=== PATIENT | male | born 1950 ===

== ENCOUNTER 2018-10-13 08:22 | Day surgery (SDC) | payer MEDICARE, MEDICAID ==
[2016-10-19 12:20] VITALS: BMI 24.2
[2018-10-13 09:11] VITALS: BP 120/56; PULSE 80; RESP 17; TEMP 97.1; O2SAT 100
--- NOTE | 2018-10-14 23:58 | CARD ---
APPROVED REPORT Date of service: 10/13/2018 EKG Measurement Heart [id number] <Conclusion> Normal sinus rhythm Normal ECG
== END 2018-10-13 12:45 | disposition home or self-care (01) ==
LOC: C.ENDO 08:22
PROVIDERS: ATTEND Internal Medicine Gastroenterology
DX: Z12.11 Encounter for screening for malignant neoplasm of colon (principal); Z53.8 Procedure and treatment not carried out for other reasons
CPT/HCPCS: 82948; G0121

== ENCOUNTER 2018-12-18 10:58 | Inpatient (IN) | payer MEDICARE, MEDICAID ==
[2018-12-18 10:58] VITALS: BMI 24.2
--- NOTE | 2018-12-18 11:34 | C.PDOC ---
History Of Present Illness 68 years old male with PMHx of CABG and CKD presents to ED for admission, referred by . Patient has right toe non-healing ulcer since 3 months ago, diagnosed as PVD. Patient is pending procedure and needs cardiac cath prior to vascular intervention. Denies chest pain, shortness of breath, nausea, vomiting, or dizziness. REFERRED BY DR FORRESTER FOR ADMISSION. R TOE NONHEALING ULCER X 3 MO, DX PVD PENDING PROCEDURE AND NEEDS CARDIAC CATH PRIOR TO VASC INTERVENTION. NO CP, SOB, NV, DIZZY. HO CABG, CKD. EXAM NEG Time Seen by Provider: 12/18/18 11:21 Chief Complaint (Nursing): Medical Clearance History Per: Patient History/Exam Limitations: no limitations Onset/Duration Of Symptoms: Hrs Current Symptoms Are (Timing): Still Present Recent travel outside of the [place]: No Past Medical History Reviewed: Historical Data, Nursing Documentation, Vital Signs Vital Signs: Last Vital Signs Temp 97.9 F 12/18/18 11:05 Pulse 82 12/18/18 11:05 Resp 18 12/18/18 11:05 BP 116/64 12/18/18 11:05 Pulse Ox 99 12/18/18 11:05 - Medical History PMH: Anemia, Diabetes, HTN, Hypercholesterolemia, Peripheral Edema Denies: Chronic Kidney Disease - [facility] Procedures ANGIOPLASTY OF OTHER NON-CORONARY VESSEL(S) (11/15/13) CONTRAST AORTOGRAM (11/15/13) CONTRAST ARTERIOGRAM-LEG (11/15/13) CONTRAST RENAL ARTERIOGR (11/15/13) INSEJ [id number] PERIPHERAL NON-CORONARY VES STENT(S) (05/30/13) INSERT INT PENILE PROSTH (09/12/13) INSERTION OF INFUSION DEV INTO SUP VENA CAVA, PERC APPROACH (09/12/16) INSERTION OF ONE VASCULAR STENT (05/30/13) PLAIN RADIOGRAPHY OF AORTA, BI LE ART USING OTH CONTRAST (09/04/16) PROCEDURE ON SINGLE VESSEL (11/15/13) Family History: States: Unknown Family Hx - Social History Hx Alcohol Use: No Hx Substance Use: No - Immunization History Hx Tetanus Toxoid Vaccination: Yes Hx Influenza Vaccination: Yes Hx Pneumococcal Vaccination: Yes Review Of Systems Except As Marked, All Systems Reviewed And Found Negative. Constitutional: Negative for: Fever, Chills Cardiovascular: Negative for: Chest Pain Respiratory: Negative for: Shortness of Breath Gastrointestinal: Negative for: Nausea, Vomiting Neurological: Negative for: Dizziness Physical Exam - Physical Exam Appears: Non-toxic, No Acute Distress Skin: Normal Color, Warm, Dry, No Rash Head: Atraumatic, Normacephalic Eye(s): bilateral: Normal Inspection, PERRL, EOMI Oral Mucosa: Moist Neck: Normal ROM, Supple Chest: Symmetrical, No Tenderness Cardiovascular: Rhythm Regular, No Murmur Respiratory: Normal Breath Sounds, No Rales, No Rhonchi, No Wheezing Gastrointestinal/Abdominal: Soft, No Tenderness Extremity: Normal ROM Extremity: Bilateral: Atraumatic, Normal Color And Temperature, Normal ROM Pulses: Left Radial: Normal, Right Radial: Normal Neurological/Psych: Oriented x3, Normal Speech Gait: Steady ED Course And Treatment - Laboratory Results Result Diagrams: 12/18/18 12:20 12/18/18 12:20 ECG: Interpreted By Me ECG Rhythm: Sinus Rhythm ECG Interpretation: Normal Rate From EC O2 Sat by Pulse Oximetry: 99 (RA) Pulse Ox Interpretation: Normal - Other Rad CXR X-Ray: Viewed By Me, Read By Radiologist Interpretation: Date of service: 12/18/2018. HISTORY: Pre Op. COMPARISON: Portable chest 09/04/2016. TECHNIQUE: Chest PA and lateral. FINDINGS: LUNGS: No active pulmonary disease. PLEURA: No significant pleural effusion identified. No pneumothorax apparent. CARDIOVASCULAR: No aortic atherosc lerotic calcification present. Stable mild cardiomegaly. Post CABG changes reiterated. No pulmonary vascular congestion. OSSEOUS STRUCTURES: No significant abnormalities. VISUALIZED UPPER ABDOMEN: Normal. OTHER FINDINGS: None. IMPRESSION: No interval acute cardiopulmonary disease appreciated. - Physician Consult Information Time Consulting Physician Contacted: :33 Physician Contacted: Yin Latif Medical Decision Making Medical Decision Making: Plan: * Blood bank * EKG * Blood work * CXR * Urinalysis Disposition Counseled Patient/Family Regarding: Studies Performed, Diagnosis - Disposition Disposition: HOSPITALIZED Disposition Time: :33 Condition: STABLE - POA Present On Arrival: Poor Glycemic Control, Pressure Ulcer - Clinical Impression Clinical Impression: Toe ulcer - Scribe Statement The provider has reviewed the documentation as recorded by the Galinaibe Юлия Cifuentes All medical record entries made by the Galinaibtasha were at my direction and personally dictated by me. I have reviewed the chart and agree that the record accurately reflects my personal performance of the history, physical exam, medical decision making, and the department course for this patient. I have also personally directed, reviewed, and agree with the discharge instructions and disposition.
[2018-12-18 12:26] LABS: BASO # 0.1 K/uL (0.0-0.2); BASO % 1.1 % (0.0-2.0); EOS # 0.4 K/uL (0.0-0.7); EOS % 7.4 % (0.0-4.0); HEMOGLOBIN 10.9 g/dL (12.0-18.0); LYMPH # 1.2 K/uL (1.0-4.3); LYMPH % 24.3 % (20.0-40.0); MEAN CELL VOLUME 81.1 fL (80.0-94.0); MEAN CORPUSCULAR HEMOGLOBIN 25.9 pg (27.0-31.0); MEAN PLATELET VOLUME 12.9 fL (7.2-11.7); MONO # 0.6 K/uL (0.0-0.8); MONO % 12.1 % (0.0-10.0); NEUT # 2.6 K/uL (1.8-7.0); NEUT % 55.1 % (50.0-75.0); RBC 4.18 Mil/uL (4.40-5.90); RED CELL DISTRIBUTION WIDTH 15.9 % (11.5-14.5); WHITE BLOOD COUNT 4.8 K/uL (4.8-10.8)
[2018-12-18 12:34] LABS: PROTHROMBIN TIME 10.9 SECONDS (9.7-12.2)
[2018-12-18 12:42] LABS: ALB/GLOB RATIO 1.2 (1.0-2.1); ALBUMIN 4.2 g/dL (3.5-5.0); AST/SGOT 17 U/L (17-59); BLOOD UREA NITROGEN 27 mg/dL (9-20); CALCIUM 8.6 mg/dl (8.6-10.4); GFR NON-AFRICAN AMERICAN 55
[2018-12-18 12:47] LABS: ALT/SGPT < 6 U/L (21-72)
--- NOTE | 2018-12-18 15:54 | CP.PCM.HP ---
History of Present Illness - History of Present Illness History of Present Illness: Chief complaint: Abnormal stress test, right leg ulcer History present illness: 65-year-old male with history of diabetes hypertension and hypercholesteremia peripheral vascular disease, right leg ischemia, status post intervention . Patient had a hospitalization in the past with the right leg ulcer. He came to see Dr. Perez office 3 days ago at that time patient had abnormal stress test, and I advised her to go to the emergency room for abnormal stress test and ongoing chest discomfort. He was also complaining of right leg ulcer which was which was having some minimal discharge. Patient denies any fever. He denies any nausea vomiting. Denies any shortness of breath. Making urine. But having increasing weakness and tiredness and fatigability noted Past medical history: Hypertension diabetes hypercholesteremia peripheral vascular disease right leg ischemia. Status post intervention. Allergy: No known drug allergy except to ciprofloxacin. 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 Currently nondrinker. Review of system noted from the chart. Complaining of no pain in the legs. Patient is able to walk On examination: Vital signs reviewed in Chest bilateral good air entry. Regular heart sound nontender abdomen and [employer] alert awake oriented 3 no functional neurological deficit. Patient has a palpable dopplerable pulses on the right lower extremity including dorsalis pedis and posterior tibial now. Patient is having significant changes in the great toe skin discoloration especially on the lateral aspect dark discoloration noted, no tenderness Abnormal stress test Labs otherwise nonspecific. Assessment/condition: 65-year-old male with history of peripheral vascular disease of hypertension diabetes hypercholesteremia CAD, status post a coronary it to bypass grafting. Recently patient underwent angiogram, vessels are patent. Patient had a peripheral vascular disease, status post intervention. Now having nonhealing ulcer involving the right great toe. Also peripheral vascular disease with underlying worsening arterial disease. Abnormal stress test. Patient will be monitored closely. Cardiology evaluation. Possible angiogram. IV fluid. Podiatry evaluation. May need vascular surgical evaluation and will follow the patient Present on Admission - Present on Admission Any Indicators Present on Admission: No History of DVT/PE: No History of Uncontrolled Diabetes: No Urinary Catheter: No Decubitus Ulcer Present: No Past Patient History - Past Medical History & Family History Past Medical History?: Yes - Past Social History Smoking Status: Former Smoker - CARDIAC Hx Hypercholesterolemia: Yes Hx Hypertension: Yes Hx Peripheral Edema: Yes - PULMONARY Hx Respiratory Disorders: No - NEUROLOGICAL Hx Neurological Disorder: Yes Hx Dizziness: Yes - HEENT Hx HEENT Problems: Yes Hx Cataracts: Yes (BILATERAL CATARACT EXTRACTION 2011) - RENAL Hx Chronic Kidney Disease: No - ENDOCRINE/METABOLIC Hx Endocrine Disorders: Yes Hx Diabetes Mellitus Type 2: Yes - HEMATOLOGICAL/ONCOLOGICAL Hx Anemia: Yes - INTEGUMENTARY Hx Dermatological Problems: Yes (ulcers right great toe) - MUSCULOSKELETAL/RHEUMATOLOGICAL Hx Musculoskeletal Disorders: Yes Hx Back Pain: Yes Hx Falls: No Hx Herniated Disk: Yes (lumbar cervical thoraic) - GASTROINTESTINAL Hx Gastrointestinal Disorders: No Other/Comment: abd hernias per pt - GENITOURINARY/GYNECOLOGICAL Hx Genitourinary Disorders: Yes Hx Prostate Problems: Yes - PSYCHIATRIC Hx Substance Use: No - SURGICAL HISTORY Hx Surgeries: Yes Hx Cataract Extraction: Yes (BILATERAL 2011) Hx Femoral-Popliteal Bypass Graft: Yes (LEFT LEG 2009) Hx Open Heart Surgery: Yes (6 years ago valve replacements) Other/Comment: Open heart surgery 6 yrs ago, OSTEOMYELITIS RIGHT TOE - ANESTHESIA Hx Anesthesia: Yes Hx Anesthesia Reactions: No Hx Malignant Hyperthermia: No Meds Allergies/Adverse Reactions: Allergies Allergy/AdvReac Type Severity Reaction Status Date / Time ciprofloxacin Allergy Severe Verified 09/12/16 07:26 Results - Vital Signs Recent Vital Signs: Last Vital Signs Temp 97.4 F L 12/18/18 13:45 Pulse 85 12/18/18 13:45 Resp 18 12/18/18 13:45 BP 126/64 12/18/18 13:45 Pulse Ox 96 12/18/18 13:45 - Labs Result Diagrams: 12/18/18 12:20 12/19/18 06:43 Labs: Laboratory Results - last 24 hr 12/18/18 12/18/18 12/18/18 12:20 12:20 12:20 WBC 4.8 RBC 4.18 L Hgb 10.9 L Hct 33.9 L MCV 81.1 MCH 25.9 L MCHC 32.0 L RDW 15.9 H Plt Count 135 MPV 12.9 H Neut % (Auto) 55.1 Lymph % (Auto) 24.3 [place] % (Auto) 12.1 H Eos % (Auto) 7.4 H Baso % (Auto) 1.1 Neut # (Auto) 2.6 Lymph # (Auto) 1.2 [place] # (Auto) 0.6 Eos # (Auto) 0.4 Baso # (Auto) 0.1 PT 10.9 INR 1.0 APTT 29 Sodium 137 Potassium 4.7 Chloride 104 Carbon Dioxide 24 Anion Gap 13 BUN 27 H Creatinine 1.3 Est GFR ( Amer) > 60 Est GFR (Non-Af Amer) 55 POC Glucose (mg/dL) Random Glucose 153 H D Calcium 8.6 Total Bilirubin 0.4 AST 17 ALT < 6 L D Alkaline Phosphatase 72 Total Protein 7.5 Albumin 4.2 Globulin 3.4 Albumin/Globulin Ratio 1.2 Blood Type Antibody Screen 12/18/18 12/18/18 12:20 14:39 WBC RBC Hgb Hct MCV MCH MCHC RDW Plt Count MPV Neut % (Auto) Lymph % (Auto) [place] % (Auto) Eos % (Auto) Baso % (Auto) Neut # (Auto) Lymph # (Auto) [place] # (Auto) Eos # (Auto) Baso # (Auto) PT INR APTT Sodium Potassium Chloride Carbon Dioxide Anion Gap BUN Creatinine Est GFR ( Amer) Est GFR (Non-Af Amer) POC Glucose (mg/dL) 128 H Random Glucose Calcium Total Bilirubin AST ALT Alkaline Phosphatase Total Protein Albumin Globulin Albumin/Globulin Ratio Blood Type O POSITIVE Antibody Screen Negative
--- NOTE | 2018-12-18 16:36 | RAD ---
Date of service: 12/18/2018 HISTORY: Pre Op COMPARISON: Portable chest 09/04/2016. TECHNIQUE: Chest PA and lateral FINDINGS: LUNGS: No active pulmonary disease. PLEURA: No significant pleural effusion identified. No pneumothorax apparent. CARDIOVASCULAR: No aortic atherosclerotic calcification present. Stable mild cardiomegaly. Post CABG changes reiterated. No pulmonary vascular congestion. OSSEOUS STRUCTURES: No significant abnormalities. VISUALIZED UPPER ABDOMEN: Normal. OTHER FINDINGS: None. IMPRESSION: No interval acute cardiopulmonary disease appreciated.
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
[2018-12-18] MEDS ORDERED: Cilostazol 50 mg Tab UD PO SCH (18:00)
[2018-12-18] MEDS: Sodium Chloride 0.9% 1,000 ML IV SCH (19:59)
[2018-12-18] MEDS: Cilostazol 100 mg Tab UD PO SCH (21:38)
[2018-12-18 23:41] LABS: URINE BILIRUBIN NEGATIVE (NEGATIVE); URINE BLOOD NEGATIVE (NEGATIVE); URINE CLARITY Clear (Clear); URINE COLOR Colorless (YELLOW); URINE GLUCOSE (UA) NORMAL (Normal); URINE LEUKOCYTE ESTERASE NEG Leu/uL (Negative); URINE PROTEIN NEGATIVE (NEGATIVE); URINE UROBILINOGEN NORMAL mg/dL (0.2-1.0)
[2018-12-19] MEDS: Sodium Chloride 0.9% 1,000 ML IV SCH (06:57)
[2018-12-19 07:09] LABS: BLOOD UREA NITROGEN 22 mg/dL (9-20); CALCIUM 8.6 mg/dl (8.6-10.4); GFR NON-AFRICAN AMERICAN > 60
[2018-12-19] MEDS ORDERED: Midazolam 2 MG/2 ML VIAL ONE (09:07)
[2018-12-19] MEDS ORDERED: Iodixanol 320 MG/ML 100 ML BOTTLE IV ONE (09:08)
--- NOTE | 2018-12-19 09:52 | CP.PCM.PN ---
Subjective - Date & Time of Evaluation Date of Evaluation: 12/19/18 Time of Evaluation: 09:45 - Subjective Subjective: Patient s/p Cardiac cath 1. L Main: Patemt 2. LAD: Ostial 90% 3. L Cx: Ostial 99%, Distal 100% 4. RCA: Dominant, Proximal 60% 5. DEE to LAD/Diag patent 6. EF: 50%, EDP 12, No A/P cardiac cath results as above No intervention needed Medical management OOB to Chair after 4pm today Resume diet Objective - Vital Signs/Intake and Output Vital Signs (last 24 hours): Temp Pulse Resp BP Pulse Ox 97.9 F 83 16 154/78 H 98 12/19/18 00:50 12/19/18 00:50 12/19/18 00:50 12/19/18 00:50 12/19/18 02:35 Intake and Output: 12/19/18 12/19/18 06:59 18:59 Intake Total 1440 Output Total 700 Balance 740 - Medications Medications: Current Medications Aspirin (Ecotrin) 81 mg PO DAILY [facility] Carvedilol (Coreg) 6.25 mg PO BID [facility] Last Admin: 12/18/18 17:52 Dose: 6.25 mg Cilostazol (Pletal) 100 mg PO BID [facility] Last Admin: 12/18/18 21:38 Dose: 100 mg Clopidogrel Bisulfate (Plavix) 75 mg PO DAILY [facility] Famotidine (Pepcid) 20 mg PO BID [facility] Last Admin: 12/18/18 17:50 Dose: 20 mg Finasteride (Proscar) 5 mg PO DAILY [facility] Heparin Sodium (Porcine) (Heparin) 5,000 units SC Q8 [facility] Last Admin: 12/19/18 06:00 Dose: Not Given Sodium Chloride (Sodium Chloride 0.9%) 1,000 mls @ 70 mls/hr IV .[id number] [facility] Last Admin: 12/19/18 06:57 Dose: 70 mls/hr Mupirocin (Bactroban Ointment) 1 gm TOP DAILY [facility] Rosuvastatin Calcium (Crestor) 10 mg PO HS [facility] Last Admin: 12/18/18 21:39 Dose: 10 mg Sitagliptin Phosphate (Januvia) 50 mg PO DAILY [facility] - Labs Labs: 12/18/18 12:20 02/11/19 06:43 PT 10.9 SECONDS (9.7-12.2) 12/18/18 12:20 INR 1.0 12/18/18 12:20 APTT 29 SECONDS (21-34) 12/18/18 12:20
[2018-12-19] MEDS ORDERED: Pantoprazole 20 mg EC Tab PO SCH (10:00)
[2018-12-19] MEDS: Cilostazol 100 mg Tab UD PO SCH ×2 (10:34→17:19)
--- NOTE | 2018-12-19 12:54 | RAD ---
Date of service: 12/18/2018 PROCEDURE: Right Foot Radiographs. HISTORY: R hallux ulcer with possible underlying OM COMPARISON: 11/25/2016 FINDINGS: BONES: Technically limited examination. Possible osseous erosion along the distal medial aspect of the 1st distal phalanx. No definite periosteal reaction identified. Previously identified transverse lytic band of the 1st distal phalanx in 2017 is no longer evident. Presumably secondary to interval healing. JOINTS: Normal. SOFT TISSUES: Vascular calcifications are noted. OTHER FINDINGS: None. IMPRESSION: Possible osseous erosion distal medial aspect 1st distal phalanx.
--- NOTE | 2018-12-19 14:20 | CARD ---
APPROVED REPORT Date of service: 12/18/2018 EKG Measurement Heart [id number] ID [id number] <Conclusion> Normal sinus rhythm Inferior infarct, age undetermined Abnormal ECG
[2018-12-19] MEDS ORDERED: Acetaminophen-Codeine 300/30 mg Tab PO PRN (16:52)
--- NOTE | 2018-12-19 19:50 | CP.PCM.PN ---
Subjective - Date & Time of Evaluation Date of Evaluation: 12/19/18 Time of Evaluation: 19:54 - Subjective Subjective: Patient today had coronary angiogram, patent stents noted. Patient is currently having no chest pain or shortness of breath Right great toe nonhealing ulcer noted. But there is no discharge or any small noted. Vital signs stable. Chest good air entry regular heart sounds nontender abdomen no pedal edema We will continue to monitor. 68-year-old male with a history of diabetes hypertension renal insufficiency history of peripheral vascular disease and status post intervention. Patient now admitted with abnormal stress test, but the stress test, angiogram of the coronaries were negative Arterial Doppler of the legs. Vascular surgical evaluation may be needed We will follow the patient Objective - Vital Signs/Intake and Output Vital Signs (last 24 hours): Temp Pulse Resp BP Pulse Ox 97.8 F 77 20 124/68 96 12/19/18 16:02 12/19/18 16:02 12/19/18 16:02 12/19/18 16:02 12/19/18 16:02 Intake and Output: 12/19/18 12/20/18 18:59 06:59 Intake Total 100 Balance 100 - Medications Medications: Current Medications Acetaminophen/Codeine Phosphate (Tylenol/Codeine 300 Mg/30 Mg) 1 ea PO Q6 PRN PRN Reason: Pain, moderate (4-7) Last Admin: 12/19/18 17:19 Dose: 1 ea Aspirin (Ecotrin) 81 mg PO DAILY [facility] Last Admin: 12/19/18 10:33 Dose: Not Given Carvedilol (Coreg) 6.25 mg PO BID [facility] Last Admin: 12/19/18 17:19 Dose: 6.25 mg Cilostazol (Pletal) 100 mg PO BID [facility] Last Admin: 12/19/18 17:19 Dose: 100 mg Clopidogrel Bisulfate (Plavix) 75 mg PO DAILY [facility] Last Admin: 12/19/18 10:34 Dose: Not Given Famotidine (Pepcid) 20 mg PO BID [facility] Last Admin: 12/19/18 17:25 Dose: 20 mg Finasteride (Proscar) 5 mg PO DAILY [facility] Last Admin: 12/19/18 10:34 Dose: Not Given Heparin Sodium (Porcine) (Heparin) 5,000 units SC Q8 [facility] Last Admin: 12/19/18 13:18 Dose: Not Given Sodium Chloride (Sodium Chloride 0.9%) 1,000 mls @ 70 mls/hr IV .[id number] [facility] Last Admin: 12/19/18 06:57 Dose: 70 mls/hr Mupirocin (Bactroban Ointment) 1 gm TOP DAILY [facility] Last Admin: 12/19/18 13:13 Dose: Not Given Rosuvastatin Calcium (Crestor) 10 mg PO HS [facility] Last Admin: 12/18/18 21:39 Dose: 10 mg Sitagliptin Phosphate (Januvia) 50 mg PO DAILY [facility] Last Admin: 12/19/18 10:34 Dose: Not Given - Labs Labs: 12/18/18 12:20 12/19/18 06:43 PT 10.9 SECONDS (9.7-12.2) 12/18/18 12:20 INR 1.0 12/18/18 12:20 APTT 29 SECONDS (21-34) 12/18/18 12:20
[2018-12-20] MEDS: Sodium Chloride 0.9% 1,000 ML IV SCH (06:31)
--- NOTE | 2018-12-20 07:44 | CP.PCM.CON ---
History of Present Illness - History of Present Illness History of Present Illness: Vascular Surgery: Dr. Sharma Pt is a 68M with PMHx of DM, HTN, PVD, & cataracts who presents to with complaints of non-healing R hallux ulcer. Of note pt has had a Left Fem-Pop bypass about 8 yrs ago and has had this current ulcer on the R for the last 2 months. 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 Pt also admits to being treated with a course of IV ABX for an extended period of time 8 months ago for this issue. Pt denies any pain secondary to the ulcer but admits to numbness and tingling. Denies fevers/chills, chest pain or SOB. Vascular surgery consult called to evaluate for PVD. PMHx: as listed above PSHx: left fem-pop bypass, CABG, cataract surgery SocialHx: 20+ yr smoking hx (quit 20yrs ago), denies EtOH/drugs All: Cipro Review of Systems - Review of Systems All systems: reviewed and no additional remarkable complaints except (as per HPI) Past Patient History - Past Medical History & Family History Past Medical History?: Yes - Past Social History Smoking Status: Former Smoker - CARDIAC Hx Hypercholesterolemia: Yes Hx Hypertension: Yes Hx Peripheral Edema: Yes - PULMONARY Hx Respiratory Disorders: No - NEUROLOGICAL Hx Neurological Disorder: Yes Hx Dizziness: Yes - HEENT Hx HEENT Problems: Yes Hx Cataracts: Yes (BILATERAL CATARACT EXTRACTION 2011) - RENAL Hx Chronic Kidney Disease: No - ENDOCRINE/METABOLIC Hx Endocrine Disorders: Yes Hx Diabetes Mellitus Type 2: Yes - HEMATOLOGICAL/ONCOLOGICAL Hx Anemia: Yes - INTEGUMENTARY Hx Dermatological Problems: Yes (ulcers right great toe) - MUSCULOSKELETAL/RHEUMATOLOGICAL Hx Musculoskeletal Disorders: Yes Hx Back Pain: Yes Hx Falls: No Hx Herniated Disk: Yes (lumbar cervical thoraic) - GASTROINTESTINAL Hx Gastrointestinal Disorders: No Other/Comment: abd hernias per pt - GENITOURINARY/GYNECOLOGICAL Hx Genitourinary Disorders: Yes Hx Prostate Problems: Yes - PSYCHIATRIC Hx Substance Use: No - SURGICAL HISTORY Hx Surgeries: Yes Hx Cataract Extraction: Yes (BILATERAL 2011) Hx Femoral-Popliteal Bypass Graft: Yes (LEFT LEG 2009) Hx Open Heart Surgery: Yes (6 years ago valve replacements) Other/Comment: Open heart surgery 6 yrs ago, OSTEOMYELITIS RIGHT TOE - ANESTHESIA Hx Anesthesia: Yes Hx Anesthesia Reactions: No Hx Malignant Hyperthermia: No Meds Allergies/Adverse Reactions: Allergies Allergy/AdvReac Type Severity Reaction Status Date / Time ciprofloxacin Allergy Severe Verified 09/12/16 07:26 - Medications Medications: Current Medications Acetaminophen/Codeine Phosphate (Tylenol/Codeine 300 Mg/30 Mg) 1 ea PO Q6 PRN PRN Reason: Pain, moderate (4-7) Last Admin: 12/19/18 17:19 Dose: 1 ea Aspirin (Ecotrin) 81 mg PO DAILY [facility] Last Admin: 12/19/18 10:33 Dose: Not Given Carvedilol (Coreg) 6.25 mg PO BID [facility] Last Admin: 12/19/18 17:19 Dose: 6.25 mg Cilostazol (Pletal) 100 mg PO BID [facility] Last Admin: 12/19/18 17:19 Dose: 100 mg Clopidogrel Bisulfate (Plavix) 75 mg PO DAILY [facility] Last Admin: 12/19/18 10:34 Dose: Not Given Famotidine (Pepcid) 20 mg PO BID [facility] Last Admin: 12/19/18 17:25 Dose: 20 mg Finasteride (Proscar) 5 mg PO DAILY [facility] Last Admin: 12/19/18 10:34 Dose: Not Given Heparin Sodium (Porcine) (Heparin) 5,000 units SC Q8 [facility] Last Admin: 12/20/18 06:31 Dose: 5,000 units Sodium Chloride (Sodium Chloride 0.9%) 1,000 mls @ 70 mls/hr IV .[id number] [facility] Last Admin: 12/20/18 06:31 Dose: 70 mls/hr Mupirocin (Bactroban Ointment) 1 gm TOP DAILY [facility] Last Admin: 12/19/18 13:13 Dose: Not Given Rosuvastatin Calcium (Crestor) 10 mg PO HS [facility] Last Admin: 12/19/18 21:49 Dose: 10 mg Sitagliptin Phosphate (Januvia) 50 mg PO DAILY [facility] Last Admin: 12/19/18 10:34 Dose: Not Given Physical Exam - Constitutional Appears: Well, No Acute Distress - Head Exam Head Exam: ATRAUMATIC, NORMOCEPHALIC - Eye Exam Eye Exam: Normal appearance - ENT Exam ENT Exam: Mucous Membranes Moist - Respiratory Exam Respiratory Exam: NORMAL BREATHING PATTERN - Cardiovascular Exam Cardiovascular Exam: RRR - GI/Abdominal Exam GI & Abdominal Exam: Soft. absent: Tenderness - Extremities Exam Additional comments: RLE: palpable DP/PT, warm with dressing over R hallux ulcer, no drainage noted LLE: dopplerable signals in DP/PT, warm - Neurological Exam Neurological exam: Alert, Oriented x3 - Skin Skin Exam: Dry, Warm Results - Vital Signs Recent Vital Signs: Last Vital Signs Temp 97.9 F 12/20/18 00:00 Pulse 83 12/20/18 00:00 Resp 20 12/20/18 00:00 BP 156/84 H 12/20/18 00:00 Pulse Ox 97 12/20/18 00:00 - Labs Result Diagrams: 12/18/18 12:20 12/19/18 06:43 Labs: Laboratory Results - last 24 hr 12/19/18 12/19/18 12/19/18 11:32 12:29 16:52 POC Glucose (mg/dL) 143 H 217 H 178 H 12/19/18 12/20/18 21:55 07:11 POC Glucose (mg/dL) 157 H 185 H Assessment & Plan - Assessment and Plan (Free Text) Assessment: 68M with PVD and non-healing R hallux ulcer Plan: - f/u ARIC/PVRs - f/u CTA of b/l LEs - wound management per podiatry - d/w Dr. Edith Hsu
[2018-12-20] MEDS ORDERED: Iodixanol 320 MG/ML 200 ML BOTTLE IV ONE (09:21)
[2018-12-20] MEDS: Cilostazol 100 mg Tab UD PO SCH ×2 (10:18→17:45)
--- NOTE | 2018-12-20 11:54 | CP.PCM.PN ---
Subjective - Date & Time of Evaluation Date of Evaluation: 12/20/18 Time of Evaluation: 11:47 - Subjective Subjective: Podiatry progress note for attending Dr. Cox: 68 y/o M patient seen and evaluated at the bedside for right toe non-healing ulcer. Patient was setting in his bed comfortably and NAD. Patient is AAOX3. Patient states that He did his cardiac Cath yesterday. Patient denies any pain i his feet. He denies any overnight chest pain, shortness of breath, nausea, vomiting, or dizziness. Denies any other pedal complaint at this time. Objective - Vital Signs/Intake and Output Vital Signs (last 24 hours): Temp Pulse Resp BP Pulse Ox 97.7 F 77 18 143/71 97 12/20/18 07:59 12/20/18 07:59 12/20/18 07:59 12/20/18 07:59 12/20/18 07:59 Intake and Output: 12/20/18 12/20/18 06:59 18:59 Intake Total 900 560 Output Total 800 Balance 100 560 - Medications Medications: Current Medications Acetaminophen/Codeine Phosphate (Tylenol/Codeine 300 Mg/30 Mg) 1 ea PO Q6 PRN PRN Reason: Pain, moderate (4-7) Last Admin: 12/19/18 17:19 Dose: 1 ea Aspirin (Ecotrin) 81 mg PO DAILY [facility] Last Admin: 12/20/18 10:18 Dose: 81 mg Carvedilol (Coreg) 6.25 mg PO BID [facility] Last Admin: 12/20/18 10:18 Dose: 6.25 mg Cilostazol (Pletal) 100 mg PO BID [facility] Last Admin: 12/20/18 10:18 Dose: 100 mg Clopidogrel Bisulfate (Plavix) 75 mg PO DAILY [facility] Last Admin: 12/20/18 10:18 Dose: 75 mg Famotidine (Pepcid) 20 mg PO BID [facility] Last Admin: 12/20/18 10:18 Dose: 20 mg Finasteride (Proscar) 5 mg PO DAILY [facility] Last Admin: 12/20/18 10:18 Dose: 5 mg Heparin Sodium (Porcine) (Heparin) 5,000 units SC Q8 [facility] Last Admin: 12/20/18 06:31 Dose: 5,000 units Sodium Chloride (Sodium Chloride 0.9%) 1,000 mls @ 70 mls/hr IV .[id number] [facility] Last Admin: 12/20/18 06:31 Dose: 70 mls/hr Mupirocin (Bactroban Ointment) 1 gm TOP DAILY [facility] Last Admin: 12/20/18 10:17 Dose: 1 applic Rosuvastatin Calcium (Crestor) 10 mg PO HS [facility] Last Admin: 12/19/18 21:49 Dose: 10 mg Sitagliptin Phosphate (Januvia) 50 mg PO DAILY [facility] Last Admin: 12/20/18 10:18 Dose: 50 mg - Labs Labs: 12/18/18 12:20 12/19/18 06:43 PT 10.9 SECONDS (9.7-12.2) 12/18/18 12:20 INR 1.0 12/18/18 12:20 APTT 29 SECONDS (21-34) 12/18/18 12:20 - Constitutional Appears: Well, Non-toxic, No Acute Distress - Head Exam Head Exam: ATRAUMATIC, NORMOCEPHALIC - Extremities Exam Additional comments: B/L LE focused exam: Vasc: DP/PT 2/4 on the right side, DP not palpable in the left side while PT is 1/4 on the left side, Cap refill < 3 sec to all digits, Temp gradient warm to cool b/l from proximal to distal. Moderate non pitting edema noted to the R hallux with mild erythema. Neuro: Gross sensation intact and protective sensations diminished. Derm: An open ulcer at the measures 0.3cm X 0.2cm X 0.1cm noted on the medial side of the R hallux. No malodor, no drainage, Hyperkeratotic borders, No probe to bone, No tracking or undermining. Lateral to the ulcer there is another ulcer measuring about 0.4X0.2X0.1 with No malodor, No drainage, No probe to bone, No tracking or undermining. Moderate non pitting edema noted to the R hallux with mild erythema. MSK: Muscle power intact 5/5 to all groups. No pain on palpating the periulcerative area. - Neurological Exam Neurological Exam: Alert, Awake, Oriented x3 - Psychiatric Exam Psychiatric exam: Normal Affect, Normal Mood Assessment and Plan - Assessment and Plan (Free Text) Assessment: 68 y/o MF patient seen and evaluated in the bedside for non healing ulcer of the right big toe. Plan: Patient seen and evaluated in the ED. plan discussed with Dr. Cox. Charts and vitals reviewed; Afebrile, no leukocytosis Wound culture: Gram negative rods, Gram positive cocci R foot x-ray: No signs of acute OM or any soft tissue emphysema noted rterial duplex LE; Pending report. ESR: 30, CRP: 8. Wound dressed using betadine, xeroform and DSD. Bactroban ointment to be added to the dressing starting tomorrow. R surgical shoe to be used by the patient when ambulating Might consider vascular intervention to the LE. Patient expressed verbal understanding. Podiatry will follow up the patient while in the hospital
--- NOTE | 2018-12-20 12:13 | CT ---
Date of service: 12/20/2018 PROCEDURE: CT Angiography Abdomen, Pelvis and Lower Extremity with Contrast HISTORY: PVD, R hallux ulcer COMPARISON: None available. TECHNIQUE: Technique: CT angiography of the abdomen, pelvis and bilateral lower extremities performed in the arterial phase of enhancement. Coronal and sagittal reformats, and well as rotating MIP images of the vessels generated at the workstation. Intravenous contrast dose: 150 milliliters Visipaque 320 Radiation dose: Total exam DLP = 1437.61 mGy-cm. This CT exam was performed using one or more of the following dose reduction techniques: Automated exposure control, adjustment of the mA and/or kV according to patient size, and/or use of iterative reconstruction technique. FINDINGS: CT ANGIOGRAPHY: ABDOMINAL AORTA:: Mild to severe calcific plaque in the abdominal aorta. There is diffuse narrowing of the infrarenal aorta. Proximal to the bifurcation the aortic lumen measures 9 millimeters. MAJOR AORTIC BRANCHES: Celiac [place]: Unremarkable. Superior mesenteric artery: Unremarkable. Inferior mesenteric artery: Unremarkable. Renal arteries: There are accessory right and left renal arteries. PELVIC ARTERIES: Right Common Iliac: Diffusely narrowed common iliac artery measuring 6 millimeter with extensive calcific plaque. Right External Iliac: Diffusely narrowed external iliac artery with a luminal diameter of 4.5 millimeters. Right Internal Iliac: Moderate calcific plaque mildly stenotic. Left Common Iliac: Diffusely narrowed common iliac artery measuring 6 millimeters with extensive calcific plaque. Left External Iliac: Loosely stenotic measuring 4.5 millimeter. Left Internal Iliac: Unremarkable. RIGHT LOWER EXTREMITY ARTERIES: Right Common Femoral: Mild calcific plaque with no significant stenosis. Right Superficial Femoral: Moderate calcific plaque throughout the SFA with multiple areas of moderate stenosis in the mid and distal segments. Right Profunda Femoris: Unremarkable. Right Popliteal:Unremarkable. Right Anterior Tibial: Calcific plaque which limits evaluation. Mild stenosis in the mid and distal segments. Right Tibioperoneal Trunk: Unremarkable. Right Posterior Tibial: Calcific plaque which limits evaluation. Possible hiiv-pi-plwafrnt stenosis of the mid and distal segments. Right Peroneal: Unremarkable. Right dorsalis pedis : Unremarkable. LEFT LOWER EXTREMITY ARTERIES: Left Common Femoral: Mild stenosis. Left Superficial Femoral: Occluded SFA. Common femoral to popliteal artery bypass graft is patent. Left Profunda Femoris: There is mild to severe calcific plaque in the muscular branches of the profunda femoral artery. Left Popliteal: Unremarkable. Left Anterior Tibial: Moderate calcific plaque limits evaluation. Possible moderate to severe stenosis of the mid and distal segments. Left Tibioperoneal Trunk: Unremarkable. Left Posterior Tibial: Moderate calcific plaque limits evaluation. Occluded in the mid and distal segments. Left Peroneal: Unremarkable. Left Dorsalis pedis: Unremarkable. NON-ANGIOGRAPHIC ASPECT OF THE EXAM: LOWER THORAX: Unremarkable. LIVER: Unremarkable. No gross lesion or ductal dilatation. GALLBLADDER AND BILE DUCTS: Unremarkable. PANCREAS: Unremarkable. No gross lesion or ductal dilatation. SPLEEN: Unremarkable. ADRENALS: Unremarkable. No mass. KIDNEYS AND URETERS: Unremarkable. No hydronephrosis. No solid mass. STOMACH AND BOWEL: Unremarkable. No obstruction. No gross mural thickening. APPENDIX: Normal appendix. PERITONEUM: Unremarkable. No free fluid. No free air. LYMPH NODES: Unremarkable. No enlarged lymph nodes. BLADDER: Unremarkable. REPRODUCTIVE: Unremarkable. BONES: No acute fracture. OTHER FINDINGS: None. IMPRESSION: CT ANGIOGRAM ABDOMEN/PELVIS: 1. There is moderate calcific plaque throughout the abdominal abdominal aorta and pelvic arteries. There is luminal narrowing of the infrarenal aorta measuring 9 millimeters proximal to the bifurcation. 2. There is diffuse stenosis of both common iliac arteries and external iliac arteries. The common iliac artery has maximum luminal diameter of 6 millimeters. There is circumferential calcific plaque throughout the common iliac arteries. RIGHT LOWER EXTREMITY CT ANGIOGRAM: 1. The common femoral artery and profunda femoral artery unremarkable. 2. There is diffuse calcific plaque throughout the SFA with multiple areas of moderate stenosis in the mid and distal segments. 3. Popliteal artery is unremarkable. 4. Runoff shows moderate calcific plaque in the anterior tibial artery and posterior tibial artery which limits evaluation. Mild stenosis in the distal anterior tibial artery and lnhy-mm-xrzjrqzj stenosis in the mid and distal posterior tibial artery. The peroneal artery is unremarkable. LEFT LOWER EXTREMITY CT ANGIOGRAM: 1. There is mild stenosis of the common femoral artery. The profunda femoral artery has calcification of the muscular branches. 2. The SFA is occluded. 3. Common femoral artery popliteal bypass graft is patent. 4. Popliteal artery is unremarkable. 5. Runoff shows a patent peroneal artery. The anterior tibial artery has moderate calcific plaque and is mildly stenotic in mid and distal segments. The posterior tibial artery has moderate calcific plaque and has multiple areas of mild to severe stenosis including a short segment where the arteries possibly occluded in the mid segment.
--- NOTE | 2018-12-20 12:13 | VASCLAB ---
Date of service: 12/20/2018 STUDY DESCRIPTION: Lower Extremity Arterial Exam (PVR). HISTORY: Non-healing ulcer PRIORS: None. TECHNIQUE: Pulse volume recording waveforms and segmental pressures of bilateral lower extremities at multiple levels were obtained. Ankle Brachial Indices (ABIs) were calculated. Report prepared by FAISAL Wheeler RIGHT LOWER EXTREMITY: * Brachial artery: Unable to obtain * High thigh: PVR waveform - Pulsatile * Low thigh: PVR waveform: Pulsatile * Calf: PVR waveform: Pulsatile * Posterior tibial Artery: Pressure - 151 mmHg: Ratio - 0.94 PVR waveform: Reduced * Dorsalis pedis Artery: Pressure - 163 mmHg: Ratio - 1.01 PVR waveform: Reduced Ankle brachial index (ARIC): 1.01 LEFT LOWER EXTREMITY: * Brachial artery: Pressure - 161 mmHg. * High thigh: PVR waveform - Pulsatile * Low thigh: PVR waveform: Pulsatile * Calf: PVR waveform: Reduced * Posterior tibial Artery: Pressure - 188 mmHg: Ratio - 1.17 PVR waveform: Reduced * Dorsalis pedis Artery: Pressure - 175 mmHg: Ratio - 1.09 PVR waveform: Reduced Ankle brachial index (ARIC): 1.17 OTHER FINDINGS: None. IMPRESSION: Right: Normal ankle brachial index of 1.01 however, arterial PVR waveforms suggest moderately decreased arterial perfusion involving the tibial and pedal arteries. Left: Normal ankle brachial index of 1.17 however, arterial PVR waveforms suggest moderately decreased arterial perfusion beginning at the superficial femoral artery level.
--- NOTE | 2018-12-20 13:26 | CARD ---
APPROVED REPORT Date of service: 12/19/2018 EXAM: Two-dimensional and M-mode echocardiogram with Doppler and color Doppler. Surgery/Intervention CABG: RISK FACTORS Hypertension Diabetes 2D DIMENSIONS IVSd1.1 (0.7-1.1cm)LVDd3.6 (3.9-5.9cm) PWd1.0 (0.7-1.1cm)LA Wenrzd50 (18-58mL) LVDs2.6 (2.5-4.0cm)FS (%) 28.4 % LVEF (%)55.7 (>50%)LVEF (Sung's)61.17 % M-Mode DIMENSIONS Left Atrium (MM)3.49 (2.5-4.0cm)IVSd0.84 (0.7-1.1cm) Aortic Root3.79 (2.2-3.7cm)LVDd4.82 (4.0-5.6cm) Aortic Cusp Exc.2.44 (1.5-2.0cm)PWd0.88 (0.7-1.1cm) FS (%) 29 %LVDs3.45 (2.0-3.8cm) LVEF (%)55 (>50%) Mitral Valve MV E Jicsvbom74.9cm/sMV A Jubwavnn04.3cm/sE/A ratio0.6 TDI Lateral E' Peak V8.16cm/sMedial E' Peak V4.80cm/sE/Lateral E'5.4 E/Medial E'9.1 LEFT VENTRICLE The left ventricle is normal size. There is normal left ventricular wall thickness. The Ejection Fraction is 55-60%. There is normal LV segmental wall motion. Transmitral Doppler flow pattern is Grade I-abnormal relaxation pattern. RIGHT VENTRICLE The right ventricle is normal size. RVSystolic function appears mildly reduced. ATRIA The left atrium size is normal. The right atrium size is normal. The interatrial septum is intact with no evidence for an atrial septal defect. AORTIC VALVE The aortic valve is normal in structure. No aortic regurgitation is present. MITRAL VALVE The mitral valve is normal in structure. There is no mitral valve regurgitation noted. TRICUSPID VALVE The tricuspid valve is normal in structure. There is no tricuspid valve regurgitation noted. PULMONIC VALVE The pulmonary valve is normal in structure. There is no pulmonic valvular regurgitation. GREAT VESSELS The aortic root is normal in size. The IVC is normal in size and collapses >50% with inspiration. PERICARDIAL EFFUSION There is no pericardial effusion. <Conclusion> The left ventricle is normal size. There is normal left ventricular wall thickness. The Ejection Fraction is 55-60%. Transmitral Doppler flow pattern is Grade I-abnormal relaxation pattern. RVSystolic function appears mildly reduced. The aortic root is normal in size. There is no pericardial effusion. normal valves & function.
[2018-12-20 15:20] LABS: BASO % 0.9 % (0.0-2.0); EOS # 0.3 K/uL (0.0-0.7); EOS % 6.4 % (0.0-4.0); HEMOGLOBIN 11.3 g/dL (12.0-18.0); LYMPH # 1.1 K/uL (1.0-4.3); LYMPH % 21.5 % (20.0-40.0); MEAN CELL VOLUME 80.6 fL (80.0-94.0); MEAN CORPUSCULAR HEMOGLOBIN 25.9 pg (27.0-31.0); MEAN CORPUSCULAR HGB CONC 32.1 g/dL (33.0-37.0); MEAN PLATELET VOLUME 12.2 fL (7.2-11.7); MONO # 0.5 K/uL (0.0-0.8); MONO % 10.2 % (0.0-10.0); NEUT # 3.2 K/uL (1.8-7.0); RBC 4.34 Mil/uL (4.40-5.90); WHITE BLOOD COUNT 5.2 K/uL (4.8-10.8)
[2018-12-20 15:49] LABS: ALB/GLOB RATIO 1.2 (1.0-2.1); CALCIUM 8.5 mg/dl (8.6-10.4)
[2018-12-20 16:46] VITALS: RESP 20
--- NOTE | 2018-12-20 18:41 | CP.PCM.PN ---
Subjective - Date & Time of Evaluation Date of Evaluation: 12/20/18 Time of Evaluation: 18:39 - Subjective Subjective: Patient is currently sleeping. He is comfortable otherwise. He has no chest pain. Denies any leg swelling. No leg pain. Right great toe ulcer noted On examination: Vital signs stable. Chest good air entry Regular heart sounds Nontender abdomen no pedal edema Patient has a dressing to right great toe ulcer noted. The ulcers showing positive for gram-negative bacteria. 68-year-old male with a history of CAD, Stent. Peripheral vascular disease. Left leg bypass. Peripheral vascular disease associated with the leg ulcers. Currently on multiple antiplatelets and statin. Patient received 2 times a contrast. We will monitor the renal function before discharge. Objective - Vital Signs/Intake and Output Vital Signs (last 24 hours): Temp Pulse Resp BP Pulse Ox 98.0 F 78 20 94/52 L 96 12/20/18 16:45 12/20/18 16:45 12/20/18 16:45 12/20/18 16:45 12/20/18 16:45 Intake and Output: 12/20/18 12/20/18 06:59 18:59 Intake Total 900 1320 Output Total 800 2 Balance 100 1318 - Medications Medications: Current Medications Acetaminophen/Codeine Phosphate (Tylenol/Codeine 300 Mg/30 Mg) 1 ea PO Q6 PRN PRN Reason: Pain, moderate (4-7) Last Admin: 12/19/18 17:19 Dose: 1 ea Aspirin (Ecotrin) 81 mg PO DAILY [facility] Last Admin: 12/20/18 10:18 Dose: 81 mg Carvedilol (Coreg) 6.25 mg PO BID [facility] Last Admin: 12/20/18 17:45 Dose: 6.25 mg Cilostazol (Pletal) 100 mg PO BID [facility] Last Admin: 12/20/18 17:45 Dose: 100 mg Clopidogrel Bisulfate (Plavix) 75 mg PO DAILY [facility] Last Admin: 12/20/18 10:18 Dose: 75 mg Famotidine (Pepcid) 20 mg PO BID [facility] Last Admin: 12/20/18 17:45 Dose: 20 mg Finasteride (Proscar) 5 mg PO DAILY [facility] Last Admin: 12/20/18 10:18 Dose: 5 mg Heparin Sodium (Porcine) (Heparin) 5,000 units SC Q8 [facility] Last Admin: 12/20/18 13:39 Dose: 5,000 units Sodium Chloride (Sodium Chloride 0.9%) 1,000 mls @ 70 mls/hr IV .[id number] [facility] Last Admin: 12/20/18 06:31 Dose: 70 mls/hr Mupirocin (Bactroban Ointment) 1 gm TOP DAILY [facility] Last Admin: 12/20/18 10:17 Dose: 1 applic Rosuvastatin Calcium (Crestor) 10 mg PO HS [facility] Last Admin: 12/19/18 21:49 Dose: 10 mg Sitagliptin Phosphate (Januvia) 50 mg PO DAILY [facility] Last Admin: 12/20/18 10:18 Dose: 50 mg - Labs Labs: 12/20/18 15:16 12/20/18 15:16 PT 10.9 SECONDS (9.7-12.2) 12/18/18 12:20 INR 1.0 12/18/18 12:20 APTT 29 SECONDS (21-34) 12/18/18 12:20
[2018-12-21] MEDS: Sodium Chloride 0.9% 1,000 ML IV SCH (05:01)
[2018-12-21 07:05] LABS: BASO % 0.3 % (0.0-2.0); EOS # 0.3 K/uL (0.0-0.7); EOS % 5.1 % (0.0-4.0); HEMOGLOBIN 10.7 g/dL (12.0-18.0); LYMPH # 1.3 K/uL (1.0-4.3); MEAN CELL VOLUME 80.4 fL (80.0-94.0); MEAN CORPUSCULAR HEMOGLOBIN 25.5 pg (27.0-31.0); MEAN CORPUSCULAR HGB CONC 31.7 g/dL (33.0-37.0); MEAN PLATELET VOLUME 13.1 fL (7.2-11.7); MONO # 0.7 K/uL (0.0-0.8); MONO % 12.1 % (0.0-10.0); NEUT # 3.7 K/uL (1.8-7.0); NEUT % 60.5 % (50.0-75.0); RBC 4.18 Mil/uL (4.40-5.90); RED CELL DISTRIBUTION WIDTH 16.5 % (11.5-14.5); WHITE BLOOD COUNT 6.1 K/uL (4.8-10.8)
[2018-12-21 07:32] LABS: ALB/GLOB RATIO 1.1 (1.0-2.1); ALBUMIN 3.7 g/dL (3.5-5.0); CALCIUM 8.3 mg/dl (8.6-10.4)
--- NOTE | 2018-12-21 10:17 | CP.PCM.PN ---
Subjective - Date & Time of Evaluation Date of Evaluation: 12/21/18 Time of Evaluation: 10:14 - Subjective Subjective: Podiatry progress note for attending Dr. Cox: 68 y/o M patient seen and evaluated at the bedside for right toe non-healing ulcer. Patient is AAOX3 and appears in NAD. Reports that he maybe going home today. Patient denies any pain in his feet. He denies any overnight chest pain, shortness of breath, nausea, vomiting, or dizziness. Denies any other pedal complaint at this time. Objective - Vital Signs/Intake and Output Vital Signs (last 24 hours): Temp Pulse Resp BP Pulse Ox 98.2 F 77 20 155/76 H 96 12/21/18 07:35 12/21/18 07:35 12/21/18 07:35 12/21/18 07:35 12/21/18 07:35 Intake and Output: 12/21/18 12/21/18 06:59 18:59 Intake Total 830 760 Balance 830 760 - Medications Medications: Current Medications Acetaminophen/Codeine Phosphate (Tylenol/Codeine 300 Mg/30 Mg) 1 ea PO Q6 PRN PRN Reason: Pain, moderate (4-7) Last Admin: 12/19/18 17:19 Dose: 1 ea Aspirin (Ecotrin) 81 mg PO DAILY [facility] Last Admin: 12/20/18 10:18 Dose: 81 mg Carvedilol (Coreg) 6.25 mg PO BID [facility] Last Admin: 12/20/18 17:45 Dose: 6.25 mg Cilostazol (Pletal) 100 mg PO BID [facility] Last Admin: 12/20/18 17:45 Dose: 100 mg Clopidogrel Bisulfate (Plavix) 75 mg PO DAILY [facility] Last Admin: 12/20/18 10:18 Dose: 75 mg Famotidine (Pepcid) 20 mg PO BID [facility] Last Admin: 12/20/18 17:45 Dose: 20 mg Finasteride (Proscar) 5 mg PO DAILY [facility] Last Admin: 12/20/18 10:18 Dose: 5 mg Heparin Sodium (Porcine) (Heparin) 5,000 units SC Q8 [facility] Last Admin: 12/21/18 05:57 Dose: 5,000 units Sodium Chloride (Sodium Chloride 0.9%) 1,000 mls @ 70 mls/hr IV .[id number] [facility] Last Admin: 12/21/18 05:01 Dose: Not Given Mupirocin (Bactroban Ointment) 1 gm TOP DAILY [facility] Last Admin: 12/20/18 10:17 Dose: 1 applic Rosuvastatin Calcium (Crestor) 10 mg PO HS [facility] Last Admin: 12/20/18 21:39 Dose: 10 mg Sitagliptin Phosphate (Januvia) 50 mg PO DAILY [facility] Last Admin: 12/20/18 10:18 Dose: 50 mg - Labs Labs: 12/21/18 06:38 12/21/18 06:38 PT 10.9 SECONDS (9.7-12.2) 12/18/18 12:20 INR 1.0 12/18/18 12:20 APTT 29 SECONDS (21-34) 12/18/18 12:20 - Constitutional Appears: Well, Non-toxic, No Acute Distress - Head Exam Head Exam: ATRAUMATIC - Extremities Exam Additional comments: B/L LE focused exam: Vasc: DP/PT 2/4 on the right side, DP not palpable in the left side while PT is 1/4 on the left side, Cap refill < 3 sec to all digits, Temp gradient warm to cool b/l from proximal to distal. Moderate non pitting edema noted to the R hallux Neuro: Gross sensation intact and protective sensations diminished. Derm: An open ulcer at the measures 0.3cm X 0.2cm X 0.1cm noted on the medial side of the R hallux. No malodor, no drainage, Hyperkeratotic borders, No probe to bone, No tracking or undermining. Lateral to the ulcer there is another ulcer measuring about 0.4X0.2X0.1 with No malodor, No drainage, No probe to bon e, No tracking or undermining. Moderate non pitting edema noted to the R hallux MSK: Muscle power intact 5/5 to all groups. No pain on palpating the periulcerative area. - Neurological Exam Neurological Exam: Alert, Awake, Oriented x3 - Psychiatric Exam Psychiatric exam: Normal Affect, Normal Mood Assessment and Plan - Assessment and Plan (Free Text) Assessment: 68 y/o male patient evaluated for non healing ulcer of the right big toe. Plan: Patient seen and evaluated in the ED. Plan discussed with Dr. Cox. Charts and vitals reviewed; Afebrile, no leukocytosis ESR: 30, CRP: 8 R foot x-ray: No signs of acute OM or any soft tissue emphysema noted Arterial duplex LE; Pending report. Wound culture: Staph. aureus; Enterobacter cloacae Wound dressed using bactroban, DSD. R surgical shoe to be used by the patient when ambulating Recommend Augmentin or Ciprofloxacin PO due to positive cultures Stable from podiatry standpoint Upon discharge, please follow up with Dr. Cox for further care Podiatry will follow up the patient while in the hospital
[2018-12-21] MEDS: Cilostazol 100 mg Tab UD PO SCH ×2 (10:49→17:19)
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
--- NOTE | 2018-12-21 11:26 | VASCLAB ---
Date of service: 12/20/2018 PROCEDURE: Lower Extremity Arterial Exam. HISTORY: R hallux non healing ulcer. Hx of PVD COMPARISON: None available. TECHNIQUE: Grayscale and duplex Doppler evaluation of the bilateral common femoral, femoral, profunda femoral, popliteal, posterior tibial, anterior tibial and dorsalis pedis arteries was performed. Report prepared by BARB Lisa, RVT FINDINGS: RIGHT LOWER EXTREMITY: * Common Femoral Artery: Peak Systolic Velocity - 131: Doppler Waveform: Biphasic: Plaque description - Calcific * Profunda Femoral Artery: Peak Systolic Velocity - 125: Doppler Waveform: Biphasic.: Plaque description - Calcific * Femoral Artery o Proximal Segment: Peak Systolic Velocity - 115: Doppler Waveform: Biphasic: Plaque description - Calcific o Middle Segment: Peak Systolic Velocity - 111: Doppler Waveform: Biphasic: Plaque description - Calcific o Distal Segment: Peak Systolic Velocity - 103: Doppler Waveform: Biphasic: Plaque description - Calcific * Popliteal Artery o Proximal Segment: Peak Systolic Velocity - 93: Doppler Waveform: Biphasic: Plaque description - Calcific o Middle Segment: Peak Systolic Velocity - 69: Doppler Waveform: Biphasic: Plaque description - Calcific o Distal Segment: Peak Systolic Velocity - 56: Doppler Waveform: Biphasic: Plaque description - Calcific * Posterior Tibial Artery: Peak Systolic Velocity - 0: Doppler Waveform: Absent: Plaque description - Calcific * Anterior Tibial Artery: Peak Systolic Velocity - 77: Doppler Waveform: Biphasic: Plaque description - Calcific * Dorsalis Pedis Artery: Peak Systolic Velocity - 28: Doppler Waveform: Biphasic: Plaque description - Calcific LEFT LOWER EXTREMITY: * Common Femoral Artery: Peak Systolic Velocity - 108: Doppler Waveform: Biphasic: Plaque description - Calcific * Profunda Femoral Artery: Peak Systolic Velocity - : Doppler Waveform: : Plaque description - * Femoral Artery o Proximal Segment: Peak Systolic Velocity - : Doppler Waveform: : Plaque description - o Middle Segment: Peak Systolic Velocity - : Doppler Waveform: : Plaque description - o Distal Segment: Peak Systolic Velocity - : Doppler Waveform: : Plaque description - * Popliteal Artery o Proximal Segment: Peak Systolic Velocity - : Doppler Waveform: : Plaque description - o Middle Segment: Peak Systolic Velocity - : Doppler Waveform: : Plaque description - o Distal Segment: Peak Systolic Velocity - : Doppler Waveform: : Plaque description - * Posterior Tibial Artery: Peak Systolic Velocity - 0: Doppler Waveform: Absent: Plaque description - Calcific * Anterior Tibial Artery: Peak Systolic Velocity - 90: Doppler Waveform: Biphasic: Plaque description - Calcific * Dorsalis Pedis Artery: Peak Systolic Velocity - 17: Doppler Waveform: Monophasic: Plaque description - Calcific OTHER FINDINGS: None. IMPRESSION: RIGHT: Possible occlusion of the right posterior tibial artery. RIGHT: Possible occlusion of the left posterior tibial artery. Patent left femoral to tibial peroneal trunk bypass.
[2018-12-21 17:11] VITALS: BP 154/70; PULSE 81; TEMP 97.9; O2SAT 98
--- NOTE | 2018-12-21 18:38 | CP.PCM.PN ---
Subjective - Date & Time of Evaluation Date of Evaluation: 12/21/18 Time of Evaluation: 07:00 - Subjective Subjective: SURGERY PROGRESS NOTE FOR DR. AHNNA . Objective - Vital Signs/Intake and Output Vital Signs (last 24 hours): Temp Pulse Resp BP Pulse Ox 97.9 F 81 20 154/70 H 98 12/21/18 17:10 12/21/18 17:10 12/21/18 17:10 12/21/18 17:10 12/21/18 17:10 Intake and Output: 12/21/18 12/21/18 06:59 18:59 Intake Total 830 1800 Balance 830 1800 - Medications Medications: Current Medications Acetaminophen/Codeine Phosphate (Tylenol/Codeine 300 Mg/30 Mg) 1 ea PO Q6 PRN PRN Reason: Pain, moderate (4-7) Last Admin: 12/19/18 17:19 Dose: 1 ea Aspirin (Ecotrin) 81 mg PO DAILY [facility] Last Admin: 12/21/18 10:49 Dose: 81 mg Carvedilol (Coreg) 6.25 mg PO BID [facility] Last Admin: 12/21/18 17:19 Dose: 6.25 mg Cilostazol (Pletal) 100 mg PO BID [facility] Last Admin: 12/21/18 17:19 Dose: 100 mg Clopidogrel Bisulfate (Plavix) 75 mg PO DAILY [facility] Last Admin: 12/21/18 10:49 Dose: 75 mg Famotidine (Pepcid) 20 mg PO BID [facility] Last Admin: 12/21/18 17:19 Dose: 20 mg Finasteride (Proscar) 5 mg PO DAILY [facility] Last Admin: 12/21/18 10:49 Dose: 5 mg Heparin Sodium (Porcine) (Heparin) 5,000 units SC Q8 [facility] Last Admin: 12/21/18 14:21 Dose: 5,000 units Sodium Chloride (Sodium Chloride 0.9%) 1,000 mls @ 70 mls/hr IV .[id number] [facility] Last Admin: 12/21/18 05:01 Dose: Not Given Mupirocin (Bactroban Ointment) 1 gm TOP DAILY [facility] Last Admin: 12/21/18 10:50 Dose: 1 applic Rosuvastatin Calcium (Crestor) 10 mg PO HS [facility] Last Admin: 12/20/18 21:39 Dose: 10 mg Sitagliptin Phosphate (Januvia) 50 mg PO DAILY [facility] Last Admin: 12/21/18 10:49 Dose: 50 mg - Labs Labs: 12/21/18 06:38 12/21/18 06:38 PT 10.9 SECONDS (9.7-12.2) 12/18/18 12:20 INR 1.0 12/18/18 12:20 APTT 29 SECONDS (21-34) 12/18/18 12:20 - Constitutional Appears: Non-toxic, No Acute Distress - Head Exam Head Exam: ATRAUMATIC, NORMAL INSPECTION - Respiratory Exam Respiratory Exam: NORMAL BREATHING PATTERN. absent: Respiratory Distress - Cardiovascular Exam Cardiovascular Exam: +S1, +S2 - Neurological Exam Neurological Exam: Alert, Awake Assessment and Plan - Assessment and Plan (Free Text) Assessment: 68 yo M with PMHx of DM, HTN, PVD, GERD with PVD - 12/20 CTA: Mild stenosis of [employer]. SFA is occluded. [employer] popliteal bypass graft is patent. patent peroneal artery. [place] moderate calcific plaque & mildly stenotic in mid and distal segments. [employer]ITER moderate calcific plaque & multiple areas of mild to severe stenosis, short segment where arteries possibly occluded in mid segment. - Plan for Angio on Wednesday - Discussed plan with Dr. Edith Ragland PGY-4
--- NOTE | 2018-12-21 19:47 | CP.PCM.DIS ---
Provider - Provider Date of Admission: 12/20/18 15:00 Attending physician: Yin Latif MD Consults: 12/18/18 14:05 Nursing Referral for Wound Care Routine Comment: Physician Instructions: Reason For Exam: right great toe 12/18/18 15:56 Cardiology Consult Routine Comment: Consulting Provider: Isaac Perez Consulting Physician: Isaac Perez Reason for Consult: chest pain 12/18/18 15:58 Podiatry Consult Routine Comment: Consulting Provider: Killian Cox Consulting Physician: Killian Cox Reason for Consult: leg ulcer 12/19/18 19:56 Vascular Surgery Routine Comment: Consulting Provider: Bradley Sharma Jr. Physician Instructions: Reason For Exam: PVD Time Spent in preparation of Discharge (in minutes): 45 Hospital Course - Lab Results Lab Results: Micro Results 12/18/18 23:35 Toe Gram Stain - Final 12/18/18 23:35 Toe Wound Culture - Final Enterobacter Cloacae Ssp Cloac Staphylococcus Aureus Most Recent Lab Values WBC 6.1 K/uL (4.8-10.8) 12/21/18 06:38 RBC 4.18 Mil/uL (4.40-5.90) L 12/21/18 06:38 Hgb 10.7 g/dL (12.0-18.0) L 12/21/18 06:38 Hct 33.6 % (35.0-51.0) L 12/21/18 06:38 MCV 80.4 fL (80.0-94.0) 12/21/18 06:38 MCH 25.5 pg (27.0-31.0) L 12/21/18 06:38 MCHC 31.7 g/dL (33.0-37.0) L 12/21/18 06:38 RDW 16.5 % (11.5-14.5) H 12/21/18 06:38 Plt Count 136 K/uL (130-400) 12/21/18 06:38 MPV 13.1 fL (7.2-11.7) H 12/21/18 06:38 Neut % (Auto) 60.5 % (50.0-75.0) 12/21/18 06:38 Lymph % (Auto) 22.0 % (20.0-40.0) 12/21/18 06:38 [place] % (Auto) 12.1 % (0.0-10.0) H 12/21/18 06:38 Eos % (Auto) 5.1 % (0.0-4.0) H 12/21/18 06:38 Baso % (Auto) 0.3 % (0.0-2.0) 12/21/18 06:38 Neut # (Auto) 3.7 K/uL (1.8-7.0) 12/21/18 06:38 Lymph # (Auto) 1.3 K/uL (1.0-4.3) 12/21/18 06:38 [place] # (Auto) 0.7 K/uL (0.0-0.8) 12/21/18 06:38 Eos # (Auto) 0.3 K/uL (0.0-0.7) 12/21/18 06:38 Baso # (Auto) 0.0 K/uL (0.0-0.2) 12/21/18 06:38 ESR 30 mm/hr (0-15) H 12/18/18 12:20 PT 10.9 SECONDS (9.7-12.2) 12/18/18 12:20 INR 1.0 12/18/18 12:20 APTT 29 SECONDS (21-34) 12/18/18 12:20 Sodium 138 mmol/L (132-148) 12/21/18 06:38 Potassium 4.2 mmol/L (3.6-5.2) 12/21/18 06:38 Chloride 105 mmol/L (98-107) 12/21/18 06:38 Carbon Dioxide 26 mmol/L (22-30) 12/21/18 06:38 Anion Gap 11 (10-20) 12/21/18 06:38 BUN 26 mg/dL (9-20) H 12/21/18 06:38 Creatinine 1.5 mg/dL (0.8-1.5) 12/21/18 06:38 Est GFR ( Amer) 56 12/21/18 06:38 Est GFR (Non-Af Amer) 46 12/21/18 06:38 POC Glucose (mg/dL) 213 mg/dL (65-110) H 12/21/18 16:12 Random Glucose 142 mg/dL (75-110) H D 12/21/18 06:38 Calcium 8.3 mg/dl (8.6-10.4) L 12/21/18 06:38 Phosphorus 3.5 mg/dL (2.5-4.5) 12/21/18 06:38 Magnesium 2.1 mg/dL (1.6-2.3) 12/21/18 06:38 Total Bilirubin 0.3 mg/dL (0.2-1.3) 12/21/18 06:38 AST 16 U/L (17-59) L 12/21/18 06:38 ALT 12 U/L (21-72) L D 12/21/18 06:38 Alkaline Phosphatase 76 U/L (38-126) 12/21/18 06:38 C-Reactive Protein 8.00 mg/L (0.0-9.9) 12/18/18 12:20 Total Protein 7.1 g/dL (6.3-8.3) 12/21/18 06:38 Albumin 3.7 g/dL (3.5-5.0) 12/21/18 06:38 Globulin 3.3 gm/dL (2.2-3.9) 12/21/18 06:38 Albumin/Globulin Ratio 1.1 (1.0-2.1) 12/21/18 06:38 Urine Color Colorless (YELLOW) 12/18/18 23:35 Urine Clarity Clear (Clear) 12/18/18 23:35 Urine pH 7.0 (5.0-8.0) 12/18/18 23:35 Ur Specific [place] 1.006 (1.003-1.030) 12/18/18 23:35 Urine Protein Negative mg/dL (NEGATIVE) 12/18/18 23:35 Urine Glucose (UA) Normal mg/dL (Normal) 12/18/18 23:35 Urine Ketones Negative mg/dL (NEGATIVE) 12/18/18 23:35 Urine Blood Negative (NEGATIVE) 12/18/18 23:35 Urine Nitrate Negative (NEGATIVE) 12/18/18 23:35 Urine Bilirubin Negative (NEGATIVE) 12/18/18 23:35 Urine Urobilinogen Normal mg/dL (0.2-1.0) 12/18/18 23:35 Ur Leukocyte Esterase Neg Shar/uL (Negative) 12/18/18 23:35 Urine WBC (Auto) < 1 /hpf (0-5) 12/18/18 23:35 Urine RBC (Auto) < 1 /hpf (0-3) 12/18/18 23:35 Blood Type O POSITIVE 12/18/18 12:20 Antibody Screen Negative 12/18/18 12:20 - Hospital Course Hospital Course: Chief complaint: Abnormal stress test, right leg ulcer History present illness: 65-year-old male with history of diabetes hypertension and hypercholesteremia peripheral vascular disease, right leg ischemia, status post intervention . Patient had a hospitalization in the past with the right leg ulcer. He came to see Dr. Perez office 3 days ago at that time patient had abnormal stress test, and I advised her to go to the emergency room for abnormal stress test and ongoing chest discomfort. He was also complaining of right leg ulcer which was which was having some minimal discharge. Patient denies any fever. He denies any nausea vomiting. Denies any shortness of breath. Making urine. But having increasing weakness and tiredness and fatigability noted Past medical history: Hypertension diabetes hypercholesteremia peripheral vascular disease right leg ischemia. Status post intervention. Allergy: No known drug allergy except to ciprofloxacin. 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 Currently nondrinker. Review of system noted from the chart. Complaining of no pain in the legs. Patient is able to walk On examination: Vital signs reviewed in Chest bilateral good air entry. Regular heart sound nontender abdomen and [employer] alert awake oriented 3 no functional neurological deficit. Patient has a palpable dopplerable pulses on the right lower extremity including dorsalis pedis and posterior tibial now. Patient is having significant changes in the great toe skin discoloration e specially on the lateral aspect dark discoloration noted, no tenderness Abnormal stress test Labs otherwise nonspecific. Assessment/condition: 65-year-old male with history of peripheral vascular disease of hypertension diabetes hypercholesteremia CAD, status post a coronary it to bypass grafting. Recently patient underwent angiogram, vessels are patent. Patient had a peripheral vascular disease, status post intervention. Now having nonhealing ulcer involving the right great toe. Also peripheral vascular disease with underlying worsening arterial disease. Abnormal stress test. Patient will be monitored closely. Cardiology evaluation. Possible angiogram. IV fluid. Podiatry evaluation. May need vascular surgical evaluation and will follow the patient Course in the hospital: Patient underwent coronary angiogram. Coronary angiogram showing evidence of no obstructive disease. No pathology identified. Chronic heart disease medical management advised for that. Patient also recommended to have vascular surgery. The following day patient underwent CT angiogram of the abdomen and pelvis. Moderate peripheral vascular disease noted bilaterally more on the right leg involving the small vessels. Because of the intravenous contrast back to back I advised the patient to stay in the hospital to monitor the renal function. The creatinine level is 1.5 now. Patient receiving intravenous IV fluid. The Metformin is off. Patient is clinically stable. he will be discharged home today. His renal function has to be monitored. I advised him to increase oral liquid intake. We will hold metformin until 4 days. Recheck the creatinine level in the office. Patient was also seen by vascular surgery, but the patient is refusing to have further vascular intervention at this time. Will plan as an outpatient. He is also having multiple bacterial colonization of the right great toe ulcer. Recommended Augmentin 875 mg twice daily for 10 days and will follow the patient Discharge Exam - Head Exam Head Exam: ATRAUMATIC, NORMAL INSPECTION Discharge Plan - Follow Up Plan Condition: STABLE Disposition: HOME/ ROUTINE Additional Instructions: Hold metformin until Wednesday continue insulin
== END 2018-12-21 21:13 | disposition home or self-care (01) | DRG 300 ==
LOC: C.ER 10:58 → C.3T 11:34 → OBSVTOIN 12-20 15:00
PROVIDERS: ADMIT Internal Medicine; ATTEND Internal Medicine
DX: E11.51 Type 2 diabetes mellitus with diabetic peripheral angiopathy without gangrene (principal); I70.235 Atherosclerosis of native arteries of right leg with ulceration of other part of foot; L97.519 Non-pressure chronic ulcer of other part of right foot with unspecified severity; M86.8X7 Other osteomyelitis, ankle and foot; E11.621 Type 2 diabetes mellitus with foot ulcer; E11.69 Type 2 diabetes mellitus with other specified complication; I25.10 Atherosclerotic heart disease of native coronary artery without angina pectoris; K21.9 Gastro-esophageal reflux disease without esophagitis; I12.9 Hypertensive chronic kidney disease with stage 1 through stage 4 chronic kidney disease, or unspecified chronic kidney disease; N18.9 Chronic kidney disease, unspecified; E11.22 Type 2 diabetes mellitus with diabetic chronic kidney disease; E78.00 Pure hypercholesterolemia, unspecified; Z95.820 Peripheral vascular angioplasty status with implants and grafts; Z95.1 Presence of aortocoronary bypass graft; Z95.2 Presence of prosthetic heart valve; Z98.41 Cataract extraction status, right eye; Z98.42 Cataract extraction status, left eye; Z87.891 Personal history of nicotine dependence

== ENCOUNTER 2019-01-11 12:59 | Inpatient (IN) | payer MEDICARE, MEDICAID ==
[2019-01-11 12:59] VITALS: BMI 24.2
--- NOTE | 2019-01-11 14:02 | C.PDOC ---
History Of Present Illness 68 year old male presents to the ED with complaint of purulent discharge coming from a wound on his right great toe for the past 2 days. Patient was advised by his PCP, Dr. Latif, to go to the Emergency Department for evaluation. Patient was admitted last month on 12/20/18 for abnormal stress test and for wound to the great right toe. Patient has a PMHx of Peripheral vascular disease, hypertension, and CAD. Patient denies fever, chills, nausea, and vomiting. Time Seen by Provider: 01/11/19 13:24 Chief Complaint (Nursing): Abnormal Skin Integrity History Per: Patient History/Exam Limitations: no limitations Onset/Duration Of Symptoms: Days (2) Current Symptoms Are (Timing): Still Present Location Of Injury: Right: Foot (great toe) Quality Of Symptoms: Draining Past Medical History Reviewed: Historical Data, Nursing Documentation, Vital Signs Vital Signs: Last Vital Signs Temp 98.9 F 01/11/19 13:03 Pulse 86 01/11/19 13:03 Resp 20 01/11/19 13:03 BP 94/58 L 01/11/19 13:03 Pulse Ox 99 01/11/19 13:03 - Medical History PMH: Anemia, Diabetes, HTN, Hypercholesterolemia, Peripheral Edema Denies: Chronic Kidney Disease Surgical History: No Surg Hx - [facility] Procedures ANGIOPLASTY OF OTHER NON-CORONARY VESSEL(S) (11/15/13) CONTRAST AORTOGRAM (11/15/13) CONTRAST ARTERIOGRAM-LEG (11/15/13) CONTRAST RENAL ARTERIOGR (11/15/13) FLUOROSCOPY OF L INT MAMM GRAFT USING L OSM CONTRAST (12/20/18) FLUOROSCOPY OF LEFT HEART USING LOW OSMOLAR CONTRAST (12/20/18) FLUOROSCOPY OF MULT COR ART USING L OSM CONTRAST (12/20/18) INSEJ [id number] PERIPHERAL NON-CORONARY VES STENT(S) (05/30/13) INSERT INT PENILE PROSTH (09/12/13) INSERTION OF INFUSION DEV INTO SUP VENA CAVA, PERC APPROACH (09/12/16) INSERTION OF ONE VASCULAR STENT (05/30/13) MEASURE OF CARDIAC SAMPL & PRESSURE, L HEART, PERC APPROACH (12/20/18) PLAIN RADIOGRAPHY OF AORTA, BI LE ART USING OTH CONTRAST (09/04/16) PROCEDURE ON SINGLE VESSEL (11/15/13) Family History: States: Unknown Family Hx - Social History Hx Alcohol Use: No Hx Substance Use: No - Immunization History Hx Tetanus Toxoid Vaccination: Yes Hx Influenza Vaccination: Yes Hx Pneumococcal Vaccination: Yes Review Of Systems Constitutional: Negative for: Fever, Chills, Weakness Gastrointestinal: Negative for: Nausea, Vomiting Musculoskeletal: Positive for: Other (purulent discharge coming from wound on the right great toe) Skin: Negative for: Rash Neurological: Negative for: Weakness, Numbness, Dizziness Physical Exam - Physical Exam Appears: Non-toxic Skin: Normal Color, Warm, Dry Head: Atraumatic, Normacephalic Neck: Normal ROM, Supple Extremity: Normal ROM (moves toes freely), Other (erythema to the right great toe, no drainage, puncture wound to the plantar aspect of the toe, contused area to the lateral aspect of the toe) Pulses: Left Radial: Normal, Right Radial: Normal, Left Dorsalis Pedis: Normal, Right Dorsalis Pedis: Normal Neurological/Psych: Oriented x3, Normal Speech, Normal Cognition ED Course And Treatment - Laboratory Results Result Diagrams: 01/18/19 07:23 01/18/19 07:23 O2 Sat by Pulse Oximetry: 99 (in RA) - Other Rad Right foot X-ray X-Ray: Interpreted by Me, Viewed By Me Interpretation: IMPRESSION: No acute fracture or bone destruction. No radiographic evidence for osteomyelitis. Mild dorsal soft tissue swelling and moderate soft tissue swelling in the great toe could represent cellulitis. Medical Decision Making Medical Decision Making: Impression: 68 year old male with purulent drainage coming from a wound to the right great toe Plan: Labs ordered with CBC and blood culture Patient given IV fluids Right foot X-ray ordered for patient Disposition Counseled Patient/Family Regarding: Studies Performed, Diagnosis - Disposition Disposition: HOSPITALIZED Disposition Time: 15:02 Condition: STABLE - Clinical Impression Clinical Impression: Diabetic ulcer of right great toe, Anemia, Thrombocytopenia, Hyperglycemia - Scribe Statement The provider has reviewed the documentation as recorded by the Scribe (Marietta Duarte) All medical record entries made by the Scribe were at my direction and personally dictated by me. I have reviewed the chart and agree that the record accurately reflects my personal performance of the history, physical exam, medical decision making, and the department course for this patient. I have also personally directed, reviewed, and agree with the discharge instructions and disposition.
[2019-01-11 14:12] LABS: BASO # 0.1 K/uL (0.0-0.2); BASO % 0.5 % (0.0-2.0); EOS % 0.3 % (0.0-4.0); HEMOGLOBIN 9.8 g/dL (12.0-18.0); LYMPH # 0.4 K/uL (1.0-4.3); MEAN CELL VOLUME 81.5 fL (80.0-94.0); MEAN CORPUSCULAR HEMOGLOBIN 25.4 pg (27.0-31.0); MEAN CORPUSCULAR HGB CONC 31.1 g/dL (33.0-37.0); MEAN PLATELET VOLUME 13.7 fL (7.2-11.7); MONO # 0.9 K/uL (0.0-0.8); MONO % 8.2 % (0.0-10.0); NEUT # 9.8 K/uL (1.8-7.0); RBC 3.85 Mil/uL (4.40-5.90); RED CELL DISTRIBUTION WIDTH 16.3 % (11.5-14.5)
[2019-01-11 14:13] LABS: PLATELET COUNT 99 K/uL (130-400); WHITE BLOOD COUNT 11.3 K/uL (4.8-10.8)
[2019-01-11] MEDS: Sodium Chloride 0.9% 1,000 ML IV SCH (14:30)
[2019-01-11 14:35] LABS: ALB/GLOB RATIO 1.2 (1.0-2.1); CALCIUM 8.3 mg/dl (8.6-10.4)
--- NOTE | 2019-01-11 14:49 | RAD ---
Date of service: 01/11/2019 PROCEDURE: Right Foot Radiographs. HISTORY: wound r/o osteo COMPARISON: None. FINDINGS: BONES: There is no acute displaced fracture or bone destruction. There is mild periarticular bone demineralization. Bone alignment is normal. JOINTS: Normal. SOFT TISSUES: There is mild dorsal soft tissue swelling. There is moderate soft tissue swelling in the great toe. OTHER FINDINGS: There are atherosclerotic vascular calcifications. IMPRESSION: No acute fracture or bone destruction. No radiographic evidence for osteomyelitis. Mild dorsal soft tissue swelling and moderate soft tissue swelling in the great toe could represent cellulitis.
[2019-01-11] MEDS ORDERED: Vancomycin 1 gm/NS 200 ml 1 GM/200 ML BAG IVPB ONE (14:53)
[2019-01-11 15:00] LABS: LYMPHOCYTE 3 % (20-40); MONOCYTE 7 % (0-10); NEUTROPHIL 90 % (50-75); TOTAL CELLS COUNTED 100
[2019-01-11 15:05] LABS: ANISOCYTOSIS SLIGHT; PLATELET ESTIMATE DECREASED (NORMAL)
[2019-01-11 15:06] LABS: OVALOCYTES SLIGHT
--- NOTE | 2019-01-11 17:24 | CP.PCM.CON ---
History of Present Illness - History of Present Illness History of Present Illness: Podiatry Consult note for Dr. Cox 68M seen in ED with Dr. Cox for infected right hallux with ulceration. Patient is well known to Dr. Cox and has had a chronic ulceration on the toe for many months. He denies any symptoms of infection previously but states that over the last few days his toe has become swollen, hot and red. He is AAO x 3 and NAD. Denies any further pedal complaints. Denies any recent N/V/F/C/CP/SOB/D. States that he was instructed to come to ED by his PCP Review of Systems - Review of Systems All systems: reviewed and no additional remarkable complaints except Review of Systems: as per HPI Past Patient History - Past Medical History & Family History Past Medical History?: Yes - Past Social History Smoking Status: Never Smoked - CARDIAC Hx Hypercholesterolemia: Yes Hx Hypertension: Yes Hx Peripheral Edema: Yes - PULMONARY Hx Respiratory Disorders: No - NEUROLOGICAL Hx Neurological Disorder: Yes Hx Dizziness: Yes - HEENT Hx HEENT Problems: Yes Hx Cataracts: Yes (BILATERAL CATARACT EXTRACTION 2011) - RENAL Hx Chronic Kidney Disease: No - ENDOCRINE/METABOLIC Hx Endocrine Disorders: Yes Hx Diabetes Mellitus Type 2: Yes - HEMATOLOGICAL/ONCOLOGICAL Hx Anemia: Yes - INTEGUMENTARY Hx Dermatological Problems: Yes (ulcers right great toe) - MUSCULOSKELETAL/RHEUMATOLOGICAL Hx Musculoskeletal Disorders: Yes Hx Back Pain: Yes Hx Falls: No Hx Herniated Disk: Yes (lumbar cervical thoraic) - GASTROINTESTINAL Hx Gastrointestinal Disorders: No Other/Comment: abd hernias per pt - GENITOURINARY/GYNECOLOGICAL Hx Genitourinary Disorders: Yes Hx Prostate Problems: Yes - PSYCHIATRIC Hx Substance Use: No - SURGICAL HISTORY Hx Surgeries: Yes Hx Cataract Extraction: Yes (BILATERAL 2011) Hx Femoral-Popliteal Bypass Graft: Yes (LEFT LEG 2009) Hx Open Heart Surgery: Yes (6 years ago valve replacements) Other/Comment: Open heart surgery 6 yrs ago, OSTEOMYELITIS RIGHT TOE - ANESTHESIA Hx Anesthesia: Yes Hx Anesthesia Reactions: No Hx Malignant Hyperthermia: No Meds Allergies/Adverse Reactions: Allergies Allergy/AdvReac Type Severity Reaction Status Date / Time ciprofloxacin Allergy Severe Verified 01/11/19 13:06 - Medications Medications: Current Medications Sodium Chloride (Sodium Chloride 0.9%) 1,000 mls @ 100 mls/hr IV .Q10H [facility] Last Admin: 01/11/19 14:30 Dose: 100 mls/hr Physical Exam - Constitutional Appears: Well, Non-toxic, No Acute Distress - Extremities Exam Additional comments: RLE focused exam: Vasc: DP/PT pulses faintly palpable 1/4 b/l. Skin temperature warm to warm from proximal to distal. CFT < 3 seconds to all digits. Moderate edema noted to hallux Neuro: Epicritic and protective sensation grossly diminished Derm: Callosity with underlying ulceration noted to medial right hallux. After debridement of callus ulceration is noted to be approximately 1 cm x 2.5 cm x 0.3 cm and probes to capsule. There is also a hemmorhagic bullae noted just proximal to the ulceration. No purulent drainage or malodor appreciated. The entirety of the hallux is erythematous without streaking. No other clinical signs of infection appreciated MSK: POP to ulceration site. No gross deformities noted - Neurological Exam Neurological exam: Alert, Oriented x3 - Psychiatric Exam Psychiatric exam: Normal Affect, Normal Mood Results - Vital Signs Recent Vital Signs: Last Vital Signs Temp 98.9 F 01/11/19 13:03 Pulse 86 01/11/19 13:03 Resp 20 01/11/19 13:03 BP 94/58 L 01/11/19 13:03 Pulse Ox 99 01/11/19 15:37 - Labs Result Diagrams: 01/11/19 14:03 01/11/19 14:03 Labs: Laboratory Results - last 24 hr 01/11/19 01/11/19 14:03 14:03 WBC 11.3 H D RBC 3.85 L Hgb 9.8 L Hct 31.4 L MCV 81.5 MCH 25.4 L MCHC 31.1 L RDW 16.3 H Plt Count 99 L D MPV 13.7 H Neut % (Auto) 87.0 H Lymph % (Auto) 4.0 L [place] % (Auto) 8.2 Eos % (Auto) 0.3 Baso % (Auto) 0.5 Neut # (Auto) 9.8 H Lymph # (Auto) 0.4 L [place] # (Auto) 0.9 H Eos # (Auto) 0.0 Baso # (Auto) 0.1 Neutrophils % (Manual) 90 H Lymphocytes % (Manual) 3 L Monocytes % (Manual) 7 Platelet Estimate Decreased L Anisocytosis (manual) Slight Ovalocytes Slight Sodium 127 L Potassium 4.4 Chloride 93 L Carbon Dioxide 22 Anion Gap 17 BUN 29 H Creatinine 1.5 Est GFR ( Amer) 56 Est GFR (Non-Af Amer) 46 Random Glucose 246 H D Calcium 8.3 L Total Bilirubin 0.5 AST 26 ALT 10 L Alkaline Phosphatase 68 Total Protein 7.4 Albumin 4.0 Globulin 3.4 Albumin/Globulin Ratio 1.2 Assessment & Plan - Assessment and Plan (Free Text) Assessment: 68M seen in ED with Dr. Cox for infected right hallux with ulceration Plan: Patient seen and evaluated with Dr. Cox Callosity sharply debrided without incident revealing underlying ulceration Foot xray reviewed F/u ESR, CRP Would cx taken WBC 11.3 Wound dressed with DSD Nursing please moisten dressing with quarter strength Dakins solution qshift Possible surgical intervention pending lab results and clinical course of wound over next 48 hours Podiatry will continue to follow while patient in house - Date & Time Date: 01/11/19 Time: 17:34
[2019-01-11] MEDS: Piperacillin/Tazobact 3.375 GM in Sodium Chloride 100 ML IVPB SCH (21:34)
[2019-01-11] MEDS: (Novolin R) Insulin Human Regular 100 units/ml vial SC SCH (22:31)
--- NOTE | 2019-01-11 23:30 | CP.PCM.CON ---
History of Present Illness - History of Present Illness History of Present Illness: infected right hallux in a diabetic patient IV rx in progress Past Patient History - Past Medical History & Family History Past Medical History?: Yes - Past Social History Smoking Status: Never Smoked - CARDIAC Hx Cardiac Disorders: Yes Hx Hypercholesterolemia: Yes Hx Hypertension: Yes Hx Peripheral Edema: Yes - PULMONARY Hx Respiratory Disorders: No - NEUROLOGICAL Hx Neurological Disorder: Yes Hx Dizziness: Yes - HEENT Hx HEENT Problems: Yes Hx Cataracts: Yes (BILATERAL CATARACT EXTRACTION 2011) - RENAL Hx Chronic Kidney Disease: No - ENDOCRINE/METABOLIC Hx Endocrine Disorders: Yes Hx Diabetes Mellitus Type 2: Yes - HEMATOLOGICAL/ONCOLOGICAL Hx Blood Disorders: Yes Hx Anemia: Yes - INTEGUMENTARY Hx Dermatological Problems: Yes (ulcers right great toe) - MUSCULOSKELETAL/RHEUMATOLOGICAL Hx Falls: No - GASTROINTESTINAL Hx Gastrointestinal Disorders: Yes Other/Comment: abd hernias per pt - GENITOURINARY/GYNECOLOGICAL Hx Genitourinary Disorders: Yes Hx Prostate Problems: Yes - PSYCHIATRIC Hx Psychophysiologic Disorder: No Hx Substance Use: No - SURGICAL HISTORY Hx Surgeries: Yes Hx Cataract Extraction: Yes (BILATERAL 2011) Hx Femoral-Popliteal Bypass Graft: Yes (LEFT LEG 2009) Hx Open Heart Surgery: Yes (6 years ago valve replacements) Other/Comment: Open heart surgery 6 yrs ago, OSTEOMYELITIS RIGHT TOE - ANESTHESIA Hx Anesthesia: Yes Hx Anesthesia Reactions: No Hx Malignant Hyperthermia: No Has any member of the family had a problem w/ anesthesia?: No Meds Allergies/Adverse Reactions: Allergies Allergy/AdvReac Type Severity Reaction Status Date / Time ciprofloxacin Allergy Severe Verified 01/11/19 13:06 - Medications Medications: Current Medications Aspirin (Ecotrin) 81 mg PO DAILY [facility] Carvedilol (Coreg) 6.25 mg PO BID [facility] Cilostazol (Pletal) 100 mg PO BID [facility] Clopidogrel Bisulfate (Plavix) 75 mg PO DAILY [facility] Famotidine (Pepcid) 20 mg PO DAILY [facility] Finasteride (Proscar) 5 mg PO DAILY [facility] Heparin Sodium (Porcine) (Heparin) 5,000 units SC Q8 [facility] Last Admin: 01/11/19 21:34 Dose: 5,000 units Sodium Chloride (Sodium Chloride 0.9%) 1,000 mls @ 100 mls/hr IV .Q10H [facility] Last Admin: 01/11/19 14:30 Dose: 100 mls/hr Vancomycin/Sodium Chloride (Vancomycin 1 Gm/Ns 200 Ml) 1 gm in 200 mls @ 133 mls/hr IVPB Q24H [facility]; Protocol Stop: 01/17/19 11:01 Piperacillin Sod/Tazobactam (Sod 3.375 gm/ Sodium Chloride) 100 mls @ 200 mls/hr IVPB Q8H [facility]; Protocol Last Admin: 01/11/19 21:34 Dose: 200 mls/hr Insulin Human Regular (Novolin R) 0 unit SC ACHS [facility]; Protocol Last Admin: 01/11/19 22:31 Dose: Not Given Rosuvastatin Calcium (Crestor) 10 mg PO HS [facility] Last Admin: 01/11/19 21:34 Dose: 10 mg Sitagliptin Phosphate (Januvia) 50 mg PO DAILY [facility] Sodium Hypochlorite (Dakins Solution 0.125%) 0 appl TOP QSHIFT [facility] Last Admin: 01/11/19 21:52 Dose: 1 appl Results - Vital Signs Recent Vital Signs: Last Vital Signs Temp 98.5 F 01/11/19 18:37 Pulse 95 H 01/11/19 18:37 Resp 20 01/11/19 18:37 BP 158/70 H 01/11/19 18:37 Pulse Ox 97 01/11/19 18:37 - Labs Result Diagrams: 01/11/19 14:03 01/11/19 14:03 Labs: Laboratory Results - last 24 hr 01/11/19 01/11/19 01/11/19 14:03 14:03 17:36 WBC 11.3 H D RBC 3.85 L Hgb 9.8 L Hct 31.4 L MCV 81.5 MCH 25.4 L MCHC 31.1 L RDW 16.3 H Plt Count 99 L D MPV 13.7 H Neut % (Auto) 87.0 H Lymph % (Auto) 4.0 L [place] % (Auto) 8.2 Eos % (Auto) 0.3 Baso % (Auto) 0.5 Neut # (Auto) 9.8 H Lymph # (Auto) 0.4 L [place] # (Auto) 0.9 H Eos # (Auto) 0.0 Baso # (Auto) 0.1 Neutrophils % (Manual) 90 H Lymphocytes % (Manual) 3 L Monocytes % (Manual) 7 Platelet Estimate Decreased L Anisocytosis (manual) Slight Ovalocytes Slight ESR Sodium 127 L Potassium 4.4 Chloride 93 L Carbon Dioxide 22 Anion Gap 17 BUN 29 H Creatinine 1.5 Est GFR ( Amer) 56 Est GFR (Non-Af Amer) 46 POC Glucose (mg/dL) Random Glucose 246 H D Calcium 8.3 L Total Bilirubin 0.5 AST 26 ALT 10 L Alkaline Phosphatase 68 C-Reactive Protein 213.10 H Total Protein 7.4 Albumin 4.0 Globulin 3.4 Albumin/Globulin Ratio 1.2 01/11/19 01/11/19 17:43 21:33 WBC RBC Hgb Hct MCV MCH MCHC RDW Plt Count MPV Neut % (Auto) Lymph % (Auto) [place] % (Auto) Eos % (Auto) Baso % (Auto) Neut # (Auto) Lymph # (Auto) [place] # (Auto) Eos # (Auto) Baso # (Auto) Neutrophils % (Manual) Lymphocytes % (Manual) Monocytes % (Manual) Platelet Estimate Anisocytosis (manual) Ovalocytes ESR 58 H Sodium Potassium Chloride Carbon Dioxide Anion Gap BUN Creatinine Est GFR ( Amer) Est GFR (Non-Af Amer) POC Glucose (mg/dL) 177 H Random Glucose Calcium Total Bilirubin AST ALT Alkaline Phosphatase C-Reactive Protein Total Protein Albumin Globulin Albumin/Globulin Ratio
[2019-01-12] MEDS: Sodium Chloride 0.9% 1,000 ML IV SCH ×2 (01:24→12:32)
[2019-01-12] MEDS: Piperacillin/Tazobact 3.375 GM in Sodium Chloride 100 ML IVPB SCH ×3 (02:56→19:24)
[2019-01-12 06:20] LABS: BASO % 0.5 % (0.0-2.0); EOS # 0.1 K/uL (0.0-0.7); HEMOGLOBIN 9.4 g/dL (12.0-18.0); LYMPH % 12.1 % (20.0-40.0); MEAN CORPUSCULAR HEMOGLOBIN 25.8 pg (27.0-31.0); MEAN CORPUSCULAR HGB CONC 31.9 g/dL (33.0-37.0); MEAN PLATELET VOLUME 13.1 fL (7.2-11.7); MONO # 0.8 K/uL (0.0-0.8); MONO % 9.8 % (0.0-10.0); NEUT # 6.2 K/uL (1.8-7.0); NEUT % 76.6 % (50.0-75.0); RBC 3.64 Mil/uL (4.40-5.90); RED CELL DISTRIBUTION WIDTH 16.3 % (11.5-14.5)
[2019-01-12 06:40] LABS: BLOOD UREA NITROGEN 20 mg/dL (9-20); GFR NON-AFRICAN AMERICAN > 60
[2019-01-12 06:41] LABS: ALBUMIN 3.3 g/dL (3.5-5.0); ALT/SGPT 16 U/L (21-72); AST/SGOT 17 U/L (17-59); CALCIUM 8.2 mg/dl (8.6-10.4)
[2019-01-12] MEDS: (Novolin R) Insulin Human Regular 100 units/ml vial SC SCH ×4 (07:30→21:34)
[2019-01-12 07:55] LABS: SQUAMOUS EPITHIAL < 1 /hpf (0-5); URINE BACTERIA RARE (<OCC); URINE BILIRUBIN NEGATIVE (NEGATIVE); URINE BLOOD NEGATIVE (NEGATIVE); URINE CLARITY Clear (Clear); URINE COLOR Straw (YELLOW); URINE GLUCOSE (UA) NORMAL (Normal); URINE LEUKOCYTE ESTERASE NEG Leu/uL (Negative); URINE PROTEIN NEGATIVE (NEGATIVE); URINE UROBILINOGEN NORMAL mg/dL (0.2-1.0)
[2019-01-12] MEDS: Cilostazol 100 mg Tab UD PO SCH ×2 (10:13→17:23)
--- NOTE | 2019-01-12 16:04 | CP.PCM.PN ---
Subjective - Date & Time of Evaluation Date of Evaluation: 01/12/19 Time of Evaluation: 16:01 - Subjective Subjective: Podiatry Progress Note for Dr. Cox 68M see for right hallux ulceration. Patient is AAO x 3 and NAD, resting comfortably in bed. States that pain is well controlled. Denies any acute overnight events or new pedal complaints. Denies any recent N/V/F/C/CP/SOB Objective - Vital Signs/Intake and Output Vital Signs (last 24 hours): Temp Pulse Resp BP Pulse Ox 98.1 F 73 20 154/72 H 95 01/12/19 08:16 01/12/19 08:16 01/12/19 08:16 01/12/19 08:16 01/12/19 08:16 Intake and Output: 01/12/19 01/12/19 06:59 18:59 Intake Total 2250 1230 Output Total 1200 Balance 1050 1230 - Medications Medications: Current Medications Aspirin (Ecotrin) 81 mg PO DAILY [facility] Last Admin: 01/12/19 10:14 Dose: 81 mg Carvedilol (Coreg) 6.25 mg PO BID [facility] Last Admin: 01/12/19 10:14 Dose: 6.25 mg Cilostazol (Pletal) 100 mg PO BID [facility] Last Admin: 01/12/19 10:13 Dose: 100 mg Clopidogrel Bisulfate (Plavix) 75 mg PO DAILY [facility] Last Admin: 01/12/19 10:13 Dose: 75 mg Famotidine (Pepcid) 20 mg PO DAILY [facility] Last Admin: 01/12/19 10:14 Dose: 20 mg Finasteride (Proscar) 5 mg PO DAILY [facility] Last Admin: 01/12/19 10:13 Dose: 5 mg Heparin Sodium (Porcine) (Heparin) 5,000 units SC Q8 [facility] Last Admin: 01/12/19 13:11 Dose: 5,000 units Sodium Chloride (Sodium Chloride 0.9%) 1,000 mls @ 100 mls/hr IV .Q10H [facility] Last Admin: 01/12/19 12:32 Dose: Not Given Vancomycin/Sodium Chloride (Vancomycin 1 Gm/Ns 200 Ml) 1 gm in 200 mls @ 133 mls/hr IVPB Q24H [facility]; Protocol Stop: 01/17/19 15:31 Piperacillin Sod/Tazobactam (Sod 3.375 gm/ Sodium Chloride) 100 mls @ 200 mls/hr IVPB Q8H [facility]; Protocol Last Admin: 01/12/19 10:51 Dose: 200 mls/hr Insulin Human Regular (Novolin R) 0 unit SC ACHS [facility]; Protocol Last Admin: 01/12/19 13:12 Dose: 3 units Rosuvastatin Calcium (Crestor) 10 mg PO HS [facility] Last Admin: 01/11/19 21:34 Dose: 10 mg Sitagliptin Phosphate (Januvia) 50 mg PO DAILY [facility] Last Admin: 01/12/19 10:14 Dose: 50 mg Sodium Hypochlorite (Dakins Solution 0.125%) 0 appl TOP QSHIFT [facility] Last Admin: 01/12/19 05:21 Dose: 1 appl - Labs Labs: 01/12/19 06:15 01/12/19 06:15 APTT 31 SECONDS (21-34) 01/12/19 06:15 - Constitutional Appears: Well, Non-toxic, No Acute Distress - Extremities Exam Additional comments: RLE focused exam: Vasc: DP/PT pulses faintly palpable 1/4 b/l. Skin temperature warm to warm from proximal to distal. CFT < 3 seconds to all digits. Mild edema noted to hallux Neuro: Epicritic and protective sensation grossly diminished Derm: Right hallux ulceration is noted to be approximately 1 cm x 2.5 cm x 0.3 cm and probes to capsule. Previously noted hemmorhagic bullae is drained at this time. No purulent drainage or malodor appreciated. The entirety of the hallux is erythematous without streaking, improved since yesterday. No other clinical s igns of infection appreciated MSK: POP to ulceration site. No gross deformities noted - Neurological Exam Neurological Exam: Alert, Awake, Oriented x3 - Psychiatric Exam Psychiatric exam: Normal Affect, Normal Mood Assessment and Plan - Assessment and Plan (Free Text) Assessment: 68M see for right hallux ulceration Plan: Patient seen and evaluated Plan discussed with Dr. Cox Continue abx per ID Wound cx: staph aureus ESR 58, f/u trend Foot xray: No evidence of OM Wound dressed with Dakins wet to dry No plan for surgical intervention at this time Podiatry will continue to follow while patient in house
[2019-01-12] MEDS: Vancomycin 1 gm/NS 200 ml 1 GM/200 ML BAG IVPB SCH (16:21)
--- NOTE | 2019-01-12 19:12 | CP.PCM.HP ---
History of Present Illness - History of Present Illness History of Present Illness: Chief complaint: Foul-smelling discharge and pain in the right great toe History present illness: 65-year-old male with history of diabetes hypertension and hypercholesteremia peripheral vascular disease, right leg ischemia, status post intervention .\ Patient was recently hospitalized with abnormal stress test, following that he underwent angiogram, and he was closely monitored for renal function. He was sent home, but he started noticing 2 days of discharge from the right great toe, and he started also noticing increasing redness some swelling in the right great toe for almost a week. He was changing the dressing at home by himself. When he came into my office yesterday the swelling was increasingly noted, associate with redness and so foul-smelling. He was also having increasing body pain, not feeling well, tiredness and fatigability and poor appetite noted. Patient in the past had a similar incident, and multiple times he had an osteomyelitis also Past medical history: Hypertension diabetes hypercholesteremia peripheral vascular disease right leg ischemia. Status post intervention. Peripheral vascular disease, CAD, stent Allergy: No known drug allergy except to ciprofloxacin. 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 Currently nondrinker. Review of system noted from the chart. Complaining of no pain in the legs. Patient is able to walk On examination: Vital signs reviewed in Chest bilateral good air entry. 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 Patient has a palpable dopplerable pulses on the right lower extremity including dorsalis pedis and posterior tibial now. Patient is having significant changes in the great toe skin discoloration especially on the lateral aspect dark discoloration noted, no tenderness But the patient has a significant redness, swelling involving the right great toe, also there is a foul-smelling discharge noted in the sole of the right great toe and associated with pus. There is no proximal lunate is noted Patient in the emergency room seen by real estate agent/broker, the wound dressing was done, cultures were taken. Labs reviewed Elevated WBC, ESR elevated, as well as CRP. X-ray of the right foot showing evidence of osteolytic changes and also soft tissue swelling Assessment/condition: 65-year-old male with history of peripheral vascular disease of hypertension diabetes hypercholesteremia CAD, status post a coronary it to bypass grafting. Recently patient underwent angiogram, vessels are patent. Patient had a peripheral vascular disease, status post intervention. Now having nonhealing ulcer involving the right great toe. Possibly patient has a localized skin infection, as well as abscess in the right great toe with a possible deep tissue involvement. Underlying osteomyelitis cannot be ruled out. Wound culture is currently pending. We will start the patient on vancomycin and Zosyn. Infectious disease evaluation, real estate agent/broker evaluation. Patient has a life-threatening wound infection as well as limb threatening localized this wound infection noted. We will continue to monitor closely. We will follow the patient Present on Admission - Present on Admission Any Indicators Present on Admission: No History of DVT/PE: No History of Uncontrolled Diabetes: No Urinary Catheter: No Decubitus Ulcer Present: No Past Patient History - Past Medical History & Family History Past Medical History?: Yes - Past Social History Smoking Status: Never Smoked - CARDIAC Hx Cardiac Disorders: Yes Hx Hypercholesterolemia: Yes Hx Hypertension: Yes - PULMONARY Hx Respiratory Disorders: No - NEUROLOGICAL Hx Neurological Disorder: Yes Hx Dizziness: Yes - HEENT Hx HEENT Problems: Yes Hx Cataracts: Yes (BILATERAL CATARACT EXTRACTION 2011) - RENAL Hx Chronic Kidney Disease: No - ENDOCRINE/METABOLIC Hx Diabetes Mellitus Type 2: Yes - HEMATOLOGICAL/ONCOLOGICAL Hx Blood Disorders: Yes Hx Anemia: Yes - INTEGUMENTARY Hx Dermatological Problems: Yes (ulcers right great toe) - MUSCULOSKELETAL/RHEUMATOLOGICAL Hx Falls: No - GASTROINTESTINAL Hx Gastrointestinal Disorders: Yes Other/Comment: abd hernias per pt - GENITOURINARY/GYNECOLOGICAL Hx Genitourinary Disorders: Yes Hx Prostate Problems: Yes - PSYCHIATRIC Hx Psychophysiologic Disorder: No Hx Substance Use: No - SURGICAL HISTORY Hx Surgeries: Yes Hx Cataract Extraction: Yes (BILATERAL 2011) Hx Femoral-Popliteal Bypass Graft: Yes (LEFT LEG 2009) Hx Open Heart Surgery: Yes (6 years ago valve replacements) Other/Comment: Open heart surgery 6 yrs ago, OSTEOMYELITIS RIGHT TOE - ANESTHESIA Hx Anesthesia: Yes Hx Anesthesia Reactions: No Hx Malignant Hyperthermia: No Has any member of the family had a problem w/ anesthesia?: No Meds Allergies/Adverse Reactions: Allergies Allergy/AdvReac Type Severity Reaction Status Date / Time ciprofloxacin Allergy Severe Verified 01/11/19 13:06 Results - Vital Signs Recent Vital Signs: Last Vital Signs Temp 97.9 F 01/12/19 16:00 Pulse 84 03/07/19 16:00 Resp 18 01/12/19 16:00 BP 137/60 01/12/19 16:00 Pulse Ox 95 01/12/19 16:00 - Labs Result Diagrams: 01/12/19 06:15 01/12/19 06:15 Labs: Laboratory Results - last 24 hr 01/11/19 01/11/19 01/12/19 17:43 21:33 06:15 WBC RBC Hgb Hct MCV MCH MCHC RDW Plt Count MPV Neut % (Auto) Lymph % (Auto) [place] % (Auto) Eos % (Auto) Baso % (Auto) Neut # (Auto) Lymph # (Auto) [place] # (Auto) Eos # (Auto) Baso # (Auto) ESR 58 H APTT 31 Sodium Potassium Chloride Carbon Dioxide Anion Gap BUN Creatinine Est GFR ( Amer) Est GFR (Non-Af Amer) POC Glucose (mg/dL) 177 H Random Glucose Calcium Phosphorus Magnesium Total Bilirubin AST ALT Alkaline Phosphatase Total Protein Albumin Globulin Albumin/Globulin Ratio Urine Color Urine Clarity Urine pH Ur Specific [place] Urine Protein Urine Glucose (UA) Urine Ketones Urine Blood Urine Nitrate Urine Bilirubin Urine Urobilinogen Ur Leukocyte Esterase Urine RBC (Auto) Ur Squamous Epith Cells Urine Bacteria 01/12/19 01/12/19 01/12/19 06:15 06:15 06:35 WBC 8.0 RBC 3.64 L Hgb 9.4 L Hct 29.5 L MCV 81.0 MCH 25.8 L MCHC 31.9 L RDW 16.3 H Plt Count 99 L MPV 13.1 H Neut % (Auto) 76.6 H Lymph % (Auto) 12.1 L [place] % (Auto) 9.8 Eos % (Auto) 1.0 Baso % (Auto) 0.5 Neut # (Auto) 6.2 Lymph # (Auto) 1.0 [place] # (Auto) 0.8 Eos # (Auto) 0.1 Baso # (Auto) 0.0 ESR APTT Sodium 131 L Potassium 4.0 Chloride 100 Carbon Dioxide 25 Anion Gap 10 BUN 20 Creatinine 1.2 Est GFR ( Amer) > 60 Est GFR (Non-Af Amer) > 60 POC Glucose (mg/dL) 139 H Random Glucose 139 H D Calcium 8.2 L Phosphorus 3.1 Magnesium 2.0 Total Bilirubin 0.4 AST 17 D ALT 16 L D Alkaline Phosphatase 62 Total Protein 6.5 Albumin 3.3 L Globulin 3.2 Albumin/Globulin Ratio 1.0 Urine Color Urine Clarity Urine pH Ur Specific [place] Urine Protein Urine Glucose (UA) Urine Ketones Urine Blood Urine Nitrate Urine Bilirubin Urine Urobilinogen Ur Leukocyte Esterase Urine RBC (Auto) Ur Squamous Epith Cells Urine Bacteria 01/12/19 01/12/19 01/12/19 07:45 16:15 16:54 WBC RBC Hgb Hct MCV MCH MCHC RDW Plt Count MPV Neut % (Auto) Lymph % (Auto) [place] % (Auto) Eos % (Auto) Baso % (Auto) Neut # (Auto) Lymph # (Auto) [place] # (Auto) Eos # (Auto) Baso # (Auto) ESR 62 H APTT Sodium Potassium Chloride Carbon Dioxide Anion Gap BUN Creatinine Est GFR ( Amer) Est GFR (Non-Af Amer) POC Glucose (mg/dL) 114 H Random Glucose Calcium Phosphorus Magnesium Total Bilirubin AST ALT Alkaline Phosphatase Total Protein Albumin Globulin Albumin/Globulin Ratio Urine Color Straw Urine Clarity Clear Urine pH 5.0 Ur Specific [place] 1.006 Urine Protein Negative Urine Glucose (UA) Normal Urine Ketones Negative Urine Blood Negative Urine Nitrate Negative Urine Bilirubin Negative Urine Urobilinogen Normal Ur Leukocyte Esterase Neg Urine RBC (Auto) < 1 Ur Squamous Epith Cells < 1 Urine Bacteria Rare
--- NOTE | 2019-01-12 19:29 | CP.PCM.CON ---
History of Present Illness - History of Present Illness History of Present Illness: 68 yo male is admitted for right great toe infection and referred for ID evaluation for antibiotic management According to podiatry he has had chronic ulceration for several months- however patient states only recently developed redness swelling and pus PMH DM HTN HLD CAD CABG PVD Ischemia right leg SH non smoker no IVDU allergy Cipro started on empiric IV antibiotics Review of Systems - Review of Systems All systems: reviewed and no additional remarkable complaints except - Constitutional Constitutional: As Per HPI. absent: Chills, Fever - EENT Eyes: absent: As Per HPI, Blind Spots, Blurred Vision, Change in Vision, Decreased Night Vision, Diplopia, Discharge, Dry Eye, Exophthalmos, Floaters, Irritation, Itchy Eyes, Loss of Peripheral Vision, Pain, Photophobia, Requires Corrective Lenses, Sees Flashes, Spots in Vision, Tunnel Vision, Other Visual Disturbances, Loss of Vision, Other Ears: absent: As Per HPI, Decreased Hearing, Ear Discharge, Ear Pain, Tinnitus, Abnormal Hearing, Disequilibrium, Dizziness, Other Nose/Mouth/Throat: absent: As Per HPI, Epistaxis, Nasal Congestion, Nasal Discharge, Nasal Obstruction, Nasal Trauma, Nose Pain, Post Nasal Drip, Sinus Pain, Sinus Pressure, Bleeding Gums, Change in Voice, Dental Pain, Dry Mouth, Dysphagia, Halitosis, Hoarsness, Lip Swelling, Mouth Lesions, Mouth Pain, Odynophagia, Sore Throat, Throat Swelling, Tongue Swelling, Facial Pain, Neck Pain, Neck Mass, Other - Cardiovascular Cardiovascular: absent: As Per HPI, Acrocyanosis, Chest Pain, Chest Pain at Rest, Chest Pain with Activity, Claudication, Diaphoresis, Dyspnea, Dyspnea on Exertion, Edema, Irregular Heart Rhythm, Pain Radiating to Arm/Neck/Jaw, Leg Edema, Leg Ulcers, Lightheadedness, Orthopnea, Palpitations, Paroxysmal Nocturnal Dyspnea, Pedal Edema, Radiating Pain, Rapid Heart Rate, Slow Heart Rate, Syncope, Other - Respiratory Respiratory: absent: As Per HPI, Cough, Dyspnea, Hemoptysis, Dyspnea on Exertion, Wheezing, Snoring, Stridor, Pain on Inspiration, Chest Congestion, Excessive Mucous Production, Change in Mucous Color, Pain with Coughing, Other - Gastrointestinal Gastrointestinal: absent: As Per HPI, Abdominal Pain, Belching, Bloating, Change in Bowel Habits, Change in Stool Character, Coffee Ground Emesis, Constipation, Cramping, Diarrhea, Dyspepsia, Dysphagia, Early Satiety, Excessive Flatus, Fecal Incontinence, Heartburn, Hematemesis, Hematochezia, Loose Stools, Melena, Nausea, Odynophagia, Temesmus, Vomiting, Other - Genitourinary Genitourinary: absent: As Per HPI, Change in Urinary Stream, Difficulty Urinati ng, Dysuria, Flank Pain, Hematuria, Pyuria, Nocturia, Urinary Incontinence, Urinary Frequency, Urinary Hesitance, Urinary Urgency, Voiding Freq/Small Amts, Freq UTI, Hx Renal/Bladder Calculi, Hx /Renal Surgery, Bladder Distension, Other - Musculoskeletal Musculoskeletal: As Per HPI - Integumentary Integumentary: As Per HPI, Skin Pain, Wounds - Neurological Neurological: As Per HPI, Sensory Deficit - Psychiatric Psychiatric: absent: As Per HPI, Abnormal Sleep Pattern, Anhedonia, Anxiety, Auditory Hallucinations, Behavioral Changes, Change in Appetite, Change in Libido, Confusion, Depression, Difficulty Concentrating, Hallucinations, Ho micidal Ideation, Hopelessness, Irritability, Memory Loss, Mood Swings, Panic Attacks, Paranoia, Suicidal Ideation, Visual Hallucinations, Tactile Hallucinations, Other - Endocrine Endocrine: absent: As Per HPI, Change in Body Appearance, Change in Libido, Cold Intolorance, Deepening of Voice, Excessive Sweating, Fatigue, Flushing, Heat Intolorance, Increase in Ring/Shoe/Hat Size, Palpitations, Polydipsia, Polyphagia, Polyuria, Other - Hematologic/Lymphatic Hematologic: absent: As Per HPI, Easy Bleeding, Easy Bruising, Lymphadenopathy, Other Past Patient History - Past Medical History & Family History Past Medical History?: Yes - Past Social History Smoking Status: Never Smoked - CARDIAC Hx Cardiac Disorders: Yes Hx Hypercholesterolemia: Yes Hx Hypertension: Yes Hx Peripheral Edema: Yes - PULMONARY Hx Respiratory Disorders: No - NEUROLOGICAL Hx Neurological Disorder: Yes Hx Dizziness: Yes - HEENT Hx HEENT Problems: Yes Hx Cataracts: Yes (BILATERAL CATARACT EXTRACTION 2011) - RENAL Hx Chronic Kidney Disease: No - ENDOCRINE/METABOLIC Hx Endocrine Disorders: Yes Hx Diabetes Mellitus Type 2: Yes - HEMATOLOGICAL/ONCOLOGICAL Hx Blood Disorders: Yes Hx Anemia: Yes - INTEGUMENTARY Hx Dermatological Problems: Yes (ulcers right great toe) - MUSCULOSKELETAL/RHEUMATOLOGICAL Hx Falls: No - GASTROINTESTINAL Hx Gastrointestinal Disorders: Yes Other/Comment: abd hernias per pt - GENITOURINARY/GYNECOLOGICAL Hx Genitourinary Disorders: Yes Hx Prostate Problems: Yes - PSYCHIATRIC Hx Psychophysiologic Disorder: No Hx Substance Use: No - SURGICAL HISTORY Hx Surgeries: Yes Hx Cataract Extraction: Yes (BILATERAL 2011) Hx Femoral-Popliteal Bypass Graft: Yes (LEFT LEG 2009) Hx Open Heart Surgery: Yes (6 years ago valve replacements) Other/Comment: Open heart surgery 6 yrs ago, OSTEOMYELITIS RIGHT TOE - ANESTHESIA Hx Anesthesia: Yes Hx Anesthesia Reactions: No Hx Malignant Hyperthermia: No Has any member of the family had a problem w/ anesthesia?: No Meds Allergies/Adverse Reactions: Allergies Allergy/AdvReac Type Severity Reaction Status Date / Time ciprofloxacin Allergy Severe Verified 01/11/19 13:06 - Medications Medications: Current Medications Aspirin (Ecotrin) 81 mg PO DAILY [facility] Last Admin: 01/12/19 10:14 Dose: 81 mg Carvedilol (Coreg) 6.25 mg PO BID [facility] Last Admin: 01/12/19 17:23 Dose: 6.25 mg Cilostazol (Pletal) 100 mg PO BID [facility] Last Admin: 01/12/19 17:23 Dose: 100 mg Clopidogrel Bisulfate (Plavix) 75 mg PO DAILY [facility] Last Admin: 01/12/19 10:13 Dose: 75 mg Famotidine (Pepcid) 20 mg PO DAILY [facility] Last Admin: 01/12/19 10:14 Dose: 20 mg Finasteride (Proscar) 5 mg PO DAILY [facility] Last Admin: 01/12/19 10:13 Dose: 5 mg Heparin Sodium (Porcine) (Heparin) 5,000 units SC Q8 [facility] Last Admin: 01/12/19 13:11 Dose: 5,000 units Vancomycin/Sodium Chloride (Vancomycin 1 Gm/Ns 200 Ml) 1 gm in 200 mls @ 133 mls/hr IVPB Q24H [facility]; Protocol Stop: 01/17/19 15:31 Last Admin: 01/12/19 16:21 Dose: 133 mls/hr Piperacillin Sod/Tazobactam (Sod 3.375 gm/ Sodium Chloride) 100 mls @ 200 mls/hr IVPB Q8H [facility]; Protocol Last Admin: 01/12/19 19:24 Dose: 200 mls/hr Insulin Human Regular (Novolin R) 0 unit SC ACHS [facility]; Protocol Last Admin: 01/12/19 16:22 Dose: Not Given Rosuvastatin Calcium (Crestor) 10 mg PO HS [facility] Last Admin: 01/11/19 21:34 Dose: 10 mg Sitagliptin Phosphate (Januvia) 50 mg PO DAILY [facility] Last Admin: 01/12/19 10:14 Dose: 50 mg Sodium Hypochlorite (Dakins Solution 0.125%) 0 appl TOP QSHIFT [facility] Last Admin: 01/12/19 05:21 Dose: 1 appl Physical Exam - Constitutional Appears: Non-toxic, Chronically Ill - Head Exam Head Exam: NORMOCEPHALIC - Eye Exam Eye Exam: absent: Scleral icterus - ENT Exam ENT Exam: Mucous Membranes Dry, Normal External Ear Exam - Neck Exam Neck exam: Negative for: Lymphadenopathy - Respiratory Exam Respiratory Exam: Decreased Breath Sounds, Clear to Auscultation Bilateral - Cardiovascular Exam Cardiovascular Exam: REGULAR RHYTHM, +S1, +S2 - GI/Abdominal Exam GI & Abdominal Exam: Diminished Bowel Sounds, Soft. absent: Tenderness - Rectal Exam Rectal Exam: Deferred - Exam Exam: NORMAL INSPECTION - Extremities Exam Extremities exam: Positive for: pedal edema, tenderness. Negative for: calf tenderness, normal capillary refill, normal inspection, pedal pulses present Additional comments: purulent ulcer with surrounding cellulitis on plantar aspect right foot - Back Exam Back exam: absent: CVA tenderness (L), CVA tenderness (R) - Neurological Exam Neurological exam: Alert, CN II-XII Intact, Oriented x3, Reflexes Normal - Psychiatric Exam Psychiatric exam: Normal Mood - Skin Skin Exam: Dry, Intact Results - Vital Signs Recent Vital Signs: Last Vital Signs Temp 97.9 F 01/12/19 16:00 Pulse 84 01/12/19 16:00 Resp 18 01/12/19 16:00 BP 137/60 01/12/19 16:00 Pulse Ox 95 01/12/19 16:00 - Labs Result Diagrams: 01/12/19 06:15 01/12/19 06:15 Labs: Laboratory Results - last 24 hr 01/11/19 01/12/19 01/12/19 21:33 06:15 06:15 WBC 8.0 RBC 3.64 L Hgb 9.4 L Hct 29.5 L MCV 81.0 MCH 25.8 L MCHC 31.9 L RDW 16.3 H Plt Count 99 L MPV 13.1 H Neut % (Auto) 76.6 H Lymph % (Auto) 12.1 L [place] % (Auto) 9.8 Eos % (Auto) 1.0 Baso % (Auto) 0.5 Neut # (Auto) 6.2 Lymph # (Auto) 1.0 [place] # (Auto) 0.8 Eos # (Auto) 0.1 Baso # (Auto) 0.0 ESR APTT 31 Sodium Potassium Chloride Carbon Dioxide Anion Gap BUN Creatinine Est GFR ( Amer) Est GFR (Non-Af Amer) POC Glucose (mg/dL) 177 H Random Glucose Calcium Phosphorus Magnesium Total Bilirubin AST ALT Alkaline Phosphatase Total Protein Albumin Globulin Albumin/Globulin Ratio Urine Color Urine Clarity Urine pH Ur Specific [place] Urine Protein Urine Glucose (UA) Urine Ketones Urine Blood Urine Nitrate Urine Bilirubin Urine Urobilinogen Ur Leukocyte Esterase Urine RBC (Auto) Ur Squamous Epith Cells Urine Bacteria 01/12/19 01/12/19 01/12/19 06:15 06:35 07:45 WBC RBC Hgb Hct MCV MCH MCHC RDW Plt Count MPV Neut % (Auto) Lymph % (Auto) [place] % (Auto) Eos % (Auto) Baso % (Auto) Neut # (Auto) Lymph # (Auto) [place] # (Auto) Eos # (Auto) Baso # (Auto) ESR APTT Sodium 131 L Potassium 4.0 Chloride 100 Carbon Dioxide 25 Anion Gap 10 BUN 20 Creatinine 1.2 Est GFR ( Amer) > 60 Est GFR (Non-Af Amer) > 60 POC Glucose (mg/dL) 139 H Random Glucose 139 H D Calcium 8.2 L Phosphorus 3.1 Magnesium 2.0 Total Bilirubin 0.4 AST 17 D ALT 16 L D Alkaline Phosphatase 62 Total Protein 6.5 Albumin 3.3 L Globulin 3.2 Albumin/Globulin Ratio 1.0 Urine Color Straw Urine Clarity Clear Urine pH 5.0 Ur Specific [place] 1.006 Urine Protein Negative Urine Glucose (UA) Normal Urine Ketones Negative Urine Blood Negative Urine Nitrate Negative Urine Bilirubin Negative Urine Urobilinogen Normal Ur Leukocyte Esterase Neg Urine RBC (Auto) < 1 Ur Squamous Epith Cells < 1 Urine Bacteria Rare 01/12/19 01/12/19 16:15 16:54 WBC RBC Hgb Hct MCV MCH MCHC RDW Plt Count MPV Neut % (Auto) Lymph % (Auto) [place] % (Auto) Eos % (Auto) Baso % (Auto) Neut # (Auto) Lymph # (Auto) [place] # (Auto) Eos # (Auto) Baso # (Auto) ESR 62 H APTT Sodium Potassium Chloride Carbon Dioxide Anion Gap BUN Creatinine Est GFR ( Amer) Est GFR (Non-Af Amer) POC Glucose (mg/dL) 114 H Random Glucose Calcium Phosphorus Magnesium Total Bilirubin AST ALT Alkaline Phosphatase Total Protein Albumin Globulin Albumin/Globulin Ratio Urine Color Urine Clarity Urine pH Ur Specific [place] Urine Protein Urine Glucose (UA) Urine Ketones Urine Blood Urine Nitrate Urine Bilirubin Urine Urobilinogen Ur Leukocyte Esterase Urine RBC (Auto) Ur Squamous Epith Cells Urine Bacteria Assessment & Plan - Assessment and Plan (Free Text) Assessment: 68 yo male is admitted for right great toe infection and referred for ID evaluation for antibiotic management According to podiatry he has had chronic ulceration for several months- however patient states only recently developed redness swelling and pus PMH DM HTN HLD CAD CABG PVD Ischemia right leg SH non smoker no IVDU allergy Cipro started on empiric IV antibiotics recc: vascular studies, IV antibiotics, MRI foot , possible I and D
[2019-01-13] MEDS: Piperacillin/Tazobact 3.375 GM in Sodium Chloride 100 ML IVPB SCH ×3 (02:58→20:19)
--- NOTE | 2019-01-13 08:25 | CP.PCM.PN ---
Subjective - Date & Time of Evaluation Date of Evaluation: 01/13/19 Time of Evaluation: 08:22 - Subjective Subjective: Patient comfortable right now. Patient was seen by infectious disease specialist yesterday. On antibiotic now. The discharge is improved markedly. No nausea no vomiting tolerating the antibiotic Vital signs are stable. Chest good air entry Regular heart sounds noted Nontender abdomen. No pedal edema Patient earlier last admission had vascular studies done, there was small vessel disease noted, and the patient was refusing to do further intra-vascular intervention. Currently being treated medically Assessment and recommendation: Patient is a 68-year-old male with history of diabetes hypertension CAD peripheral vascular disease admitted now with right great toe abscess, complicated with the possible sepsis. Now responding with antibiotic, will identify the organism, sensitivity, ID follow-up. And will follow the patient Objective - Vital Signs/Intake and Output Vital Signs (last 24 hours): Temp Pulse Resp BP Pulse Ox 98.9 F 79 20 158/73 H 98 01/13/19 07:50 01/13/19 07:50 01/13/19 07:50 01/13/19 07:50 01/13/19 07:50 Intake and Output: 01/13/19 01/13/19 06:59 18:59 Intake Total 900 Output Total 450 Balance 450 - Medications Medications: Current Medications Aspirin (Ecotrin) 81 mg PO DAILY [facility] Last Admin: 01/12/19 10:14 Dose: 81 mg Carvedilol (Coreg) 6.25 mg PO BID [facility] Last Admin: 01/12/19 17:23 Dose: 6.25 mg Cilostazol (Pletal) 100 mg PO BID [facility] Last Admin: 01/12/19 17:23 Dose: 100 mg Clopidogrel Bisulfate (Plavix) 75 mg PO DAILY [facility] Last Admin: 01/12/19 10:13 Dose: 75 mg Famotidine (Pepcid) 20 mg PO DAILY [facility] Last Admin: 01/12/19 10:14 Dose: 20 mg Finasteride (Proscar) 5 mg PO DAILY [facility] Last Admin: 01/12/19 10:13 Dose: 5 mg Heparin Sodium (Porcine) (Heparin) 5,000 units SC Q8 [facility] Last Admin: 01/13/19 05:39 Dose: 5,000 units Vancomycin/Sodium Chloride (Vancomycin 1 Gm/Ns 200 Ml) 1 gm in 200 mls @ 133 mls/hr IVPB Q24H [facility]; Protocol Stop: 01/17/19 15:31 Last Admin: 01/12/19 16:21 Dose: 133 mls/hr Piperacillin Sod/Tazobactam (Sod 3.375 gm/ Sodium Chloride) 100 mls @ 200 mls/hr IVPB Q8H [facility]; Protocol Last Admin: 01/13/19 02:58 Dose: 200 mls/hr Insulin Human Regular (Novolin R) 0 unit SC ACHS [facility]; Protocol Last Admin: 01/12/19 21:34 Dose: Not Given Rosuvastatin Calcium (Crestor) 10 mg PO HS [facility] Last Admin: 01/12/19 21:32 Dose: 10 mg Sitagliptin Phosphate (Januvia) 50 mg PO DAILY [facility] Last Admin: 01/12/19 10:14 Dose: 50 mg Sodium Hypochlorite (Dakins Solution 0.125%) 0 appl TOP QSHIFT [facility] Last Admin: 01/13/19 05:39 Dose: 1 appl - Labs Labs: 01/12/19 06:15 01/12/19 06:15 APTT 31 SECONDS (21-34) 01/12/19 06:15
[2019-01-13] MEDS: (Novolin R) Insulin Human Regular 100 units/ml vial SC SCH ×4 (08:33→21:31)
[2019-01-13] MEDS: Cilostazol 100 mg Tab UD PO SCH ×2 (10:00→18:12)
--- NOTE | 2019-01-13 12:50 | CP.PCM.PN ---
Subjective - Date & Time of Evaluation Date of Evaluation: 01/13/19 Time of Evaluation: 12:47 - Subjective Subjective: Pt seen at bedside for f/u right hallux abscess. Right hallux shows purulent drainage with erythema and edema still noted. There is slight malodor. Pulses are diminished. Flushed and redressed wound with 1/4 strenth dakins solution. Cont with iv abx for now. Discussed case with Dr. Latif that wound is not improving and that he needs vasc work up - Dr. Sharma consulted. Objective - Vital Signs/Intake and Output Vital Signs (last 24 hours): Temp Pulse Resp BP Pulse Ox 98.9 F 79 20 158/73 H 98 01/13/19 07:50 01/13/19 07:50 01/13/19 07:50 01/13/19 07:50 01/13/19 07:50 Intake and Output: 01/13/19 01/13/19 06:59 18:59 Intake Total 900 Output Total 450 Balance 450 - Medications Medications: Current Medications Aspirin (Ecotrin) 81 mg PO DAILY [facility] Last Admin: 01/13/19 10:02 Dose: 81 mg Carvedilol (Coreg) 6.25 mg PO BID [facility] Last Admin: 01/13/19 10:00 Dose: 6.25 mg Cilostazol (Pletal) 100 mg PO BID [facility] Last Admin: 01/13/19 10:00 Dose: 100 mg Clopidogrel Bisulfate (Plavix) 75 mg PO DAILY [facility] Last Admin: 01/13/19 10:00 Dose: 75 mg Famotidine (Pepcid) 20 mg PO DAILY [facility] Last Admin: 01/13/19 10:02 Dose: 20 mg Finasteride (Proscar) 5 mg PO DAILY [facility] Last Admin: 01/13/19 10:00 Dose: 5 mg Heparin Sodium (Porcine) (Heparin) 5,000 units SC Q8 [facility] Last Admin: 01/13/19 05:39 Dose: 5,000 units Vancomycin/Sodium Chloride (Vancomycin 1 Gm/Ns 200 Ml) 1 gm in 200 mls @ 133 mls/hr IVPB Q24H [facility]; Protocol Stop: 01/17/19 15:31 Last Admin: 01/12/19 16:21 Dose: 133 mls/hr Piperacillin Sod/Tazobactam (Sod 3.375 gm/ Sodium Chloride) 100 mls @ 200 mls/hr IVPB Q8H [facility]; Protocol Last Admin: 01/13/19 11:11 Dose: 200 mls/hr Insulin Human Regular (Novolin R) 0 unit SC ACHS [facility]; Protocol Last Admin: 01/13/19 11:17 Dose: Not Given Rosuvastatin Calcium (Crestor) 10 mg PO HS [facility] Last Admin: 01/12/19 21:32 Dose: 10 mg Sitagliptin Phosphate (Januvia) 50 mg PO DAILY [facility] Last Admin: 01/13/19 10:02 Dose: 50 mg Sodium Hypochlorite (Dakins Solution 0.125%) 0 appl TOP QSHIFT [facility] Last Admin: 01/13/19 05:39 Dose: 1 appl - Labs Labs: 01/12/19 06:15 01/12/19 06:15 APTT 31 SECONDS (21-34) 01/12/19 06:15
--- NOTE | 2019-01-13 15:02 | CP.PCM.CON ---
History of Present Illness - History of Present Illness History of Present Illness: Vascular Surgery: Dr. Sharma 68M w/ hx of DM, HTN, PVD, Left fem-pop bypass who was admitted 3 with non- healing R hallux ulcer. Pt was seen last month with similar complaints and underwent CTA at that time. He was planned for angio with Dr. Sharma but was discharged before the procedure. This admission pt complains only of mild pain at the toe when palpated, otherwise denies any complaints. He denies any fever/chills/sob/chest pain/nausea/vomiting. Podiatry is seeing patient for the foot. PMH: DM, HTN, PVD PSH: left fem-pop bypass, CABG, cataract surgery SocialHx: 20+ yr smoking hx (quit 20yrs ago), denies EtOH/drugs All: Cipro Review of Systems - Review of Systems All systems: reviewed and no additional remarkable complaints except (as per hPI) Past Patient History - Past Medical History & Family History Past Medical History?: Yes - Past Social History Smoking Status: Never Smoked - CARDIAC Hx Cardiac Disorders: Yes Hx Hypercholesterolemia: Yes Hx Hypertension: Yes Hx Peripheral Edema: Yes - PULMONARY Hx Respiratory Disorders: No - NEUROLOGICAL Hx Neurological Disorder: Yes Hx Dizziness: Yes - HEENT Hx HEENT Problems: Yes Hx Cataracts: Yes (BILATERAL CATARACT EXTRACTION 2011) - RENAL Hx Chronic Kidney Disease: No - ENDOCRINE/METABOLIC Hx Endocrine Disorders: Yes Hx Diabetes Mellitus Type 2: Yes - HEMATOLOGICAL/ONCOLOGICAL Hx Blood Disorders: Yes Hx Anemia: Yes - INTEGUMENTARY Hx Dermatological Problems: Yes (ulcers right great toe) - MUSCULOSKELETAL/RHEUMATOLOGICAL Hx Falls: No - GASTROINTESTINAL Hx Gastrointestinal Disorders: Yes Other/Comment: abd hernias per pt - GENITOURINARY/GYNECOLOGICAL Hx Genitourinary Disorders: Yes Hx Prostate Problems: Yes - PSYCHIATRIC Hx Psychophysiologic Disorder: No Hx Substance Use: No - SURGICAL HISTORY Hx Surgeries: Yes Hx Cataract Extraction: Yes (BILATERAL 2011) Hx Femoral-Popliteal Bypass Graft: Yes (LEFT LEG 2009) Hx Open Heart Surgery: Yes (6 years ago valve replacements) Other/Comment: Open heart surgery 6 yrs ago, OSTEOMYELITIS RIGHT TOE - ANESTHESIA Hx Anesthesia: Yes Hx Anesthesia Reactions: No Hx Malignant Hyperthermia: No Has any member of the family had a problem w/ anesthesia?: No Meds Allergies/Adverse Reactions: Allergies Allergy/AdvReac Type Severity Reaction Status Date / Time ciprofloxacin Allergy Severe Verified 01/11/19 13:06 - Medications Medications: Current Medications Aspirin (Ecotrin) 81 mg PO DAILY [facility] Last Admin: 01/13/19 10:02 Dose: 81 mg Carvedilol (Coreg) 6.25 mg PO BID [facility] Last Admin: 01/13/19 10:00 Dose: 6.25 mg Cilostazol (Pletal) 100 mg PO BID [facility] Last Admin: 01/13/19 10:00 Dose: 100 mg Clopidogrel Bisulfate (Plavix) 75 mg PO DAILY [facility] Last Admin: 01/13/19 10:00 Dose: 75 mg Famotidine (Pepcid) 20 mg PO DAILY [facility] Last Admin: 01/13/19 10:02 Dose: 20 mg Finasteride (Proscar) 5 mg PO DAILY [facility] Last Admin: 01/13/19 10:00 Dose: 5 mg Heparin Sodium (Porcine) (Heparin) 5,000 units SC Q8 [facility] Last Admin: 01/13/19 12:59 Dose: 5,000 units Vancomycin/Sodium Chloride (Vancomycin 1 Gm/Ns 200 Ml) 1 gm in 200 mls @ 133 mls/hr IVPB Q24H [facility]; Protocol Stop: 01/17/19 15:31 Last Admin: 01/12/19 16:21 Dose: 133 mls/hr Piperacillin Sod/Tazobactam (Sod 3.375 gm/ Sodium Chloride) 100 mls @ 200 mls/hr IVPB Q8H [facility]; Protocol Last Admin: 01/13/19 11:11 Dose: 200 mls/hr Insulin Human Regular (Novolin R) 0 unit SC ACHS [facility]; Protocol Last Admin: 01/13/19 11:17 Dose: Not Given Rosuvastatin Calcium (Crestor) 10 mg PO HS [facility] Last Admin: 01/12/19 21:32 Dose: 10 mg Sitagliptin Phosphate (Januvia) 50 mg PO DAILY [facility] Last Admin: 01/13/19 10:02 Dose: 50 mg Sodium Hypochlorite (Dakins Solution 0.125%) 0 appl TOP QSHIFT [facility] Last Admin: 01/13/19 05:39 Dose: 1 appl Physical Exam - Constitutional Appears: Well, No Acute Distress - Head Exam Head Exam: ATRAUMATIC, NORMAL INSPECTION, NORMOCEPHALIC - Eye Exam Eye Exam: Normal appearance - Respiratory Exam Respiratory Exam: NORMAL BREATHING PATTERN. absent: Respiratory Distress - Cardiovascular Exam Cardiovascular Exam: REGULAR RHYTHM - Extremities Exam Additional comments: ulcer of R hallux with purulent drainage, mild erythema; mild ttp; Paplapble pulses DP/PT on the Right Dopplerable pulses DP/PT on the left - Neurological Exam Neurological exam: Alert, Oriented x3 - Psychiatric Exam Psychiatric exam: Normal Affect, Normal Mood - Skin Skin Exam: Dry, Intact Results - Vital Signs Recent Vital Signs: Last Vital Signs Temp 98.9 F 01/13/19 07:50 Pulse 79 01/13/19 07:50 Resp 20 01/13/19 07:50 BP 158/73 H 01/13/19 07:50 Pulse Ox 98 01/13/19 07:50 - Labs Result Diagrams: 01/12/19 06:15 01/12/19 06:15 Labs: Laboratory Results - last 24 hr 01/12/19 01/12/19 01/12/19 16:15 16:54 21:14 ESR 62 H POC Glucose (mg/dL) 114 H 220 H Vancomycin Trough 01/13/19 01/13/19 01/13/19 06:39 07:11 11:08 ESR POC Glucose (mg/dL) 153 H 137 H Vancomycin Trough 10.4 H Assessment & Plan - Assessment and Plan (Free Text) Assessment: 68M w/ non-healing R foot ulcer and PVD -Cont ABx -Cont care as per podiatry team -Will review prior CTA w/ Dr. Sharma -Likely plan for Angio this admission Further reccs to follow Ruddy Callahan PGY4
[2019-01-13] MEDS: Vancomycin 1 gm/NS 200 ml 1 GM/200 ML BAG IVPB SCH (16:01)
--- NOTE | 2019-01-13 18:17 | CP.PCM.PN ---
Subjective - Date & Time of Evaluation Date of Evaluation: 01/13/19 Time of Evaluation: 18:14 - Subjective Subjective: Podiatry Progress Note for Dr. Cox 68M seen at bedside by Dr. Cox for right hallux ulceration and infection. Per Dr. Cox, patient is AAO x 3 and NAD, resting comfortably in bed. States that pain is well controlled. Denies any acute overnight events or new pedal complaints. Denies any recent N/V/F/C/CP/SOB Objective - Vital Signs/Intake and Output Vital Signs (last 24 hours): Temp Pulse Resp BP Pulse Ox 99.4 F 82 20 119/65 96 01/13/19 15:00 01/13/19 15:00 01/13/19 15:00 01/13/19 15:00 01/13/19 15:00 Intake and Output: 01/13/19 01/13/19 06:59 18:59 Intake Total 900 400 Output Total 450 Balance 450 400 - Medications Medications: Current Medications Aspirin (Ecotrin) 81 mg PO DAILY [facility] Last Admin: 01/13/19 10:02 Dose: 81 mg Carvedilol (Coreg) 6.25 mg PO BID [facility] Last Admin: 01/13/19 17:19 Dose: 6.25 mg Cilostazol (Pletal) 100 mg PO BID [facility] Last Admin: 01/13/19 18:12 Dose: 100 mg Clopidogrel Bisulfate (Plavix) 75 mg PO DAILY [facility] Last Admin: 01/13/19 10:00 Dose: 75 mg Famotidine (Pepcid) 20 mg PO DAILY [facility] Last Admin: 01/13/19 10:02 Dose: 20 mg Finasteride (Proscar) 5 mg PO DAILY [facility] Last Admin: 01/13/19 10:00 Dose: 5 mg Heparin Sodium (Porcine) (Heparin) 5,000 units SC Q8 [facility] Last Admin: 01/13/19 12:59 Dose: 5,000 units Vancomycin/Sodium Chloride (Vancomycin 1 Gm/Ns 200 Ml) 1 gm in 200 mls @ 133 mls/hr IVPB Q24H [facility]; Protocol Stop: 01/17/19 15:31 Last Admin: 01/13/19 16:01 Dose: 133 mls/hr Piperacillin Sod/Tazobactam (Sod 3.375 gm/ Sodium Chloride) 100 mls @ 200 mls/hr IVPB Q8H [facility]; Protocol Last Admin: 01/13/19 11:11 Dose: 200 mls/hr Insulin Human Regular (Novolin R) 0 unit SC ACHS [facility]; Protocol Last Admin: 01/13/19 17:19 Dose: 3 units Rosuvastatin Calcium (Crestor) 10 mg PO HS [facility] Last Admin: 01/12/19 21:32 Dose: 10 mg Sitagliptin Phosphate (Januvia) 50 mg PO DAILY [facility] Last Admin: 01/13/19 10:02 Dose: 50 mg Sodium Hypochlorite (Dakins Solution 0.125%) 0 appl TOP QSHIFT [facility] Last Admin: 01/13/19 05:39 Dose: 1 appl - Labs Labs: 01/12/19 06:15 01/12/19 06:15 APTT 31 SECONDS (21-34) 01/12/19 06:15 - Constitutional Appears: Well, Non-toxic, No Acute Distress - Extremities Exam Additional comments: RLE focused exam: Vasc: DP/PT pulses faintly palpable 1/4 b/l. Skin temperature warm to warm from proximal to distal. CFT < 3 seconds to all digits. Mild edema noted to hallux Neuro: Epicritic and protective sensation grossly diminished Derm: Right hallux ulceration is noted to be approximately 1 cm x 2.5 cm x 0.3 cm. Wound now probes directly to bone. No purulent drainage or malodor appreciated. The entirety of the hallux is erythematous without streaking. No other clinical signs of infection appreciated MSK: POP to ulceration site. No gross deformities noted - Neurological Exam Neurological Exam: Alert, Awake, Oriented x3 - Psychiatric Exam Psychiatric exam: Normal Affect, Normal Mood Assessment and Plan - Assessment and Plan (Free Text) Assessment: 68M seen at bedside by Dr. Cox for right hallux ulceration and infection. Plan: Patient seen and evaluated by Dr. Cox ESR 62 F/u vascular recs Wound flushed with Dakins solution and dressed with DSD Clinical osteomyelitis is present as wound probes to bone Will hold off on MRI at this time Possible amputation of digit pending vascular studies and recs Podiatry will continue to follow while patient in house
--- NOTE | 2019-01-13 18:53 | CP.PCM.PN ---
Subjective - Date & Time of Evaluation Date of Evaluation: 01/13/19 Time of Evaluation: 09:00 - Subjective Subjective: wound probes to bone growing MSSA vascular eval in progress awake alert In NAD Objective - Vital Signs/Intake and Output Vital Signs (last 24 hours): Temp Pulse Resp BP Pulse Ox 99.4 F 82 20 119/65 96 01/13/19 15:00 01/13/19 15:00 01/13/19 15:00 01/13/19 15:00 01/13/19 15:00 Intake and Output: 01/13/19 01/13/19 06:59 18:59 Intake Total 900 400 Output Total 450 Balance 450 400 - Medications Medications: Current Medications Aspirin (Ecotrin) 81 mg PO DAILY [facility] Last Admin: 01/13/19 10:02 Dose: 81 mg Carvedilol (Coreg) 6.25 mg PO BID [facility] Last Admin: 01/13/19 17:19 Dose: 6.25 mg Cilostazol (Pletal) 100 mg PO BID [facility] Last Admin: 01/13/19 18:12 Dose: 100 mg Clopidogrel Bisulfate (Plavix) 75 mg PO DAILY [facility] Last Admin: 01/13/19 10:00 Dose: 75 mg Famotidine (Pepcid) 20 mg PO DAILY [facility] Last Admin: 01/13/19 10:02 Dose: 20 mg Finasteride (Proscar) 5 mg PO DAILY [facility] Last Admin: 01/13/19 10:00 Dose: 5 mg Heparin Sodium (Porcine) (Heparin) 5,000 units SC Q8 [facility] Last Admin: 01/13/19 12:59 Dose: 5,000 units Vancomycin/Sodium Chloride (Vancomycin 1 Gm/Ns 200 Ml) 1 gm in 200 mls @ 133 mls/hr IVPB Q24H [facility]; Protocol Stop: 01/17/19 15:31 Last Admin: 01/13/19 16:01 Dose: 133 mls/hr Piperacillin Sod/Tazobactam (Sod 3.375 gm/ Sodium Chloride) 100 mls @ 200 mls/hr IVPB Q8H [facility]; Protocol Last Admin: 01/13/19 11:11 Dose: 200 mls/hr Insulin Human Regular (Novolin R) 0 unit SC ACHS [facility]; Protocol Last Admin: 01/13/19 17:19 Dose: 3 units Rosuvastatin Calcium (Crestor) 10 mg PO HS [facility] Last Admin: 01/12/19 21:32 Dose: 10 mg Sitagliptin Phosphate (Januvia) 50 mg PO DAILY [facility] Last Admin: 01/13/19 10:02 Dose: 50 mg Sodium Hypochlorite (Dakins Solution 0.125%) 0 appl TOP QSHIFT [facility] Last Admin: 01/13/19 05:39 Dose: 1 appl - Labs Labs: 01/12/19 06:15 01/12/19 06:15 APTT 31 SECONDS (21-34) 01/12/19 06:15 - Constitutional Appears: Well - Head Exam Head Exam: ATRAUMATIC, NORMAL INSPECTION, NORMOCEPHALIC - Eye Exam Eye Exam: EOMI, Normal appearance, PERRL Pupil Exam: NORMAL ACCOMODATION, PERRL - ENT Exam ENT Exam: Mucous Membranes Moist, Normal Exam - Neck Exam Neck Exam: Full ROM, Normal Inspection. absent: Lymphadenopathy - Respiratory Exam Respiratory Exam: Clear to Ausculation Bilateral, NORMAL BREATHING PATTERN - Cardiovascular Exam Cardiovascular Exam: REGULAR RHYTHM, +S1, +S2. absent: Murmur - GI/Abdominal Exam GI & Abdominal Exam: Soft, Normal Bowel Sounds. absent: Tenderness - Rectal Exam Rectal Exam: Deferred - Exam Exam: NORMAL INSPECTION - Extremities Exam Extremities Exam: Full ROM, Normal Capillary Refill, Normal Inspection. absent: Joint Swelling, Pedal Edema - Back Exam Back Exam: NORMAL INSPECTION - Neurological Exam Neurological Exam: Alert, Awake, CN II-XII Intact, Normal Gait, Oriented x3 - Psychiatric Exam Psychiatric exam: Normal Affect, Normal Mood - Skin Skin Exam: Dry, Intact, Normal Color, Warm Assessment and Plan - Assessment and Plan (Free Text) Assessment: rx as OM vascular eval in progress may need amputation of digit
[2019-01-14] MEDS: Piperacillin/Tazobact 3.375 GM in Sodium Chloride 100 ML IVPB SCH ×3 (03:10→18:55)
[2019-01-14] MEDS: (Novolin R) Insulin Human Regular 100 units/ml vial SC SCH ×4 (08:33→21:25)
[2019-01-14] MEDS: Cilostazol 100 mg Tab UD PO SCH ×2 (09:18→17:31)
--- NOTE | 2019-01-14 09:50 | CP.PCM.PN ---
Subjective - Date & Time of Evaluation Date of Evaluation: 01/14/19 Time of Evaluation: 09:45 - Subjective Subjective: Vascular Surgery Progress Note for Dr. Sharma This 68M was seen and examined this Am at bedside no acute events overnight. He reports his dressing was changed prior to my exam however he denies any pain. I explained he will likely get an angiogram on wednesday. Denies fevers, chills, chest pain nausea vomiting or diarrhea. Objective - Vital Signs/Intake and Output Vital Signs (last 24 hours): Temp Pulse Resp BP Pulse Ox 98.5 F 75 20 150/72 96 01/14/19 08:15 01/14/19 08:15 01/14/19 08:15 01/14/19 08:15 01/14/19 08:15 Intake and Output: 01/14/19 01/14/19 06:59 18:59 Output Total 600 Balance -600 - Medications Medications: Current Medications Aspirin (Ecotrin) 81 mg PO DAILY [facility] Last Admin: 01/14/19 09:19 Dose: 81 mg Carvedilol (Coreg) 6.25 mg PO BID [facility] Last Admin: 01/14/19 09:19 Dose: 6.25 mg Cilostazol (Pletal) 100 mg PO BID [facility] Last Admin: 01/14/19 09:18 Dose: 100 mg Clopidogrel Bisulfate (Plavix) 75 mg PO DAILY [facility] Last Admin: 01/14/19 09:18 Dose: 75 mg Famotidine (Pepcid) 20 mg PO DAILY [facility] Last Admin: 01/14/19 09:19 Dose: 20 mg Finasteride (Proscar) 5 mg PO DAILY [facility] Last Admin: 01/14/19 09:18 Dose: 5 mg Heparin Sodium (Porcine) (Heparin) 5,000 units SC Q8 [facility] Last Admin: 01/14/19 05:12 Dose: 5,000 units Vancomycin/Sodium Chloride (Vancomycin 1 Gm/Ns 200 Ml) 1 gm in 200 mls @ 133 mls/hr IVPB Q24H [facility]; Protocol Stop: 01/17/19 15:31 Last Admin: 01/13/19 16:01 Dose: 133 mls/hr Piperacillin Sod/Tazobactam (Sod 3.375 gm/ Sodium Chloride) 100 mls @ 200 mls/hr IVPB Q8H [facility]; Protocol Last Admin: 01/14/19 03:10 Dose: 200 mls/hr Insulin Human Regular (Novolin R) 0 unit SC ACHS [facility]; Protocol Last Admin: 01/14/19 08:33 Dose: 2 units Rosuvastatin Calcium (Crestor) 10 mg PO HS [facility] Last Admin: 01/13/19 21:22 Dose: 10 mg Sitagliptin Phosphate (Januvia) 50 mg PO DAILY [facility] Last Admin: 01/14/19 09:18 Dose: 50 mg Sodium Hypochlorite (Dakins Solution 0.125%) 0 appl TOP QSHIFT [facility] Last Admin: 01/14/19 05:23 Dose: 1 appl - Labs Labs: 01/12/19 06:15 01/12/19 06:15 APTT 31 SECONDS (21-34) 01/12/19 06:15 - Constitutional Appears: Well, No Acute Distress - Head Exam Head Exam: ATRAUMATIC, NORMAL INSPECTION, NORMOCEPHALIC - Eye Exam Eye Exam: Normal appearance - Respiratory Exam Respiratory Exam: NORMAL BREATHING PATTERN. absent: Respiratory Distress - Cardiovascular Exam Cardiovascular Exam: REGULAR RHYTHM - Extremities Exam Additional comments: ulcer of R hallux with purulent drainage, mild erythema; mild ttp; Paplapble pulses DP/PT on the Right Dopplerable pulses DP/PT on the left - Neurological Exam Neurological exam: Alert, Oriented x3 - Psychiatric Exam Psychiatric exam: Normal Affect, Normal Mood - Skin Skin Exam: Dry, Intact Assessment and Plan - Assessment and Plan (Free Text) Assessment: 68M w/ non-healing R foot ulcer and PVD -Cont ABx -Cont care as per podiatry team -Plan for angiogram on wednesday Ruddy Crabtree PGY3
--- NOTE | 2019-01-14 12:26 | CP.PCM.PN ---
Subjective - Date & Time of Evaluation Date of Evaluation: 01/14/19 Time of Evaluation: 12:24 - Subjective Subjective: Podiatry Progress Note for Dr. Cox 68M seen at bedside with Dr. Cox for right hallux ulceration and infection. Patient is AAO x 3 and NAD, resting comfortably in bed. States that pain is well controlled. Denies any acute overnight events or new pedal complaints. Denies any recent N/V/F/C/CP/SOB Objective - Vital Signs/Intake and Output Vital Signs (last 24 hours): Temp Pulse Resp BP Pulse Ox 98.5 F 75 20 150/72 96 01/14/19 08:15 01/14/19 08:15 01/14/19 08:15 01/14/19 08:15 01/14/19 08:15 Intake and Output: 01/14/19 01/14/19 06:59 18:59 Output Total 600 Balance -600 - Medications Medications: Current Medications Aspirin (Ecotrin) 81 mg PO DAILY [facility] Last Admin: 01/14/19 09:19 Dose: 81 mg Carvedilol (Coreg) 6.25 mg PO BID [facility] Last Admin: 01/14/19 09:19 Dose: 6.25 mg Cilostazol (Pletal) 100 mg PO BID [facility] Last Admin: 01/14/19 09:18 Dose: 100 mg Clopidogrel Bisulfate (Plavix) 75 mg PO DAILY [facility] Last Admin: 01/14/19 09:18 Dose: 75 mg Famotidine (Pepcid) 20 mg PO DAILY [facility] Last Admin: 01/14/19 09:19 Dose: 20 mg Finasteride (Proscar) 5 mg PO DAILY [facility] Last Admin: 01/14/19 09:18 Dose: 5 mg Heparin Sodium (Porcine) (Heparin) 5,000 units SC Q8 [facility] Last Admin: 01/14/19 05:12 Dose: 5,000 units Vancomycin/Sodium Chloride (Vancomycin 1 Gm/Ns 200 Ml) 1 gm in 200 mls @ 133 mls/hr IVPB Q24H [facility]; Protocol Stop: 01/17/19 15:31 Last Admin: 01/13/19 16:01 Dose: 133 mls/hr Piperacillin Sod/Tazobactam (Sod 3.375 gm/ Sodium Chloride) 100 mls @ 200 mls/hr IVPB Q8H [facility]; Protocol Last Admin: 01/14/19 03:10 Dose: 200 mls/hr Insulin Human Regular (Novolin R) 0 unit SC ACHS [facility]; Protocol Last Admin: 01/14/19 08:33 Dose: 2 units Rosuvastatin Calcium (Crestor) 10 mg PO HS [facility] Last Admin: 01/13/19 21:22 Dose: 10 mg Sitagliptin Phosphate (Januvia) 50 mg PO DAILY [facility] Last Admin: 01/14/19 09:18 Dose: 50 mg Sodium Hypochlorite (Dakins Solution 0.125%) 0 appl TOP QSHIFT [facility] Last Admin: 01/14/19 05:23 Dose: 1 appl - Labs Labs: 01/12/19 06:15 01/12/19 06:15 APTT 31 SECONDS (21-34) 01/12/19 06:15 - Constitutional Appears: Well, Non-toxic - Head Exam Head Exam: ATRAUMATIC - Extremities Exam Additional comments: RLE focused exam: Vasc: DP/PT pulses faintly palpable 1/4 b/l. Skin temperature warm to warm from proximal to distal. CFT < 3 seconds to all digits. Mild edema noted to hallux Neuro: Epicritic and protective sensation grossly diminished Derm: Right hallux ulceration is noted to be approximately 1 cm x 2.5 cm x 0.3 cm. Wound now probes directly to bone. No purulent drainage or malodor appreciated. The entirety of the hallux is erythematous without streaking. No ot her clinical signs of infection appreciated MSK: POP to ulceration site. No gross deformities noted - Neurological Exam Neurological Exam: Alert, Awake, Oriented x3 - Psychiatric Exam Psychiatric exam: Normal Affect, Normal Mood Assessment and Plan - Assessment and Plan (Free Text) Assessment: 68M with right hallux ulceration and infection. Plan: Patient seen and evaluated with Dr. Cox ESR 61 Per vascular - angiogram on Wednesday, recs appreciated Wound flushed with Dakins solution and dressed with DSD Clinical osteomyelitis is present as wound probes to bone Will hold off on MRI at this time Possible amputation of digit pending vascular studies and recs Podiatry will continue to follow while patient in house
[2019-01-14] MEDS: Vancomycin 1 gm/NS 200 ml 1 GM/200 ML BAG IVPB SCH (15:45)
[2019-01-15] MEDS: Piperacillin/Tazobact 3.375 GM in Sodium Chloride 100 ML IVPB SCH ×3 (03:38→19:26)
[2019-01-15] MEDS: (Novolin R) Insulin Human Regular 100 units/ml vial SC SCH ×4 (08:30→21:49)
[2019-01-15] MEDS: Cilostazol 100 mg Tab UD PO SCH ×2 (09:06→17:09)
--- NOTE | 2019-01-15 13:53 | CP.PCM.PN ---
Subjective - Date & Time of Evaluation Date of Evaluation: 01/15/19 Time of Evaluation: 13:51 - Subjective Subjective: Podiatry Progress Note - Dr. Cox 68M seen at bedside for right hallux ulceration and infection. Patient is AAO x 3 and NAD, resting comfortably in bed. States that pain is well controlled. Denies any acute overnight events or new pedal complaints. Denies any recent N/V/F/C/CP/SOB Objective - Vital Signs/Intake and Output Vital Signs (last 24 hours): Temp Pulse Resp BP Pulse Ox 98.0 F 84 20 98/56 L 100 01/15/19 08:25 01/15/19 09:04 01/15/19 08:25 01/15/19 09:04 01/15/19 08:25 Intake and Output: 01/15/19 01/15/19 06:59 18:59 Intake Total Balance - Medications Medications: Current Medications Aspirin (Ecotrin) 81 mg PO DAILY [facility] Last Admin: 01/15/19 09:05 Dose: 81 mg Carvedilol (Coreg) 6.25 mg PO BID [facility] Last Admin: 01/15/19 09:07 Dose: Not Given Cilostazol (Pletal) 100 mg PO BID [facility] Last Admin: 01/15/19 09:06 Dose: 100 mg Clopidogrel Bisulfate (Plavix) 75 mg PO DAILY [facility] Last Admin: 01/15/19 09:06 Dose: 75 mg Famotidine (Pepcid) 20 mg PO DAILY [facility] Last Admin: 01/15/19 09:06 Dose: 20 mg Finasteride (Proscar) 5 mg PO DAILY [facility] Last Admin: 01/15/19 09:05 Dose: 5 mg Heparin Sodium (Porcine) (Heparin) 5,000 units SC Q8 [facility] Last Admin: 01/15/19 13:00 Dose: 5,000 units Vancomycin/Sodium Chloride (Vancomycin 1 Gm/Ns 200 Ml) 1 gm in 200 mls @ 133 mls/hr IVPB Q24H [facility]; Protocol Stop: 01/17/19 15:31 Last Admin: 01/14/19 15:45 Dose: 133 mls/hr Piperacillin Sod/Tazobactam (Sod 3.375 gm/ Sodium Chloride) 100 mls @ 200 mls /hr IVPB Q8H [facility]; Protocol Last Admin: 03/10/19 10:45 Dose: 200 mls/hr Insulin Human Regular (Novolin R) 0 unit SC ACHS [facility]; Protocol Last Admin: 01/15/19 12:30 Dose: 4 units Rosuvastatin Calcium (Crestor) 10 mg PO HS [facility] Last Admin: 01/14/19 22:11 Dose: 10 mg Sitagliptin Phosphate (Januvia) 50 mg PO DAILY [facility] Last Admin: 01/15/19 09:05 Dose: 50 mg Sodium Hypochlorite (Dakins Solution 0.125%) 0 appl TOP QSHIFT [facility] Last Admin: 01/15/19 13:01 Dose: 1 appl - Labs Labs: 01/12/19 06:15 01/12/19 06:15 APTT 31 SECONDS (21-34) 01/12/19 06:15 - Constitutional Appears: Non-toxic - Head Exam Head Exam: ATRAUMATIC - Extremities Exam Additional comments: RLE focused exam: Vasc: DP/PT pulses faintly palpable 1/4 b/l. Skin temperature warm to warm from proximal to distal. CFT < 3 seconds to all digits. Mild edema noted to hallux Neuro: Epicritic and protective sensation grossly diminished Derm: Right hallux ulceration is noted to be approximately 1 cm x 2.5 cm x 0.3 cm. Wound now probes directly to bone. No purulent drainage or malodor apprec iated. The entirety of the hallux is erythematous without streaking. No other clinical signs of infection appreciated MSK: POP to ulceration site. No gross deformities noted - Neurological Exam Neurological Exam: Alert, Awake, Oriented x3 - Psychiatric Exam Psychiatric exam: Normal Affect, Normal Mood Assessment and Plan - Assessment and Plan (Free Text) Assessment: 68M with right hallux ulceration and infection. Plan: Patient seen and evaluated Discussed in detail with Dr. Cox ESR 61 Per vascular - angiogram on Wednesday, recs appreciated Wound flushed with Dakins solution and dressed with DSD with nurse Clinical osteomyelitis is present as wound probes to bone Will hold off on MRI at this time Possible amputation of digit pending vascular studies and recs Podiatry will continue to follow while patient in house
[2019-01-15] MEDS: Vancomycin 1 gm/NS 200 ml 1 GM/200 ML BAG IVPB SCH (14:41)
--- NOTE | 2019-01-15 15:33 | CP.PCM.PN ---
Subjective - Date & Time of Evaluation Date of Evaluation: 01/15/19 Time of Evaluation: 08:00 - Subjective Subjective: seen on rounds examined labs and cultures reviewed IV antibiotics ordered Objective - Vital Signs/Intake and Output Vital Signs (last 24 hours): Temp Pulse Resp BP Pulse Ox 98.0 F 84 20 98/56 L 100 01/15/19 08:25 01/15/19 09:04 01/15/19 08:25 01/15/19 09:04 01/15/19 08:25 Intake and Output: 01/15/19 01/15/19 06:59 18:59 Intake Total Balance - Medications Medications: Current Medications Aspirin (Ecotrin) 81 mg PO DAILY [facility] Last Admin: 01/15/19 09:05 Dose: 81 mg Carvedilol (Coreg) 6.25 mg PO BID [facility] Last Admin: 01/15/19 09:07 Dose: Not Given Cilostazol (Pletal) 100 mg PO BID [facility] Last Admin: 01/15/19 09:06 Dose: 100 mg Clopidogrel Bisulfate (Plavix) 75 mg PO DAILY [facility] Last Admin: 01/15/19 09:06 Dose: 75 mg Famotidine (Pepcid) 20 mg PO DAILY [facility] Last Admin: 01/15/19 09:06 Dose: 20 mg Finasteride (Proscar) 5 mg PO DAILY [facility] Last Admin: 01/15/19 09:05 Dose: 5 mg Heparin Sodium (Porcine) (Heparin) 5,000 units SC Q8 [facility] Last Admin: 01/15/19 13:00 Dose: 5,000 units Vancomycin/Sodium Chloride (Vancomycin 1 Gm/Ns 200 Ml) 1 gm in 200 mls @ 133 mls/hr IVPB Q24H [facility]; Protocol Stop: 01/17/19 15:31 Last Admin: 01/15/19 14:41 Dose: 133 mls/hr Piperacillin Sod/Tazobactam (Sod 3.375 gm/ Sodium Chloride) 100 mls @ 200 mls/hr IVPB Q8H [facility]; Protocol Last Admin: 01/15/19 10:45 Dose: 200 mls/hr Insulin Human Regular (Novolin R) 0 unit SC ACHS [facility]; Protocol Last Admin: 01/15/19 12:30 Dose: 4 units Rosuvastatin Calcium (Crestor) 10 mg PO HS [facility] Last Admin: 01/14/19 22:11 Dose: 10 mg Sitagliptin Phosphate (Januvia) 50 mg PO DAILY [facility] Last Admin: 01/15/19 09:05 Dose: 50 mg Sodium Hypochlorite (Dakins Solution 0.125%) 0 appl TOP QSHIFT [facility] Last Admin: 01/15/19 13:01 Dose: 1 appl - Labs Labs: 01/12/19 06:15 01/12/19 06:15 APTT 31 SECONDS (21-34) 01/12/19 06:15 - Constitutional Appears: Non-toxic, Chronically Ill - Head Exam Head Exam: ATRAUMATIC, NORMAL INSPECTION, NORMOCEPHALIC - Eye Exam Eye Exam: EOMI, Normal appearance, PERRL Pupil Exam: NORMAL ACCOMODATION, PERRL - ENT Exam ENT Exam: Mucous Membranes Moist, Normal Exam - Neck Exam Neck Exam: Full ROM, Normal Inspection. absent: Lymphadenopathy - Respiratory Exam Respiratory Exam: Clear to Ausculation Bilateral, NORMAL BREATHING PATTERN - Cardiovascular Exam Cardiovascular Exam: REGULAR RHYTHM, +S1, +S2. absent: Murmur - GI/Abdominal Exam GI & Abdominal Exam: Soft, Normal Bowel Sounds. absent: Tenderness - Rectal Exam Rectal Exam: Deferred - Exam Exam: NORMAL INSPECTION - Extremities Exam Extremities Exam: Full ROM, Normal Capillary Refill, Normal Inspection. absent: Joint Swelling, Pedal Edema - Back Exam Back Exam: NORMAL INSPECTION - Neurological Exam Neurological Exam: Alert, Awake, CN II-XII Intact, Normal Gait, Oriented x3 - Psychiatric Exam Psychiatric exam: Normal Affect, Normal Mood - Skin Skin Exam: Dry, Intact, Normal Color, Warm Assessment and Plan - Assessment and Plan (Free Text) Assessment: cont rx for OM +MSSA on cultures Vanco d/c'd
[2019-01-16] MEDS: Piperacillin/Tazobact 3.375 GM in Sodium Chloride 100 ML IVPB SCH ×3 (03:38→19:15)
--- NOTE | 2019-01-16 07:56 | CP.PCM.PN ---
Subjective - Date & Time of Evaluation Date of Evaluation: 01/16/19 Time of Evaluation: 08:27 - Subjective Subjective: Vascular Surgery Progress Note for Dr. Sharma Patient was seen and examined at bedside. No acute events overnight. Patient states pain is control. Plan for angiogram Wednesday 01/17. Denies fevers/chills, chest pain, SOB, nausea/vomiting or diarrhea. No complaints at this time. Objective - Vital Signs/Intake and Output Vital Signs (last 24 hours): Temp Pulse Resp BP Pulse Ox 98.1 F 83 20 119/66 97 01/15/19 23:00 01/15/19 23:00 01/15/19 23:00 01/15/19 23:00 01/15/19 23:00 Intake and Output: 01/16/19 01/16/19 06:59 18:59 Intake Total 620 Output Total 800 Balance -180 - Medications Medications: Current Medications Aspirin (Ecotrin) 81 mg PO DAILY [facility] Last Admin: 01/15/19 09:05 Dose: 81 mg Carvedilol (Coreg) 6.25 mg PO BID [facility] Last Admin: 01/15/19 17:09 Dose: 6.25 mg Cilostazol (Pletal) 100 mg PO BID [facility] Last Admin: 01/15/19 17:09 Dose: 100 mg Clopidogrel Bisulfate (Plavix) 75 mg PO DAILY [facility] Last Admin: 01/15/19 09:06 Dose: 75 mg Famotidine (Pepcid) 20 mg PO DAILY [facility] Last Admin: 01/15/19 09:06 Dose: 20 mg Finasteride (Proscar) 5 mg PO DAILY [facility] Last Admin: 01/15/19 09:05 Dose: 5 mg Heparin Sodium (Porcine) (Heparin) 5,000 units SC Q8 [facility] Last Admin: 01/16/19 05:30 Dose: 5,000 units Piperacillin Sod/Tazobactam (Sod 3.375 gm/ Sodium Chloride) 100 mls @ 200 mls/hr IVPB Q8H [facility]; Protocol Last Admin: 01/16/19 03:38 Dose: 200 mls/hr Insulin Human Regular (Novolin R) 0 unit SC ACHS [facility]; Protocol Last Admin: 01/15/19 21:49 Dose: Not Given Rosuvastatin Calcium (Crestor) 10 mg PO HS [facility] Last Admin: 01/15/19 21:26 Dose: 10 mg Sitagliptin Phosphate (Januvia) 50 mg PO DAILY [facility] Last Admin: 01/15/19 09:05 Dose: 50 mg Sodium Hypochlorite (Dakins Solution 0.125%) 0 appl TOP QSHIFT [facility] Last Admin: 01/16/19 05:30 Dose: 1 appl - Labs Labs: 01/12/19 06:15 01/12/19 06:15 APTT 31 SECONDS (21-34) 01/12/19 06:15 - Additional Findings Additional findings: - Constitutional Appears: Well, No Acute Distress - Head Exam Head Exam: ATRAUMATIC, NORMAL INSPECTION, NORMOCEPHALIC - Eye Exam Eye Exam: Normal appearance - Respiratory Exam Respiratory Exam: NORMAL BREATHING PATTERN. absent: Respiratory Distress - Cardiovascular Exam Cardiovascular Exam: REGULAR RHYTHM - Extremities Exam Additional comments: ulcer of R hallux mild erythema, ttp [place] pulses DP/PT on the Right and left - Neurological Exam Neurological exam: Alert, Awake, Oriented x3 - Psychiatric Exam Psychiatric exam: Normal Affect, Normal Mood - Skin Skin Exam: Dry,Warm Assessment and Plan - Assessment and Plan (Free Text) Assessment: 68M who presents with non-healing R foot ulcer and PVD Plan: - NPO past MN - IV ABx - Pre - op Labs in AM - Will obtain consent and discuss risks/benefits with patients - Plan for angiogram on 01/17 - Discussed with Dr Edith Hernandez PGY2
[2019-01-16] MEDS: (Novolin R) Insulin Human Regular 100 units/ml vial SC SCH ×4 (08:16→21:41)
[2019-01-16 08:31] LABS: BASO # 0.1 K/uL (0.0-0.2); BASO % 0.8 % (0.0-2.0); EOS # 0.5 K/uL (0.0-0.7); EOS % 7.3 % (0.0-4.0); HEMOGLOBIN 10.5 g/dL (12.0-18.0); LYMPH # 1.2 K/uL (1.0-4.3); MEAN CELL VOLUME 81.6 fL (80.0-94.0); MEAN CORPUSCULAR HEMOGLOBIN 25.8 pg (27.0-31.0); MEAN CORPUSCULAR HGB CONC 31.6 g/dL (33.0-37.0); MEAN PLATELET VOLUME 12.1 fL (7.2-11.7); MONO # 0.6 K/uL (0.0-0.8); MONO % 10.4 % (0.0-10.0); NEUT # 3.8 K/uL (1.8-7.0); NEUT % 61.5 % (50.0-75.0); NRBC % 0.1 % (0.0-2.0); RBC 4.07 Mil/uL (4.40-5.90); RED CELL DISTRIBUTION WIDTH 16.7 % (11.5-14.5); WHITE BLOOD COUNT 6.2 K/uL (4.8-10.8)
[2019-01-16 08:40] LABS: ALBUMIN 3.7 g/dL (3.5-5.0); CALCIUM 8.8 mg/dl (8.6-10.4)
[2019-01-16] MEDS: Cilostazol 100 mg Tab UD PO SCH ×2 (10:46→17:08)
[2019-01-16] MEDS: Dextrose 5%/0.45% NS 1,000 ML IV SCH ×2 (16:20→19:00)
--- NOTE | 2019-01-16 21:20 | CP.PCM.PN ---
Subjective - Date & Time of Evaluation Date of Evaluation: 01/16/19 Time of Evaluation: 09:30 - Subjective Subjective: Podiatry Progress Note - Dr. Cox 68 y/o male seen this morning at bedside for right hallux ulceration and infection. Patient is AAO x 3 and NAD, resting comfortably in bed at time of visit. States that pain is well controlled at this time with medications. Denies any acute overnight events or new pedal complaints. Denies any recent N /V/F/C/CP/SOB Objective - Vital Signs/Intake and Output Vital Signs (last 24 hours): Temp Pulse Resp BP Pulse Ox 98.1 F 80 20 146/69 96 01/16/19 15:00 01/16/19 15:00 01/16/19 15:00 01/16/19 15:00 01/16/19 15:00 - Medications Medications: Current Medications Aspirin (Ecotrin) 81 mg PO DAILY [facility] Last Admin: 01/16/19 10:46 Dose: 81 mg Carvedilol (Coreg) 6.25 mg PO BID [facility] Last Admin: 01/16/19 17:08 Dose: 6.25 mg Cilostazol (Pletal) 100 mg PO BID [facility] Last Admin: 01/16/19 17:08 Dose: 100 mg Clopidogrel Bisulfate (Plavix) 75 mg PO DAILY [facility] Last Admin: 01/16/19 10:45 Dose: 75 mg Famotidine (Pepcid) 20 mg PO DAILY [facility] Last Admin: 01/16/19 10:45 Dose: 20 mg Finasteride (Proscar) 5 mg PO DAILY [facility] Last Admin: 01/16/19 10:46 Dose: 5 mg Heparin Sodium (Porcine) (Heparin) 5,000 units SC Q8 [facility] Last Admin: 01/16/19 13:30 Dose: 5,000 units Piperacillin Sod/Tazobactam (Sod 3.375 gm/ Sodium Chloride) 100 mls @ 200 mls/hr IVPB Q8H [facility]; Protocol Last Admin: 01/16/19 19:15 Dose: 200 mls/hr Dextrose/Sodium Chloride (Dextrose 5%/0.45% Ns 1000 Ml) 1,000 mls @ 100 mls/hr IV .Q10H [facility] Last Admin: 01/16/19 19:00 Dose: Not Given Insulin Human Regular (Novolin R) 0 unit SC ACHS [facility]; Protocol Last Admin: 01/16/19 17:09 Dose: 3 units Rosuvastatin Calcium (Crestor) 10 mg PO HS [facility] Last Admin: 01/15/19 21:26 Dose: 10 mg Sitagliptin Phosphate (Januvia) 50 mg PO DAILY [facility] Last Admin: 01/16/19 10:46 Dose: 50 mg Sodium Hypochlorite (Dakins Solution 0.125%) 0 appl TOP QSHIFT [facility] Last Admin: 01/16/19 13:38 Dose: 20 appl - Labs Labs: 01/16/19 08:17 01/16/19 08:17 APTT 31 SECONDS (21-34) 01/12/19 06:15 - Constitutional Appears: Well, Non-toxic, No Acute Distress - Extremities Exam Additional comments: RLE focused exam: Vasc: DP/PT pulses faintly palpable 1/4 b/l. Skin temperature warm to warm from proximal to distal. CFT < 3 seconds to all digits. Mild edema noted to hallux Neuro: Epicritic and protective sensation grossly diminished Derm: Open hallux ulceration approximately 1 cm x 2.5 cm x 0.3 cm. Wound probes down to bone. No purulent drainage or malodor is noted. Entirety of the hallux is erythematous without streaking. No other clinical signs of infection appreciated Ortho: mild-moderate pain on palpation of ulceration site. No gross deformities noted - Neurological Exam Neurological Exam: Alert, Awake, Oriented x3 - Psychiatric Exam Psychiatric exam: Normal Affect, Normal Mood Assessment and Plan - Assessment and Plan (Free Text) Assessment: 68 y/o diabetic male with right hallux ulceration with clinical osteomyelitis Plan: Patient seen and evaluated Discussed in detail with Dr. Cox ESR 61 Per vascular - angiogram on Wednesday, recs appreciated Wound flushed with Dakins solution and dressed with DSD with nurse Clinical osteomyelitis is present as wound probes to bone Will hold off on MRI at this time Possible amputation of digit pending vascular studies and recs Pt to go to angio tomorrow - f/u results Podiatry will continue to follow while patient in house
--- NOTE | 2019-01-16 22:55 | CP.PCM.PN ---
Subjective - Date & Time of Evaluation Date of Evaluation: 01/16/19 Time of Evaluation: 22:54 - Subjective Subjective: Patient is comfortable. Not in any distress. Denies any chest pain. No nausea, no vomiting noted On examination: Vital signs are stable. Chest good air entry, regular heart sounds noted, nontender abdomen, dorsalis pedis is not palpable, but posterior tibial artery is palpable on the right leg. Patient will be needing vascular intervention, I spoke to the vascular surgeon, patient is agreeing this time. We will continue the current antibiotic and antiplatelets. We will follow the patient Objective - Vital Signs/Intake and Output Vital Signs (last 24 hours): Temp Pulse Resp BP Pulse Ox 98.1 F 80 20 146/69 96 01/16/19 15:00 01/16/19 15:00 01/16/19 15:00 01/16/19 15:00 01/16/19 15:00 Intake and Output: 01/16/19 01/17/19 18:59 06:59 Intake Total 1100 Balance 1100 - Medications Medications: Current Medications Aspirin (Ecotrin) 81 mg PO DAILY [facility] Last Admin: 01/16/19 10:46 Dose: 81 mg Carvedilol (Coreg) 6.25 mg PO BID [facility] Last Admin: 01/16/19 17:08 Dose: 6.25 mg Cilostazol (Pletal) 100 mg PO BID [facility] Last Admin: 01/16/19 17:08 Dose: 100 mg Clopidogrel Bisulfate (Plavix) 75 mg PO DAILY [facility] Last Admin: 01/16/19 10:45 Dose: 75 mg Famotidine (Pepcid) 20 mg PO DAILY [facility] Last Admin: 01/16/19 10:45 Dose: 20 mg Finasteride (Proscar) 5 mg PO DAILY [facility] Last Admin: 01/16/19 10:46 Dose: 5 mg Heparin Sodium (Porcine) (Heparin) 5,000 units SC Q8 [facility] Last Admin: 01/16/19 21:30 Dose: 5,000 units Piperacillin Sod/Tazobactam (Sod 3.375 gm/ Sodium Chloride) 100 mls @ 200 mls/hr IVPB Q8H [facility]; Protocol Last Admin: 01/16/19 19:15 Dose: 200 mls/hr Dextrose/Sodium Chloride (Dextrose 5%/0.45% Ns 1000 Ml) 1,000 mls @ 100 mls/hr IV .Q10H [facility] Last Admin: 01/16/19 19:00 Dose: Not Given Insulin Human Regular (Novolin R) 0 unit SC ACHS [facility]; Protocol Last Admin: 01/16/19 21:41 Dose: 3 units Rosuvastatin Calcium (Crestor) 10 mg PO HS [facility] Last Admin: 01/16/19 21:30 Dose: 10 mg Sitagliptin Phosphate (Januvia) 50 mg PO DAILY [facility] Last Admin: 01/16/19 10:46 Dose: 50 mg Sodium Hypochlorite (Dakins Solution 0.125%) 0 appl TOP QSHIFT [facility] Last Admin: 01/16/19 21:30 Dose: 20 appl - Labs Labs: 01/16/19 08:17 01/16/19 08:17 APTT 31 SECONDS (21-34) 01/12/19 06:15
--- NOTE | 2019-01-17 00:02 | CP.PCM.PN ---
Subjective - Date & Time of Evaluation Date of Evaluation: 01/16/19 Time of Evaluation: 19:40 - Subjective Subjective: Patient seen and evaluated Denies chest pain 68 years old male with PMHx of CABG and CKD presents to ED for leg pain. Patient has right toe non-healing ulcer since 3 months ago, diagnosed as PVD. Denies chest pain, shortness of breath, nausea, vomiting, or dizziness. History Per: Patient History/Exam Limitations: no limitations Onset/Duration Of Symptoms: Hrs Current Symptoms Are (Timing): Still Present Recent travel outside of the [place]: No - Medical History PMH: Anemia, Diabetes, HTN, Hypercholesterolemia, Peripheral Edema Denies: Chronic Kidney Disease - [facility] Procedures ANGIOPLASTY OF OTHER NON-CORONARY VESSEL(S) (11/15/13) CONTRAST AORTOGRAM (11/15/13) CONTRAST ARTERIOGRAM-LEG (11/15/13) CONTRAST RENAL ARTERIOGR (11/15/13) INSEJ [id number] PERIPHERAL NON-CORONARY VES STENT(S) (05/30/13) INSERT INT PENILE PROSTH (09/12/13) INSERTION OF INFUSION DEV INTO SUP VENA CAVA, PERC APPROACH (09/12/16) INSERTION OF ONE VASCULAR STENT (05/30/13) PLAIN RADIOGRAPHY OF AORTA, BI LE ART USING OTH CONTRAST (09/04/16) PROCEDURE ON SINGLE VESSEL (11/15/13) Family History: States: Unknown Family Hx - Social History Hx Alcohol Use: No Hx Substance Use: No - Immunization History Hx Tetanus Toxoid Vaccination: Yes Hx Influenza Vaccination: Yes Hx Pneumococcal Vaccination: Yes Review Of Systems Except As Marked, All Systems Reviewed And Found Negative. Constitutional: Negative for: Fever, Chills Cardiovascular: Negative for: Chest Pain Respiratory: Negative for: Shortness of Breath Gastrointestinal: Negative for: Nausea, Vomiting Neurological: Negative for: Dizziness Physical Exam - Physical Exam Appears: Non-toxic, No Acute Distress Skin: Normal Color, Warm, Dry, No Rash Head: Atraumatic, Normacephalic Eye(s): bilateral: Normal Inspection, PERRL, EOMI Oral Mucosa: Moist Neck: Normal ROM, Supple Chest: Symmetrical, No Tenderness Cardiovascular: Rhythm Regular, No Murmur Respiratory: Normal Breath Sounds, No Rales, No Rhonchi, No Wheezing Gastrointestinal/Abdominal: Soft, No Tenderness Extremity: Normal ROM Extremity: Bilateral: Atraumatic, Normal Color And Temperature, Normal ROM Pulses: Left Radial: Normal, Right Radial: Normal Neurological/Psych: Oriented x3, Normal Speech Gait: Steady Objective - Vital Signs/Intake and Output Vital Signs (last 24 hours): Temp Pulse Resp BP Pulse Ox 98.1 F 80 20 146/69 96 01/16/19 15:00 01/16/19 15:00 01/16/19 15:00 01/16/19 15:00 01/16/19 15:00 Intake and Output: 01/16/19 01/17/19 18:59 06:59 Intake Total 1100 Balance 1100 - Medications Medications: Current Medications Aspirin (Ecotrin) 81 mg PO DAILY [facility] Last Admin: 01/16/19 10:46 Dose: 81 mg Carvedilol (Coreg) 6.25 mg PO BID [facility] Last Admin: 01/16/19 17:08 Dose: 6.25 mg Cilostazol (Pletal) 100 mg PO BID [facility] Last Admin: 01/16/19 17:08 Dose: 100 mg Clopidogrel Bisulfate (Plavix) 75 mg PO DAILY [facility] Last Admin: 01/16/19 10:45 Dose: 75 mg Famotidine (Pepcid) 20 mg PO DAILY [facility] Last Admin: 01/16/19 10:45 Dose: 20 mg Finasteride (Proscar) 5 mg PO DAILY [facility] Last Admin: 01/16/19 10:46 Dose: 5 mg Heparin Sodium (Porcine) (Heparin) 5,000 units SC Q8 [facility] Last Admin: 01/16/19 21:30 Dose: 5,000 units Piperacillin Sod/Tazobactam (Sod 3.375 gm/ Sodium Chloride) 100 mls @ 200 mls/hr IVPB Q8H [facility]; Protocol Last Admin: 01/16/19 19:15 Dose: 200 mls/hr Dextrose/Sodium Chloride (Dextrose 5%/0.45% Ns 1000 Ml) 1,000 mls @ 100 mls/hr IV .Q10H [facility] Last Admin: 01/16/19 19:00 Dose: Not Given Insulin Human Regular (Novolin R) 0 unit SC ACHS [facility]; Protocol Last Admin: 01/16/19 21:41 Dose: 3 units Rosuvastatin Calcium (Crestor) 10 mg PO HS [facility] Last Admin: 01/16/19 21:30 Dose: 10 mg Sitagliptin Phosphate (Januvia) 50 mg PO DAILY [facility] Last Admin: 01/16/19 10:46 Dose: 50 mg Sodium Hypochlorite (Dakins Solution 0.125%) 0 appl TOP QSHIFT [facility] Last Admin: 01/16/19 21:30 Dose: 20 appl - Labs Labs: 01/16/19 08:17 01/16/19 08:17 APTT 31 SECONDS (21-34) 01/12/19 06:15 Assessment and Plan - Assessment and Plan (Free Text) Assessment: Vital signs are stable. Chest good air entry, regular heart sounds noted, nontender abdomen, dorsalis pedis is not palpable, but posterior tibial artery is palpable on the right leg. Patient will be needing vascular intervention, I spoke to the vascular surgeon, patient is agreeing this time. We will continue the current antibiotic and antiplatelets. We will follow the patient
[2019-01-17] MEDS: Piperacillin/Tazobact 3.375 GM in Sodium Chloride 100 ML IVPB SCH ×3 (03:47→19:00)
[2019-01-17] MEDS: (Novolin R) Insulin Human Regular 100 units/ml vial SC SCH ×4 (08:05→21:28)
--- NOTE | 2019-01-17 08:44 | CP.PCM.PN ---
Subjective - Date & Time of Evaluation Date of Evaluation: 01/15/19 Time of Evaluation: 08:44 - Subjective Subjective: , No chest pain no shortness of breath noted, he is eating well, denies any diarrhea Patient is not in any distress He denies any pain in the legs On examination: Vital signs are stable. Chest good air entry, regular heart sounds nontender abdomen assessment and recommendation: 68-year-old male with a history of diabetes CAD hypertension CRi Admitted with Soft tissue infection involving the right great toe with pus with Staphylococcus infection Patient will need vascular intervention. According to the paratransit operator the patient might need amputation. Objective - Vital Signs/Intake and Output Vital Signs (last 24 hours): Temp Pulse Resp BP Pulse Ox 97.6 F 81 20 96/59 L 99 01/17/19 07:27 01/17/19 07:27 01/17/19 07:27 01/17/19 07:27 01/17/19 07:27 Intake and Output: 01/17/19 01/17/19 06:59 18:59 Intake Total 1920 Output Total 700 Balance 1220 - Medications Medications: Current Medications Aspirin (Ecotrin) 81 mg PO DAILY [facility] Last Admin: 01/16/19 10:46 Dose: 81 mg Carvedilol (Coreg) 6.25 mg PO BID [facility] Last Admin: 01/16/19 17:08 Dose: 6.25 mg Cilostazol (Pletal) 100 mg PO BID [facility] Last Admin: 01/16/19 17:08 Dose: 100 mg Clopidogrel Bisulfate (Plavix) 75 mg PO DAILY [facility] Last Admin: 01/16/19 10:45 Dose: 75 mg Famotidine (Pepcid) 20 mg PO DAILY [facility] Last Admin: 01/16/19 10:45 Dose: 20 mg Finasteride (Proscar) 5 mg PO DAILY [facility] Last Admin: 01/16/19 10:46 Dose: 5 mg Heparin Sodium (Porcine) (Heparin) 5,000 units SC Q8 [facility] Last Admin: 01/17/19 05:53 Dose: 5,000 units Piperacillin Sod/Tazobactam (Sod 3.375 gm/ Sodium Chloride) 100 mls @ 200 mls/hr IVPB Q8H [facility]; Protocol Last Admin: 01/17/19 03:47 Dose: 200 mls/hr Dextrose/Sodium Chloride (Dextrose 5%/0.45% Ns 1000 Ml) 1,000 mls @ 100 mls/hr IV .Q10H [facility] Last Admin: 01/16/19 19:00 Dose: Not Given Insulin Human Regular (Novolin R) 0 unit SC ACHS [facility]; Protocol Last Admin: 01/17/19 08:05 Dose: 4 units Rosuvastatin Calcium (Crestor) 10 mg PO HS [facility] Last Admin: 01/16/19 21:30 Dose: 10 mg Sitagliptin Phosphate (Januvia) 50 mg PO DAILY [facility] Last Admin: 01/16/19 10:46 Dose: 50 mg Sodium Hypochlorite (Dakins Solution 0.125%) 0 appl TOP QSHIFT [facility] Last Admin: 01/17/19 05:53 Dose: 20 appl - Labs Labs: 01/16/19 08:17 01/16/19 08:17 APTT 31 SECONDS (21-34) 01/12/19 06:15
--- NOTE | 2019-01-17 08:44 | CP.PCM.PN ---
Subjective - Date & Time of Evaluation Date of Evaluation: 01/14/19 Time of Evaluation: 08:44 - Subjective Subjective: Patient has no pain in the legs. But the right great toe still having pus discharge. I spoke to the credit compliance officer. Recommended is vascular surgical evaluation. I spoke to the patient. Seen by Dr. Sharma. We will continue the current treatment with antibiotic Objective - Vital Signs/Intake and Output Vital Signs (last 24 hours): Temp Pulse Resp BP Pulse Ox 97.6 F 81 20 96/59 L 99 01/17/19 07:27 01/17/19 07:27 01/17/19 07:27 01/17/19 07:27 01/17/19 07:27 Intake and Output: 01/17/19 01/17/19 06:59 18:59 Intake Total 1920 Output Total 700 Balance 1220 - Medications Medications: Current Medications Aspirin (Ecotrin) 81 mg PO DAILY [facility] Last Admin: 01/16/19 10:46 Dose: 81 mg Carvedilol (Coreg) 6.25 mg PO BID [facility] Last Admin: 01/16/19 17:08 Dose: 6.25 mg Cilostazol (Pletal) 100 mg PO BID [facility] Last Admin: 01/16/19 17:08 Dose: 100 mg Clopidogrel Bisulfate (Plavix) 75 mg PO DAILY [facility] Last Admin: 01/16/19 10:45 Dose: 75 mg Famotidine (Pepcid) 20 mg PO DAILY [facility] Last Admin: 01/16/19 10:45 Dose: 20 mg Finasteride (Proscar) 5 mg PO DAILY [facility] Last Admin: 01/16/19 10:46 Dose: 5 mg Heparin Sodium (Porcine) (Heparin) 5,000 units SC Q8 [facility] Last Admin: 01/17/19 05:53 Dose: 5,000 units Piperacillin Sod/Tazobactam (Sod 3.375 gm/ Sodium Chloride) 100 mls @ 200 mls/hr IVPB Q8H [facility]; Protocol Last Admin: 01/17/19 03:47 Dose: 200 mls/hr Dextrose/Sodium Chloride (Dextrose 5%/0.45% Ns 1000 Ml) 1,000 mls @ 100 mls/hr IV .Q10H [facility] Last Admin: 01/16/19 19:00 Dose: Not Given Insulin Human Regular (Novolin R) 0 unit SC ACHS [facility]; Protocol Last Admin: 01/17/19 08:05 Dose: 4 units Rosuvastatin Calcium (Crestor) 10 mg PO HS [facility] Last Admin: 01/16/19 21:30 Dose: 10 mg Sitagliptin Phosphate (Januvia) 50 mg PO DAILY [facility] Last Admin: 01/16/19 10:46 Dose: 50 mg Sodium Hypochlorite (Dakins Solution 0.125%) 0 appl TOP QSHIFT [facility] Last Admin: 01/17/19 05:53 Dose: 20 appl - Labs Labs: 01/16/19 08:17 01/16/19 08:17 APTT 31 SECONDS (21-34) 01/12/19 06:15
[2019-01-17] MEDS: Cilostazol 100 mg Tab UD PO SCH ×2 (10:08→19:00)
[2019-01-17] MEDS ORDERED: Iodixanol 320 MG/ML 200 ML BOTTLE IV ONE ×2 (11:52)
[2019-01-17] MEDS ORDERED: Lidocaine 2% MPF (5 ml) Inj ONE (12:00)
[2019-01-17] MEDS ORDERED: Midazolam 2 MG/2 ML VIAL ONE (12:05)
--- NOTE | 2019-01-17 12:33 | CP.PCM.PN ---
Subjective - Date & Time of Evaluation Date of Evaluation: 01/17/19 Time of Evaluation: 12:33 - Subjective Subjective: Podiatry Progress Note - Dr. 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 Cox for right hallux ulceration and infection. Patient is AAO x 3 and NAD, resting comfortably at time of visit. States that pain is well controlled at this time with medications. Denies any acute overnight events or new pedal complaints. Just completed angio and awaits the results. Denies any recent N/V/F/C/CP/SOB Objective - Vital Signs/Intake and Output Vital Signs (last 24 hours): Temp Pulse Resp BP Pulse Ox 97.6 F 81 20 96/59 L 99 01/17/19 07:27 01/17/19 07:27 01/17/19 07:27 01/17/19 07:27 01/17/19 07:27 Intake and Output: 01/17/19 01/17/19 06:59 18:59 Intake Total 1920 Output Total 700 Balance 1220 - Medications Medications: Current Medications Aspirin (Ecotrin) 81 mg PO DAILY [facility] Last Admin: 01/17/19 10:07 Dose: 81 mg Carvedilol (Coreg) 6.25 mg PO BID [facility] Last Admin: 01/17/19 10:07 Dose: 6.25 mg Cilostazol (Pletal) 100 mg PO BID [facility] Last Admin: 01/17/19 10:08 Dose: 100 mg Clopidogrel Bisulfate (Plavix) 75 mg PO DAILY [facility] Last Admin: 01/17/19 10:08 Dose: 75 mg Famotidine (Pepcid) 20 mg PO DAILY [facility] Last Admin: 01/17/19 10:07 Dose: 20 mg Finasteride (Proscar) 5 mg PO DAILY [facility] Last Admin: 01/17/19 10:07 Dose: 5 mg Heparin Sodium (Porcine) (Heparin) 5,000 units SC Q8 [facility] Last Admin: 01/17/19 05:53 Dose: 5,000 units Piperacillin Sod/Tazobactam (Sod 3.375 gm/ Sodium Chloride) 100 mls @ 200 mls/hr IVPB Q8H [facility]; Protocol Last Admin: 01/17/19 03:47 Dose: 200 mls/hr Dextrose/Sodium Chloride (Dextrose 5%/0.45% Ns 1000 Ml) 1,000 mls @ 100 mls/hr IV .Q10H [facility] Last Admin: 01/16/19 19:00 Dose: Not Given Insulin Human Regular (Novolin R) 0 unit SC ACHS [facility]; Protocol Last Admin: 01/17/19 08:05 Dose: 4 units Rosuvastatin Calcium (Crestor) 10 mg PO HS [facility] Last Admin: 01/16/19 21:30 Dose: 10 mg Sitagliptin Phosphate (Januvia) 50 mg PO DAILY [facility] Last Admin: 01/17/19 10:07 Dose: 50 mg Sodium Hypochlorite (Dakins Solution 0.125%) 0 appl TOP QSHIFT [facility] Last Admin: 01/17/19 05:53 Dose: 20 appl - Labs Labs: 01/16/19 08:17 01/16/19 08:17 APTT 31 SECONDS (21-34) 01/12/19 06:15 - Constitutional Appears: Well, Non-toxic, No Acute Distress - Extremities Exam Additional comments: RLE focused exam: Vasc: DP/PT pulses faintly palpable 1/4. Skin temperature warm to warm from proximal to distal. CFT < 3 seconds to all digits. Mild edema noted to entirety of hallux Neuro: Epicritic and protective sensation grossly diminished Derm: Open plantar medial hallux ulceration approximately 1 cm x 2.5 cm x 0.3 cm. Wound probes down to bone. Evidence of new tissue formation is noted to wound bed. No purulent drainage or malodor is noted. Entirety of the hallux is erythematous without streaking. No other clinical signs of infection appreciated Ortho: mild-moderate pain on palpation of ulceration site. No gross deformities noted - Neurological Exam Neurological Exam: Alert, Awake, Oriented x3 - Psychiatric Exam Psychiatric exam: Normal Affect, Normal Mood Assessment and Plan - Assessment and Plan (Free Text) Assessment: 68 y/o diabetic male with right hallux ulceration with clinical osteomyelitis Plan: Patient seen and evaluated with Dr. Cox Wound flushed with Dakins solution and dressed with DSD Clinical osteomyelitis is present as wound probes to bone Will hold off on MRI at this time Possible amputation of digit pending vascular studies and recs Await results of angiogram performed today Podiatry will continue to follow while patient in house
[2019-01-17] MEDS ORDERED: Iodixanol 320 MG/ML 100 ML BOTTLE IV ONE (13:07)
--- NOTE | 2019-01-17 13:55 | PCM.SURG1 ---
Surgeon's Initial Post Op Note - Surgeon's Notes Surgeon: aiden Cleater: 0 Type of Anesthesia: IV Sedation Anesthesia Administered By: pepper Pre-Operative Diagnosis: ischemic ulceration of foot right Operative Findings: severe tibial disease. on right. peroneal open to foot. PT reconstitutes at ankle. anterior tibial severly diseased throughout its course. manual compression left groin Post-Operative Diagnosis: same Operation Performed: aortofemoral angiogram. selective catherization of right femoral arery. pathway atherectomy of anterior tibial artery. balloon angioplasty with 2 and 2.5 mm balloons. manual compression left groin Specimen/Specimens Removed: 0 Estimated Blood Loss: EBL {In ML}: 50 Blood Products Given: N/A Drains Used: No Drains Post-Op Condition: Good Date of Surgery/Procedure: 01/17/19 Time of Surgery/Procedure: 13:57
[2019-01-17] MEDS: Dextrose 5%/0.45% NS 1,000 ML IV SCH (16:00)
--- NOTE | 2019-01-17 21:23 | CP.PCM.PN ---
Subjective - Date & Time of Evaluation Date of Evaluation: 01/17/19 Time of Evaluation: 21:22 - Subjective Subjective: Patient today underwent a right tibial artery revascularization. Patient underwent a successful surgical intervention today. Patient has of both posterior tibial, and dorsalis pedis artery. Pulses are feeling well. Patient also has mild pain. He is feeling well. No chest pain or shortness of breath noted at this time. On examination: Temperature 97.6 pulse 81 blood pressure is 96/59, improved to 144/76. Chest good air entry Heart sounds are regular Nontender abdomen. No pedal edema Objective - Vital Signs/Intake and Output Vital Signs (last 24 hours): Temp Pulse Resp BP Pulse Ox 97.5 F L 73 20 144/76 99 01/17/19 16:38 01/17/19 16:38 01/17/19 16:38 01/17/19 16:38 01/17/19 16:38 Intake and Output: 01/17/19 01/18/19 18:59 06:59 Intake Total 0 Balance 0 - Medications Medications: Current Medications Aspirin (Ecotrin) 81 mg PO DAILY [facility] Last Admin: 01/17/19 10:07 Dose: 81 mg Carvedilol (Coreg) 6.25 mg PO BID [facility] Last Admin: 01/17/19 19:00 Dose: 6.25 mg Cilostazol (Pletal) 100 mg PO BID [facility] Last Admin: 01/17/19 19:00 Dose: 100 mg Clopidogrel Bisulfate (Plavix) 75 mg PO DAILY [facility] Last Admin: 01/17/19 10:08 Dose: 75 mg Famotidine (Pepcid) 20 mg PO DAILY [facility] Last Admin: 01/17/19 10:07 Dose: 20 mg Finasteride (Proscar) 5 mg PO DAILY [facility] Last Admin: 01/17/19 10:07 Dose: 5 mg Heparin Sodium (Porcine) (Heparin) 5,000 units SC Q8 [facility] Last Admin: 01/17/19 21:21 Dose: 5,000 units Piperacillin Sod/Tazobactam (Sod 3.375 gm/ Sodium Chloride) 100 mls @ 200 mls/hr IVPB Q8H [facility]; Protocol Last Admin: 01/17/19 19:00 Dose: 200 mls/hr Dextrose/Sodium Chloride (Dextrose 5%/0.45% Ns 1000 Ml) 1,000 mls @ 100 mls/hr IV .Q10H [facility] Last Admin: 01/17/19 16:00 Dose: Not Given Insulin Human Regular (Novolin R) 0 unit SC ACHS [facility]; Protocol Last Admin: 01/17/19 17:28 Dose: 1 units Rosuvastatin Calcium (Crestor) 10 mg PO HS [facility] Last Admin: 01/17/19 21:21 Dose: 10 mg Sitagliptin Phosphate (Januvia) 50 mg PO DAILY [facility] Last Admin: 01/17/19 10:07 Dose: 50 mg Sodium Hypochlorite (Dakins Solution 0.125%) 0 appl TOP QSHIFT [facility] Last Admin: 01/17/19 05:53 Dose: 20 appl - Labs Labs: 01/16/19 08:17 01/16/19 08:17 APTT 31 SECONDS (21-34) 01/12/19 06:15
[2019-01-17] MEDS: Sodium Chloride 0.45% 1,000 ML IV SCH (21:32)
--- NOTE | 2019-01-18 00:07 | CP.PCM.PN ---
Subjective - Date & Time of Evaluation Date of Evaluation: 01/17/19 Time of Evaluation: 15:45 - Subjective Subjective: Patient seen and evaluated s/p Leg vascularaization Denies chest pain and dyspnea Review Of Systems Except As Marked, All Systems Reviewed And Found Negative. Constitutional: Negative for: Fever, Chills Cardiovascular: Negative for: Chest Pain Respiratory: Negative for: Shortness of Breath Gastrointestinal: Negative for: Nausea, Vomiting Neurological: Negative for: Dizziness Physical Exam - Physical Exam Appears: Non-toxic, No Acute Distress Skin: Normal Color, Warm, Dry, No Rash Head: Atraumatic, Normacephalic Eye(s): bilateral: Normal Inspection, PERRL, EOMI Oral Mucosa: Moist Neck: Normal ROM, Supple Chest: Symmetrical, No Tenderness Cardiovascular: Rhythm Regular, No Murmur Respiratory: Normal Breath Sounds, No Rales, No Rhonchi, No Wheezing Gastrointestinal/Abdominal: Soft, No Tenderness Extremity: Normal ROM Extremity: Bilateral: Atraumatic, Normal Color And Temperature, Normal ROM Pulses: Left Radial: Normal, Right Radial: Normal Neurological/Psych: Oriented x3, Normal Speech Gait: Steady Objective - Vital Signs/Intake and Output Vital Signs (last 24 hours): Temp Pulse Resp BP Pulse Ox 97.5 F L 73 20 144/76 99 01/17/19 16:38 01/17/19 16:38 01/17/19 16:38 01/17/19 16:38 01/17/19 16:38 Intake and Output: 01/17/19 01/18/19 18:59 06:59 Intake Total 0 900 Balance 0 900 - Medications Medications: Current Medications Aspirin (Ecotrin) 81 mg PO DAILY [facility] Last Admin: 01/17/19 10:07 Dose: 81 mg Carvedilol (Coreg) 6.25 mg PO BID [facility] Last Admin: 01/17/19 19:00 Dose: 6.25 mg Cilostazol (Pletal) 100 mg PO BID [facility] Last Admin: 01/17/19 19:00 Dose: 100 mg Clopidogrel Bisulfate (Plavix) 75 mg PO DAILY [facility] Last Admin: 01/17/19 10:08 Dose: 75 mg Famotidine (Pepcid) 20 mg PO DAILY [facility] Last Admin: 01/17/19 10:07 Dose: 20 mg Finasteride (Proscar) 5 mg PO DAILY [facility] Last Admin: 01/17/19 10:07 Dose: 5 mg Heparin Sodium (Porcine) (Heparin) 5,000 units SC Q8 [facility] Last Admin: 01/17/19 21:21 Dose: 5,000 units Piperacillin Sod/Tazobactam (Sod 3.375 gm/ Sodium Chloride) 100 mls @ 200 mls/hr IVPB Q8H [facility]; Protocol Last Admin: 01/17/19 19:00 Dose: 200 mls/hr Sodium Chloride (Sodium Chloride 0.45%) 1,000 mls @ 75 mls/hr IV .[id number] [facility] Last Admin: 01/17/19 21:32 Dose: 75 mls/hr Insulin Human Regular (Novolin R) 0 unit SC ACHS [facility]; Protocol Last Admin: 01/17/19 21:28 Dose: Not Given Rosuvastatin Calcium (Crestor) 10 mg PO HS [facility] Last Admin: 01/17/19 21:21 Dose: 10 mg Sitagliptin Phosphate (Januvia) 50 mg PO DAILY [facility] Last Admin: 01/17/19 10:07 Dose: 50 mg Sodium Hypochlorite (Dakins Solution 0.125%) 0 appl TOP QSHIFT [facility] Last Admin: 01/17/19 21:32 Dose: 20 appl - Labs Labs: 01/16/19 08:17 01/16/19 08:17 APTT 31 SECONDS (21-34) 01/12/19 06:15 Assessment and Plan - Assessment and Plan (Free Text) Assessment: Patient today underwent a right tibial artery revascularization. Patient underwent a successful surgical intervention today. Patient has of both posterior tibial, and dorsalis pedis artery. Pulses are feeling well. Patient also has mild pain. He is feeling well. No chest pain or shortness of breath noted at this time.
[2019-01-18] MEDS: Piperacillin/Tazobact 3.375 GM in Sodium Chloride 100 ML IVPB SCH ×3 (04:09→18:46)
--- NOTE | 2019-01-18 06:36 | VAS ---
DATE: 01/17/2019 PREOPERATIVE DIAGNOSES: Ischemic ulceration, right foot. PROCEDURE CARRIED OUT: Aortofemoral angiogram via left groin with selective catheterization of the right femoral artery, pathway atherectomy, and balloon angioplasty of the anterior tibial artery. SURGEON: Bradley Sharma Jr., MD TIE KNITTER HELPER: None. ANESTHESIOLOGIST: Cong Patel CRNA INDICATIONS: The patient is a 68-year-old male, diabetic, who presents with ischemic ulceration on the foot. He had a previous bypass on the left leg, which is patent. OPERATIVE FINDINGS: Access was difficult via the left groin because of the previous graft. Nonetheless, we were able to obtain adequate access here. The primary disease problem was in the tibial vessels below the knee with the peroneal artery being more or less intact down to the level of the ankle and reconstituting the branches of the posterior tibial artery. The anterior tibial artery was severely diseased throughout its course. The posterior tibial artery was severely diseased and reconstituted at the level of the ankle. On the left side, the bypass that was previously placed was patent and went into a similar situation on the left side. Subsequent to the performance of the diagnostic arteriogram which was done using ultrasound guidance for puncture, a stiff-angled guidewire was advanced to the aortic bifurcation with some difficulty. A 7-Zimbabwean sheath was positioned in the distal portion of the popliteal artery. Using road mapping techniques, we were able to cannulate the anterior tibial artery and advance the wire distally. We subsequently gave heparin. We then used the pathway atherectomy device but could only bring this approximately fci down. At that point, we were able to advance it further to avoid any damage to the vessel and we abandoned that part of the procedure. We then took two 2.5-mm balloons and dilated from the level of the ankle back to the trifurcation. The final cosmetic result was good. We then applied manual pressure to the groin and terminated the procedure. The blood loss was 50 to 100 mL. OPERATION CARRIED OUT: Aortofemoral angiogram via left groin with selective catheterization of the right femoral artery, pathway atherectomy of the right anterior tibial artery. At the end of the procedure, the patient had palpable dorsalis pedis pulses. Bradley Sharma Jr., MD
[2019-01-18 07:34] LABS: BASO # 0.1 K/uL (0.0-0.2); BASO % 0.9 % (0.0-2.0); EOS # 0.4 K/uL (0.0-0.7); EOS % 5.2 % (0.0-4.0); HEMOGLOBIN 10.3 g/dL (12.0-18.0); LYMPH # 1.5 K/uL (1.0-4.3); LYMPH % 21.1 % (20.0-40.0); MEAN CORPUSCULAR HEMOGLOBIN 25.9 pg (27.0-31.0); MEAN CORPUSCULAR HGB CONC 31.6 g/dL (33.0-37.0); MEAN PLATELET VOLUME 11.5 fL (7.2-11.7); MONO # 0.7 K/uL (0.0-0.8); MONO % 9.7 % (0.0-10.0); NEUT # 4.4 K/uL (1.8-7.0); NEUT % 63.1 % (50.0-75.0); RBC 3.98 Mil/uL (4.40-5.90); RED CELL DISTRIBUTION WIDTH 16.9 % (11.5-14.5); WHITE BLOOD COUNT 6.9 K/uL (4.8-10.8)
[2019-01-18 07:54] LABS: ALBUMIN 3.7 g/dL (3.5-5.0); ALT/SGPT 50 U/L (21-72); AST/SGOT 32 U/L (17-59); BLOOD UREA NITROGEN 26 mg/dL (9-20); CALCIUM 8.9 mg/dl (8.6-10.4); GFR NON-AFRICAN AMERICAN 55
[2019-01-18] MEDS: (Novolin R) Insulin Human Regular 100 units/ml vial SC SCH ×4 (08:22→21:31)
[2019-01-18] MEDS: Cilostazol 100 mg Tab UD PO SCH ×2 (10:34→17:09)
[2019-01-18] MEDS: Sodium Chloride 0.45% 1,000 ML IV SCH ×2 (10:50→12:11)
--- NOTE | 2019-01-18 11:48 | CP.PCM.PN ---
<NealDeanne - Last Filed: 01/18/19 11:50> Subjective - Date & Time of Evaluation Date of Evaluation: 01/18/19 Time of Evaluation: 11:45 - Subjective Subjective: Vascular Surgery Dr Sharma Pt seen and examined @bedside. Pt went for angio yesterday. Pt tolerated procedure well w/ no complications. No acute events overnight. Pt has no complaints this AM. denies F/C, CP, SOB, abd pain, LE pain. tolerating diet. Objective - Vital Signs/Intake and Output Vital Signs (last 24 hours): Temp Pulse Resp BP Pulse Ox 98.1 F 75 20 131/65 99 01/18/19 07:15 01/18/19 07:15 01/18/19 07:15 01/18/19 07:15 01/18/19 07:15 Intake and Output: 01/18/19 01/18/19 06:59 18:59 Intake Total 1600 Output Total 500 Balance 1100 - Medications Medications: Current Medications Aspirin (Ecotrin) 81 mg PO DAILY [facility] Last Admin: 01/18/19 10:35 Dose: 81 mg Carvedilol (Coreg) 6.25 mg PO BID [facility] Last Admin: 01/18/19 10:35 Dose: 6.25 mg Cilostazol (Pletal) 100 mg PO BID [facility] Last Admin: 01/18/19 10:34 Dose: 100 mg Clopidogrel Bisulfate (Plavix) 75 mg PO DAILY [facility] Last Admin: 01/18/19 10:34 Dose: 75 mg Famotidine (Pepcid) 20 mg PO DAILY [facility] Last Admin: 01/18/19 10:34 Dose: 20 mg Finasteride (Proscar) 5 mg PO DAILY [facility] Last Admin: 01/18/19 10:34 Dose: 5 mg Heparin Sodium (Porcine) (Heparin) 5,000 units SC Q8 [facility] Last Admin: 01/18/19 05:53 Dose: 5,000 units Piperacillin Sod/Tazobactam (Sod 3.375 gm/ Sodium Chloride) 100 mls @ 200 mls/hr IVPB Q8H [facility]; Protocol Last Admin: 01/18/19 04:09 Dose: 200 mls/hr Sodium Chloride (Sodium Chloride 0.45%) 1,000 mls @ 75 mls/hr IV .[id number] [facility] Last Admin: 01/17/19 21:32 Dose: 75 mls/hr Insulin Human Regular (Novolin R) 0 unit SC ACHS [facility]; Protocol Last Admin: 01/18/19 08:22 Dose: 2 units Rosuvastatin Calcium (Crestor) 10 mg PO HS [facility] Last Admin: 01/17/19 21:21 Dose: 10 mg Sitagliptin Phosphate (Januvia) 50 mg PO DAILY [facility] Last Admin: 01/18/19 10:34 Dose: 50 mg Sodium Hypochlorite (Dakins Solution 0.125%) 0 appl TOP QSHIFT [facility] Last Admin: 01/18/19 05:57 Dose: 20 appl - Labs Labs: 01/18/19 07:23 01/18/19 07:23 APTT 31 SECONDS (21-34) 01/12/19 06:15 - Constitutional Appears: Non-toxic, No Acute Distress - Head Exam Head Exam: NORMAL INSPECTION - Eye Exam Eye Exam: Normal appearance - ENT Exam ENT Exam: Mucous Membranes Moist - Respiratory Exam Respiratory Exam: NORMAL BREATHING PATTERN. absent: Accessory Muscle Use, Respiratory Distress - Cardiovascular Exam Cardiovascular Exam: REGULAR RHYTHM. absent: Bradycardia, Tachycardia - GI/Abdominal Exam GI & Abdominal Exam: Soft. absent: Distended - Extremities Exam Additional comments: RLE dressing c/d/i B/L LE warm palpable femoral pulses B/L puncture site c/d/i, small hematoma - Neurological Exam Neurological Exam: Alert, Awake, Oriented x3 - Psychiatric Exam Psychiatric exam: Normal Affect, Normal Mood - Skin Skin Exam: Dry, Intact, Normal Color, Warm Assessment and Plan - Assessment and Plan (Free Text) Assessment: 68 y/o M who presents with non-healing R foot ulcer and PVD POD#1 s/p angio of right femoral artery, atherectomy of anterior tibial artery, and balloon angioplasty Plan: - ADAT - cont IV ABx per ID - cont wound car per Podiatry - monitor pulses QShift - cont medical management - no further surgical intervention at this time - please re-consult if needed Further recs per Dr. Edith De Jesus DO PGY3 <Bradley Sharma Jr. - Last Filed: 01/18/19 13:51> Subjective - Subjective Subjective: patient has easily palpable DP pulse on right foot. Objective - Vital Signs/Intake and Output Vital Signs (last 24 hours): Temp Pulse Resp BP Pulse Ox 98.1 F 75 20 131/65 99 01/18/19 07:15 01/18/19 07:15 01/18/19 07:15 01/18/19 07:15 01/18/19 07:15 Intake and Output: 01/18/19 01/18/19 06:59 18:59 Intake Total 1600 Output Total 500 Balance 1100 - Medications Medications: Current Medications Aspirin (Ecotrin) 81 mg PO DAILY [facility] Last Admin: 01/18/19 10:35 Dose: 81 mg Carvedilol (Coreg) 6.25 mg PO BID [facility] Last Admin: 01/18/19 10:35 Dose: 6.25 mg Cilostazol (Pletal) 100 mg PO BID [facility] Last Admin: 01/18/19 10:34 Dose: 100 mg Clopidogrel Bisulfate (Plavix) 75 mg PO DAILY [facility] Last Admin: 01/18/19 10:34 Dose: 75 mg Famotidine (Pepcid) 20 mg PO DAILY [facility] Last Admin: 01/18/19 10:34 Dose: 20 mg Finasteride (Proscar) 5 mg PO DAILY [facility] Last Admin: 01/18/19 10:34 Dose: 5 mg Heparin Sodium (Porcine) (Heparin) 5,000 units SC Q8 [facility] Last Admin: 01/18/19 05:53 Dose: 5,000 units Piperacillin Sod/Tazobactam (Sod 3.375 gm/ Sodium Chloride) 100 mls @ 200 mls/hr IVPB Q8H [facility]; Protocol Last Admin: 01/18/19 12:13 Dose: 200 mls/hr Sodium Chloride (Sodium Chloride 0.45%) 1,000 mls @ 75 mls/hr IV .[id number] [facility] Last Admin: 01/18/19 12:11 Dose: 75 mls/hr Insulin Human Regular (Novolin R) 0 unit SC ACHS [facility]; Protocol Last Admin: 01/18/19 12:31 Dose: 6 units Rosuvastatin Calcium (Crestor) 10 mg PO HS [facility] Last Admin: 01/17/19 21:21 Dose: 10 mg Sitagliptin Phosphate (Januvia) 50 mg PO DAILY [facility] Last Admin: 01/18/19 10:34 Dose: 50 mg Sodium Hypochlorite (Dakins Solution 0.125%) 0 appl TOP QSHIFT [facility] Last Admin: 01/18/19 05:57 Dose: 20 appl - Labs Labs: 01/18/19 07:23 01/18/19 07:23 APTT 31 SECONDS (21-34) 01/12/19 06:15
--- NOTE | 2019-01-18 12:14 | CP.PCM.PN ---
Subjective - Date & Time of Evaluation Date of Evaluation: 01/18/19 Time of Evaluation: 12:14 Objective - Vital Signs/Intake and Output Vital Signs (last 24 hours): Temp Pulse Resp BP Pulse Ox 98.1 F 75 20 131/65 99 01/18/19 07:15 01/18/19 07:15 01/18/19 07:15 01/18/19 07:15 01/18/19 07:15 Intake and Output: 01/18/19 01/18/19 06:59 18:59 Intake Total 1600 Output Total 500 Balance 1100 - Medications Medications: Current Medications Aspirin (Ecotrin) 81 mg PO DAILY [facility] Last Admin: 01/18/19 10:35 Dose: 81 mg Carvedilol (Coreg) 6.25 mg PO BID [facility] Last Admin: 01/18/19 10:35 Dose: 6.25 mg Cilostazol (Pletal) 100 mg PO BID [facility] Last Admin: 01/18/19 10:34 Dose: 100 mg Clopidogrel Bisulfate (Plavix) 75 mg PO DAILY [facility] Last Admin: 01/18/19 10:34 Dose: 75 mg Famotidine (Pepcid) 20 mg PO DAILY [facility] Last Admin: 01/18/19 10:34 Dose: 20 mg Finasteride (Proscar) 5 mg PO DAILY [facility] Last Admin: 01/18/19 10:34 Dose: 5 mg Heparin Sodium (Porcine) (Heparin) 5,000 units SC Q8 [facility] Last Admin: 01/18/19 05:53 Dose: 5,000 units Piperacillin Sod/Tazobactam (Sod 3.375 gm/ Sodium Chloride) 100 mls @ 200 mls/ hr IVPB Q8H [facility]; Protocol Last Admin: 01/18/19 12:13 Dose: 200 mls/hr Sodium Chloride (Sodium Chloride 0.45%) 1,000 mls @ 75 mls/hr IV .[id number] [facility] Last Admin: 01/18/19 12:11 Dose: 75 mls/hr Insulin Human Regular (Novolin R) 0 unit SC ACHS [facility]; Protocol Last Admin: 01/18/19 08:22 Dose: 2 units Rosuvastatin Calcium (Crestor) 10 mg PO HS [facility] Last Admin: 01/17/19 21:21 Dose: 10 mg Sitagliptin Phosphate (Januvia) 50 mg PO DAILY [facility] Last Admin: 01/18/19 10:34 Dose: 50 mg Sodium Hypochlorite (Dakins Solution 0.125%) 0 appl TOP QSHIFT [facility] Last Admin: 01/18/19 05:57 Dose: 20 appl - Labs Labs: 01/18/19 07:23 01/18/19 07:23 APTT 31 SECONDS (21-34) 01/12/19 06:15
--- NOTE | 2019-01-18 16:40 | CP.PCM.PN ---
Subjective - Date & Time of Evaluation Date of Evaluation: 01/18/19 Time of Evaluation: 16:38 - Subjective Subjective: Pt seen at bedside for f/u right hallux ulcer/osteo. Pt is S/P angio. Pt does not want any amputation of right big toe. Wound shows improvement with no purulence noted today. Decreased edema and erythema noted. Foot warm to touch and palpable dp pulse noted right foot. Cont with local wound care for now. Most likely pt will need assisted iv abx. Objective - Vital Signs/Intake and Output Vital Signs (last 24 hours): Temp Pulse Resp BP Pulse Ox 98.0 F 81 20 136/60 98 01/18/19 15:00 01/18/19 15:00 01/18/19 15:00 01/18/19 15:00 01/18/19 15:00 Intake and Output: 01/18/19 01/18/19 06:59 18:59 Intake Total 1600 1130 Output Total 500 Balance 1100 1130 - Medications Medications: Current Medications Aspirin (Ecotrin) 81 mg PO DAILY [facility] Last Admin: 01/18/19 10:35 Dose: 81 mg Carvedilol (Coreg) 6.25 mg PO BID [facility] Last Admin: 01/18/19 10:35 Dose: 6.25 mg Cilostazol (Pletal) 100 mg PO BID [facility] Last Admin: 01/18/19 10:34 Dose: 100 mg Clopidogrel Bisulfate (Plavix) 75 mg PO DAILY [facility] Last Admin: 01/18/19 10:34 Dose: 75 mg Famotidine (Pepcid) 20 mg PO DAILY [facility] Last Admin: 01/18/19 10:34 Dose: 20 mg Finasteride (Proscar) 5 mg PO DAILY [facility] Last Admin: 01/18/19 10:34 Dose: 5 mg Heparin Sodium (Porcine) (Heparin) 5,000 units SC Q8 [facility] Last Admin: 01/18/19 14:25 Dose: 5,000 units Piperacillin Sod/Tazobactam (Sod 3.375 gm/ Sodium Chloride) 100 mls @ 200 mls/hr IVPB Q8H [facility]; Protocol Last Admin: 01/18/19 12:13 Dose: 200 mls/hr Sodium Chloride (Sodium Chloride 0.45%) 1,000 mls @ 75 mls/hr IV .[id number] [facility] Last Admin: 01/18/19 12:11 Dose: 75 mls/hr Insulin Human Regular (Novolin R) 0 unit SC ACHS [facility]; Protocol Last Admin: 01/18/19 12:31 Dose: 6 units Rosuvastatin Calcium (Crestor) 10 mg PO HS [facility] Last Admin: 01/17/19 21:21 Dose: 10 mg Sitagliptin Phosphate (Januvia) 50 mg PO DAILY [facility] Last Admin: 01/18/19 10:34 Dose: 50 mg Sodium Hypochlorite (Dakins Solution 0.125%) 0 appl TOP QSHIFT [facility] Last Admin: 01/18/19 05:57 Dose: 20 appl - Labs Labs: 01/18/19 07:23 01/18/19 07:23 APTT 31 SECONDS (21-34) 01/12/19 06:15
--- NOTE | 2019-01-18 18:11 | CP.PCM.PN ---
Subjective - Date & Time of Evaluation Date of Evaluation: 01/18/19 Time of Evaluation: 08:00 - Subjective Subjective: seen on rounds no new complaints labs / x rays reviewed orders signed Objective - Vital Signs/Intake and Output Vital Signs (last 24 hours): Temp Pulse Resp BP Pulse Ox 98.0 F 81 20 136/60 98 01/18/19 15:00 01/18/19 15:00 01/18/19 15:00 01/18/19 15:00 01/18/19 15:00 Intake and Output: 01/18/19 01/18/19 06:59 18:59 Intake Total 1600 1130 Output Total 500 Balance 1100 1130 - Medications Medications: Current Medications Aspirin (Ecotrin) 81 mg PO DAILY [facility] Last Admin: 01/18/19 10:35 Dose: 81 mg Carvedilol (Coreg) 6.25 mg PO BID [facility] Last Admin: 01/18/19 17:09 Dose: 6.25 mg Cilostazol (Pletal) 100 mg PO BID [facility] Last Admin: 01/18/19 17:09 Dose: 100 mg Clopidogrel Bisulfate (Plavix) 75 mg PO DAILY [facility] Last Admin: 01/18/19 10:34 Dose: 75 mg Famotidine (Pepcid) 20 mg PO DAILY [facility] Last Admin: 01/18/19 10:34 Dose: 20 mg Finasteride (Proscar) 5 mg PO DAILY [facility] Last Admin: 01/18/19 10:34 Dose: 5 mg Heparin Sodium (Porcine) (Heparin) 5,000 units SC Q8 [facility] Last Admin: 01/18/19 14:25 Dose: 5,000 units Piperacillin Sod/Tazobactam (Sod 3.375 gm/ Sodium Chloride) 100 mls @ 200 mls/hr IVPB Q8H [facility]; Protocol Last Admin: 01/18/19 12:13 Dose: 200 mls/hr Sodium Chloride (Sodium Chloride 0.45%) 1,000 mls @ 75 mls/hr IV .[id number] [facility] Last Admin: 01/18/19 12:11 Dose: 75 mls/hr Insulin Human Regular (Novolin R) 0 unit SC ACHS [facility]; Protocol Last Admin: 01/18/19 17:08 Dose: 1 units Rosuvastatin Calcium (Crestor) 10 mg PO HS [facility] Last Admin: 03/12/19 21:21 Dose: 10 mg Sitagliptin Phosphate (Januvia) 50 mg PO DAILY [facility] Last Admin: 01/18/19 10:34 Dose: 50 mg Sodium Hypochlorite (Dakins Solution 0.125%) 0 appl TOP QSHIFT [facility] Last Admin: 01/18/19 05:57 Dose: 20 appl - Labs Labs: 01/18/19 07:23 01/18/19 07:23 APTT 31 SECONDS (21-34) 01/12/19 06:15 - Constitutional Appears: Non-toxic, No Acute Distress, Chronically Ill - Head Exam Head Exam: ATRAUMATIC, NORMAL INSPECTION, NORMOCEPHALIC - Eye Exam Eye Exam: EOMI, Normal appearance, PERRL Pupil Exam: NORMAL ACCOMODATION, PERRL - ENT Exam ENT Exam: Mucous Membranes Moist, Normal Exam - Neck Exam Neck Exam: Full ROM, Normal Inspection. absent: Lymphadenopathy - Respiratory Exam Respiratory Exam: Clear to Ausculation Bilateral, NORMAL BREATHING PATTERN - Cardiovascular Exam Cardiovascular Exam: REGULAR RHYTHM, +S1, +S2. absent: Murmur - GI/Abdominal Exam GI & Abdominal Exam: Soft, Normal Bowel Sounds. absent: Tenderness - Rectal Exam Rectal Exam: Deferred - Extremities Exam Extremities Exam: Full ROM, Normal Capillary Refill, Normal Inspection. absent: Joint Swelling, Pedal Edema - Back Exam Back Exam: NORMAL INSPECTION - Neurological Exam Neurological Exam: Alert, Awake, CN II-XII Intact, Motor Sensory Deficit, Oriented x3 - Psychiatric Exam Psychiatric exam: Normal Affect, Normal Mood - Skin Skin Exam: Dry, Intact, Normal Color Assessment and Plan (1) Diabetic ulcer of right great toe Status: Acute (2) Hyperglycemia Status: Acute (3) Diabetes mellitus Status: Acute (4) Hypertension Status: Acute (5) Open wound of left great toe Status: Acute (6) Osteomyelitis Status: Acute (7) Peripheral vascular disease due to secondary diabetes Status: Acute - Assessment and Plan (Free Text) Assessment: cont wound care and IV antibiotics
--- NOTE | 2019-01-18 18:23 | CP.PCM.PN ---
Subjective - Date & Time of Evaluation Date of Evaluation: 01/18/19 Time of Evaluation: 18:22 - Subjective Subjective: Patient is alert comfortable not in any distress. Patient seen by parole or probation officer earlier, the wound is healing well. Less discharge noted. The wound culture is positive for MSSA. As per recommendation by the infectious disease patient will need long-term IV antibiotic for at least 4 weeks to 6 weeks for presumptive osteomyelitis. Will discuss with ID regarding the antibiotic of choice. We will plan for midline tomorrow. Patient wants to get the antibiotic as an outpatient or in-house. He is otherwise clinically stable will discuss tomorrow Objective - Vital Signs/Intake and Output Vital Signs (last 24 hours): Temp Pulse Resp BP Pulse Ox 98.0 F 81 20 136/60 98 01/18/19 15:00 01/18/19 15:00 01/18/19 15:00 01/18/19 15:00 01/18/19 15:00 Intake and Output: 01/18/19 01/18/19 06:59 18:59 Intake Total 1600 1130 Output Total 500 Balance 1100 1130 - Medications Medications: Current Medications Aspirin (Ecotrin) 81 mg PO DAILY [facility] Last Admin: 01/18/19 10:35 Dose: 81 mg Carvedilol (Coreg) 6.25 mg PO BID [facility] Last Admin: 01/18/19 17:09 Dose: 6.25 mg Cilostazol (Pletal) 100 mg PO BID [facility] Last Admin: 01/18/19 17:09 Dose: 100 mg Clopidogrel Bisulfate (Plavix) 75 mg PO DAILY [facility] Last Admin: 01/18/19 10:34 Dose: 75 mg Famotidine (Pepcid) 20 mg PO DAILY [facility] Last Admin: 01/18/19 10:34 Dose: 20 mg Finasteride (Proscar) 5 mg PO DAILY [facility] Last Admin: 01/18/19 10:34 Dose: 5 mg Heparin Sodium (Porcine) (Heparin) 5,000 units SC Q8 [facility] Last Admin: 01/18/19 14:25 Dose: 5,000 units Piperacillin Sod/Tazobactam (Sod 3.375 gm/ Sodium Chloride) 100 mls @ 200 mls/hr IVPB Q8H [facility]; Protocol Last Admin: 01/18/19 12:13 Dose: 200 mls/hr Sodium Chloride (Sodium Chloride 0.45%) 1,000 mls @ 75 mls/hr IV .[id number] [facility] Last Admin: 01/18/19 12:11 Dose: 75 mls/hr Insulin Human Regular (Novolin R) 0 unit SC ACHS [facility]; Protocol Last Admin: 01/18/19 17:08 Dose: 1 units Rosuvastatin Calcium (Crestor) 10 mg PO HS [facility] Last Admin: 01/17/19 21:21 Dose: 10 mg Sitagliptin Phosphate (Januvia) 50 mg PO DAILY [facility] Last Admin: 01/18/19 10:34 Dose: 50 mg Sodium Hypochlorite (Dakins Solution 0.125%) 0 appl TOP QSHIFT [facility] Last Admin: 01/18/19 05:57 Dose: 20 appl - Labs Labs: 01/18/19 07:23 01/18/19 07:23 APTT 31 SECONDS (21-34) 01/12/19 06:15
--- NOTE | 2019-01-18 22:53 | CP.PCM.PN ---
Subjective - Date & Time of Evaluation Date of Evaluation: 01/18/19 Time of Evaluation: 16:10 - Subjective Subjective: Patient seen and evaluated Denies chest pain and dyspnea CAD/PAD/DM 2 Medical management Review Of Systems Except As Marked, All Systems Reviewed And Found Negative. Constitutional: Negative for: Fever, Chills Cardiovascular: Negative for: Chest Pain Respiratory: Negative for: Shortness of Breath Gastrointestinal: Negative for: Nausea, Vomiting Neurological: Negative for: Dizziness Physical Exam - Physical Exam Appears: Non-toxic, No Acute Distress Skin: Normal Color, Warm, Dry, No Rash Head: Atraumatic, Normacephalic Eye(s): bilateral: Normal Inspection, PERRL, EOMI Oral Mucosa: Moist Neck: Normal ROM, Supple Chest: Symmetrical, No Tenderness Cardiovascular: Rhythm Regular, No Murmur Respiratory: Normal Breath Sounds, No Rales, No Rhonchi, No Wheezing Gastrointestinal/Abdominal: Soft, No Tenderness Extremity: Normal ROM Extremity: Bilateral: Atraumatic, Normal Color And Temperature, Normal ROM Pulses: Left Radial: Normal, Right Radial: Normal Neurological/Psych: Oriented x3, Normal Speech Gait: Steady Objective - Vital Signs/Intake and Output Vital Signs (last 24 hours): Temp Pulse Resp BP Pulse Ox 98.0 F 81 20 136/60 98 01/18/19 15:00 01/18/19 15:00 01/18/19 15:00 01/18/19 15:00 01/18/19 15:00 Intake and Output: 01/18/19 01/19/19 18:59 06:59 Intake Total 1130 1025 Balance 1130 1025 - Medications Medications: Current Medications Aspirin (Ecotrin) 81 mg PO DAILY [facility] Last Admin: 01/18/19 10:35 Dose: 81 mg Carvedilol (Coreg) 6.25 mg PO BID [facility] Last Admin: 01/18/19 17:09 Dose: 6.25 mg Cilostazol (Pletal) 100 mg PO BID [facility] Last Admin: 01/18/19 17:09 Dose: 100 mg Clopidogrel Bisulfate (Plavix) 75 mg PO DAILY [facility] Last Admin: 01/18/19 10:34 Dose: 75 mg Famotidine (Pepcid) 20 mg PO DAILY [facility] Last Admin: 01/18/19 10:34 Dose: 20 mg Finasteride (Proscar) 5 mg PO DAILY [facility] Last Admin: 01/18/19 10:34 Dose: 5 mg Heparin Sodium (Porcine) (Heparin) 5,000 units SC Q8 [facility] Last Admin: 01/18/19 21:16 Dose: 5,000 units Piperacillin Sod/Tazobactam (Sod 3.375 gm/ Sodium Chloride) 100 mls @ 200 mls/hr IVPB Q8H [facility]; Protocol Last Admin: 01/18/19 18:46 Dose: 200 mls/hr Insulin Human Regular (Novolin R) 0 unit SC ACHS [facility]; Protocol Last Admin: 01/18/19 21:31 Dose: Not Given Rosuvastatin Calcium (Crestor) 10 mg PO HS [facility] Last Admin: 01/18/19 21:16 Dose: 10 mg Sitagliptin Phosphate (Januvia) 50 mg PO DAILY [facility] Last Admin: 01/18/19 10:34 Dose: 50 mg Sodium Hypochlorite (Dakins Solution 0.125%) 0 appl TOP QSHIFT [facility] Last Admin: 01/18/19 21:17 Dose: 20 appl - Labs Labs: 01/18/19 07:23 01/18/19 07:23 APTT 31 SECONDS (21-34) 01/12/19 06:15 Assessment and Plan - Assessment and Plan (Free Text) Assessment: Patient is alert comfortable not in any distress. Patient seen by pot pusher earlier, the wound is healing well. Less discharge noted. The wound culture is positive for MSSA. As per recommendation by the infectious disease patient will need long-term IV antibiotic for at least 4 weeks to 6 weeks for presumptive osteomyelitis. Will discuss with ID regarding the antibiotic of choice. We will plan for midline tomorrow. Patient wants to get the antibiotic as an outpatient or in-house.
[2019-01-19] MEDS: Piperacillin/Tazobact 3.375 GM in Sodium Chloride 100 ML IVPB SCH ×3 (02:47→21:18)
[2019-01-19] MEDS: (Novolin R) Insulin Human Regular 100 units/ml vial SC SCH ×4 (08:56→21:19)
[2019-01-19] MEDS: Cilostazol 100 mg Tab UD PO SCH ×2 (08:59→17:37)
[2019-01-19] MEDS ORDERED: Collagenase 250 Units/gm Ointment(30 gm) TOP SCH (10:00)
--- NOTE | 2019-01-19 10:59 | CP.PCM.PN ---
Subjective - Date & Time of Evaluation Date of Evaluation: 01/19/19 Time of Evaluation: 10:59 - Subjective Subjective: Podiatry Progress Note - Dr. Cox 68 y/o male seen this morning for right hallux ulceration, s/p revascularization to right lower extremity. Denies any pain in the right foot or the entirety of the right lower extremity. No acute overnight events. Has no new pedal complaints. Denies F/C/N/V/CP/SOB Objective - Vital Signs/Intake and Output Vital Signs (last 24 hours): Temp Pulse Resp BP Pulse Ox 97.8 F 75 18 180/88 H 99 01/19/19 07:25 01/19/19 07:25 01/19/19 07:25 01/19/19 07:25 01/19/19 07:25 Intake and Output: 01/19/19 01/19/19 06:59 18:59 Intake Total 1025 Balance 1025 - Medications Medications: Current Medications Aspirin (Ecotrin) 81 mg PO DAILY [facility] Last Admin: 01/19/19 09:00 Dose: 81 mg Carvedilol (Coreg) 6.25 mg PO BID [facility] Last Admin: 01/19/19 09:00 Dose: 6.25 mg Cilostazol (Pletal) 100 mg PO BID [facility] Last Admin: 01/19/19 08:59 Dose: 100 mg Clopidogrel Bisulfate (Plavix) 75 mg PO DAILY [facility] Last Admin: 01/19/19 08:59 Dose: 75 mg Collagenase (Santyl) 0 gm TOP DAILY [facility] Famotidine (Pepcid) 20 mg PO DAILY [facility] Last Admin: 01/19/19 08:59 Dose: 20 mg Finasteride (Proscar) 5 mg PO DAILY [facility] Last Admin: 01/19/19 08:59 Dose: 5 mg Heparin Sodium (Porcine) (Heparin) 5,000 units SC Q8 [facility] Last Admin: 01/19/19 05:12 Dose: 5,000 units Piperacillin Sod/Tazobactam (Sod 3.375 gm/ Sodium Chloride) 100 mls @ 200 mls/hr IVPB Q8H [facility]; Protocol Last Admin: 01/19/19 10:58 Dose: 200 mls/hr Insulin Human Regular (Novolin R) 0 unit SC ACHS [facility]; Protocol Last Admin: 01/19/19 08:56 Dose: 3 units Rosuvastatin Calcium (Crestor) 10 mg PO HS [facility] Last Admin: 01/18/19 21:16 Dose: 10 mg Sitagliptin Phosphate (Januvia) 50 mg PO DAILY [facility] Last Admin: 01/19/19 09:00 Dose: 50 mg Sodium Hypochlorite (Dakins Solution 0.125%) 0 appl TOP QSHIFT [facility] Last Admin: 01/19/19 05:13 Dose: 20 appl - Labs Labs: 01/18/19 07:23 01/18/19 07:23 APTT 31 SECONDS (21-34) 01/12/19 06:15 - Constitutional Appears: Well, Non-toxic, No Acute Distress - Extremities Exam Additional comments: RLE focused exam: Vasc: DP/PT pulses faintly palpable 1/4. Skin temperature warm to warm from proximal to distal. CFT < 3 seconds to all digits. Mild edema noted to entirety of hallux Neuro: Epicritic and protective sensation grossly diminished Derm: Open plantar medial hallux ulceration approximately 1 cm x 2.5 cm x 0.3 cm. Wound base is a mixture of fibrogranular tissue and continues to exhibit healthy new tissue formation. Minimal fibrous slough noted to wound bed. No signs of tissue necrosis present. No purulent drainage or malodor is noted. Enti rety of the hallux is erythematous without streaking. No other clinical signs of infection appreciated Ortho: mild-moderate pain on palpation of ulceration site. No gross deformities noted - Neurological Exam Neurological Exam: Alert, Awake, Oriented x3 - Psychiatric Exam Psychiatric exam: Normal Affect, Normal Mood Assessment and Plan - Assessment and Plan (Free Text) Assessment: 68 y/o diabetic male with right hallux ulceration Plan: Patient seen and evaluated Discussed plan with Dr. 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
[2019-01-19] MEDS: SILVASORB ANTIMICROBIAL WOUND GEL TOP SCH (13:18)
[2019-01-19 16:24] VITALS: RESP 20
--- NOTE | 2019-01-19 19:18 | CP.PCM.PN ---
Subjective - Date & Time of Evaluation Date of Evaluation: 01/19/19 Time of Evaluation: 09:00 - Subjective Subjective: wants to go home on IV rx to come in for infusion will inquire about cubicin as single daily dose - will need first dose here Objective - Vital Signs/Intake and Output Vital Signs (last 24 hours): Temp Pulse Resp BP Pulse Ox 98.0 F 79 20 139/80 98 01/19/19 15:00 01/19/19 15:00 01/19/19 15:00 01/19/19 15:00 01/19/19 15:00 Intake and Output: 01/19/19 01/20/19 18:59 06:59 Intake Total 700 Balance 700 - Medications Medications: Current Medications Aspirin (Ecotrin) 81 mg PO DAILY [facility] Last Admin: 01/19/19 09:00 Dose: 81 mg Carvedilol (Coreg) 6.25 mg PO BID [facility] Last Admin: 01/19/19 17:37 Dose: 6.25 mg Cilostazol (Pletal) 100 mg PO BID [facility] Last Admin: 01/19/19 17:37 Dose: 100 mg Clopidogrel Bisulfate (Plavix) 75 mg PO DAILY [facility] Last Admin: 01/19/19 08:59 Dose: 75 mg Famotidine (Pepcid) 20 mg PO DAILY [facility] Last Admin: 01/19/19 08:59 Dose: 20 mg Finasteride (Proscar) 5 mg PO DAILY [facility] Last Admin: 01/19/19 08:59 Dose: 5 mg Heparin Sodium (Porcine) (Heparin) 5,000 units SC Q8 [facility] Last Admin: 01/19/19 13:17 Dose: 5,000 units Piperacillin Sod/Tazobactam (Sod 3.375 gm/ Sodium Chloride) 100 mls @ 200 mls/hr IVPB Q8H [facility]; Protocol Last Admin: 01/19/19 10:58 Dose: 200 mls/hr Insulin Human Regular (Novolin R) 0 unit SC ACHS [facility]; Protocol Last Admin: 01/19/19 17:38 Dose: 3 units Rosuvastatin Calcium (Crestor) 10 mg PO HS [facility] Last Admin: 01/18/19 21:16 Dose: 10 mg Sitagliptin Phosphate (Januvia) 50 mg PO DAILY [facility] Last Admin: 01/19/19 09:00 Dose: 50 mg Sodium Hypochlorite (Dakins Solution 0.125%) 0 appl TOP QSHIFT [facility] Last Admin: 01/19/19 13:17 Dose: 1 appl - Labs Labs: 01/18/19 07:23 01/18/19 07:23 APTT 31 SECONDS (21-34) 01/12/19 06:15 - Constitutional Appears: Non-toxic, No Acute Distress, Chronically Ill - Head Exam Head Exam: ATRAUMATIC, NORMAL INSPECTION, NORMOCEPHALIC - Eye Exam Eye Exam: EOMI, Normal appearance, PERRL Pupil Exam: NORMAL ACCOMODATION, PERRL - ENT Exam ENT Exam: Mucous Membranes Moist, Normal Exam - Neck Exam Neck Exam: Full ROM, Normal Inspection. absent: Lymphadenopathy - Respiratory Exam Respiratory Exam: Clear to Ausculation Bilateral, NORMAL BREATHING PATTERN - Cardiovascular Exam Cardiovascular Exam: REGULAR RHYTHM, +S1, +S2. absent: Murmur - GI/Abdominal Exam GI & Abdominal Exam: Soft, Normal Bowel Sounds. absent: Tenderness - Rectal Exam Rectal Exam: Deferred - Exam Exam: NORMAL INSPECTION - Extremities Exam Extremities Exam: Full ROM, Normal Capillary Refill, Normal Inspection. absent: Joint Swelling, Pedal Edema - Back Exam Back Exam: NORMAL INSPECTION - Neurological Exam Neurological Exam: Alert, Awake, CN II-XII Intact, Normal Gait, Oriented x3 - Psychiatric Exam Psychiatric exam: Normal Affect, Normal Mood - Skin Skin Exam: Dry, Erythema, Normal Color Additional comments: wound right great toe same Assessment and Plan (1) Diabetic ulcer of right great toe Status: Acute (2) Hyperglycemia Status: Acute (3) Diabetes mellitus Status: Acute (4) Hypertension Status: Acute (5) Open wound of left great toe Status: Acute (6) Osteomyelitis Status: Acute (7) Peripheral vascular disease due to secondary diabetes Status: Acute
--- NOTE | 2019-01-19 22:11 | CP.PCM.PN ---
Subjective - Date & Time of Evaluation Date of Evaluation: 01/19/19 Time of Evaluation: 22:11 - Subjective Subjective: Patient today received midline. Seen by infectious disease. Patient started on Cubicin. If patient is stable, no reaction patient can be discharged home, and IV infusion will be given in the house. Wound management will be done in the house. Several discharge the patient tomorrow Objective - Vital Signs/Intake and Output Vital Signs (last 24 hours): Temp Pulse Resp BP Pulse Ox 98.0 F 79 20 139/80 98 01/19/19 15:00 01/19/19 15:00 01/19/19 15:00 01/19/19 15:00 01/19/19 15:00 Intake and Output: 01/19/19 01/20/19 18:59 06:59 Intake Total 700 Balance 700 - Medications Medications: Current Medications Aspirin (Ecotrin) 81 mg PO DAILY [facility] Last Admin: 01/19/19 09:00 Dose: 81 mg Carvedilol (Coreg) 6.25 mg PO BID [facility] Last Admin: 01/19/19 17:37 Dose: 6.25 mg Cilostazol (Pletal) 100 mg PO BID [facility] Last Admin: 01/19/19 17:37 Dose: 100 mg Clopidogrel Bisulfate (Plavix) 75 mg PO DAILY [facility] Last Admin: 01/19/19 08:59 Dose: 75 mg Famotidine (Pepcid) 20 mg PO DAILY [facility] Last Admin: 01/19/19 08:59 Dose: 20 mg Finasteride (Proscar) 5 mg PO DAILY [facility] Last Admin: 01/19/19 08:59 Dose: 5 mg Heparin Sodium (Porcine) (Heparin) 5,000 units SC Q8 [facility] Last Admin: 01/19/19 21:18 Dose: 5,000 units Piperacillin Sod/Tazobactam (Sod 3.375 gm/ Sodium Chloride) 100 mls @ 200 mls/hr IVPB Q8H [facility]; Protocol Last Admin: 01/19/19 21:18 Dose: 200 mls/hr Insulin Human Regular (Novolin R) 0 unit SC ACHS [facility]; Protocol Last Admin: 01/19/19 21:19 Dose: Not Given Rosuvastatin Calcium (Crestor) 10 mg PO HS [facility] Last Admin: 01/19/19 21:19 Dose: 10 mg Sitagliptin Phosphate (Januvia) 50 mg PO DAILY [facility] Last Admin: 01/19/19 09:00 Dose: 50 mg Sodium Hypochlorite (Dakins Solution 0.125%) 0 appl TOP QSHIFT [facility] Last Admin: 01/19/19 21:04 Dose: Not Given - Labs Labs: 01/18/19 07:23 01/18/19 07:23 APTT 31 SECONDS (21-34) 01/12/19 06:15
[2019-01-20] MEDS: Piperacillin/Tazobact 3.375 GM in Sodium Chloride 100 ML IVPB SCH ×2 (03:39→12:08)
[2019-01-20 08:03] VITALS: BP 107/62; PULSE 85; TEMP 97.6
[2019-01-20] MEDS: (Novolin R) Insulin Human Regular 100 units/ml vial SC SCH ×2 (08:24→12:07)
[2019-01-20] MEDS ORDERED: Collagenase 250 Units/gm Ointment(30 gm) TOP SCH (10:00)
[2019-01-20] MEDS: Cilostazol 100 mg Tab UD PO SCH (10:07)
[2019-01-20] MEDS: SILVASORB ANTIMICROBIAL WOUND GEL TOP SCH (10:07)
--- NOTE | 2019-01-20 15:54 | CP.PCM.PN ---
Subjective - Date & Time of Evaluation Date of Evaluation: 01/20/19 Time of Evaluation: 15:54 - Subjective Subjective: Podiatry Progress Note - Dr. Cox 68 y/o male seen this morning for right hallux ulceration this morning with Dr. Cox. He is now 3 days s/p revascularization of right lower extremity. Still denies any pain in the right foot or the entirety of the right lower extremity. No acute overnight events. Is pending possible discharge today. Has no new pedal complaints. Denies F/C/N/V/CP/SOB Objective - Vital Signs/Intake and Output Vital Signs (last 24 hours): Temp Pulse Resp BP Pulse Ox 97.6 F 85 20 107/62 100 01/20/19 07:00 01/20/19 07:00 01/20/19 07:00 01/20/19 07:00 01/20/19 07:00 Intake and Output: 01/20/19 01/20/19 06:59 18:59 Intake Total 340 600 Output Total 400 Balance -60 600 - Medications Medications: Current Medications Aspirin (Ecotrin) 81 mg PO DAILY [facility] Last Admin: 01/20/19 10:08 Dose: 81 mg Carvedilol (Coreg) 6.25 mg PO BID [facility] Last Admin: 01/20/19 10:08 Dose: 6.25 mg Cilostazol (Pletal) 100 mg PO BID [facility] Last Admin: 01/20/19 10:07 Dose: 100 mg Clopidogrel Bisulfate (Plavix) 75 mg PO DAILY [facility] Last Admin: 01/20/19 10:06 Dose: 75 mg Famotidine (Pepcid) 20 mg PO DAILY [facility] Last Admin: 01/20/19 10:08 Dose: 20 mg Finasteride (Proscar) 5 mg PO DAILY [facility] Last Admin: 01/20/19 10:06 Dose: 5 mg Heparin Sodium (Porcine) (Heparin) 5,000 units SC Q8 [facility] Last Admin: 01/20/19 05:07 Dose: 5,000 units Piperacillin Sod/Tazobactam (Sod 3.375 gm/ Sodium Chloride) 100 mls @ 200 mls/hr IVPB Q8H [facility]; Protocol Last Admin: 01/20/19 12:08 Dose: 200 mls/hr Daptomycin 360 mg/ Sodium (Chloride) 100 mls @ 100 mls/hr IV Q24H [facility]; Protocol Stop: 01/25/19 13:31 Last Admin: 01/20/19 14:05 Dose: 100 mls/hr Insulin Human Regular (Novolin R) 0 unit SC ACHS [facility]; Protocol Last Admin: 01/20/19 12:07 Dose: 2 units Rosuvastatin Calcium (Crestor) 10 mg PO HS [facility] Last Admin: 01/19/19 21:19 Dose: 10 mg Sitagliptin Phosphate (Januvia) 50 mg PO DAILY [facility] Last Admin: 01/20/19 10:08 Dose: 50 mg - Labs Labs: 01/18/19 07:23 01/18/19 07:23 APTT 31 SECONDS (21-34) 01/12/19 06:15 - Constitutional Appears: Well, Non-toxic, No Acute Distress - Extremities Exam Additional comments: RLE focused exam: Vasc: DP/PT pulses faintly palpable 1/4. Skin temperature warm to warm from proximal to distal. CFT < 3 seconds to all digits. Mild edema noted to entirety of hallux Neuro: Epicritic and protective sensation grossly diminished Derm: Open plantar medial hallux ulceration approximately 1 cm x 2.5 cm x 0.3 cm. Wound base is a mixture of fibrogranular tissue and shows healthy new tissue formation. No signs of tissue necrosis present. No purulent drainage or malodor is noted. Entirety of the hallux is erythematous without streaking. No other clinical signs of infection appreciated Ortho: mild-moderate pain on palpation of ulceration site. No gross deformities noted - Neurological Exam Neurological Exam: Alert, Awake, Oriented x3 - Psychiatric Exam Psychiatric exam: Normal Affect, Normal Mood Assessment and Plan - Assessment and Plan (Free Text) Assessment: 68 y/o diabetic male with right hallux ulceration Plan: Patient seen and evaluated with Dr. Cox at bedside Wound flushed with Dakins solution and dressed with Silvadene, DSD Surgical shoe to be worn at all times on R foot Plan for continued retirement IV abx Stable for discharge from podiatry standpoint Upon discharge, recommend Santyl and DSD for wound care dressings to provide enzymatic debridement to wound Will continue to follow while patient in house
[2019-01-22 11:21] VITALS: O2SAT 99
--- NOTE | 2019-01-25 15:39 | CP.PCM.DIS ---
Provider - Provider Date of Admission: 01/11/19 15:07 Attending physician: Yin Latif MD Consults: 01/11/19 19:36 Infectious Disease Consult Routine Comment: Consulting Provider: Jeff Shaffer Consulting Physician: Jeff Shaffer Reason for Consult: abcess Podiatry Consult Routine Comment: Consulting Provider: Killian Cox Consulting Physician: Killian Cox Reason for Consult: foot abcess 01/13/19 12:45 Physician Consult Routine Comment: Consulting Provider: Bradley Sharma Jr. Consulting Physician: Bradley Sharma Jr. Reason for Consult: pvd 01/16/19 15:03 Cardiology Consult Routine Comment: Consulting Provider: Isaac Perez Consulting Physician: Isaac Perez Reason for Consult: risk stratification Time Spent in preparation of Discharge (in minutes): 45 Hospital Course - Lab Results Lab Results: Micro Results 01/11/19 14:42 Blood Blood Culture - Final NO GROWTH AFTER 5 DAYS 01/11/19 14:42 Blood Blood Culture - Final NO GROWTH AFTER 5 DAYS 01/11/19 14:42 Blood Gram Stain - Final TEST NOT PERFORMED 01/12/19 07:45 Urine,Clean Catch Urine Culture - Final No Growth (<1,000 CFU/ML) 01/11/19 16:46 Foot - Right Gram Stain - Final 01/11/19 16:46 Foot - Right Wound Culture - Final Staphylococcus Aureus Most Recent Lab Values WBC 6.9 K/uL (4.8-10.8) 01/18/19 07:23 RBC 3.98 Mil/uL (4.40-5.90) L 01/18/19 07:23 Hgb 10.3 g/dL (12.0-18.0) L 01/18/19 07:23 Hct 32.7 % (35.0-51.0) L 01/18/19 07:23 MCV 82.0 fL (80.0-94.0) 01/18/19 07:23 MCH 25.9 pg (27.0-31.0) L 01/18/19 07:23 MCHC 31.6 g/dL (33.0-37.0) L 01/18/19 07:23 RDW 16.9 % (11.5-14.5) H 01/18/19 07:23 Plt Count 207 K/uL (130-400) 01/18/19 07:23 MPV 11.5 fL (7.2-11.7) 01/18/19 07:23 Neut % (Auto) 63.1 % (50.0-75.0) 01/18/19 07:23 Lymph % (Auto) 21.1 % (20.0-40.0) 01/18/19 07:23 [place] % (Auto) 9.7 % (0.0-10.0) 01/18/19 07:23 Eos % (Auto) 5.2 % (0.0-4.0) H 01/18/19 07:23 Baso % (Auto) 0.9 % (0.0-2.0) 01/18/19 07:23 Neut # (Auto) 4.4 K/uL (1.8-7.0) 01/18/19 07:23 Lymph # (Auto) 1.5 K/uL (1.0-4.3) 01/18/19 07:23 [place] # (Auto) 0.7 K/uL (0.0-0.8) 01/18/19 07:23 Eos # (Auto) 0.4 K/uL (0.0-0.7) 01/18/19 07:23 Baso # (Auto) 0.1 K/uL (0.0-0.2) 01/18/19 07:23 Neutrophils % (Manual) 90 % (50-75) H 01/11/19 14:03 Lymphocytes % (Manual) 3 % (20-40) L 01/11/19 14:03 Monocytes % (Manual) 7 % (0-10) 01/11/19 14:03 Platelet Estimate Decreased (NORMAL) L 01/11/19 14:03 Anisocytosis (manual) Slight 01/11/19 14:03 Ovalocytes Slight 01/11/19 14:03 ESR 62 mm/hr (0-15) H 01/12/19 16:54 APTT 31 SECONDS (21-34) 01/12/19 06:15 Sodium 134 mmol/L (132-148) 01/18/19 07:23 Potassium 4.5 mmol/L (3.6-5.2) 01/18/19 07:23 Chloride 102 mmol/L (98-107) 01/18/19 07:23 Carbon Dioxide 27 mmol/L (22-30) 01/18/19 07:23 Anion Gap 10 (10-20) 01/18/19 07:23 BUN 26 mg/dL (9-20) H 01/18/19 07:23 Creatinine 1.3 mg/dL (0.8-1.5) 01/18/19 07:23 Est GFR ( Amer) > 60 01/18/19 07:23 Est GFR (Non-Af Amer) 55 01/18/19 07:23 POC Glucose (mg/dL) 230 mg/dL (65-110) H 01/20/19 11:44 Random Glucose 213 mg/dL (75-110) H 01/18/19 07:23 Calcium 8.9 mg/dl (8.6-10.4) 01/18/19 07:23 Phosphorus 3.4 mg/dL (2.5-4.5) 01/18/19 07:23 Magnesium 2.1 mg/dL (1.6-2.3) 01/18/19 07:23 Total Bilirubin 0.3 mg/dL (0.2-1.3) 01/18/19 07:23 AST 32 U/L (17-59) 01/18/19 07:23 ALT 50 U/L (21-72) 01/18/19 07:23 Alkaline Phosphatase 83 U/L (38-126) 01/18/19 07:23 C-Reactive Protein 213.10 mg/L (0.0-9.9) H 01/11/19 17:36 Total Protein 7.4 g/dL (6.3-8.3) 01/18/19 07:23 Albumin 3.7 g/dL (3.5-5.0) 01/18/19 07:23 Globulin 3.7 gm/dL (2.2-3.9) 01/18/19 07:23 Albumin/Globulin Ratio 1.0 (1.0-2.1) 01/18/19 07:23 Urine Color Straw (YELLOW) 01/12/19 07:45 Urine Clarity Clear (Clear) 01/12/19 07:45 Urine pH 5.0 (5.0-8.0) 01/12/19 07:45 Ur Specific Kramer 1.006 (1.003-1.030) 01/12/19 07:45 Urine Protein Negative mg/dL (NEGATIVE) 01/12/19 07:45 Urine Glucose (UA) Normal mg/dL (Normal) 01/12/19 07:45 Urine Ketones Negative mg/dL (NEGATIVE) 01/12/19 07:45 Urine Blood Negative (NEGATIVE) 01/12/19 07:45 Urine Nitrate Negative (NEGATIVE) 01/12/19 07:45 Urine Bilirubin Negative (NEGATIVE) 01/12/19 07:45 Urine Urobilinogen Normal mg/dL (0.2-1.0) 01/12/19 07:45 Ur Leukocyte Esterase Neg Shar/uL (Negative) 01/12/19 07:45 Urine RBC (Auto) < 1 /hpf (0-3) 01/12/19 07:45 Ur Squamous Epith Cells < 1 /hpf (0-5) 01/12/19 07:45 Urine Bacteria Rare (<OCC) 01/12/19 07:45 Vancomycin Trough 10.4 ug/mL (5.0-10.0) H 01/13/19 07:11 - Hospital Course Hospital Course: Chief complaint: Foul-smelling discharge and pain in the right great toe History present illness: 65-year-old male with history of diabetes hypertension and hypercholesteremia peripheral vascular disease, right leg ischemia, status post intervention .\ Patient was recently hospitalized with abnormal stress test, following that he underwent angiogram, and he was closely monitored for renal function. He was sent home, but he started noticing 2 days of discharge from the right great toe, and he started also noticing increasing redness some swelling in the right great toe for almost a week. He was changing the dressing at home by himself. When he came into my office yesterday the swelling was increasingly noted, associate with redness and so foul-smelling. He was also having increasing body pain, not feeling well, tiredness and fatigability and poor appetite noted. Patient in the past had a similar incident, and multiple times he had an osteomyelitis also Past medical history: Hypertension diabetes hypercholesteremia peripheral vascular disease right leg ischemia. Status post intervention. Peripheral vascular disease, CAD, stent Allergy: No known drug allergy except to ciprofloxacin. 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 Currently nondrinker. Review of system noted from the chart. Complaining of no pain in the legs. Patient is able to walk On examination: Vital signs reviewed in Chest bilateral good air entry. Regular heart sound nontender abdomen and [employer] alert awake oriented 3 no functional neurological deficit. Patient has a palpable dopplerable pulses on the right lower extremity including dorsalis pedis and posterior tibial now. Patient is having significant changes in the great toe skin discoloration especially on the lateral aspect dark discoloration noted, no tenderness But the patient has a significant redness, swelling involving the right great toe, also there is a foul-smelling discharge noted in the sole of the right great toe and associated with pus. There is no proximal lunate is noted Patient in the emergency room seen by emr trainer, the wound dressing was done, cultures were taken. Labs reviewed Elevated WBC, ESR elevated, as well as CRP. X-ray of the right foot showing evidence of osteolytic changes and also soft tissue swelling Assessment/condition: 65-year-old male with history of peripheral vascular disease of hypertension diabetes hypercholesteremia CAD, status post a coronary it to bypass grafting. Recently patient underwent angiogram, vessels are patent. Patient had a peripheral vascular disease, status post intervention. Now having nonhealing ulcer involving the right great toe. Possibly patient has a localized skin infection, as well as abscess in the right great toe with a possible deep tissue involvement. Underlying osteomyelitis cannot be ruled out. Wound culture is currently pending. We will start the patient on vancomycin and Zosyn. Infectious disease evaluation, emr trainer evaluation. Patient has a life-threatening wound infection as well as limb threatening localized this wound infection noted. We will continue to monitor closely. We will follow the patient course in the hospital: Course in the hospital: Patient admitted to the hospital with a diagnosis of right great toe abscess with the ulcer and a possible deep infection. Patient was seen by emr trainer. Also seen by infectious disease. Staphylococcus aureus bacteria identified. Patient was placed on Vanco and Zosyn. Because of the earlier vascular surgical problems, vascular surgery evaluation was called in. Patient and this time agreed to have intervention. Patient underwent a successful right side angioplasty and restenting placement. Improved markedly in the circulation. Dorsalis pedis artery is palpable now. Patient also feeling improvement in the infection. No pain noted. Final diagnosis acute deep tissue infection right great toe with abscess. Staphylococcus aureus infection. PVD. Status post stent placement. Patient will continue with the dual antiplatelets, statin. Also he will continue antibiotic as per infectious disease. Outpatient. Continue the physical therapy wound dressing and and visiting nurse physical therapy and will follow the patient Discharge Exam - Head Exam Head Exam: ATRAUMATIC, NORMAL INSPECTION, NORMOCEPHALIC Discharge Plan - Follow Up Plan Condition: STABLE Disposition: HOME/ ROUTINE Instructions: Diabetes Diet , Diabetes Type 2 (DC), Diabetes and Infections, Daptomycin, Foot Care for Diabetics Additional Instructions: Discharge home today Antibiotic as per Infectious disease Home infusion has been arranged for antibiotic and bloodwork Follow up with Dr. Latif in 1 week Follow up with emr trainer Killian Cox in one week [place] [place] Antibitico segn enfermedad infecciosa La infusin a domicilio se bach arreglado antibiticos y khari Seguimiento con el Dr. Latif en 1 semana. Cl un seguimiento con el podlogo Killian Cox en noe semana Referrals: Isaac Perez MD [Staff Provider] - Jeff Shaffer MD [Staff Provider] - Bradley Sharma Jr., MD [Staff Provider] - Yin Latif MD [Staff Provider] - Killian Cox DPM [Staff Provider] -
== END 2019-01-20 16:39 | disposition home or self-care (01) | DRG 271 ==
LOC: C.ER 12:59 → C.9E 15:07 → C.5S 17:45
PROVIDERS: ADMIT Internal Medicine; ATTEND Internal Medicine
PROC: 047P3ZZ Dilation of Right Anterior Tibial Artery, Percutaneous Approach (ICD-10-PCS; principal; 2019-01-17)
PROC: 04CP3ZZ Extirpation of Matter from Right Anterior Tibial Artery, Percutaneous Approach (ICD-10-PCS; 2019-01-17)
DX: E11.51 Type 2 diabetes mellitus with diabetic peripheral angiopathy without gangrene (principal); L02.611 Cutaneous abscess of right foot; M86.9 Osteomyelitis, unspecified; E11.69 Type 2 diabetes mellitus with other specified complication; E11.621 Type 2 diabetes mellitus with foot ulcer; L97.519 Non-pressure chronic ulcer of other part of right foot with unspecified severity; E11.65 Type 2 diabetes mellitus with hyperglycemia; I25.10 Atherosclerotic heart disease of native coronary artery without angina pectoris; Z87.891 Personal history of nicotine dependence; Z95.1 Presence of aortocoronary bypass graft; Z79.4 Long term (current) use of insulin

== ENCOUNTER 2019-01-30 13:28 | Emergency (ER) | payer MEDICARE, MEDICAID ==
[2019-01-30 13:29] VITALS: BMI 24.2
--- NOTE | 2019-01-30 14:45 | C.PDOC ---
History Of Present Illness 68 y/o male,w/PMhx of CABG, CKD, anemia, DM2, HTN, HLD osteomyelitis of right foot (currently on outpatient IV abx), presents to the ER complaining of midline insertion access issue. Patient states that he was supposed to have infusion today but his midline fell out from his right arm. Patient reports that he is currently in week 2 of 4 week treatment period for right foot osteomyelitis. Denies having swelling and erythema in midline area, fever,chills, nausea, vomiting, and worsening infection to right foot. He notes that overall his symptoms in his right foot has greatly improved. He denies any pain to midline site. No fall or trauma. No CP, sob, neck pain, abdominal pain, back pain, headache or GI or complaints. Time Seen by Provider: 01/30/19 14:44 Chief Complaint (Nursing): Vascular Access Device Problem History Per: Patient History/Exam Limitations: no limitations Onset/Duration Of Symptoms: Days Current Symptoms Are (Timing): Still Present Severity: Moderate Past Medical History Reviewed: Historical Data, Nursing Documentation, Vital Signs Vital Signs: Last Vital Signs Temp 98 F 01/30/19 13:49 Pulse 82 01/30/19 13:49 Resp 18 01/30/19 13:49 BP 124/70 01/30/19 13:49 Pulse Ox 99 01/30/19 13:49 - Medical History PMH: Anemia, Diabetes, HTN, Hypercholesterolemia, Peripheral Edema Denies: Chronic Kidney Disease Other Surgeries: Hx of surgeries - [facility] Procedures ANGIOPLASTY OF OTHER NON-CORONARY VESSEL(S) (11/15/13) CONTRAST AORTOGRAM (11/15/13) CONTRAST ARTERIOGRAM-LEG (11/15/13) CONTRAST RENAL ARTERIOGR (11/15/13) DILATION OF RIGHT ANTERIOR TIBIAL ARTERY, PERC APPROACH (01/11/19) EXTIRPATION OF MATTER FROM R ANT TIB ART, PERC APPROACH (01/11/19) FLUOROSCOPY OF L INT MAMM GRAFT USING L OSM CONTRAST (12/20/18) FLUOROSCOPY OF LEFT HEART USING LOW OSMOLAR CONTRAST (12/20/18) FLUOROSCOPY OF MULT COR ART USING L OSM CONTRAST (12/20/18) INSEJ [id number] PERIPHERAL NON-CORONARY VES STENT(S) (05/30/13) INSERT INT PENILE PROSTH (09/12/13) INSERTION OF INFUSION DEV INTO SUP VENA CAVA, PERC APPROACH (09/12/16) INSERTION OF ONE VASCULAR STENT (05/30/13) MEASURE OF CARDIAC SAMPL & PRESSURE, L HEART, PERC APPROACH (12/20/18) PLAIN RADIOGRAPHY OF AORTA, BI LE ART USING OTH CONTRAST (09/04/16) PROCEDURE ON SINGLE VESSEL (11/15/13) Family History: States: No Known Family Hx - Social History Hx Alcohol Use: No Hx Substance Use: No - Immunization History Hx Tetanus Toxoid Vaccination: Yes Hx Influenza Vaccination: Yes Hx Pneumococcal Vaccination: Yes Review Of Systems Constitutional: Negative for: Fever, Chills, Weakness, Malaise, Weight loss Eyes: Negative for: Pain, Vision Change, Conjunctivae Inflammation, Eyelid Inflammation ENT: Negative for: Ear Pain, Ear Discharge, Nose Pain, Nose Congestion Cardiovascular: Negative for: Chest Pain, Palpitations, Paroxysmal Noc. Dyspnea Respiratory: Negative for: Cough, Shortness of Breath, SOB with Excertion, Pleuritic Pain Gastrointestinal: Negative for: Nausea, Vomiting, Constipation, Melena, Hematochezia Genitourinary: Negative for: Dysuria, Frequency, Hematuria Musculoskeletal: Negative for: Neck Pain, Shoulder Pain, Back Pain Skin: Negative for: Rash, Lesions Neurological: Negative for: Weakness, Numbness, Confusion, Seizures, Headache Psych: Negative for: Anxiety, Depression, Psychosis, Suicidal ideation Physical Exam - Physical Exam Appears: Well, Non-toxic, No Acute Distress Skin: Normal Color, Warm, Dry Head: Atraumatic, Normacephalic Eye(s): bilateral: Normal Inspection, PERRL, EOMI Nose: Normal Oral Mucosa: Moist Tongue: Normal Appearing Lips: Normal Appearing Teeth: Normal Dentition Gingiva: Normal Appearing Throat: Normal, No Erythema, No Exudate Neck: Supple Lymphatic: Normal Exam, No Adenopathy Chest: Symmetrical Cardiovascular: Rhythm Regular Respiratory: Normal Breath Sounds, No Rales, No Rhonchi, No Wheezing Gastrointestinal/Abdominal: Normal Exam, Soft, No Tenderness, No Guarding, No Rebound Back: Normal Inspection, No CVA Tenderness, No Vertebral Tenderness Extremity: Normal ROM, No Tenderness, No Swelling, Other (no erythema and no fluctuance or crepitus in previous midline insertion area in right arm. N/V intact distllay. ) Extremity: Bilateral: Atraumatic Pulses: Left Radial: Normal, Right Radial: Normal Neurological/Psych: Oriented x3, Normal Speech, Normal Cognition, Normal Cranial Nerves, No Cerebellar Signs, Normal Motor, Normal Sensation Gait: Steady ED Course And Treatment - Laboratory Results Result Diagrams: 01/30/19 15:29 01/30/19 15:29 O2 Sat by Pulse Oximetry: 99 (RA) Pulse Ox Interpretation: Normal Medical Decision Making Medical Decision Makin68 y/o male,w/PMhx of CABG, CKD, osteomyelitis of right foot ( currently on outpatient IV abx), presents to the ER complaining of midline insertion access issue. Per Pharmacy has been taking 360mg Cubicin Daily. Pt notes taking it everyday but did not get to take it today due to midline issue. No signs of infection to midline site. Good N/V status distally. Pt does not have any physical complaints. He notes that his R foot is greatly improved. On exam. No appreciable erythema or crepitus noted to R foot, Good N/v status. Plan: --Labs Updates: Case discussed with patient's PMD, . states that he placed patient on Cubicin. He is requesting for patient to have midline insertion instead of PICC line insertion. Appreciate consult w/ PICC Line nurse at [phone] Stephanie. Cannot do Midline today, will need to have outpatient appointment with PMD / IR. Appreciate consult w/ Dr. Telles: he will arrange IR / office visit tomorrow for midline insertion after x1 cubicin today. ER physician cannot order cubicin. Appreciate consult w/ Dr. Figueredo (ID)- he will order Cubicin. Cubicin orderd. Pt in NAd given strict return indications, followup and instructions to call Dr. Bhayva ZUNIGAP regarding appointment. Disposition - Disposition Referrals: Yin Jarvis MD [Staff Provider] - [facility] [Outside] [employer] [facility] [Outside] [facility] [Outside] Aguila Simeon MD [Staff Provider] - Disposition Time: 16:43 Condition: STABLE Additional Instructions: CALL Dr. JARVIS SOON POSSIBLE TO SET UP AN APPOINTMENT FOR MIDLINE INSERTION. IF YOU CANNOT GET A MIDLINE TOMORROW COME BACK TO EMERGENCY DEPARTMENT AND WE WILL TRY TO GET YOU A MIDLINE. RETURN FOR ANY OTHER ISSUES SOONER OR LATER. ELIZABETH VARMA, thank you for letting us take care of you today. Your provider was Johnathon Coy and you were treated for MEDICAL CLEARANCE. The emergency medical care you received today was directed at your acute symptoms. If you were prescribed any medication, please fill it and take as directed. It may take several days for your symptoms to resolve. Return to the Emergency Department if your symptoms worsen, do not improve, or if you have any other problems. Please contact your doctor or call one of the physicians/clinics you have been referred to that are listed on the Patient Visit Information form that is included in your discharge packet. Bring any paperwork you were given at discharge with you along with any medications you are taking to your follow up visit. Our treatment cannot replace ongoing medical care by a primary care provider outside of the emergency department. Thank you for allowing the [facility] team to be part of your care today. If you had an X-Ray or CT scan: A Radiologist will review the ED reading if any change in treatment is needed we will contact you. If you had a blood, urine, or wound culture: It will take several days for the results, if any change in treatment is needed we will contact you. If you had an STI test: It will take 48 hours for the results. Please call after 1 week if you have not heard back. Instructions: Osteomyelitis (DC) Forms: [facility] (Albanian) - Clinical Impression Clinical Impression: Need for intravenous access, Osteomyelitis - Scribe Statement The provider has reviewed the documentation as recorded by the Pieter Hoyt Provider Attestation: All medical record entries made by the Galinaibe were at my direction and personally dictated by me. I have reviewed the chart and agree that the record accurately reflects my personal performance of the history, physical exam, medical decision making, and the department course for this patient. I have also personally directed, reviewed, and agree with the discharge instructions and disposition.
[2019-01-30 15:37] LABS: BASO % 0.4 % (0.0-2.0); EOS # 0.2 K/uL (0.0-0.7); EOS % 3.8 % (0.0-4.0); HEMOGLOBIN 10.8 g/dL (12.0-18.0); LYMPH # 1.1 K/uL (1.0-4.3); LYMPH % 19.3 % (20.0-40.0); MEAN CELL VOLUME 81.6 fL (80.0-94.0); MEAN CORPUSCULAR HEMOGLOBIN 26.5 pg (27.0-31.0); MEAN CORPUSCULAR HGB CONC 32.4 g/dL (33.0-37.0); MEAN PLATELET VOLUME 11.8 fL (7.2-11.7); MONO # 0.5 K/uL (0.0-0.8); NEUT # 3.8 K/uL (1.8-7.0); NEUT % 67.5 % (50.0-75.0); NRBC % 0.1 % (0.0-2.0); RBC 4.07 Mil/uL (4.40-5.90); WHITE BLOOD COUNT 5.6 K/uL (4.8-10.8)
[2019-01-30 15:45] LABS: PROTHROMBIN TIME 11.2 SECONDS (9.7-12.2)
[2019-01-30 15:59] LABS: ALB/GLOB RATIO 1.1 (1.0-2.1); ALT/SGPT 8 U/L (21-72); AST/SGOT 20 U/L (17-59); BLOOD UREA NITROGEN 23 mg/dL (9-20); CALCIUM 9.4 mg/dl (8.6-10.4); GFR NON-AFRICAN AMERICAN 55
[2019-01-30 18:20] VITALS: BP 185/80; PULSE 80; RESP 17; TEMP 97.8; O2SAT 98
== END 2019-01-30 18:24 | disposition home or self-care (01) ==
LOC: C.ER 13:28
DX: Z45.89 Encounter for adjustment and management of other implanted devices (principal); M86.8X7 Other osteomyelitis, ankle and foot
CPT/HCPCS: 80053; 85025; 85610; 85730; 87040; 96365; 99284; J0878

== ENCOUNTER 2019-01-31 09:38 | Emergency (ER) | payer MEDICARE, MEDICAID ==
[2019-01-31 09:38] VITALS: BMI 24.2
[2019-01-31 09:55] VITALS: TEMP 97.5
--- NOTE | 2019-01-31 10:39 | C.PDOC ---
History Of Present Illness FOR PICC LINE PLACE. SEEN 01/30 FOR SAME, UNABLE TO PLACE PER PRIOR ER RECORD. SP CUBICIN DOSE 01/[address] SANTANA. PMD RX REFERRAL FOR PICC LINE PLACE. PT NO NEW SX SINCE PRIOR ER VISIT PMhx of CABG, CKD, anemia, DM2, HTN, HLD osteomyelitis of right foot (currently on outpatient IV abx), Patient reports that he is currently in week 2 of 4 week treatment period for right foot osteomyelitis. Denies having swelling and erythema in midline area, fever,chills, nausea, vomiting, and worsening infection to right foot. EXAM NEG <Dora Mota - Last Filed: 01/31/19 12:48> History Per: Patient History/Exam Limitations: no limitations <Dora Mota - Last Filed: 01/31/19 12:48> <Oralia Krishnan - Last Filed: 01/31/19 13:45> Time Seen by Provider: 01/31/19 10:34 Chief Complaint (Nursing): Medical Clearance Past Medical History Reviewed: Historical Data, Nursing Documentation, Vital Signs Vital Signs: Last Vital Signs Temp 97.5 F L 01/31/19 09:51 Pulse 66 01/31/19 09:51 Resp 18 01/31/19 09:51 BP 126/70 01/31/19 09:51 Pulse Ox 100 01/31/19 09:51 - Medical History PMH: Anemia, Diabetes, HTN, Hypercholesterolemia, Peripheral Edema Denies: Chronic Kidney Disease Other Surgeries: Hx of surgeries - [facility] Procedures ANGIOPLASTY OF OTHER NON-CORONARY VESSEL(S) (11/15/13) CONTRAST AORTOGRAM (11/15/13) CONTRAST ARTERIOGRAM-LEG (11/15/13) CONTRAST RENAL ARTERIOGR (11/15/13) DILATION OF RIGHT ANTERIOR TIBIAL ARTERY, PERC APPROACH (01/11/19) EXTIRPATION OF MATTER FROM R ANT TIB ART, PERC APPROACH (01/11/19) FLUOROSCOPY OF L INT MAMM GRAFT USING L OSM CONTRAST (12/20/18) FLUOROSCOPY OF LEFT HEART USING LOW OSMOLAR CONTRAST (12/20/18) FLUOROSCOPY OF MULT COR ART USING L OSM CONTRAST (12/20/18) INSEJ [id number] PERIPHERAL NON-CORONARY VES STENT(S) (05/30/13) INSERT INT PENILE PROSTH (09/12/13) INSERTION OF INFUSION DEV INTO SUP VENA CAVA, PERC APPROACH (09/12/16) INSERTION OF ONE VASCULAR STENT (05/30/13) MEASURE OF CARDIAC SAMPL & PRESSURE, L HEART, PERC APPROACH (12/20/18) PLAIN RADIOGRAPHY OF AORTA, BI LE ART USING OTH CONTRAST (09/04/16) PROCEDURE ON SINGLE VESSEL (11/15/13) Family History: States: No Known Family Hx - Social History Hx Alcohol Use: No Hx Substance Use: No - Immunization History Hx Tetanus Toxoid Vaccination: Yes Hx Influenza Vaccination: Yes Hx Pneumococcal Vaccination: Yes <Dora Mota - Last Filed: 01/31/19 12:48> Vital Signs: Last Vital Signs Temp 97.5 F L 01/31/19 09:51 Pulse 66 01/31/19 09:51 Resp 18 01/31/19 09:51 BP 126/70 01/31/19 09:51 Pulse Ox 100 01/31/19 12:49 - [facility] Procedures ANGIOPLASTY OF OTHER NON-CORONARY VESSEL(S) (11/15/13) CONTRAST AORTOGRAM (11/15/13) CONTRAST ARTERIOGRAM-LEG (11/15/13) CONTRAST RENAL ARTERIOGR (11/15/13) DILATION OF RIGHT ANTERIOR TIBIAL ARTERY, PERC APPROACH (01/11/19) EXTIRPATION OF MATTER FROM R ANT TIB ART, PERC APPROACH (01/11/19) FLUOROSCOPY OF L INT MAMM GRAFT USING L OSM CONTRAST (12/20/18) FLUOROSCOPY OF LEFT HEART USING LOW OSMOLAR CONTRAST (12/20/18) FLUOROSCOPY OF MULT COR ART USING L OSM CONTRAST (12/20/18) INSEJ [id number] PERIPHERAL NON-CORONARY VES STENT(S) (05/30/13) INSERT INT PENILE PROSTH (09/12/13) INSERTION OF INFUSION DEV INTO SUP VENA CAVA, PERC APPROACH (09/12/16) INSERTION OF ONE VASCULAR STENT (05/30/13) MEASURE OF CARDIAC SAMPL & PRESSURE, L HEART, PERC APPROACH (12/20/18) PLAIN RADIOGRAPHY OF AORTA, BI LE ART USING OTH CONTRAST (09/04/16) PROCEDURE ON SINGLE VESSEL (11/15/13) <Oralia Krishnan - Last Filed: 01/31/19 13:45> Review Of Systems Except As Marked, All Systems Reviewed And Found Negative. Constitutional: Negative for: Fever, Chills Gastrointestinal: Negative for: Nausea, Vomiting <Dora Mota - Last Filed: 01/31/19 12:48> Physical Exam - Physical Exam Appears: Non-toxic, No Acute Distress Skin: Normal Color, Warm, Dry Head: Atraumatic, Normacephalic Eye(s): bilateral: Normal Inspection Cardiovascular: Rhythm Regular Respiratory: Normal Breath Sounds, No Rales, No Rhonchi, No Wheezing Extremity: Normal ROM Neurological/Psych: Oriented x3, Normal Speech <Dora Mota - Last Filed: 01/31/19 12:48> ED Course And Treatment O2 Sat by Pulse Oximetry: 100 (RA) Pulse Ox Interpretation: Normal <Dora Mota Last Filed: 01/31/19 12:48> Progress - Re-Evaluation Re-evaluation Note: 01/31/19 10:42 PICC RN NOTIFIED 01/31/19 12:48 SP PICC. PENDING CXR. PER PICC RN, ADVISE ER OBS FOR BLEEDING UNTIL 1430 - Data Reviewed Data Reviewed: Old records <Dora Mota - Last Filed: 01/31/19 12:48> Disposition - Disposition Disposition Time: 13:00 <Dora Mota - Last Filed: 01/31/19 12:48> Counseled Patient/Family Regarding: Diagnosis, Need For Followup - Disposition Disposition Time: 14:45 <Oralia Krishnan - Last Filed: 01/31/19 13:45> - Disposition Referrals: Yin Latif MD [Staff Provider] - Disposition: HOME/ ROUTINE Condition: STABLE Forms: [facility] (Honduran) - Clinical Impression Clinical Impression: S/P PICC central line placement - Scribe Statement The provider has reviewed the documentation as recorded by the Scribe Orin Hoyt Provider Attestation: All medical record entries made by the Scribe were at my direction and personally dictated by me. I have reviewed the chart and agree that the record accurately reflects my personal performance of the history, physical exam, medical decision making, and the department course for this patient. I have also personally directed, reviewed, and agree with the discharge instructions and disposition. <Dora Mota - Last Filed: 01/31/19 12:48> Physician Patient Turnover Patient Signed Over To: Oralia Krishnan Handoff Comments: FU CXR, DISPO <Dora Mota - Last Filed: 01/31/19 12:48> Addendum Addendum: 01/31/19 13:38 Patient resting comfortably, in no pain/distress. No current bleeding from PICC site. CXR done - PICC line in place, no PTX, no abnormal findings. Patient can be discharged home as per PICC nurse. <Oralia Krishnan - Last Filed: 01/31/19 13:45>
[2019-01-31 14:28] VITALS: BP 168/76; PULSE 77; RESP 19; O2SAT 98
--- NOTE | 2019-01-31 14:28 | RAD ---
Date of service: 01/31/2019 HISTORY: PICC Insertion COMPARISON: 12/18/2018 TECHNIQUE: 1 view obtained. FINDINGS: LUNGS: No active pulmonary disease. Clips in right paratracheal region unchanged. PLEURA: No significant pleural effusion identified, no pneumothorax apparent. CARDIOVASCULAR: There is presence of aortic atherosclerotic calcification on x-ray. Probable top-normal heart size. No significant appearing pulmonary venous congestion. Interval insertion right sided PICC line tip in superior vena cava Midline sternotomy and coronary artery bypass changes OSSEOUS STRUCTURES: Thoracic spondylosis. Midline sternotomy Bilateral shoulder arthrosis VISUALIZED UPPER ABDOMEN: Normal. OTHER FINDINGS: None. IMPRESSION: Right-sided PICC line insertion tip superior vena cava. No pneumothorax seen. No acute consolidative infiltrate. Postop changes as above.
== END 2019-01-31 14:38 | disposition home or self-care (01) ==
LOC: C.ER 09:38
DX: Z45.89 Encounter for adjustment and management of other implanted devices (principal); I12.9 Hypertensive chronic kidney disease with stage 1 through stage 4 chronic kidney disease, or unspecified chronic kidney disease; E11.22 Type 2 diabetes mellitus with diabetic chronic kidney disease; N18.9 Chronic kidney disease, unspecified

== ENCOUNTER 2019-02-03 14:28 | Inpatient (IN) | payer MEDICARE, MEDICAID ==
[2019-02-03 14:33] VITALS: BMI 22.3
--- NOTE | 2019-02-03 15:02 | C.PDOC ---
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 Patient reports left leg pain for 10 days, which progressively worsened and has been severe for 5 days. Also reports the left foot is cold to touch. 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 Patient states he went to see Dr. Perez today and was sent to the ED for admission. Additionally patient mentions history of recently diagnosed osteomyelitis in the right foot, for which he had surgery 5 weeks ago. Patient is currently receiving antibiotics via PICC line. Otherwise he denies any chest pain, SOB, fevers, chills, headache, dizziness, or focal weakness. Reports he is not taking anything for pain. Time Seen by Provider: 02/03/19 14:47 Chief Complaint (Nursing): Lower Extremity Problem/Injury History Per: Patient History/Exam Limitations: no limitations Onset/Duration Of Symptoms: Worse Since (5 days ago) Current Symptoms Are (Timing): Still Present Severity: Severe Past Medical History Reviewed: Historical Data, Nursing Documentation, Vital Signs Vital Signs: Last Vital Signs Temp 98.6 F 02/03/19 14:33 Pulse 94 H 02/03/19 14:33 Resp 18 02/03/19 14:33 BP 112/68 02/03/19 14:33 Pulse Ox 100 02/03/19 14:33 - Medical History PMH: Anemia, Diabetes, HTN, Hypercholesterolemia, Peripheral Edema Denies: Chronic Kidney Disease Other PMH: Peripheral Artery Disease Other Surgeries: 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 - [facility] Procedures ANGIOPLASTY OF OTHER NON-CORONARY VESSEL(S) (11/15/13) CONTRAST AORTOGRAM (11/15/13) CONTRAST ARTERIOGRAM-LEG (11/15/13) CONTRAST RENAL ARTERIOGR (11/15/13) DILATION OF RIGHT ANTERIOR TIBIAL ARTERY, PERC APPROACH (01/11/19) EXTIRPATION OF MATTER FROM R ANT TIB ART, PERC APPROACH (01/11/19) FLUOROSCOPY OF L INT MAMM GRAFT USING L OSM CONTRAST (12/20/18) FLUOROSCOPY OF LEFT HEART USING LOW OSMOLAR CONTRAST (12/20/18) FLUOROSCOPY OF MULT COR ART USING L OSM CONTRAST (12/20/18) INSEJ [id number] PERIPHERAL NON-CORONARY VES STENT(S) (05/30/13) INSERT INT PENILE PROSTH (09/12/13) INSERTION OF INFUSION DEV INTO SUP VENA CAVA, PERC APPROACH (09/12/16) INSERTION OF ONE VASCULAR STENT (05/30/13) MEASURE OF CARDIAC SAMPL & PRESSURE, L HEART, PERC APPROACH (12/20/18) PLAIN RADIOGRAPHY OF AORTA, BI LE ART USING OTH CONTRAST (09/04/16) PROCEDURE ON SINGLE VESSEL (11/15/13) Family History: States: Unknown Family Hx - Social History Hx Alcohol Use: No Hx Substance Use: No - Immunization History Hx Tetanus Toxoid Vaccination: Yes Hx Influenza Vaccination: Yes Hx Pneumococcal Vaccination: Yes Review Of Systems Except As Marked, All Systems Reviewed And Found Negative. Constitutional: Negative for: Fever, Chills Cardiovascular: Negative for: Chest Pain, Palpitations Respiratory: Negative for: Shortness of Breath Gastrointestinal: Negative for: Nausea, Vomiting Musculoskeletal: Positive for: Leg Pain (severe, left leg), Foot Pain, Other (Left foot cold) Skin: Negative for: Rash Neurological: Negative for: Weakness, Headache, Dizziness Physical Exam - Physical Exam Appears: Non-toxic, No Acute Distress Skin: Pale, Other (Right foot with wound to right great toe; bandages are clean, dry, intact) Head: Atraumatic, Normacephalic Eye(s): bilateral: Normal Inspection, PERRL, EOMI Neck: Normal ROM Chest: Symmetrical Cardiovascular: Rhythm Regular, No Murmur Respiratory: Normal Breath Sounds, No Rales, No Rhonchi, No Wheezing Gastrointestinal/Abdominal: Soft, No Tenderness, No Distention Extremity: Normal ROM (x 4), No Swelling, Other (Left leg is warm and nontender; Left foot is pale, cool to touch, with no palpable or doppler pulses) Extremity: Right: Other (PICC line to the right upper extremity) Neurological/Psych: Oriented x3, Normal Speech, Normal Cranial Nerves, Other (No focal deficits) ED Course And Treatment - Laboratory Results Result Diagrams: 02/03/19 15:13 02/03/19 15:13 O2 Sat by Pulse Oximetry: 100 (RA) Pulse Ox Interpretation: Normal Medical Decision Making Medical Decision Making: Impression: Ischemic left foot Plan: - CMP - CBC - PTT - PT - Arterial dopple of the LLE - Surgery consult 15:[address] Sharma, who will come to see patient in the ED. 15:21 Dr. Sharma at bedside, evaluating patient. Spoke with Dr. Sharma, who plans to start heparin drip and do surgery shwetha rrow. Requesting medical admission under PMD. 15:[address] Latif, will admit patient. Disposition Counseled Patient/Family Regarding: Studies Performed, Diagnosis - Disposition Disposition: HOSPITALIZED Disposition Time: 15:39 Condition: STABLE Forms: [employer] (Ukrainian) - Clinical Impression Clinical Impression: Ischemia of foot - Scribe Statement The provider has reviewed the documentation as recorded by the Pieter Arriola Provider Attestation: All medical record entries made by the Pieter were at my direction and personally dictated by me. I have reviewed the chart and agree that the record accurately reflects my personal performance of the history, physical exam, medical decision making, and the department course for this patient. I have also personally directed, reviewed, and agree with the discharge instructions and disposition.
[2019-02-03 15:20] LABS: HEMOGLOBIN 9.8 g/dL (12.0-18.0); LYMPH # 1.2 K/uL (1.0-4.3); MONO # 0.5 K/uL (0.0-0.8); RED CELL DISTRIBUTION WIDTH 16.3 % (11.5-14.5)
[2019-02-03 15:26] LABS: BASO % 0.7 % (0.0-2.0); EOS # 0.3 K/uL (0.0-0.7); MEAN CELL VOLUME 81.2 fL (80.0-94.0); MEAN CORPUSCULAR HEMOGLOBIN 26.1 pg (27.0-31.0); MEAN CORPUSCULAR HGB CONC 32.1 g/dL (33.0-37.0); MEAN PLATELET VOLUME 12.3 fL (7.2-11.7); MONO % 10.2 % (0.0-10.0); NEUT # 3.2 K/uL (1.8-7.0); NEUT % 61.1 % (50.0-75.0); RBC 3.75 Mil/uL (4.40-5.90); WHITE BLOOD COUNT 5.2 K/uL (4.8-10.8)
[2019-02-03 15:28] LABS: PROTHROMBIN TIME 11.1 SECONDS (9.7-12.2)
[2019-02-03 15:39] LABS: ALBUMIN 3.7 g/dL (3.5-5.0); CALCIUM 8.9 mg/dl (8.6-10.4)
--- NOTE | 2019-02-03 16:14 | CP.PCM.CON ---
<Deanne De Jesus - Last Filed: 02/03/19 16:17> History of Present Illness - History of Present Illness History of Present Illness: Vascular Surgery Dr. Sharma 68M w/ hx of DM, HTN, PVD, Left fem-pop bypass who was admitted 01/11 with non- healing R hallux ulcer. Pt returns to the ED today c/o LLE pain and foot coldness. Pt is s/p L aortofemoral angio w/ R AT balloon angioplasty. Pt reports pain started shortly after discharge on 01/20 and has been worsening. Coldness was also noticed ~1wk ago has been worsening. He denies any F/C, CP, SOB, N/V, abd pain, weakness. PMH: DM, HTN, PVD Meds: reviewed in chart ALL: cipro PSH: balloon angioplasty R AT, left fem-pop bypass, CABG, cataract surgery SHx: 20+ yr smoking hx (quit 20yrs ago), denies EtOH/drugs FHx: noncontributory Review of Systems - Review of Systems All systems: reviewed and no additional remarkable complaints except (see HPI) Past Patient History - Infectious Disease Hx of Infectious Diseases: None - Past Medical History & Family History Past Medical History?: Yes - Past Social History Smoking Status: Never Smoked - CARDIAC Hx Hypercholesterolemia: Yes Hx Hypertension: Yes Hx Peripheral Edema: Yes - PULMONARY Hx Respiratory Disorders: No - NEUROLOGICAL Hx Neurological Disorder: Yes Hx Dizziness: Yes - HEENT Hx HEENT Problems: Yes Hx Cataracts: Yes (BILATERAL CATARACT EXTRACTION 2011) - RENAL Hx Chronic Kidney Disease: No - ENDOCRINE/METABOLIC Hx Endocrine Disorders: Yes Hx Diabetes Mellitus Type 2: Yes - HEMATOLOGICAL/ONCOLOGICAL Hx Anemia: Yes - INTEGUMENTARY Hx Dermatological Problems: Yes (ulcers right great toe) - MUSCULOSKELETAL/RHEUMATOLOGICAL Hx Falls: No - GASTROINTESTINAL Hx Gastrointestinal Disorders: Yes Other/Comment: abd hernias per pt - GENITOURINARY/GYNECOLOGICAL Hx Genitourinary Disorders: Yes Hx Prostate Problems: Yes - PSYCHIATRIC Hx Substance Use: No - SURGICAL HISTORY Hx Surgeries: Yes Hx Cataract Extraction: Yes (BILATERAL 2011) Hx Femoral-Popliteal Bypass Graft: Yes (LEFT LEG 2009) Hx Open Heart Surgery: Yes (6 years ago valve replacements) Other/Comment: Open heart surgery 6 yrs ago, OSTEOMYELITIS RIGHT TOE - ANESTHESIA Hx Anesthesia: Yes Hx Anesthesia Reactions: No Hx Malignant Hyperthermia: No Meds Allergies/Adverse Reactions: Allergies Allergy/AdvReac Type Severity Reaction Status Date / Time ciprofloxacin Allergy Severe Verified 02/03/19 14:32 Physical Exam - Constitutional Appears: Non-toxic, No Acute Distress - Head Exam Head Exam: NORMAL INSPECTION - Eye Exam Eye Exam: Normal appearance - ENT Exam ENT Exam: Mucous Membranes Moist - Respiratory Exam Respiratory Exam: NORMAL BREATHING PATTERN. absent: Accessory Muscle Use, Respiratory Distress - GI/Abdominal Exam GI & Abdominal Exam: Soft. absent: Distended, Tenderness - Extremities Exam Additional comments: mild poikilothermia of L foot no edema, swelling B/L palpable femoral pulses - Neurological Exam Neurological exam: Alert, Oriented x3 - Psychiatric Exam Psychiatric exam: Normal Affect, Normal Mood - Skin Skin Exam: Dry, Intact, Normal Color, Warm Results - Vital Signs Recent Vital Signs: Last Vital Signs Temp 98.6 F 02/03/19 14:33 Pulse 94 H 02/03/19 14:33 Resp 18 02/03/19 14:33 BP 112/68 02/03/19 14:33 Pulse Ox 100 02/03/19 15:51 - Labs Result Diagrams: 02/03/19 15:13 02/03/19 15:13 Labs: Laboratory Results - last 24 hr 02/03/19 02/03/19 02/03/19 15:13 15:13 15:13 WBC 5.2 RBC 3.75 L Hgb 9.8 L Hct 30.5 L MCV 81.2 MCH 26.1 L MCHC 32.1 L RDW 16.3 H Plt Count 118 L D MPV 12.3 H Neut % (Auto) 61.1 Lymph % (Auto) 23.0 [place] % (Auto) 10.2 H Eos % (Auto) 5.0 H Baso % (Auto) 0.7 Neut # (Auto) 3.2 Lymph # (Auto) 1.2 [place] # (Auto) 0.5 Eos # (Auto) 0.3 Baso # (Auto) 0.0 PT 11.1 INR 1.0 APTT 29 Sodium 135 Potassium 4.4 Chloride 103 Carbon Dioxide 23 Anion Gap 14 BUN 32 H Creatinine 1.8 H Est GFR ( Amer) 45 Est GFR (Non-Af Amer) 38 Random Glucose 190 H Calcium 8.9 Total Bilirubin 0.4 AST 21 ALT 6 L D Alkaline Phosphatase 82 Total Protein 7.3 Albumin 3.7 Globulin 3.6 Albumin/Globulin Ratio 1.0 - Imaging and Cardiology CTA scan - abdomen Status: Pending Assessment & Plan - Assessment and Plan (Free Text) Assessment: 68 y/o M w/ PAD s/p R AT balloon angioplasty and L fem-bypass, now w/ pain and poikilothermia in L foot Plan: - hep gtt - hold on CTA 2/2 elevated Cr - IVF - HHD w/ NPO@[place] - plan for Angio tomorrow morning in lab tech Pt seen and discussed w/ Dr. Edith De Jesus DO PGY3 <Bradley Sharma Jr. - Last Filed: 02/03/19 16:23> History of Present Illness - History of Present Illness History of Present Illness: see above leg viable but ischemic reviewed with administration discussed with anesthesia cr 1.8 noted hydration, etc Results - Vital Signs Recent Vital Signs: Last Vital Signs Temp 98.6 F 02/03/19 14:33 Pulse 94 H 02/03/19 14:33 Resp 18 02/03/19 14:33 BP 112/68 02/03/19 14:33 Pulse Ox 100 02/03/19 15:51 - Labs Result Diagrams: 02/03/19 15:13 02/03/19 15:13 Labs: Laboratory Results - last 24 hr 02/03/19 02/03/19 02/03/19 15:13 15:13 15:13 WBC 5.2 RBC 3.75 L Hgb 9.8 L Hct 30.5 L MCV 81.2 MCH 26.1 L MCHC 32.1 L RDW 16.3 H Plt Count 118 L D MPV 12.3 H Neut % (Auto) 61.1 Lymph % (Auto) 23.0 [place] % (Auto) 10.2 H Eos % (Auto) 5.0 H Baso % (Auto) 0.7 Neut # (Auto) 3.2 Lymph # (Auto) 1.2 [place] # (Auto) 0.5 Eos # (Auto) 0.3 Baso # (Auto) 0.0 PT 11.1 INR 1.0 APTT 29 Sodium 135 Potassium 4.4 Chloride 103 Carbon Dioxide 23 Anion Gap 14 BUN 32 H Creatinine 1.8 H Est GFR ( Amer) 45 Est GFR (Non-Af Amer) 38 Random Glucose 190 H Calcium 8.9 Total Bilirubin 0.4 AST 21 ALT 6 L D Alkaline Phosphatase 82 Total Protein 7.3 Albumin 3.7 Globulin 3.6 Albumin/Globulin Ratio 1.0
[2019-02-03] MEDS ORDERED: Heparin25000 units/250ml 1/2NS 25,000 UNITS/250 ML BAG IV ONE (16:15)
[2019-02-03] MEDS ORDERED: Heparin25000 units/250ml 1/2NS 25,000 UNITS/250 ML BAG IV PRN ×2 (16:26→16:52)
[2019-02-03] MEDS ORDERED: Sodium Chloride 0.9% 1,000 ML ONE (16:31)
[2019-02-03] MEDS: Sodium Chloride 0.9% 1,000 ML IV SCH (16:39)
[2019-02-03] MEDS ORDERED: ceFAZolin IV 1 gm in Dextrose 1 GM/50 ML BAG IVPB SCH (22:15)
[2019-02-03] MEDS: ceFAZolin 1 GM in Sodium Chloride 0.9% 100 ML IVPB SCH (22:43)
[2019-02-04] MEDS: Sodium Chloride 0.9% 1,000 ML IV SCH ×4 (03:46→22:30)
[2019-02-04] MEDS: ceFAZolin 1 GM in Sodium Chloride 0.9% 100 ML IVPB SCH ×3 (05:16→22:07)
--- NOTE | 2019-02-04 07:13 | CP.PCM.HP ---
History of Present Illness - History of Present Illness History of Present Illness: Chief complaint: Left leg pain, feeling extremely cold in the left leg History present illness: 65-year-old male with history of diabetes hypertension and hypercholesteremia peripheral vascular disease, right leg ischemia, status post intervention .\ Patient was recently hospitalized with the right great toe chronic infection with deep tissue infection likely involving the bone. At that time patient underwent angiogram, and also angioplasty and intervention to the right leg tibial artery disease. Patient was getting outpatient antibiotic with the Hernán. But the patient came to the office this morning, and he was complaining of increasing pain over the left leg which used to be a normal leg for him, he did not have any pain in the past, but the following the intervention on the right side he started having more pain on the left side. He is claims that the pain started a week ago, gradually got worse. And it is getting even more pain when he is walking and standing, and he is also feeling increasingly cold sensation. Patient was very concerned and he came to the office, and a also seen by piling setter and he was sent to the emergency room. In the emergency room patient was seen by vascular surgeon, recommended possibly intervention with angiogram to the left leg and suspected acute to subacute occlusion. Patient is now still having more pain, currently on heparin drip Past medical history: Hypertension diabetes hypercholesteremia peripheral vascular disease right leg ischemia. Status post intervention. Patient also recently had right leg angioplasty and stent placement Peripheral vascular disease, CAD, stent Allergy: No known drug allergy except to ciprofloxacin. 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 Currently nondrinker. Review of system noted from the chart. Complaining of no pain in the legs. Patient is able to walk On examination: Vital signs reviewed in Chest bilateral good air entry. 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 Patient is currently having left lower extremity cold sensation, painful on touch. Peripheral pulses is not palpable on the left side. Right foot the patient has wound dressing is done. Right-sided pulses palpable Labs reviewed Nonspecific. Assessment/condition: 65-year-old male with history of peripheral vascular disease of hypertension diabetes hypercholesteremia CAD, status post a coronary it to bypass grafting. Patient had a peripheral vascular disease, status post intervention. Now having nonhealing ulcer involving the right great toe. Currently on antibiotic, doing well at this time, for the right side. But the patient now admitted with the severe left leg resting pain, and also cold sensation. Patient has a possibly subacute ischemic changes of the left lower extremity, occlusion cannot be ruled out. Patient has a vascular bypass on the left lower extremity. We will get vascular surgical evaluation Patient is scheduled to have a intervention tomorrow Currently on IV heparin. On also antiplatelets and anticholesterol medication. We will continue the antibiotic for the right great toe deep tissue infection. We will follow the patient Present on Admission - Present on Admission Any Indicators Present on Admission: No History of DVT/PE: No History of Uncontrolled Diabetes: No Urinary Catheter: No Decubitus Ulcer Present: No Past Patient History - Infectious Disease Hx of Infectious Diseases: None - Past Medical History & Family History Past Medical History?: Yes - Past Social History Smoking Status: Never Smoked - CARDIAC Hx Hypercholesterolemia: Yes Hx Hypertension: Yes Hx Peripheral Edema: Yes - PULMONARY Hx Respiratory Disorders: No - NEUROLOGICAL Hx Neurological Disorder: Yes Hx Dizziness: Yes - HEENT Hx HEENT Problems: Yes Hx Cataracts: Yes (BILATERAL CATARACT EXTRACTION 2011) - RENAL Hx Chronic Kidney Disease: No - ENDOCRINE/METABOLIC Hx Endocrine Disorders: Yes Hx Diabetes Mellitus Type 2: Yes - HEMATOLOGICAL/ONCOLOGICAL Hx Anemia: Yes - INTEGUMENTARY Hx Dermatological Problems: Yes (ulcers right great toe) - MUSCULOSKELETAL/RHEUMATOLOGICAL Hx Falls: No - GASTROINTESTINAL Hx Gastrointestinal Disorders: Yes Other/Comment: abd hernias per pt - GENITOURINARY/GYNECOLOGICAL Hx Genitourinary Disorders: Yes Hx Prostate Problems: Yes - PSYCHIATRIC Hx Substance Use: No - SURGICAL HISTORY Hx Surgeries: Yes Hx Cataract Extraction: Yes (BILATERAL 2011) Hx Femoral-Popliteal Bypass Graft: Yes (LEFT LEG 2009) Hx Open Heart Surgery: Yes (6 years ago valve replacements) Other/Comment: Open heart surgery 6 yrs ago, OSTEOMYELITIS RIGHT TOE - ANESTHESIA Hx Anesthesia: Yes Hx Anesthesia Reactions: No Hx Malignant Hyperthermia: No Meds Allergies/Adverse Reactions: Allergies Allergy/AdvReac Type Severity Reaction Status Date / Time ciprofloxacin Allergy Severe Verified 02/03/19 14:32 Results - Vital Signs Recent Vital Signs: Last Vital Signs Temp 98.0 F 02/04/19 04:26 Pulse 82 02/04/19 04:26 Resp 20 02/04/19 04:26 BP 156/76 H 02/04/19 04:26 Pulse Ox 98 03/30/19 04:26 - Labs Result Diagrams: 02/03/19 15:13 02/03/19 15:13 Labs: Laboratory Results - last 24 hr 02/03/19 02/03/19 02/03/19 15:13 15:13 15:13 WBC 5.2 RBC 3.75 L Hgb 9.8 L Hct 30.5 L MCV 81.2 MCH 26.1 L MCHC 32.1 L RDW 16.3 H Plt Count 118 L D MPV 12.3 H Neut % (Auto) 61.1 Lymph % (Auto) 23.0 [place] % (Auto) 10.2 H Eos % (Auto) 5.0 H Baso % (Auto) 0.7 Neut # (Auto) 3.2 Lymph # (Auto) 1.2 [place] # (Auto) 0.5 Eos # (Auto) 0.3 Baso # (Auto) 0.0 Differential Comment PT 11.1 INR 1.0 APTT 29 Sodium 135 Potassium 4.4 Chloride 103 Carbon Dioxide 23 Anion Gap 14 BUN 32 H Creatinine 1.8 H Est GFR ( Amer) 45 Est GFR (Non-Af Amer) 38 POC Glucose (mg/dL) Random Glucose 190 H Calcium 8.9 Total Bilirubin 0.4 AST 21 ALT 6 L D Alkaline Phosphatase 82 Total Protein 7.3 Albumin 3.7 Globulin 3.6 Albumin/Globulin Ratio 1.0 02/03/19 02/04/19 21:06 00:11 WBC RBC Hgb Hct MCV MCH MCHC RDW Plt Count MPV Neut % (Auto) Lymph % (Auto) [place] % (Auto) Eos % (Auto) Baso % (Auto) Neut # (Auto) Lymph # (Auto) [place] # (Auto) Eos # (Auto) Baso # (Auto) Differential Comment PT INR APTT 64 H D Sodium Potassium Chloride Carbon Dioxide Anion Gap BUN Creatinine Est GFR ( Amer) Est GFR (Non-Af Amer) POC Glucose (mg/dL) 178 H Random Glucose Calcium Total Bilirubin AST ALT Alkaline Phosphatase Total Protein Albumin Globulin Albumin/Globulin Ratio
[2019-02-04] MEDS ORDERED: Lidocaine 2% MPF (5 ml) Inj ONE (09:27)
[2019-02-04] MEDS ORDERED: Iodixanol 320 MG/ML 200 ML BOTTLE IV ONE ×2 (09:28→13:42)
[2019-02-04] MEDS ORDERED: Cilostazol 50 mg Tab UD PO SCH (10:00)
[2019-02-04] MEDS ORDERED: Midazolam 2 MG/2 ML VIAL ONE (10:14)
[2019-02-04] MEDS ORDERED: Iodixanol 320 MG/ML 100 ML BOTTLE IV ONE ×3 (11:11→13:40)
--- NOTE | 2019-02-04 14:09 | PCM.SURG1 ---
Surgeon's Initial Post Op Note - Surgeon's Notes Surgeon: aiden Consolidation Accountant: 0 Type of Anesthesia: IV Sedation Anesthesia Administered By: lawrence madden Pre-Operative Diagnosis: ischemic left leg. thrombosed graft Operative Findings: occluded graft+ diseased tibial vessels Post-Operative Diagnosis: same Operation Performed: aortofemoral angiogram via right groin. selective catherization of left femoral artery. angiojet mechanical thrombolysis of graft. 7mm proximal stent adjaceent to origein of bypass. 5 mm stent distal graft to popliteal. balloon angioplasty of anterior tibial and peroneal. mynx closure right groin Specimen/Specimens Removed: 0 Estimated Blood Loss: EBL {In ML}: 50 Blood Products Given: N/A Drains Used: No Drains Post-Op Condition: Good Date of Surgery/Procedure: 02/04/19 Time of Surgery/Procedure: 14:12
[2019-02-04] MEDS: Sodium Chloride 0.9% 500 ML IV ONE ×3 (14:30→17:41)
[2019-02-04] MEDS: Heparin25000 units/250ml 1/2NS 25,000 UNITS/250 ML BAG IV PRN (15:30)
[2019-02-04] MEDS ORDERED: Sodium Chloride 0.9% 500 ML IV ONE (17:23)
[2019-02-04] MEDS: Cilostazol 100 mg Tab UD PO SCH (17:29)
[2019-02-04] MEDS: Acetaminophen-Codeine 300/30 mg Tab PO PRN ×2 (17:29→23:18)
[2019-02-04 20:43] LABS: HEMOGLOBIN 7.4 g/dL (12.0-18.0); MEAN CELL VOLUME 81.1 fL (80.0-94.0); MEAN CORPUSCULAR HEMOGLOBIN 25.9 pg (27.0-31.0); MEAN CORPUSCULAR HGB CONC 31.9 g/dL (33.0-37.0); PLATELET COUNT 96 K/uL (130-400); RBC 2.88 Mil/uL (4.40-5.90); RED CELL DISTRIBUTION WIDTH 16.1 % (11.5-14.5); WHITE BLOOD COUNT 5.6 K/uL (4.8-10.8)
[2019-02-04 21:10] LABS: ALB/GLOB RATIO 0.9 (1.0-2.1); ALBUMIN 2.6 g/dL (3.5-5.0); ALT/SGPT 12 U/L (21-72); AST/SGOT 31 U/L (17-59); BLOOD UREA NITROGEN 22 mg/dL (9-20); CALCIUM 7.4 mg/dl (8.6-10.4); GFR NON-AFRICAN AMERICAN 55
[2019-02-04] MEDS ORDERED: (Novolog) Insulin Aspart, Recombinant 100 u/ml 10 ml vial SC SCH (21:30)
[2019-02-04 21:37] LABS: HEMOGLOBIN 7.8 g/dL (12.0-18.0); MEAN CELL VOLUME 81.4 fL (80.0-94.0); MEAN CORPUSCULAR HEMOGLOBIN 26.1 pg (27.0-31.0); MEAN PLATELET VOLUME 12.1 fL (7.2-11.7); RBC 2.99 Mil/uL (4.40-5.90); RED CELL DISTRIBUTION WIDTH 16.2 % (11.5-14.5); WHITE BLOOD COUNT 6.2 K/uL (4.8-10.8)
--- NOTE | 2019-02-04 21:51 | CP.PCM.CON ---
History of Present Illness - History of Present Illness History of Present Illness: CC: S/P Acute Limb Icshemia, Cardiac evluation 68M w/ hx of DM, HTN, PVD, Left fem-pop bypass who was admitted 01/11 with non- healing R hallux ulcer. Pt returns to the ED yesteday c/o LLE pain and foot coldness. Pt is s/p L aortofemoral angio w/ R AT balloon angioplasty. Pt reports pain started shortly after discharge on 01/20 and has been worsening. Coldness was also noticed ~1wk ago has been worsening. He denies any F/C, CP, SOB, N/V, abd pain, weakness. Patient s/p Left leg Thrombolysis and [employer]ING PMH: DM, HTN, PVD Meds: reviewed in chart ALL: cipro PSH: balloon angioplasty R AT, left fem-pop bypass, CABG, cataract surgery SHx: 20+ yr smoking hx (quit 20yrs ago), denies EtOH/drugs FHx: noncontributory Review of Systems - Review of Systems All systems: reviewed and no additional remarkable complaints except (see HPI) Meds Allergies/Adverse Reactions: Allergies Allergy/AdvReac Type Severity Reaction Status Date / Time ciprofloxacin Allergy Severe Verified 02/03/19 14:32 Physical Exam - Constitutional Appears: Non-toxic, No Acute Distress - Head Exam Head Exam: NORMAL INSPECTION - Eye Exam Eye Exam: Normal appearance - ENT Exam ENT Exam: Mucous Membranes Moist - Respiratory Exam Respiratory Exam: NORMAL BREATHING PATTERN. absent: Accessory Muscle Use, Respiratory Distress - GI/Abdominal Exam GI & Abdominal Exam: Soft. absent: Distended, Tenderness - Extremities Exam Additional comments: mild poikilothermia of L foot no edema, swelling B/L palpable femoral pulses - Neurological Exam Neurological exam: Alert, Oriented x3 - Psychiatric Exam Psychiatric exam: Normal Affect, Normal Mood - Skin Skin Exam: Dry, Intact, Normal Color, Warm - Imaging and Cardiology CTA scan - abdomen Status: Pending Assessment & Plan - Assessment and Plan (Free Text) Assessment: 1. Acute Limb Ischemia 68 y/o M w/ PAD s/p R AT balloon angioplasty and L fem-bypass, now w/ pain and poikilothermia in L foot S/P Thrombolysis and [employer] aortofemoral angiogram via right groin. selective catherization of left femoral artery. angiojet mechanical thrombolysis of graft. 7mm proximal stent adjaceent to origein of bypass. 5 mm stent distal graft to popliteal. balloon angioplasty of anterior tibial and peroneal. mynx closure right groin 2. CAD, HTN, Hyperlipidemia, DM2 and PAD Past Patient History - Infectious Disease Hx of Infectious Diseases: None - Past Medical History & Family History Past Medical History?: Yes - Past Social History Smoking Status: Never Smoked - CARDIAC Hx Hypercholesterolemia: Yes Hx Hypertension: Yes Hx Peripheral Edema: Yes - PULMONARY Hx Respiratory Disorders: No - NEUROLOGICAL Hx Neurological Disorder: Yes Hx Dizziness: Yes - HEENT Hx HEENT Problems: Yes Hx Cataracts: Yes (BILATERAL CATARACT EXTRACTION 2011) - RENAL Hx Chronic Kidney Disease: No - ENDOCRINE/METABOLIC Hx Endocrine Disorders: Yes Hx Diabetes Mellitus Type 2: Yes - HEMATOLOGICAL/ONCOLOGICAL Hx Anemia: Yes - INTEGUMENTARY Hx Dermatological Problems: Yes (ulcers right great toe) - MUSCULOSKELETAL/RHEUMATOLOGICAL Hx Falls: No - GASTROINTESTINAL Hx Gastrointestinal Disorders: Yes Other/Comment: abd hernias per pt - GENITOURINARY/GYNECOLOGICAL Hx Genitourinary Disorders: Yes Hx Prostate Problems: Yes - PSYCHIATRIC Hx Substance Use: No Other/Comment: stopped smoking 20 years ago - SURGICAL HISTORY Hx Surgeries: No Hx Cataract Extraction: Yes (BILATERAL 2011) Hx Femoral-Popliteal Bypass Graft: Yes (LEFT LEG 2009) Hx Open Heart Surgery: Yes (6 years ago valve replacements) Other/Comment: Open heart surgery 6 yrs ago, OSTEOMYELITIS RIGHT TOE - ANESTHESIA Hx Anesthesia: Yes Hx Anesthesia Reactions: No Hx Malignant Hyperthermia: No Has any member of the family had a problem w/ anesthesia?: No Meds Allergies/Adverse Reactions: Allergies Allergy/AdvReac Type Severity Reaction Status Date / Time ciprofloxacin Allergy Severe Verified 02/03/19 14:32 - Medications Medications: Current Medications Acetaminophen/Codeine Phosphate (Tylenol/Codeine 300 Mg/30 Mg) 1 ea PO Q6 PRN PRN Reason: Pain, moderate (4-7) Last Admin: 02/04/19 17:29 Dose: 1 ea Acetylcysteine (Acetylcysteine 20%) 4 ml PO Q12 [facility] Stop: 02/06/19 10:01 Aspirin (Ecotrin) 81 mg PO DAILY [facility] Last Admin: 02/04/19 10:52 Dose: Not Given Carvedilol (Coreg) 6.25 mg PO BID [facility] Last Admin: 02/04/19 17:13 Dose: Not Given Cilostazol (Pletal) 100 mg PO BID [facility] Last Admin: 02/04/19 17:29 Dose: 100 mg Clopidogrel Bisulfate (Plavix) 75 mg PO DAILY [facility] Last Admin: 02/04/19 10:52 Dose: Not Given Famotidine (Pepcid) 20 mg IVP DAILY [facility] Last Admin: 02/04/19 10:52 Dose: Not Given Finasteride (Proscar) 5 mg PO DAILY [facility] Last Admin: 02/04/19 10:52 Dose: Not Given Sodium Chloride (Sodium Chloride 0.9%) 1,000 mls @ 100 mls/hr IV .Q10H [facility] Last Admin: 02/04/19 17:31 Dose: 100 mls/hr Cefazolin Sodium 1 gm/ Sodium (Chloride) 100 mls @ 100 mls/hr IVPB Q8H [facility]; Protocol Last Admin: 02/04/19 14:55 Dose: 100 mls/hr Heparin Sodium/Sodium Chloride (Heparin 15458 Units/250ml 1/2 Normal Saline) 25,000 units in 250 mls @ 10.614 mls/hr IV .[id number] PRN; Protocol PRN Reason: ADJUST RATE PER PROTOCOL Last Admin: 02/04/19 15:30 Dose: 18 units/kg/hr, 10.614 mls/hr Insulin Aspart (Novolog) 0 unit SC Q6H [facility]; Protocol Mupirocin (Bactroban Ointment) 0 gm TOP DAILY [facility] Last Admin: 02/04/19 10:51 Dose: Not Given Rosuvastatin Calcium (Crestor) 10 mg PO HS [facility] Last Admin: 02/03/19 21:43 Dose: 10 mg Sitagliptin Phosphate (Januvia) 50 mg PO DAILY [facility] Last Admin: 02/04/19 10:52 Dose: Not Given Results - Vital Signs Recent Vital Signs: Last Vital Signs Temp 97 F L 02/04/19 16:00 Pulse 78 02/04/19 19:00 Resp 20 02/04/19 19:00 BP 100/60 02/04/19 19:00 Pulse Ox 100 02/04/19 16:30 - Labs Result Diagrams: 02/04/19 21:20 02/04/19 20:37 Labs: Laboratory Results - last 24 hr 03/02/04/19 02/04/19 00:11 07:04 09:49 WBC RBC Hgb Hct MCV MCH MCHC RDW Plt Count MPV Differential Comment APTT 64 H D Sodium Potassium Chloride Carbon Dioxide Anion Gap BUN Creatinine Est GFR ( Amer) Est GFR (Non-Af Amer) POC Glucose (mg/dL) 176 H Random Glucose Calcium Total Bilirubin AST ALT Alkaline Phosphatase Total Protein Albumin Globulin Albumin/Globulin Ratio Blood Type O POSITIVE Antibody Screen Negative 02/04/19 02/04/19 02/04/19 16:05 20:37 20:37 WBC 5.6 RBC 2.88 L Hgb 7.4 L D Hct 23.3 L MCV 81.1 MCH 25.9 L MCHC 31.9 L RDW 16.1 H Plt Count 96 L D MPV 12.0 H Differential Comment Y APTT Sodium 133 Potassium 4.8 Chloride 104 Carbon Dioxide 23 Anion Gap 10 BUN 22 H Creatinine 1.3 Est GFR ( Amer) > 60 Est GFR (Non-Af Amer) 55 POC Glucose (mg/dL) 253 H Random Glucose 214 H Calcium 7.4 L Total Bilirubin 0.7 AST 31 ALT 12 L D Alkaline Phosphatase 58 Total Protein 5.6 L Albumin 2.6 L D Globulin 3.0 Albumin/Globulin Ratio 0.9 L Blood Type Antibody Screen 02/04/19 02/04/19 02/04/19 20:37 21:04 21:20 WBC 6.2 RBC 2.99 L Hgb 7.8 L Hct 24.4 L MCV 81.4 MCH 26.1 L MCHC 32.0 L RDW 16.2 H Plt Count 93 L MPV 12.1 H Differential Comment APTT 56 H D Sodium Potassium Chloride Carbon Dioxide Anion Gap BUN Creatinine Est GFR ( Amer) Est GFR (Non-Af Amer) POC Glucose (mg/dL) 253 H Random Glucose Calcium Total Bilirubin AST ALT Alkaline Phosphatase Total Protein Albumin Globulin Albumin/Globulin Ratio Blood Type Antibody Screen
[2019-02-05] MEDS: Acetylcysteine 20% Inhal Soln (4ml) PO SCH ×3 (02:24→23:00)
[2019-02-05] MEDS: ceFAZolin 1 GM in Sodium Chloride 0.9% 100 ML IVPB SCH ×3 (05:56→21:16)
[2019-02-05] MEDS: Sodium Chloride 0.9% 1,000 ML IV SCH ×2 (05:57→08:30)
[2019-02-05 06:19] LABS: BASO % 0.5 % (0.0-2.0); EOS # 0.1 K/uL (0.0-0.7); EOS % 1.3 % (0.0-4.0); HEMOGLOBIN 7.7 g/dL (12.0-18.0); LYMPH # 1.1 K/uL (1.0-4.3); LYMPH % 17.9 % (20.0-40.0); MEAN CELL VOLUME 82.3 fL (80.0-94.0); MEAN CORPUSCULAR HEMOGLOBIN 27.1 pg (27.0-31.0); MEAN PLATELET VOLUME 13.2 fL (7.2-11.7); MONO # 0.6 K/uL (0.0-0.8); MONO % 10.3 % (0.0-10.0); NEUT # 4.2 K/uL (1.8-7.0); RBC 2.83 Mil/uL (4.40-5.90); RED CELL DISTRIBUTION WIDTH 15.7 % (11.5-14.5); WHITE BLOOD COUNT 6.1 K/uL (4.8-10.8)
[2019-02-05 06:39] LABS: ALB/GLOB RATIO 0.9 (1.0-2.1); ALBUMIN 2.5 g/dL (3.5-5.0); ALT/SGPT 14 U/L (21-72); AST/SGOT 24 U/L (17-59); BLOOD UREA NITROGEN 26 mg/dL (9-20); CALCIUM 7.3 mg/dl (8.6-10.4); GFR NON-AFRICAN AMERICAN 50
[2019-02-05] MEDS: (Novolog) Insulin Aspart, Recombinant 100 u/ml 10 ml vial SC SCH ×4 (08:08→21:17)
--- NOTE | 2019-02-05 09:03 | CP.PCM.PN ---
Subjective - Date & Time of Evaluation Date of Evaluation: 02/05/19 Time of Evaluation: 09:00 - Subjective Subjective: Vascular Surgery Dr. Sharma Pt seen and examined @bedside. Pt underwent angio yesteday. Pt tolerated procedure well w/ no complications. Pt mildly hypotensive post-op. CTAP performed 2/2 concern for retroperitoneal hematoma. No acute events overnight. Pt has no complaints. reports improved LLE pain and coldness. tolerating diet. Objective - Vital Signs/Intake and Output Vital Signs (last 24 hours): Temp Pulse Resp BP Pulse Ox 98.2 F 97 H 12 126/51 L 97 02/05/19 04:00 02/05/19 07:06 02/05/19 07:06 02/05/19 07:06 02/05/19 07:06 Intake and Output: 02/05/19 02/05/19 06:59 18:59 Intake Total 2406.6 110.6 Output Total 500 0 Balance 1906.6 110.6 - Medications Medications: Current Medications Acetaminophen/Codeine Phosphate (Tylenol/Codeine 300 Mg/30 Mg) 1 ea PO Q6 PRN PRN Reason: Pain, moderate (4-7) Last Admin: 02/04/19 23:18 Dose: 1 ea Acetylcysteine (Acetylcysteine 20%) 4 ml PO Q12 [facility] Stop: 02/06/19 10:01 Last Admin: 02/05/19 02:24 Dose: 4 ml Aspirin (Ecotrin) 81 mg PO DAILY [facility] Last Admin: 02/04/19 10:52 Dose: Not Given Carvedilol (Coreg) 6.25 mg PO BID [facility] Last Admin: 02/04/19 17:13 Dose: Not Given Cilostazol (Pletal) 100 mg PO BID [facility] Last Admin: 02/04/19 17:29 Dose: 100 mg Clopidogrel Bisulfate (Plavix) 75 mg PO DAILY [facility] Last Admin: 02/04/19 10:52 Dose: Not Given Famotidine (Pepcid) 20 mg IVP DAILY [facility] Last Admin: 02/04/19 10:52 Dose: Not Given Finasteride (Proscar) 5 mg PO DAILY [facility] Last Admin: 02/04/19 10:52 Dose: Not Given Sodium Chloride (Sodium Chloride 0.9%) 1,000 mls @ 100 mls/hr IV .Q10H [facility] Last Admin: 02/05/19 05:57 Dose: 100 mls/hr Cefazolin Sodium 1 gm/ Sodium (Chloride) 100 mls @ 100 mls/hr IVPB Q8H [facility]; Protocol Last Admin: 02/05/19 05:56 Dose: 100 mls/hr Heparin Sodium/Sodium Chloride (Heparin 11539 Units/250ml 1/2 Normal Saline) 25,000 units in 250 mls @ 10.614 mls/hr IV .[id number] PRN; Protocol PRN Reason: ADJUST RATE PER PROTOCOL Last Admin: 02/04/19 15:30 Dose: 18 units/kg/hr, 10.614 mls/hr Insulin Aspart (Novolog) 0 unit SC ACHS [facility]; Protocol Last Admin: 02/05/19 08:08 Dose: 3 units Mupirocin (Bactroban Ointment) 0 gm TOP DAILY [facility] Last Admin: 02/04/19 10:51 Dose: Not Given Rosuvastatin Calcium (Crestor) 10 mg PO HS [facility] Last Admin: 02/04/19 22:08 Dose: 10 mg Sitagliptin Phosphate (Januvia) 50 mg PO DAILY [facility] Last Admin: 02/04/19 10:52 Dose: Not Given Sucralfate (Carafate Oral Susp) 1 gm PO TID [facility] - Labs Labs: 02/05/19 06:09 02/05/19 06:09 PT 11.1 SECONDS (9.7-12.2) 02/03/19 15:13 INR 1.0 02/03/19 15:13 APTT 79 SECONDS (21-34) H D 02/05/19 06:09 - Constitutional Appears: Non-toxic, No Acute Distress - Head Exam Head Exam: NORMAL INSPECTION - Eye Exam Eye Exam: Normal appearance - ENT Exam ENT Exam: Mucous Membranes Moist - Respiratory Exam Respiratory Exam: NORMAL BREATHING PATTERN. absent: Accessory Muscle Use, Respiratory Distress - Cardiovascular Exam Cardiovascular Exam: REGULAR RHYTHM. absent: Bradycardia, Tachycardia - GI/Abdominal Exam GI & Abdominal Exam: Distended, Soft. absent: Tenderness - Extremities Exam Additional comments: dopplerable B/L DP/PT B/L LE warm equally groin site c/d/i, soft, no hematoma - Neurological Exam Neurological Exam: Alert, Awake, Oriented x3 - Psychiatric Exam Psychiatric exam: Normal Affect, Normal Mood - Skin Skin Exam: Dry, Intact, Normal Color, Warm Assessment and Plan - Assessment and Plan (Free Text) Assessment: 68 y/o M POD#1 s/p aortofemoral angiogram via R groin w/ selective catherization of L femoral artery, angiojet mechanical thrombolysis of graft and balloon angioplasty of anterior tibial and peroneal Plan: - CT negative for hematoma - pulse checks - pain management - PT/OT - no further surgical intervention at this time - Pt cleared for discharge from surgical standpoint Pt discussed w/ Dr. Edith De Jesus PGY3
--- NOTE | 2019-02-05 10:19 | CT ---
Date of service: 02/04/2019 PROCEDURE: CT Abdomen and Pelvis without intravenous contrast HISTORY: r/o retroperitoneal bleeding COMPARISON: Comparison is made to the previous study dated 12/20/[address] abdomen and pelvis without contrast dated 06/07/2015 TECHNIQUE: Axial and reformatted coronal and sagittal CT images of the abdomen and pelvis were obtained without IV or oral contrast administration.. Contrast dose: 0 Radiation dose: Total exam DLP = 296.46 mGy-cm. This CT exam was performed using one or more of the following dose reduction techniques: Automated exposure control, adjustment of the mA and/or kV according to patient size, and/or use of iterative reconstruction technique. FINDINGS: LOWER THORAX: Small pleural thickening noted at chest bases. LIVER: Unremarkable. No gross lesion or ductal dilatation. GALLBLADDER AND BILE DUCTS: Retained contrast noted in the gallbladder likely from the recent conventional angiogram with IV contrast administration. No evidence of acute cholecystitis PANCREAS: Unremarkable. No gross lesion or ductal dilatation. SPLEEN: Unremarkable. ADRENALS: Unremarkable. No mass. KIDNEYS AND URETERS: Retained IV contrast in the renal cortex is also noted likely from recent procedure and IV contrast administration. Correlate clinically for ATN. No evidence of hydronephrosis or hydroureter. VASCULATURE: Unremarkable. No aortic aneurysm. Diffuse atherosclerotic calcification noted in the abdominal aorta and iliac arteries. BOWEL: Mildly distended stomach and duodenum noted associated with diffuse wall thickening suspicious for gastroenteritis. No obstruction. No gross mural thickening. Mild constipation is noted. APPENDIX: No evidence of appendicitis. PERITONEUM: No evidence of fluid collection or retroperitoneal hematoma. No evidence of free air or free fluid. LYMPH NODES: Unremarkable. No enlarged lymph nodes. BLADDER: There is a Owens catheter in the bladder. Contrast is also noted in the bladder. REPRODUCTIVE: Unremarkable. BONES: No acute fracture. OTHER FINDINGS: There is stent seen in the proximal left superficial femoral artery. There is soft tissue swelling and increased enhancement with possible contrast extravasation noted at the left pelvis and proximal left thigh. IMPRESSION: No CT evidence of retroperitoneal hematoma free or localize fluid collection in the abdomen and pelvis. Soft tissue swelling and possible contrast extravasation noted at the left proximal thigh and left inguinal region. Correlate clinically for hematoma from recent procedure. If clinically warranted follow-up CT of the pelvis left lower extremity without and with contrast may be obtained. Incidental findings as discussed above. The above findings were reported to nurse taking care of the patient in the ICU Mr. Peter 10:15 a.m. on 02/05/2019 Preliminary report was submitted by [facility] Radiology contains concordant findings.
[2019-02-05] MEDS: Sucralfate 1 gm/10 ml Oral Susp UD PO SCH ×3 (10:24→18:31)
[2019-02-05] MEDS: Cilostazol 100 mg Tab UD PO SCH ×2 (10:52→18:31)
--- NOTE | 2019-02-05 11:28 | CP.PCM.PN ---
Subjective - Date & Time of Evaluation Date of Evaluation: 02/05/19 Time of Evaluation: 11:25 - Subjective Subjective: leg hyperemic some tenderness in leg and thigh no evidence of compartment syndrome decrease hct required transfusion , CT no bleed in retroperitoneum, some blood in thigh monitor and transfuse continue heparin and possible sterta NOAC as well as anti platelet Objective - Vital Signs/Intake and Output Vital Signs (last 24 hours): Temp Pulse Resp BP Pulse Ox 98.2 F 98 H 11 L 128/47 L 98 02/05/19 04:00 02/05/19 10:22 02/05/19 10:22 02/05/19 10:22 02/05/19 10:22 Intake and Output: 02/05/19 02/05/19 06:59 18:59 Intake Total 2406.6 110.6 Output Total 500 0 Balance 1906.6 110.6 - Medications Medications: Current Medications Acetaminophen/Codeine Phosphate (Tylenol/Codeine 300 Mg/30 Mg) 1 ea PO Q6 PRN PRN Reason: Pain, moderate (4-7) Last Admin: 02/04/19 23:18 Dose: 1 ea Acetylcysteine (Acetylcysteine 20%) 4 ml PO Q12 [facility] Stop: 02/06/19 10:01 Last Admin: 02/05/19 10:37 Dose: 4 ml Aspirin (Ecotrin) 81 mg PO DAILY [facility] Last Admin: 02/05/19 10:25 Dose: 81 mg Carvedilol (Coreg) 6.25 mg PO BID [facility] Last Admin: 02/05/19 10:19 Dose: 6.25 mg Cilostazol (Pletal) 100 mg PO BID [facility] Last Admin: 02/05/19 10:52 Dose: 100 mg Clopidogrel Bisulfate (Plavix) 75 mg PO DAILY [facility] Last Admin: 02/05/19 10:23 Dose: 75 mg Famotidine (Pepcid) 20 mg IVP DAILY [facility] Last Admin: 02/05/19 10:23 Dose: 20 mg Finasteride (Proscar) 5 mg PO DAILY [facility] Last Admin: 02/05/19 10:23 Dose: 5 mg Sodium Chloride (Sodium Chloride 0.9%) 1,000 mls @ 100 mls/hr IV .Q10H [facility] Last Admin: 02/05/19 05:57 Dose: 100 mls/hr Cefazolin Sodium 1 gm/ Sodium (Chloride) 100 mls @ 100 mls/hr IVPB Q8H [facility]; Protocol Last Admin: 02/05/19 05:56 Dose: 100 mls/hr Heparin Sodium/Sodium Chloride (Heparin 62504 Units/250ml 1/2 Normal Saline) 25,000 units in 250 mls @ 10.614 mls/hr IV .[id number] PRN; Protocol PRN Reason: ADJUST RATE PER PROTOCOL Last Admin: 02/04/19 15:30 Dose: 18 units/kg/hr, 10.614 mls/hr Insulin Aspart (Novolog) 0 unit SC ACHS [facility]; Protocol Last Admin: 02/05/19 08:08 Dose: 3 units Mupirocin (Bactroban Ointment) 0 gm TOP DAILY [facility] Last Admin: 02/05/19 10:50 Dose: 1 appl Rosuvastatin Calcium (Crestor) 10 mg PO HS [facility] Last Admin: 02/04/19 22:08 Dose: 10 mg Sitagliptin Phosphate (Januvia) 50 mg PO DAILY [facility] Last Admin: 02/05/19 10:52 Dose: 50 mg Sucralfate (Carafate Oral Susp) 1 gm PO TID [facility] Last Admin: 02/05/19 10:24 Dose: 1 gm - Labs Labs: 02/05/19 06:09 02/05/19 06:09 PT 11.1 SECONDS (9.7-12.2) 02/03/19 15:13 INR 1.0 02/03/19 15:13 APTT 79 SECONDS (21-34) H D 02/05/19 06:09
--- NOTE | 2019-02-05 13:05 | VAS ---
DATE: 02/04/2019 PREOPERATIVE DIAGNOSIS: Ischemic left leg. PROCEDURES CARRIED OUT: 1. Aortofemoral angiogram via right groin with selective catheterization of left femoral artery. AngioJet thrombolysis, mechanical thrombolysis using the AngioJet device of the left occluded graft. 2. Deployment of a 7-mm stent adjacent to the proximal anastomosis and 5 mm stent adjacent to the distal anastomosis of the previously placed graft. In addition, balloon angioplasty was carried out of the anterior tibial and posterior tibial arteries. A Mynx device was deployed in the groin for closure. PROCEDURE AND FINDINGS: The patient was given local anesthesia. Using ultrasound guidance and micropuncture technique, the right common femoral vein was punctured. Under fluoroscopic control, the guidewire was advanced centrally. Overlapping films were taking from the level of the renal arteries down to the foot. FINDINGS: The aorta and renal arteries were free of significant occlusive disease. The origin of the left common iliac artery had approximately a 30% stenosis. The rest of the common, internal, and external iliac arteries and profunda femoris arteries were widely patent as well as the common femoral artery. On the right side, the superficial femoral artery had multiple areas of stenosis throughout its length but without any significant stenosis. The popliteal artery was widely patent. The anterior tibial and posterior tibial arteries were patent. Posterior tibial out in the middle of its course. The major vessel was the anterior tibial artery. On the left side, the previously placed graft was occluded. There was a small nubbin of it at the origin. Below this, the vessels reconstituted via collaterals, a diseased popliteal artery, a diseased tibial peroneal trunk and a severely diseased anterior tibial femoral artery. Subsequent to performance of the diagnostic arteriogram, a stiff-angled guidewire was advanced over the aortic bifurcation and a 7-[place] sheath positioned in the distal portion of the common femoral artery.. We then were able to cannulate the previous graft. I advance the guidewire all the way down to the lower leg. Heparin was given. We had difficulty advancing the catheter or the wire through the area of stenosis in the tibioperoneal trunk and then to carry out initial balloon angioplasty of this area using a small balloon to allow for deployment of the wires all the way down. All the wires were subsequently exchanged for an Advantage wire and then we were able to carry out the mechanical thrombolysis using the AngioJet device in this location. This went well, the Power-Pulse was initially injected into the graft. We then waited half an hour and went back in with good clinical results, However after using the CPA, it was evident that there was a severe stenosis of the distal portion of the SFA, the distal portion of the graft, the tibioperoneal trunk and almost what appeared to be a flap just distal to the origin of the previously placed graft. A 5-mm stent was deployed distally and a 7-mm stent deployed proximally. This resulted in removal of the cosmetic defect. We then carried out significant balloon angioplasty using 2 or 3 mm balloons of the peroneal artery. We were able to pass the wire all the way down to put through the anterior tibial artery. We were unable to pass balloons or catheters beyond this location. Nonetheless, we were able to satisfactorily dilate the proximal portion of it and the completion films looked reasonable. Thus, at the end, we carried out an angiogram, a selective catheterization, a mechanical thrombolysis using the AngioJet device. We carried out balloon angioplasty and stenting of the region just distal to the anastomosis proximally and just proximal to the anastomosis distally. We carried out then a balloon angioplasty of the anterior tibial and posterior tibial artery, but this was quite difficult, but the final cosmetic results on the films were adequate. More importantly, the flow was reaching the vessels in the lower portion of the leg through the graft rather than through collaterals. We then terminated this procedure and deployed a Mynx device in the groin. Also, noted was a previously placed penile prosthesis. OPERATIONS PERFORMED: 1. Aortofemoral angiogram via right groin, selective catheterization of left femoral artery. 2. AngioJet thrombolysis using TPA of the previously occluded graft. 3. We then did a deployment of the stent at the distal anastomosis and at the proximal anastomosis of the previous placed graft and then, we did balloon angioplasty of the anterior tibial and peroneal arteries. Bradley Sharma Jr., MD cc: Dr. Latif CAESAR
--- NOTE | 2019-02-05 15:00 | CP.PCM.CON ---
History of Present Illness - History of Present Illness History of Present Illness: 68M w/ hx of DM, HTN, PVD, Left fem-pop bypass who was admitted 3/ with non- healing R hallux ulcer. Was culture + for MSSA and treated with ancef then cubicin as out pt Patient refused amputation and surgery at that time Pt is s/p L aortofemoral angio w/ R AT balloon angioplasty. presents to the ED complaining of severe left leg pain. Patient reports left leg pain for 10 days, which progressively worsened and has been severe for 5 days. Also reports the left foot is cold to touch. POD#2 s/p aortofemoral angiogram via R groin w/ selective catherization of L femoral artery, angiojet mechanical thrombolysis of graft and balloon angioplasty of anterior tibial and peroneal PMH: DM, HTN, PVD OM right great toe ( refused surgery ) Meds: reviewed in chart ALL: cipro PSH: balloon angioplasty R AT, left fem-pop bypass, CABG, cataract surgery SHx: 20+ yr smoking hx (quit 20yrs ago), denies EtOH/drugs FHx: noncontributory Review of Systems - Review of Systems All systems: reviewed and no additional remarkable complaints except - Constitutional Constitutional: As Per HPI. absent: Chills, Fever - EENT Eyes: absent: As Per HPI, Blind Spots, Blurred Vision, Change in Vision, Decreased Night Vision, Diplopia, Discharge, Dry Eye, Exophthalmos, Floaters, Irritation, Itchy Eyes, Loss of Peripheral Vision, Pain, Photophobia, Requires Corrective Lenses, Sees Flashes, Spots in Vision, Tunnel Vision, Other Visual Disturbances, Loss of Vision, Other Ears: absent: As Per HPI, Decreased Hearing, Ear Discharge, Ear Pain, Tinnitus, Abnormal Hearing, Disequilibrium, Dizziness, Other Nose/Mouth/Throat: absent: As Per HPI, Epistaxis, Nasal Congestion, Nasal Discharge, Nasal Obstruction, Nasal Trauma, Nose Pain, Post Nasal Drip, Sinus Pain, Sinus Pressure, Bleeding Gums, Change in Voice, Dental Pain, Dry Mouth, Dysphagia, Halitosis, Hoarsness, Lip Swelling, Mouth Lesions, Mouth Pain, Odynophagia, Sore Throat, Throat Swelling, Tongue Swelling, Facial Pain, Neck Pain, Neck Mass, Other - Cardiovascular Cardiovascular: absent: As Per HPI, Acrocyanosis, Chest Pain, Chest Pain at Rest, Chest Pain with Activity, Claudication, Diaphoresis, Dyspnea, Dyspnea on Exertion, Edema, Irregular Heart Rhythm, Pain Radiating to Arm/Neck/Jaw, Leg Edema, Leg Ulcers, Lightheadedness, Orthopnea, Palpitations, Paroxysmal Nocturnal Dyspnea, Pedal Edema, Radiating Pain, Rapid Heart Rate, Slow Heart Rat e, Syncope, Other - Respiratory Respiratory: absent: As Per HPI, Cough, Dyspnea, Hemoptysis, Dyspnea on Exertion, Wheezing, Snoring, Stridor, Pain on Inspiration, Chest Congestion, Excessive Mucous Production, Change in Mucous Color, Pain with Coughing, Other - Gastrointestinal Gastrointestinal: absent: As Per HPI, Abdominal Pain, Belching, Bloating, Change in Bowel Habits, Change in Stool Character, Coffee Ground Emesis, Constipation, Cramping, Diarrhea, Dyspepsia, Dysphagia, Early Satiety, Excessive Flatus, Fecal Incontinence, Heartburn, Hematemesis, Hematochezia, Loose Stools, Melena, Nausea, Odynophagia, Temesmus, Vomiting, Other - Genitourinary Genitourinary: absent: As Per HPI, Change in Urinary Stream, Difficulty Urinating, Dysuria, Flank Pain, Hematuria, Pyuria, Nocturia, Urinary Incontinence, Urinary Frequency, Urinary Hesitance, Urinary Urgency, Voiding Freq/Small Amts, Freq UTI, Hx Renal/Bladder Calculi, Hx /Renal Surgery, Bladder Distension, Other - Musculoskeletal Musculoskeletal: As Per HPI - Integumentary Integumentary: As Per HPI, Skin Pain, Wounds - Neurological Neurological: As Per HPI, Sensory Deficit - Psychiatric Psychiatric: absent: As Per HPI, Abnormal Sleep Pattern, Anhedonia, Anxiety, Auditory Hallucinations, Behavioral Changes, Change in Appetite, Change in Libido, Confusion, Depression, Difficulty Concentrating, Hallucinations, Homicidal Ideation, Hopelessness, Irritability, Memory Loss, Mood Swings, Panic Attacks, Paranoia, Suicidal Ideation, Visual Hallucinations, Tactile Hallucinations, Other - Endocrine Endocrine: absent: As Per HPI, Change in Body Appearance, Change in Libido, Cold Intolorance, Deepening of Voice, Excessive Sweating, Fatigue, Flushing, Heat Intolorance, Increase in Ring/Shoe/Hat Size, Palpitations, Polydipsia, Polyphagia, Polyuria, Other - Hematologic/Lymphatic Hematologic: absent: As Per HPI, Easy Bleeding, Easy Bruising, Lymphadenopathy, Other Past Patient History - Infectious Disease Hx of Infectious Diseases: None - Past Medical History & Family History Past Medical History?: Yes - Past Social History Smoking Status: Never Smoked - CARDIAC Hx Hypercholesterolemia: Yes Hx Hypertension: Yes Hx Peripheral Edema: Yes - PULMONARY Hx Respiratory Disorders: No - NEUROLOGICAL Hx Neurological Disorder: Yes Hx Dizziness: Yes - HEENT Hx HEENT Problems: Yes Hx Cataracts: Yes (BILATERAL CATARACT EXTRACTION 2011) - RENAL Hx Chronic Kidney Disease: No - ENDOCRINE/METABOLIC Hx Endocrine Disorders: Yes Hx Diabetes Mellitus Type 2: Yes - HEMATOLOGICAL/ONCOLOGICAL Hx Anemia: Yes - INTEGUMENTARY Hx Dermatological Problems: Yes (ulcers right great toe) - MUSCULOSKELETAL/RHEUMATOLOGICAL Hx Falls: No - GASTROINTESTINAL Hx Gastrointestinal Disorders: Yes Other/Comment: abd hernias per pt - GENITOURINARY/GYNECOLOGICAL Hx Genitourinary Disorders: Yes Hx Prostate Problems: Yes - PSYCHIATRIC Hx Substance Use: No Other/Comment: stopped smoking 20 years ago - SURGICAL HISTORY Hx Surgeries: No Hx Cataract Extraction: Yes (BILATERAL 2011) Hx Femoral-Popliteal Bypass Graft: Yes (LEFT LEG 2009) Hx Open Heart Surgery: Yes (6 years ago valve replacements) Other/Comment: Open heart surgery 6 yrs ago, OSTEOMYELITIS RIGHT TOE - ANESTHESIA Hx Anesthesia: Yes Hx Anesthesia Reactions: No Hx Malignant Hyperthermia: No Has any member of the family had a problem w/ anesthesia?: No Meds Allergies/Adverse Reactions: Allergies Allergy/AdvReac Type Severity Reaction Status Date / Time ciprofloxacin Allergy Severe Verified 02/03/19 14:32 - Medications Medications: Current Medications Acetaminophen/Codeine Phosphate (Tylenol/Codeine 300 Mg/30 Mg) 1 ea PO Q6 PRN PRN Reason: Pain, moderate (4-7) Last Admin: 02/04/19 23:18 Dose: 1 ea Acetylcysteine (Acetylcysteine 20%) 4 ml PO Q12 [facility] Stop: 02/06/19 10:01 Last Admin: 02/05/19 10:37 Dose: 4 ml Aspirin (Ecotrin) 81 mg PO DAILY [facility] Last Admin: 02/05/19 10:25 Dose: 81 mg Carvedilol (Coreg) 6.25 mg PO BID [facility] Last Admin: 02/05/19 10:19 Dose: 6.25 mg Cilostazol (Pletal) 100 mg PO BID [facility] Last Admin: 02/05/19 10:52 Dose: 100 mg Clopidogrel Bisulfate (Plavix) 75 mg PO DAILY [facility] Last Admin: 02/05/19 10:23 Dose: 75 mg Famotidine (Pepcid) 20 mg IVP DAILY [facility] Last Admin: 02/05/19 10:23 Dose: 20 mg Finasteride (Proscar) 5 mg PO DAILY [facility] Last Admin: 02/05/19 10:23 Dose: 5 mg Sodium Chloride (Sodium Chloride 0.9%) 1,000 mls @ 100 mls/hr IV .Q10H [facility] Last Admin: 02/05/19 05:57 Dose: 100 mls/hr Cefazolin Sodium 1 gm/ Sodium (Chloride) 100 mls @ 100 mls/hr IVPB Q8H [facility]; Protocol Last Admin: 02/05/19 13:58 Dose: 100 mls/hr Heparin Sodium/Sodium Chloride (Heparin 19005 Units/250ml 1/2 Normal Saline) 25,000 units in 250 mls @ 10.614 mls/hr IV .[id number] PRN; Protocol PRN Reason: ADJUST RATE PER PROTOCOL Last Admin: 02/04/19 15:30 Dose: 18 units/kg/hr, 10.614 mls/hr Insulin Aspart (Novolog) 0 unit SC ACHS [facility]; Protocol Last Admin: 02/05/19 12:20 Dose: 4 units Mupirocin (Bactroban Ointment) 0 gm TOP DAILY [facility] Last Admin: 02/05/19 10:50 Dose: 1 appl Rosuvastatin Calcium (Crestor) 10 mg PO HS [facility] Last Admin: 02/04/19 22:08 Dose: 10 mg Sitagliptin Phosphate (Januvia) 50 mg PO DAILY [facility] Last Admin: 02/05/19 10:52 Dose: 50 mg Sucralfate (Carafate Oral Susp) 1 gm PO TID [facility] Last Admin: 02/05/19 13:58 Dose: 1 gm Physical Exam - Constitutional Appears: Non-toxic, Chronically Ill - Head Exam Head Exam: NORMOCEPHALIC - Eye Exam Eye Exam: absent: Scleral icterus - ENT Exam ENT Exam: Mucous Membranes Dry - Neck Exam Neck exam: Negative for: Lymphadenopathy - Respiratory Exam Respiratory Exam: Decreased Breath Sounds, Clear to Auscultation Bilateral - Cardiovascular Exam Cardiovascular Exam: REGULAR RHYTHM, +S1, +S2 - GI/Abdominal Exam GI & Abdominal Exam: Diminished Bowel Sounds, Soft. absent: Tenderness - Rectal Exam Rectal Exam: Deferred - Exam Exam: NORMAL INSPECTION - Extremities Exam Extremities exam: Positive for: pedal edema, tenderness. Negative for: calf tenderness, pedal pulses present - Back Exam Back exam: absent: CVA tenderness (L), CVA tenderness (R) - Neurological Exam Neurological exam: Alert, CN II-XII Intact, Oriented x3, Reflexes Normal - Psychiatric Exam Psychiatric exam: Depressed - Skin Skin Exam: Dry Results - Vital Signs Recent Vital Signs: Last Vital Signs Temp 98.2 F 02/05/19 14:48 Pulse 98 H 02/05/19 14:48 Resp 15 02/05/19 14:48 BP 122/50 L 02/05/19 14:48 Pulse Ox 97 02/05/19 12:06 - Labs Result Diagrams: 02/05/19 06:09 02/05/19 06:09 Labs: Laboratory Results - last 24 hr 02/04/19 02/04/19 02/04/19 07:03 07:04 16:05 WBC RBC Hgb Hct MCV MCH MCHC RDW Plt Count MPV Neut % (Auto) Lymph % (Auto) Island % (Auto) Eos % (Auto) Baso % (Auto) Neut # (Auto) Lymph # (Auto) Island # (Auto) Eos # (Auto) Baso # (Auto) Differential Comment APTT Sodium Potassium Chloride Carbon Dioxide Anion Gap BUN Creatinine Est GFR ( Amer) Est GFR (Non-Af Amer) POC Glucose (mg/dL) 142 H 253 H Random Glucose Calcium Total Bilirubin AST ALT Alkaline Phosphatase Total Protein Albumin Globulin Albumin/Globulin Ratio Blood Type O POSITIVE Antibody Screen Negative 02/04/19 02/04/19 02/04/19 20:37 20:37 20:37 WBC 5.6 RBC 2.88 L Hgb 7.4 L D Hct 23.3 L MCV 81.1 MCH 25.9 L MCHC 31.9 L RDW 16.1 H Plt Count 96 L D MPV 12.0 H Neut % (Auto) Lymph % (Auto) Island % (Auto) Eos % (Auto) Baso % (Auto) Neut # (Auto) Lymph # (Auto) Island # (Auto) Eos # (Auto) Baso # (Auto) Differential Comment Y APTT 56 H D Sodium 133 Potassium 4.8 Chloride 104 Carbon Dioxide 23 Anion Gap 10 BUN 22 H Creatinine 1.3 Est GFR ( Amer) > 60 Est GFR (Non-Af Amer) 55 POC Glucose (mg/dL) Random Glucose 214 H Calcium 7.4 L Total Bilirubin 0.7 AST 31 ALT 12 L D Alkaline Phosphatase 58 Total Protein 5.6 L Albumin 2.6 L D Globulin 3.0 Albumin/Globulin Ratio 0.9 L Blood Type Antibody Screen 02/04/19 02/04/19 02/05/19 21:04 21:20 06:09 WBC 6.2 6.1 RBC 2.99 L 2.83 L Hgb 7.8 L 7.7 L Hct 24.4 L 23.2 L MCV 81.4 82.3 MCH 26.1 L 27.1 MCHC 32.0 L 33.0 RDW 16.2 H 15.7 H Plt Count 93 L 80 L MPV 12.1 H 13.2 H Neut % (Auto) 70.0 Lymph % (Auto) 17.9 L Island % (Auto) 10.3 H Eos % (Auto) 1.3 Baso % (Auto) 0.5 Neut # (Auto) 4.2 Lymph # (Auto) 1.1 Island # (Auto) 0.6 Eos # (Auto) 0.1 Baso # (Auto) 0.0 Differential Comment APTT Sodium Potassium Chloride Carbon Dioxide Anion Gap BUN Creatinine Est GFR ( Amer) Est GFR (Non-Af Amer) POC Glucose (mg/dL) 253 H Random Glucose Calcium Total Bilirubin AST ALT Alkaline Phosphatase Total Protein Albumin Globulin Albumin/Globulin Ratio Blood Type Antibody Screen 02/05/19 02/05/19 06:09 06:09 WBC RBC Hgb Hct MCV MCH MCHC RDW Plt Count MPV Neut % (Auto) Lymph % (Auto) Island % (Auto) Eos % (Auto) Baso % (Auto) Neut # (Auto) Lymph # (Auto) Island # (Auto) Eos # (Auto) Baso # (Auto) Differential Comment APTT 79 H D Sodium 134 Potassium 4.4 Chloride 106 Carbon Dioxide 21 L Anion Gap 11 BUN 26 H Creatinine 1.4 Est GFR ( Amer) > 60 Est GFR (Non-Af Amer) 50 POC Glucose (mg/dL) Random Glucose 175 H Calcium 7.3 L Total Bilirubin 0.4 AST 24 ALT 14 L Alkaline Phosphatase 58 Total Protein 5.3 L Albumin 2.5 L Globulin 2.8 Albumin/Globulin Ratio 0.9 L Blood Type Antibody Screen Assessment & Plan - Assessment and Plan (Free Text) Assessment: 68M w/ hx of DM, HTN, PVD, Left fem-pop bypass who was admitted 01/11 with non- healing R hallux ulcer. Was culture + for MSSA and treated with ancef then cubicin as out pt Patient refused amputation and surgery at that time Pt is s/p L aortofemoral angio w/ R AT balloon angioplasty. presents to the ED complaining of severe left leg pain. Patient reports left leg pain for 10 days, which progressively worsened and has been severe for 5 days. Also reports the left foot is cold to touch. POD#2 s/p aortofemoral angiogram via R groin w/ selective catherization of L femoral artery, angiojet mechanical thrombolysis of graft and balloon angioplasty of anterior tibial and peroneal
[2019-02-05] MEDS: Heparin25000 units/250ml 1/2NS 25,000 UNITS/250 ML BAG IV PRN (15:42)
[2019-02-05] MEDS: Acetaminophen-Codeine 300/30 mg Tab PO PRN (19:38)
--- NOTE | 2019-02-05 21:45 | CP.PCM.PN ---
Subjective - Date & Time of Evaluation Date of Evaluation: 02/05/19 Time of Evaluation: 10:10 - Subjective Subjective: Pt seen and examined s/p Left leg lysis and [employer] No cardiac events noted Objective - Vital Signs/Intake and Output Vital Signs (last 24 hours): Temp Pulse Resp BP Pulse Ox 98.2 F 97 H 12 126/51 L 97 02/05/19 04:00 02/05/19 07:06 02/05/19 07:06 02/05/19 07:06 02/05/19 07:06 Intake and Output: 02/05/19 02/05/19 06:59 18:59 Intake Total 2406.6 110.6 Output Total 500 0 Balance 1906.6 110.6 - Medications Medications: Current Medications Acetaminophen/Codeine Phosphate (Tylenol/Codeine 300 Mg/30 Mg) 1 ea PO Q6 PRN PRN Reason: Pain, moderate (4-7) Last Admin: 02/04/19 23:18 Dose: 1 ea Acetylcysteine (Acetylcysteine 20%) 4 ml PO Q12 [facility] Stop: 02/06/19 10:01 Last Admin: 02/05/19 02:24 Dose: 4 ml Aspirin (Ecotrin) 81 mg PO DAILY [facility] Last Admin: 02/04/19 10:52 Dose: Not Given Carvedilol (Coreg) 6.25 mg PO BID [facility] Last Admin: 02/04/19 17:13 Dose: Not Given Cilostazol (Pletal) 100 mg PO BID [facility] Last Admin: 02/04/19 17:29 Dose: 100 mg Clopidogrel Bisulfate (Plavix) 75 mg PO DAILY [facility] Last Admin: 02/04/19 10:52 Dose: Not Given Famotidine (Pepcid) 20 mg IVP DAILY [facility] Last Admin: 02/04/19 10:52 Dose: Not Given Finasteride (Proscar) 5 mg PO DAILY [facility] Last Admin: 02/04/19 10:52 Dose: Not Given Sodium Chloride (Sodium Chloride 0.9%) 1,000 mls @ 100 mls/hr IV .Q10H [facility] Last Admin: 02/05/19 05:57 Dose: 100 mls/hr Cefazolin Sodium 1 gm/ Sodium (Chloride) 100 mls @ 100 mls/hr IVPB Q8H [facility]; Protocol Last Admin: 02/05/19 05:56 Dose: 100 mls/hr Heparin Sodium/Sodium Chloride (Heparin 82690 Units/250ml 1/2 Normal Saline) 25,000 units in 250 mls @ 10.614 mls/hr IV .[id number] PRN; Protocol PRN Reason: ADJUST RATE PER PROTOCOL Last Admin: 02/04/19 15:30 Dose: 18 units/kg/hr, 10.614 mls/hr Insulin Aspart (Novolog) 0 unit SC ACHS [facility]; Protocol Last Admin: 02/05/19 08:08 Dose: 3 units Mupirocin (Bactroban Ointment) 0 gm TOP DAILY [facility] Last Admin: 02/04/19 10:51 Dose: Not Given Rosuvastatin Calcium (Crestor) 10 mg PO HS [facility] Last Admin: 02/04/19 22:08 Dose: 10 mg Sitagliptin Phosphate (Januvia) 50 mg PO DAILY [facility] Last Admin: 02/04/19 10:52 Dose: Not Given Sucralfate (Carafate Oral Susp) 1 gm PO TID [facility] - Labs Labs: 02/05/19 06:09 02/05/19 06:09 PT 11.1 SECONDS (9.7-12.2) 02/03/19 15:13 INR 1.0 02/03/19 15:13 APTT 79 SECONDS (21-34) H D 02/05/19 06:09 - Constitutional Appears: Non-toxic, No Acute Distress - Head Exam Head Exam: NORMAL INSPECTION - Eye Exam Eye Exam: Normal appearance - ENT Exam ENT Exam: Mucous Membranes Moist - Respiratory Exam Respiratory Exam: NORMAL BREATHING PATTERN. absent: Accessory Muscle Use, Respiratory Distress - Cardiovascular Exam Cardiovascular Exam: REGULAR RHYTHM. absent: Bradycardia, Tachycardia - GI/Abdominal Exam GI & Abdominal Exam: Distended, Soft. absent: Tenderness - Extremities Exam Additional comments: dopplerable B/L DP/PT B/L LE warm equally groin site c/d/i, soft, no hematoma - Neurological Exam Neurological Exam: Alert, Awake, Oriented x3 - Psychiatric Exam Psychiatric exam: Normal Affect, Normal Mood - Skin Skin Exam: Dry, Intact, Normal Color, Warm Assessment and Plan - Assessment and Plan (Free Text) Assessment: 68 y/o M POD#1 s/p aortofemoral angiogram via R groin w/ selective catherization of L femoral artery, angiojet mechanical thrombolysis of graft and balloon angioplasty of anterior tibial and peroneal Plan: CAD hx of milti vessel stenting HTN PAD DM 2 Objective - Vital Signs/Intake and Output Vital Signs (last 24 hours): Temp Pulse Resp BP Pulse Ox 98.2 F 98 H 16 145/62 96 02/05/19 19:37 02/05/19 19:37 02/05/19 19:37 02/05/19 19:37 02/05/19 19:07 Intake and Output: 02/05/19 02/06/19 18:59 06:59 Intake Total 2987.2 411.8 Output Total 1 850 Balance 2986.2 -438.2 - Medications Medications: Current Medications Acetaminophen/Codeine Phosphate (Tylenol/Codeine 300 Mg/30 Mg) 1 ea PO Q6 PRN PRN Reason: Pain, moderate (4-7) Last Admin: 02/05/19 19:38 Dose: 1 ea Acetylcysteine (Acetylcysteine 20%) 4 ml PO Q12 [facility] Stop: 02/06/19 10:01 Last Admin: 02/05/19 10:37 Dose: 4 ml Aspirin (Ecotrin) 81 mg PO DAILY [facility] Last Admin: 02/05/19 10:25 Dose: 81 mg Carvedilol (Coreg) 6.25 mg PO BID [facility] Last Admin: 02/05/19 18:31 Dose: 6.25 mg Cilostazol (Pletal) 100 mg PO BID [facility] Last Admin: 02/05/19 18:31 Dose: 100 mg Clopidogrel Bisulfate (Plavix) 75 mg PO DAILY [facility] Last Admin: 02/05/19 10:23 Dose: 75 mg Famotidine (Pepcid) 20 mg IVP DAILY [facility] Last Admin: 02/05/19 10:23 Dose: 20 mg Finasteride (Proscar) 5 mg PO DAILY [facility] Last Admin: 02/05/19 10:23 Dose: 5 mg Sodium Chloride (Sodium Chloride 0.9%) 1,000 mls @ 100 mls/hr IV .Q10H [facility] Last Admin: 02/05/19 08:30 Dose: Not Given Cefazolin Sodium 1 gm/ Sodium (Chloride) 100 mls @ 100 mls/hr IVPB Q8H [facility]; Protocol Last Admin: 02/05/19 21:16 Dose: 100 mls/hr Heparin Sodium/Sodium Chloride (Heparin 27270 Units/250ml 1/2 Normal Saline) 25,000 units in 250 mls @ 10.614 mls/hr IV .[id number] PRN; Protocol PRN Reason: ADJUST RATE PER PROTOCOL Last Admin: 02/05/19 15:42 Dose: 18 units/kg/hr, 10.614 mls/hr Insulin Aspart (Novolog) 0 unit SC ACHS [facility]; Protocol Last Admin: 02/05/19 21:17 Dose: Not Given Mupirocin (Bactroban Ointment) 0 gm TOP DAILY [facility] Last Admin: 02/05/19 10:50 Dose: 1 appl Rosuvastatin Calcium (Crestor) 10 mg PO HS [facility] Last Admin: 02/05/19 21:16 Dose: 10 mg Sitagliptin Phosphate (Januvia) 50 mg PO DAILY [facility] Last Admin: 02/05/19 10:52 Dose: 50 mg Sucralfate (Carafate Oral Susp) 1 gm PO TID [facility] Last Admin: 02/05/19 18:31 Dose: 1 gm - Labs Labs: 02/05/19 06:09 02/05/19 06:09 PT 11.1 SECONDS (9.7-12.2) 02/03/19 15:13 INR 1.0 02/03/19 15:13 APTT 79 SECONDS (21-34) H D 02/05/19 06:09
[2019-02-06] MEDS: Sodium Chloride 0.9% 1,000 ML IV SCH ×3 (00:19→13:49)
[2019-02-06] MEDS: ceFAZolin 1 GM in Sodium Chloride 0.9% 100 ML IVPB SCH ×3 (05:19→22:15)
[2019-02-06 06:23] LABS: BASO % 0.4 % (0.0-2.0); EOS # 0.3 K/uL (0.0-0.7); EOS % 4.3 % (0.0-4.0); HEMOGLOBIN 9.7 g/dL (12.0-18.0); LYMPH # 1.2 K/uL (1.0-4.3); LYMPH % 19.7 % (20.0-40.0); MEAN CELL VOLUME 82.7 fL (80.0-94.0); MEAN CORPUSCULAR HEMOGLOBIN 28.2 pg (27.0-31.0); MEAN CORPUSCULAR HGB CONC 34.1 g/dL (33.0-37.0); MEAN PLATELET VOLUME 12.6 fL (7.2-11.7); MONO # 0.6 K/uL (0.0-0.8); MONO % 10.2 % (0.0-10.0); NEUT # 3.8 K/uL (1.8-7.0); NEUT % 65.4 % (50.0-75.0); NRBC % 0.1 % (0.0-2.0); RBC 3.45 Mil/uL (4.40-5.90); RED CELL DISTRIBUTION WIDTH 15.6 % (11.5-14.5); WHITE BLOOD COUNT 5.9 K/uL (4.8-10.8)
[2019-02-06 06:40] LABS: ALB/GLOB RATIO 0.9 (1.0-2.1); ALBUMIN 2.9 g/dL (3.5-5.0); CALCIUM 8.3 mg/dl (8.6-10.4)
[2019-02-06] MEDS: (Novolog) Insulin Aspart, Recombinant 100 u/ml 10 ml vial SC SCH ×4 (07:59→22:15)
[2019-02-06] MEDS: Acetaminophen-Codeine 300/30 mg Tab PO PRN ×2 (08:03→14:21)
--- NOTE | 2019-02-06 09:10 | VASCLAB ---
Date of service: 02/03/2019 STUDY DESCRIPTION: Lower Extremity Arterial Exam (PVR). HISTORY: LLE ischemia PRIORS: None. TECHNIQUE: Pulse volume recording waveforms and segmental pressures of bilateral lower extremities at multiple levels were obtained. Ankle Brachial Indices (ABIs) were calculated. Report prepared by BARB Lisa, RVT RIGHT LOWER EXTREMITY: * Brachial artery: Pressure - mmHg. * High thigh: PVR waveform - Pulsatile * Low thigh: PVR waveform: Pulsatile * Calf: Pressure - >220 mmHg: Ratio - n/c PVR waveform: Pulsatile * Posterior tibial Artery: Pressure - 119 mmHg: Ratio - 0.90 PVR waveform: Pulsatile * Dorsalis pedis Artery: Pressure - >220 mmHg: Ratio - n/c PVR waveform: Reduced Ankle brachial index (ARIC): 0.90 LEFT LOWER EXTREMITY: * Brachial artery: Pressure - 132 mmHg. * High thigh: PVR waveform - Pulsatile * Low thigh: PVR waveform: Pulsatile * Calf: Pressure - 0 mmHg: Ratio - 0 PVR waveform: None * Posterior tibial Artery: Pressure - 0 mmHg: Ratio - 0 PVR waveform: None * Dorsalis pedis Artery: Pressure - 0 mmHg: Ratio - 0 PVR waveform: None * Ankle brachial index (ARIC): Absent OTHER FINDINGS: None. IMPRESSION: Right: There was no evidence of hemodynamically significant arterial insufficiency in the right lower extremity. Left: Absent ankle brachial index due non audible pulses. Absent arterial waveforms beginning at the calf level. This exam reveals severely decreased arterial perfusion to the left lower extremity, at rest. Findings were reported to Er physician Dr. Sanders.
[2019-02-06] MEDS: Acetylcysteine 20% Inhal Soln (4ml) PO SCH (09:21)
[2019-02-06] MEDS: Cilostazol 100 mg Tab UD PO SCH ×2 (09:21→17:14)
[2019-02-06] MEDS: Sucralfate 1 gm/10 ml Oral Susp UD PO SCH ×3 (09:22→17:14)
--- NOTE | 2019-02-06 12:10 | CP.PCM.PN ---
Subjective - Date & Time of Evaluation Date of Evaluation: 02/06/19 Time of Evaluation: 08:00 - Subjective Subjective: swollen left leg venous doppler pending IV antibiotics renewed Objective - Vital Signs/Intake and Output Vital Signs (last 24 hours): Temp Pulse Resp BP Pulse Ox 98.3 F 100 H 15 169/83 H 96 02/06/19 08:00 02/06/19 10:04 02/06/19 10:04 02/06/19 10:04 02/06/19 10:04 Intake and Output: 02/06/19 02/06/19 06:59 18:59 Intake Total 1852.2 691.8 Output Total 2750 350 Balance -897.8 341.8 - Medications Medications: Current Medications Acetaminophen/Codeine Phosphate (Tylenol/Codeine 300 Mg/30 Mg) 1 ea PO Q6 PRN PRN Reason: Pain, moderate (4-7) Last Admin: 02/06/19 08:03 Dose: 1 ea Aspirin (Ecotrin) 81 mg PO DAILY [facility] Last Admin: 02/06/19 09:22 Dose: 81 mg Carvedilol (Coreg) 6.25 mg PO BID [facility] Last Admin: 02/06/19 09:21 Dose: 6.25 mg Cilostazol (Pletal) 100 mg PO BID [facility] Last Admin: 02/06/19 09:21 Dose: 100 mg Clopidogrel Bisulfate (Plavix) 75 mg PO DAILY [facility] Last Admin: 02/06/19 09:21 Dose: 75 mg Famotidine (Pepcid) 20 mg IVP DAILY [facility] Last Admin: 02/06/19 09:22 Dose: 20 mg Finasteride (Proscar) 5 mg PO DAILY [facility] Last Admin: 02/06/19 09:21 Dose: 5 mg Sodium Chloride (Sodium Chloride 0.9%) 1,000 mls @ 100 mls/hr IV .Q10H [facility] Last Admin: 02/06/19 04:30 Dose: Not Given Cefazolin Sodium 1 gm/ Sodium (Chloride) 100 mls @ 100 mls/hr IVPB Q8H [facility]; Protocol Last Admin: 02/06/19 05:19 Dose: 100 mls/hr Heparin Sodium/Sodium Chloride (Heparin 38782 Units/250ml 1/2 Normal Saline) 25,000 units in 250 mls @ 10.614 mls/hr IV .[id number] PRN; Protocol PRN Reason: ADJUST RATE PER PROTOCOL Last Admin: 02/05/19 15:42 Dose: 18 units/kg/hr, 10.614 mls/hr Insulin Aspart (Novolog) 0 unit SC ACHS [facility]; Protocol Last Admin: 02/06/19 11:46 Dose: 3 units Mupirocin (Bactroban Ointment) 0 gm TOP DAILY [facility] Last Admin: 02/06/19 09:22 Dose: 1 appl Rosuvastatin Calcium (Crestor) 10 mg PO HS [facility] Last Admin: 02/05/19 21:16 Dose: 10 mg Sitagliptin Phosphate (Januvia) 50 mg PO DAILY [facility] Last Admin: 02/06/19 09:21 Dose: 50 mg Sucralfate (Carafate Oral Susp) 1 gm PO TID [facility] Last Admin: 02/06/19 09:22 Dose: 1 gm - Labs Labs: 02/06/19 06:13 02/06/19 06:12 PT 11.1 SECONDS (9.7-12.2) 02/03/19 15:13 INR 1.0 02/03/19 15:13 APTT 59 SECONDS (21-34) H D 02/06/19 06:13 - Constitutional Appears: Non-toxic, No Acute Distress, Chronically Ill - Head Exam Head Exam: ATRAUMATIC, NORMAL INSPECTION, NORMOCEPHALIC - Eye Exam Eye Exam: EOMI, Normal appearance, PERRL Pupil Exam: NORMAL ACCOMODATION, PERRL - ENT Exam ENT Exam: Mucous Membranes Moist, Normal Exam - Neck Exam Neck Exam: Full ROM, Normal Inspection. absent: Lymphadenopathy - Respiratory Exam Respiratory Exam: Clear to Ausculation Bilateral, NORMAL BREATHING PATTERN - Cardiovascular Exam Cardiovascular Exam: REGULAR RHYTHM, +S1, +S2. absent: Murmur - GI/Abdominal Exam GI & Abdominal Exam: Soft, Normal Bowel Sounds. absent: Tenderness - Rectal Exam Rectal Exam: Deferred - Exam Exam: NORMAL INSPECTION - Extremities Exam Extremities Exam: Full ROM, Normal Capillary Refill, Pedal Edema. absent: Joint Swelling, Normal Inspection - Back Exam Back Exam: NORMAL INSPECTION - Neurological Exam Neurological Exam: Alert, Awake, CN II-XII Intact, Oriented x3. absent: Normal Gait - Psychiatric Exam Psychiatric exam: Depressed - Skin Skin Exam: Dry, Intact, Normal Color, Warm Assessment and Plan - Assessment and Plan (Free Text) Assessment: improving s/p angioplasty left leg right foot ulcer / OM stable cont iv rx
[2019-02-06] MEDS: Heparin25000 units/250ml 1/2NS 25,000 UNITS/250 ML BAG IV PRN (16:35)
--- NOTE | 2019-02-06 16:47 | CP.PCM.PN ---
Subjective - Date & Time of Evaluation Date of Evaluation: 02/06/19 Time of Evaluation: 16:43 - Subjective Subjective: Vascular Progress note- Dr. Sharma Patient seen and examined at bedside. Sitting in bed comfortably. states feels left leg is heavy, however improved from yesterday. Patient was able to ambulate back to bed with assistance. LLE tight. Pulses present w/ good color and good cap-relfill. Currently on Hept GGT Objective - Vital Signs/Intake and Output Vital Signs (last 24 hours): Temp Pulse Resp BP Pulse Ox 98.1 F 92 H 16 103/55 L 96 02/06/19 12:00 02/06/19 15:00 02/06/19 15:00 02/06/19 15:03 02/06/19 10:04 Intake and Output: 02/06/19 02/06/19 06:59 18:59 Intake Total 1852.2 1785.4 Output Total 2750 1650 Balance -897.8 135.4 - Medications Medications: Current Medications Acetaminophen/Codeine Phosphate (Tylenol/Codeine 300 Mg/30 Mg) 1 ea PO Q6 PRN PRN Reason: Pain, moderate (4-7) Last Admin: 02/06/19 14:21 Dose: 1 ea Aspirin (Ecotrin) 81 mg PO DAILY [facility] Last Admin: 02/06/19 09:22 Dose: 81 mg Carvedilol (Coreg) 6.25 mg PO BID [facility] Last Admin: 02/06/19 09:21 Dose: 6.25 mg Cilostazol (Pletal) 100 mg PO BID [facility] Last Admin: 02/06/19 09:21 Dose: 100 mg Clopidogrel Bisulfate (Plavix) 75 mg PO DAILY [facility] Last Admin: 02/06/19 09:21 Dose: 75 mg Famotidine (Pepcid) 20 mg IVP DAILY [facility] Last Admin: 02/06/19 09:22 Dose: 20 mg Finasteride (Proscar) 5 mg PO DAILY [facility] Last Admin: 02/06/19 09:21 Dose: 5 mg Cefazolin Sodium 1 gm/ Sodium (Chloride) 100 mls @ 100 mls/hr IVPB Q8H [facility]; Protocol Last Admin: 02/06/19 13:46 Dose: 100 mls/hr Heparin Sodium/Sodium Chloride (Heparin 83700 Units/250ml 1/2 Normal Saline) 25,000 units in 250 mls @ 10.614 mls/hr IV .[id number] PRN; Protocol PRN Reason: ADJUST RATE PER PROTOCOL Last Admin: 02/06/19 16:35 Dose: 18 units/kg/hr, 10.614 mls/hr Sodium Chloride (Sodium Chloride 0.9%) 1,000 mls @ 40 mls/hr IV .Q24H [facility] Last Admin: 02/06/19 13:49 Dose: 40 mls/hr Insulin Aspart (Novolog) 0 unit SC ACHS [facility]; Protocol Last Admin: 02/06/19 11:46 Dose: 3 units Mupirocin (Bactroban Ointment) 0 gm TOP DAILY [facility] Last Admin: 02/06/19 09:22 Dose: 1 appl Rosuvastatin Calcium (Crestor) 10 mg PO HS [facility] Last Admin: 02/05/19 21:16 Dose: 10 mg Sitagliptin Phosphate (Januvia) 50 mg PO DAILY [facility] Last Admin: 02/06/19 09:21 Dose: 50 mg Sucralfate (Carafate Oral Susp) 1 gm PO TID [facility] Last Admin: 02/06/19 13:46 Dose: 1 gm - Labs Labs: 02/06/19 06:13 02/06/19 06:12 PT 11.1 SECONDS (9.7-12.2) 02/03/19 15:13 INR 1.0 02/03/19 15:13 APTT 59 SECONDS (21-34) H D 02/06/19 06:13 - Constitutional Appears: Non-toxic, Chronically Ill - Head Exam Head Exam: ATRAUMATIC - Eye Exam Eye Exam: EOMI. absent: Scleral icterus - ENT Exam ENT Exam: Mucous Membranes Moist - Cardiovascular Exam Cardiovascular Exam: REGULAR RHYTHM. absent: Bradycardia, Tachycardia, Diast olic murmur - GI/Abdominal Exam GI & Abdominal Exam: Soft. absent: Distended, Firm, Guarding, Rigid, Tenderness - Extremities Exam Extremities Exam: Pedal Edema, Tenderness - Neurological Exam Neurological Exam: Alert, Awake, Oriented x3 - Psychiatric Exam Psychiatric exam: Normal Affect - Skin Skin Exam: Intact, Warm Assessment and Plan - Assessment and Plan (Free Text) Assessment: 68M s/p aortofemoral angiogram via right groin. selective catherization of left femoral artery. angiojet mechanical thrombolysis of graft. POD 2 Plan: - repeat h/h - recommend transitioning from Hept ggt to Xarelto - full weight bearing, - monitor lower extremities - cleared for downgrade to telemetry floor. discussed w/ Dr. Sharma surgical attending PGY2
--- NOTE | 2019-02-06 21:53 | CP.PCM.PN ---
Subjective - Date & Time of Evaluation Date of Evaluation: 02/06/19 Time of Evaluation: 21:52 - Subjective Subjective: Patient this morning was trying to stand up. He was having difficult time in moving. Having pain over the left leg and left thigh. Difficult time and walking. Patient had a CAT scan of the lower extremities and abdomen showing evidence of blood, contrast extravasation left inguinal region. Patient is not in any distress otherwise. By DEXA. On examination chest good air entry regular heart sounds, nontender abdomen. Patient has a edema and swelling and pain in the left lower extremity. Venous Doppler is negative. Currently patient is on anticoagulation intravenous heparin. We will continue to monitor her H&H. I discussed with the vascular surgery. Tomorrow we will start the patient on Eliquis low-dose. And also he will continue the antiplatelets. If the hemoglobin is stable, I will discussed with the infectious disease for possible outpatient antibiotic treatment. And will follow the patient Objective - Vital Signs/Intake and Output Vital Signs (last 24 hours): Temp Pulse Resp BP Pulse Ox 98.2 F 100 H 18 147/61 97 02/06/19 16:00 02/06/19 18:00 02/06/19 18:00 02/06/19 17:56 02/06/19 12:00 Intake and Output: 02/06/19 02/07/19 18:59 06:59 Intake Total 2177.2 50.6 Output Total 2250 Balance -72.8 50.6 - Medications Medications: Current Medications Acetaminophen/Codeine Phosphate (Tylenol/Codeine 300 Mg/30 Mg) 1 ea PO Q6 PRN PRN Reason: Pain, moderate (4-7) Last Admin: 02/06/19 14:21 Dose: 1 ea Aspirin (Ecotrin) 81 mg PO DAILY [facility] Last Admin: 02/06/19 09:22 Dose: 81 mg Carvedilol (Coreg) 6.25 mg PO BID [facility] Last Admin: 02/06/19 18:11 Dose: 6.25 mg Cilostazol (Pletal) 100 mg PO BID [facility] Last Admin: 02/06/19 17:14 Dose: 100 mg Clopidogrel Bisulfate (Plavix) 75 mg PO DAILY [facility] Last Admin: 02/06/19 09:21 Dose: 75 mg Famotidine (Pepcid) 20 mg IVP DAILY [facility] Last Admin: 02/06/19 09:22 Dose: 20 mg Finasteride (Proscar) 5 mg PO DAILY [facility] Last Admin: 02/06/19 09:21 Dose: 5 mg Cefazolin Sodium 1 gm/ Sodium (Chloride) 100 mls @ 100 mls/hr IVPB Q8H [facility]; Protocol Last Admin: 02/06/19 13:46 Dose: 100 mls/hr Heparin Sodium/Sodium Chloride (Heparin 32468 Units/250ml 1/2 Normal Saline) 25,000 units in 250 mls @ 10.614 mls/hr IV .[id number] PRN; Protocol PRN Reason: ADJUST RATE PER PROTOCOL Last Admin: 02/06/19 16:35 Dose: 18 units/kg/hr, 10.614 mls/hr Sodium Chloride (Sodium Chloride 0.9%) 1,000 mls @ 40 mls/hr IV .Q24H [facility] Last Admin: 02/06/19 13:49 Dose: 40 mls/hr Insulin Aspart (Novolog) 0 unit SC ACHS [facility]; Protocol Last Admin: 02/06/19 17:14 Dose: 2 units Mupirocin (Bactroban Ointment) 0 gm TOP DAILY [facility] Last Admin: 02/06/19 09:22 Dose: 1 appl Rosuvastatin Calcium (Crestor) 10 mg PO HS [facility] Last Admin: 02/05/19 21:16 Dose: 10 mg Sitagliptin Phosphate (Januvia) 50 mg PO DAILY [facility] Last Admin: 02/06/19 09:21 Dose: 50 mg Sucralfate (Carafate Oral Susp) 1 gm PO TID [facility] Last Admin: 02/06/19 17:14 Dose: 1 gm - Labs Labs: 02/06/19 06:13 02/06/19 06:12 PT 11.1 SECONDS (9.7-12.2) 02/03/19 15:13 INR 1.0 02/03/19 15:13 APTT 59 SECONDS (21-34) H D 02/06/19 06:13
[2019-02-07] MEDS: ceFAZolin 1 GM in Sodium Chloride 0.9% 100 ML IVPB SCH ×3 (05:51→21:51)
[2019-02-07 06:06] LABS: BASO % 0.4 % (0.0-2.0); EOS # 0.3 K/uL (0.0-0.7); EOS % 5.8 % (0.0-4.0); HEMOGLOBIN 8.9 g/dL (12.0-18.0); LYMPH # 1.3 K/uL (1.0-4.3); LYMPH % 24.8 % (20.0-40.0); MEAN CELL VOLUME 83.3 fL (80.0-94.0); MEAN CORPUSCULAR HEMOGLOBIN 28.1 pg (27.0-31.0); MEAN CORPUSCULAR HGB CONC 33.7 g/dL (33.0-37.0); MEAN PLATELET VOLUME 13.2 fL (7.2-11.7); MONO # 0.6 K/uL (0.0-0.8); NEUT # 3.1 K/uL (1.8-7.0); NRBC % 0.1 % (0.0-2.0); RBC 3.19 Mil/uL (4.40-5.90); RED CELL DISTRIBUTION WIDTH 15.9 % (11.5-14.5); WHITE BLOOD COUNT 5.3 K/uL (4.8-10.8)
[2019-02-07 06:42] LABS: ALBUMIN 2.9 g/dL (3.5-5.0)
[2019-02-07] MEDS: (Novolog) Insulin Aspart, Recombinant 100 u/ml 10 ml vial SC SCH ×4 (08:15→21:52)
--- NOTE | 2019-02-07 08:52 | CP.PCM.PN ---
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 prognosis remain guarded Objective - Vital Signs/Intake and Output Vital Signs (last 24 hours): Temp Pulse Resp BP Pulse Ox 99.2 F 85 18 137/60 97 02/07/19 04:00 02/07/19 04:56 02/07/19 04:56 02/07/19 04:56 02/06/19 12:00 Intake and Output: 02/07/19 02/07/19 06:59 18:59 Intake Total 50.6 Balance 50.6 - Medications Medications: Current Medications Acetaminophen/Codeine Phosphate (Tylenol/Codeine 300 Mg/30 Mg) 1 ea PO Q6 PRN PRN Reason: Pain, moderate (4-7) Last Admin: 02/06/19 14:21 Dose: 1 ea Aspirin (Ecotrin) 81 mg PO DAILY [facility] Last Admin: 02/06/19 09:22 Dose: 81 mg Carvedilol (Coreg) 6.25 mg PO BID [facility] Last Admin: 02/06/19 18:11 Dose: 6.25 mg Cilostazol (Pletal) 100 mg PO BID [facility] Last Admin: 02/06/19 17:14 Dose: 100 mg Clopidogrel Bisulfate (Plavix) 75 mg PO DAILY [facility] Last Admin: 02/06/19 09:21 Dose: 75 mg Famotidine (Pepcid) 20 mg IVP DAILY [facility] Last Admin: 02/06/19 09:22 Dose: 20 mg Finasteride (Proscar) 5 mg PO DAILY [facility] Last Admin: 02/06/19 09:21 Dose: 5 mg Cefazolin Sodium 1 gm/ Sodium (Chloride) 100 mls @ 100 mls/hr IVPB Q8H [facility]; Protocol Last Admin: 02/07/19 05:51 Dose: 100 mls/hr Heparin Sodium/Sodium Chloride (Heparin 45424 Units/250ml 1/2 Normal Saline) 25,000 units in 250 mls @ 10.614 mls/hr IV .[id number] PRN; Protocol PRN Reason: ADJUST RATE PER PROTOCOL Last Admin: 02/06/19 16:35 Dose: 18 units/kg/hr, 10.614 mls/hr Sodium Chloride (Sodium Chloride 0.9%) 1,000 mls @ 40 mls/hr IV .Q24H [facility] Last Admin: 02/06/19 13:49 Dose: 40 mls/hr Insulin Aspart (Novolog) 0 unit SC ACHS [facility]; Protocol Last Admin: 02/07/19 08:15 Dose: 3 units Mupirocin (Bactroban Ointment) 0 gm TOP DAILY [facility] Last Admin: 02/06/19 09:22 Dose: 1 appl Rosuvastatin Calcium (Crestor) 10 mg PO HS [facility] Last Admin: 02/06/19 22:15 Dose: 10 mg Sitagliptin Phosphate (Januvia) 50 mg PO DAILY [facility] Last Admin: 02/06/19 09:21 Dose: 50 mg Sucralfate (Carafate Oral Susp) 1 gm PO TID [facility] Last Admin: 02/06/19 17:14 Dose: 1 gm - Labs Labs: 02/07/19 06:00 02/07/19 05:55 PT 11.1 SECONDS (9.7-12.2) 02/03/19 15:13 INR 1.0 02/03/19 15:13 APTT 50 SECONDS (21-34) H D 02/07/19 06:00
[2019-02-07] MEDS: Sucralfate 1 gm/10 ml Oral Susp UD PO SCH ×3 (09:36→17:00)
[2019-02-07] MEDS: Cilostazol 100 mg Tab UD PO SCH ×2 (09:37→17:01)
--- NOTE | 2019-02-07 11:26 | VASCLAB ---
Date of service: 02/06/2019 PROCEDURE: Left Lower Extremity Venous Duplex Exam. HISTORY: Leg pain PRIORS: None. TECHNIQUE: Left common femoral, femoral, popliteal and posterior tibial, peroneal and great saphenous veins were evaluated. Flow was assessed with color Doppler, compressibility, assessment of phasic flow and augmentation response. Report prepared by BARB Lisa, RVT FINDINGS: LEFT: 1. Common Femoral Vein: 1.1. Compressibility - Fully compressible: Thrombus - None : Flow - Phasic: Augmentation -Normal: Reflux - None. 2. Femoral Vein: 2.1. Compressibility - Fully compressible: Thrombus - None: Flow - Phasic: Augmentation -Normal: Reflux - None. 3. Popliteal Vein: 3.1. Compressibility - Fully compressible: Thrombus - None: Flow - Phasic: Augmentation -Normal: Reflux - None. 4. Posterior Tibial Vein: 4.1. Compressibility - Fully compressible: Thrombus - None: Flow - Phasic: Augmentation -Normal: Reflux - None. 5. Peroneal Vein: 5.1. Compressibility - Fully compressible: Thrombus - None: Flow - Phasic: Augmentation -Normal: Reflux - None. 6. Great Saphenous Vein: 6.1. Compressibility - Fully compressible: Thrombus - None: Flow - Phasic: Augmentation - Normal: Reflux - None. OTHER FINDINGS: IMPRESSION: No evidence of deep or superficial vein thrombosis of the left lower extremity with excellent venous flow. Normal valve function noted of the left side. Normal venous flow noted in the right common femoral vein.
[2019-02-07] MEDS: Sodium Chloride 0.9% 1,000 ML IV SCH (18:55)
--- NOTE | 2019-02-07 22:41 | CP.PCM.PN ---
Subjective - Date & Time of Evaluation Date of Evaluation: 02/07/19 Time of Evaluation: 09:00 - Subjective Subjective: less swelling DVT negative afebrile' Objective - Vital Signs/Intake and Output Vital Signs (last 24 hours): Temp Pulse Resp BP Pulse Ox 98.4 F 93 H 14 101/48 L 100 02/07/19 08:00 02/07/19 10:00 02/07/19 10:00 02/07/19 09:56 02/07/19 08:00 Intake and Output: 02/07/19 02/07/19 06:59 18:59 Intake Total 50.6 Balance 50.6 - Medications Medications: Current Medications Acetaminophen/Codeine Phosphate (Tylenol/Codeine 300 Mg/30 Mg) 1 ea PO Q6 PRN PRN Reason: Pain, moderate (4-7) Last Admin: 02/06/19 14:21 Dose: 1 ea Aspirin (Ecotrin) 81 mg PO DAILY [facility] Last Admin: 02/07/19 10:09 Dose: 81 mg Carvedilol (Coreg) 6.25 mg PO BID [facility] Last Admin: 02/07/19 09:38 Dose: 6.25 mg Cilostazol (Pletal) 100 mg PO BID [facility] Last Admin: 02/07/19 09:37 Dose: 100 mg Clopidogrel Bisulfate (Plavix) 75 mg PO DAILY [facility] Last Admin: 02/07/19 09:38 Dose: 75 mg Famotidine (Pepcid) 20 mg IVP DAILY [facility] Last Admin: 02/07/19 09:36 Dose: 20 mg Finasteride (Proscar) 5 mg PO DAILY [facility] Last Admin: 02/07/19 09:37 Dose: 5 mg Cefazolin Sodium 1 gm/ Sodium (Chloride) 100 mls @ 100 mls/hr IVPB Q8H [facility]; Protocol Last Admin: 02/07/19 05:51 Dose: 100 mls/hr Heparin Sodium/Sodium Chloride (Heparin 62752 Units/250ml 1/2 Normal Saline) 25,000 units in 250 mls @ 10.614 mls/hr IV .[id number] PRN; Protocol PRN Reason: ADJUST RATE PER PROTOCOL Last Admin: 02/06/19 16:35 Dose: 18 units/kg/hr, 10.614 mls/hr Sodium Chloride (Sodium Chloride 0.9%) 1,000 mls @ 40 mls/hr IV .Q24H [facility] Last Admin: 02/06/19 13:49 Dose: 40 mls/hr Insulin Aspart (Novolog) 0 unit SC ACHS [facility]; Protocol Last Admin: 02/07/19 11:57 Dose: 3 units Mupirocin (Bactroban Ointment) 0 gm TOP DAILY [facility] Last Admin: 02/07/19 09:37 Dose: 1 appl Rosuvastatin Calcium (Crestor) 10 mg PO HS [facility] Last Admin: 02/06/19 22:15 Dose: 10 mg Sitagliptin Phosphate (Januvia) 50 mg PO DAILY [facility] Last Admin: 02/07/19 09:37 Dose: 50 mg Sucralfate (Carafate Oral Susp) 1 gm PO TID [facility] Last Admin: 02/07/19 09:36 Dose: 1 gm - Labs Labs: 02/07/19 06:00 02/07/19 05:55 PT 11.1 SECONDS (9.7-12.2) 02/03/19 15:13 INR 1.0 02/03/19 15:13 APTT 50 SECONDS (21-34) H D 02/07/19 06:00 - Constitutional Appears: Well - Head Exam Head Exam: ATRAUMATIC, NORMAL INSPECTION, NORMOCEPHALIC - Eye Exam Eye Exam: EOMI, Normal appearance, PERRL Pupil Exam: NORMAL ACCOMODATION, PERRL - ENT Exam ENT Exam: Mucous Membranes Moist, Normal Exam - Neck Exam Neck Exam: Full ROM, Normal Inspection. absent: Lymphadenopathy - Respiratory Exam Respiratory Exam: Clear to Ausculation Bilateral, NORMAL BREATHING PATTERN - Cardiovascular Exam Cardiovascular Exam: REGULAR RHYTHM, +S1, +S2. absent: Murmur - GI/Abdominal Exam GI & Abdominal Exam: Soft, Normal Bowel Sounds. absent: Tenderness - Rectal Exam Rectal Exam: Deferred - Exam Exam: NORMAL INSPECTION - Extremities Exam Extremities Exam: Full ROM, Normal Capillary Refill, Normal Inspection. absent: Joint Swelling, Pedal Edema - Back Exam Back Exam: NORMAL INSPECTION - Neurological Exam Neurological Exam: Alert, Awake, CN II-XII Intact, Normal Gait, Oriented x3 - Psychiatric Exam Psychiatric exam: Normal Affect, Normal Mood - Skin Skin Exam: Dry, Intact, Normal Color, Warm Assessment and Plan - Assessment and Plan (Free Text) Assessment: OM right great toe - cont IV antibiotics rx in progress s/p acute ischemia LLE - angioplasty by Dr Sharma successful
--- NOTE | 2019-02-07 23:01 | CP.PCM.PN ---
Subjective - Date & Time of Evaluation Date of Evaluation: 02/06/19 Time of Evaluation: 08:10 - Subjective Subjective: Patient seen and evaluated Patient s/p Left leg MEDICAL RADIATION THERAPIST No cardiac complaints Objective - Vital Signs/Intake and Output Vital Signs (last 24 hours): Temp Pulse Resp BP Pulse Ox 98.3 F 92 H 16 135/92 H 95 02/07/19 20:00 02/07/19 20:00 02/07/19 20:00 02/07/19 20:00 02/07/19 20:00 - Medications Medications: Current Medications Acetaminophen/Codeine Phosphate (Tylenol/Codeine 300 Mg/30 Mg) 1 ea PO Q6 PRN PRN Reason: Pain, moderate (4-7) Last Admin: 02/06/19 14:21 Dose: 1 ea Apixaban (Eliquis) 2.5 mg PO Q12H [facility] Last Admin: 02/07/19 21:52 Dose: 2.5 mg Aspirin (Ecotrin) 81 mg PO DAILY [facility] Last Admin: 02/07/19 10:09 Dose: 81 mg Carvedilol (Coreg) 6.25 mg PO BID [facility] Last Admin: 02/07/19 17:01 Dose: 6.25 mg Cilostazol (Pletal) 100 mg PO BID [facility] Last Admin: 02/07/19 17:01 Dose: 100 mg Clopidogrel Bisulfate (Plavix) 75 mg PO DAILY [facility] Last Admin: 02/07/19 09:38 Dose: 75 mg Famotidine (Pepcid) 20 mg PO DAILY [facility] Finasteride (Proscar) 5 mg PO DAILY [facility] Last Admin: 02/07/19 09:37 Dose: 5 mg Cefazolin Sodium 1 gm/ Sodium (Chloride) 100 mls @ 100 mls/hr IVPB Q8H [facility]; Protocol Last Admin: 02/07/19 21:51 Dose: 100 mls/hr Sodium Chloride (Sodium Chloride 0.9%) 1,000 mls @ 40 mls/hr IV .Q24H [facility] Last Admin: 02/07/19 18:55 Dose: 40 mls/hr Insulin Aspart (Novolog) 0 unit SC ACHS [facility]; Protocol Last Admin: 02/07/19 21:52 Dose: 2 units Mupirocin (Bactroban Ointment) 0 gm TOP DAILY [facility] Last Admin: 02/07/19 09:37 Dose: 1 appl Rosuvastatin Calcium (Crestor) 10 mg PO HS [facility] Last Admin: 02/07/19 21:52 Dose: 10 mg Sitagliptin Phosphate (Januvia) 50 mg PO DAILY [facility] Last Admin: 02/07/19 09:37 Dose: 50 mg Sucralfate (Carafate Oral Susp) 1 gm PO TID [facility] Last Admin: 02/07/19 17:00 Dose: 1 gm - Labs Labs: 02/07/19 06:00 02/07/19 05:55 PT 11.1 SECONDS (9.7-12.2) 02/03/19 15:13 INR 1.0 02/03/19 15:13 APTT 50 SECONDS (21-34) H D 02/07/19 06:00
--- NOTE | 2019-02-07 23:02 | CP.PCM.PN ---
Subjective - Date & Time of Evaluation Date of Evaluation: 02/07/19 Time of Evaluation: 08:35 - Subjective Subjective: Patient seen and evaluated Patient s/p Left leg LINUX ADMIN No cardiac complaints Objective - Vital Signs/Intake and Output Vital Signs (last 24 hours): Temp Pulse Resp BP Pulse Ox 98.3 F 92 H 16 135/92 H 95 02/07/19 20:00 02/07/19 20:00 02/07/19 20:00 02/07/19 20:00 02/07/19 20:00 - Medications Medications: Current Medications Acetaminophen/Codeine Phosphate (Tylenol/Codeine 300 Mg/30 Mg) 1 ea PO Q6 PRN PRN Reason: Pain, moderate (4-7) Last Admin: 02/06/19 14:21 Dose: 1 ea Apixaban (Eliquis) 2.5 mg PO Q12H [facility] Last Admin: 02/07/19 21:52 Dose: 2.5 mg Aspirin (Ecotrin) 81 mg PO DAILY [facility] Last Admin: 02/07/19 10:09 Dose: 81 mg Carvedilol (Coreg) 6.25 mg PO BID [facility] Last Admin: 02/07/19 17:01 Dose: 6.25 mg Cilostazol (Pletal) 100 mg PO BID [facility] Last Admin: 02/07/19 17:01 Dose: 100 mg Clopidogrel Bisulfate (Plavix) 75 mg PO DAILY [facility] Last Admin: 02/07/19 09:38 Dose: 75 mg Famotidine (Pepcid) 20 mg PO DAILY [facility] Finasteride (Proscar) 5 mg PO DAILY [facility] Last Admin: 02/07/19 09:37 Dose: 5 mg Cefazolin Sodium 1 gm/ Sodium (Chloride) 100 mls @ 100 mls/hr IVPB Q8H [facility]; Protocol Last Admin: 02/07/19 21:51 Dose: 100 mls/hr Sodium Chloride (Sodium Chloride 0.9%) 1,000 mls @ 40 mls/hr IV .Q24H [facility] Last Admin: 02/07/19 18:55 Dose: 40 mls/hr Insulin Aspart (Novolog) 0 unit SC ACHS [facility]; Protocol Last Admin: 02/07/19 21:52 Dose: 2 units Mupirocin (Bactroban Ointment) 0 gm TOP DAILY [facility] Last Admin: 02/07/19 09:37 Dose: 1 appl Rosuvastatin Calcium (Crestor) 10 mg PO HS [facility] Last Admin: 02/07/19 21:52 Dose: 10 mg Sitagliptin Phosphate (Januvia) 50 mg PO DAILY [facility] Last Admin: 02/07/19 09:37 Dose: 50 mg Sucralfate (Carafate Oral Susp) 1 gm PO TID [facility] Last Admin: 02/07/19 17:00 Dose: 1 gm - Labs Labs: 02/07/19 06:00 02/07/19 05:55 PT 11.1 SECONDS (9.7-12.2) 02/03/19 15:13 INR 1.0 02/03/19 15:13 APTT 50 SECONDS (21-34) H D 02/07/19 06:00
[2019-02-08 05:55] LABS: BASO % 0.6 % (0.0-2.0); EOS # 0.4 K/uL (0.0-0.7); EOS % 6.3 % (0.0-4.0); HEMOGLOBIN 8.8 g/dL (12.0-18.0); LYMPH % 18.4 % (20.0-40.0); MEAN CELL VOLUME 84.6 fL (80.0-94.0); MEAN CORPUSCULAR HEMOGLOBIN 28.1 pg (27.0-31.0); MEAN CORPUSCULAR HGB CONC 33.3 g/dL (33.0-37.0); MEAN PLATELET VOLUME 12.6 fL (7.2-11.7); MONO # 0.7 K/uL (0.0-0.8); NEUT # 3.6 K/uL (1.8-7.0); NEUT % 62.7 % (50.0-75.0); NRBC % 0.1 % (0.0-2.0); RBC 3.12 Mil/uL (4.40-5.90); RED CELL DISTRIBUTION WIDTH 16.1 % (11.5-14.5); WHITE BLOOD COUNT 5.7 K/uL (4.8-10.8)
[2019-02-08 06:17] LABS: ALB/GLOB RATIO 1.1 (1.0-2.1); ALBUMIN 3.3 g/dL (3.5-5.0); ALT/SGPT 9 U/L (21-72); AST/SGOT 36 U/L (17-59); BLOOD UREA NITROGEN 23 mg/dL (9-20); CALCIUM 8.5 mg/dl (8.6-10.4); GFR NON-AFRICAN AMERICAN 50
[2019-02-08] MEDS: ceFAZolin 1 GM in Sodium Chloride 0.9% 100 ML IVPB SCH ×3 (06:23→22:13)
[2019-02-08] MEDS: (Novolog) Insulin Aspart, Recombinant 100 u/ml 10 ml vial SC SCH ×4 (08:30→22:02)
[2019-02-08] MEDS: Sucralfate 1 gm/10 ml Oral Susp UD PO SCH ×3 (09:20→17:07)
[2019-02-08] MEDS: Cilostazol 100 mg Tab UD PO SCH ×2 (09:21→17:06)
--- NOTE | 2019-02-08 16:45 | CP.PCM.PN ---
Subjective - Date & Time of Evaluation Date of Evaluation: 02/08/19 Time of Evaluation: 08:00 - Subjective Subjective: less swelling no fever IV antibiotics renewed right great toe healing Objective - Vital Signs/Intake and Output Vital Signs (last 24 hours): Temp Pulse Resp BP Pulse Ox 98.3 F 87 17 113/46 L 97 02/08/19 16:00 02/08/19 16:00 02/08/19 16:00 02/08/19 16:00 02/08/19 16:00 Intake and Output: 02/08/19 02/08/19 06:59 18:59 Intake Total 680 Output Total 2200 Balance -1520 - Medications Medications: Current Medications Acetaminophen/Codeine Phosphate (Tylenol/Codeine 300 Mg/30 Mg) 1 ea PO Q6 PRN PRN Reason: Pain, moderate (4-7) Last Admin: 02/06/19 14:21 Dose: 1 ea Apixaban (Eliquis) 2.5 mg PO Q12H [facility] Last Admin: 02/08/19 09:20 Dose: 2.5 mg Aspirin (Ecotrin) 81 mg PO DAILY [facility] Last Admin: 02/08/19 09:20 Dose: 81 mg Carvedilol (Coreg) 6.25 mg PO BID [facility] Last Admin: 02/08/19 09:20 Dose: 6.25 mg Cilostazol (Pletal) 100 mg PO BID [facility] Last Admin: 02/08/19 09:21 Dose: 100 mg Clopidogrel Bisulfate (Plavix) 75 mg PO DAILY [facility] Last Admin: 02/08/19 09:20 Dose: 75 mg Famotidine (Pepcid) 20 mg PO DAILY [facility] Last Admin: 02/08/19 09:28 Dose: 20 mg Finasteride (Proscar) 5 mg PO DAILY [facility] Last Admin: 02/08/19 09:20 Dose: 5 mg Cefazolin Sodium 1 gm/ Sodium (Chloride) 100 mls @ 100 mls/hr IVPB Q8H [facility]; Protocol Last Admin: 02/08/19 06:23 Dose: 100 mls/hr Sodium Chloride (Sodium Chloride 0.9%) 1,000 mls @ 40 mls/hr IV .Q24H [facility] Last Admin: 02/07/19 18:55 Dose: 40 mls/hr Insulin Aspart (Novolog) 0 unit SC ACHS [facility]; Protocol Last Admin: 02/08/19 12:01 Dose: 3 units Mupirocin (Bactroban Ointment) 0 gm TOP DAILY [facility] Last Admin: 02/08/19 09:21 Dose: 1 appl Rosuvastatin Calcium (Crestor) 10 mg PO HS [facility] Last Admin: 02/07/19 21:52 Dose: 10 mg Sitagliptin Phosphate (Januvia) 50 mg PO DAILY [facility] Sucralfate (Carafate Oral Susp) 1 gm PO TID [facility] Last Admin: 02/08/19 09:20 Dose: 1 gm - Labs Labs: 02/08/19 05:47 02/08/19 05:47 PT 11.1 SECONDS (9.7-12.2) 02/03/19 15:13 INR 1.0 02/03/19 15:13 APTT 50 SECONDS (21-34) H D 02/07/19 06:00 - Constitutional Appears: Well - Head Exam Head Exam: ATRAUMATIC, NORMAL INSPECTION, NORMOCEPHALIC - Eye Exam Eye Exam: EOMI, Normal appearance, PERRL Pupil Exam: NORMAL ACCOMODATION, PERRL - ENT Exam ENT Exam: Mucous Membranes Moist, Normal Exam - Neck Exam Neck Exam: Full ROM, Normal Inspection. absent: Lymphadenopathy - Respiratory Exam Respiratory Exam: Clear to Ausculation Bilateral, NORMAL BREATHING PATTERN - Cardiovascular Exam Cardiovascular Exam: REGULAR RHYTHM, +S1, +S2. absent: Murmur - GI/Abdominal Exam GI & Abdominal Exam: Soft, Normal Bowel Sounds. absent: Tenderness - Rectal Exam Rectal Exam: Deferred - Exam Exam: NORMAL INSPECTION - Extremities Exam Extremities Exam: Full ROM, Normal Capillary Refill, Normal Inspection. absent: Joint Swelling, Pedal Edema - Back Exam Back Exam: NORMAL INSPECTION - Neurological Exam Neurological Exam: Alert, Awake, CN II-XII Intact, Normal Gait, Oriented x3 - Psychiatric Exam Psychiatric exam: Normal Affect, Normal Mood - Skin Skin Exam: Dry, Intact, Normal Color, Warm Assessment and Plan - Assessment and Plan (Free Text) Plan: s/p ischemia LLE successful vascular intervention OM right great toe - + MSSA IV rx in progress
[2019-02-08] MEDS ORDERED: HYDROmorphone 1 mg/ml ISec IVP STA (23:38)
[2019-02-09 05:45] VITALS: O2SAT 98
[2019-02-09] MEDS: ceFAZolin 1 GM in Sodium Chloride 0.9% 100 ML IVPB SCH ×2 (06:04→14:00)
[2019-02-09 06:32] LABS: BASO % 0.7 % (0.0-2.0); EOS # 0.4 K/uL (0.0-0.7); HEMOGLOBIN 8.7 g/dL (12.0-18.0); LYMPH # 1.1 K/uL (1.0-4.3); LYMPH % 20.1 % (20.0-40.0); MEAN CELL VOLUME 84.5 fL (80.0-94.0); MEAN CORPUSCULAR HEMOGLOBIN 28.5 pg (27.0-31.0); MEAN CORPUSCULAR HGB CONC 33.7 g/dL (33.0-37.0); MONO # 0.7 K/uL (0.0-0.8); MONO % 13.1 % (0.0-10.0); NEUT # 3.2 K/uL (1.8-7.0); NEUT % 59.1 % (50.0-75.0); NRBC % 0.1 % (0.0-2.0); RBC 3.04 Mil/uL (4.40-5.90); RED CELL DISTRIBUTION WIDTH 16.4 % (11.5-14.5); WHITE BLOOD COUNT 5.4 K/uL (4.8-10.8)
[2019-02-09 06:54] LABS: ALBUMIN 3.4 g/dL (3.5-5.0); ALT/SGPT 21 U/L (21-72); AST/SGOT 46 U/L (17-59); BLOOD UREA NITROGEN 23 mg/dL (9-20); CALCIUM 8.9 mg/dl (8.6-10.4); GFR NON-AFRICAN AMERICAN 50
[2019-02-09] MEDS: (Novolog) Insulin Aspart, Recombinant 100 u/ml 10 ml vial SC SCH ×3 (08:11→16:33)
[2019-02-09 08:23] VITALS: TEMP 98
[2019-02-09] MEDS: Sucralfate 1 gm/10 ml Oral Susp UD PO SCH ×3 (09:40→17:12)
[2019-02-09] MEDS: Cilostazol 100 mg Tab UD PO SCH ×2 (09:42→17:10)
--- NOTE | 2019-02-09 10:12 | CP.PCM.PN ---
Subjective - Date & Time of Evaluation Date of Evaluation: 02/05/19 Time of Evaluation: 10:22 - Subjective Subjective: Patient is in ICU, being closely monitored. Patient had a low hemoglobin. Needing transfusion now. Patient is complaining of more pain. We will continue the current treatment. Monitor the hemoglobin, and platelet and will follow the patient Objective - Vital Signs/Intake and Output Vital Signs (last 24 hours): Temp Pulse Resp BP Pulse Ox 98 F 95 H 16 124/46 L 98 02/09/19 08:00 02/09/19 09:30 02/09/19 09:30 02/09/19 09:30 02/09/19 09:30 Intake and Output: 02/09/19 02/09/19 06:59 18:59 Intake Total 440 Output Total 675 Balance -235 - Medications Medications: Current Medications Acetaminophen/Codeine Phosphate (Tylenol/Codeine 300 Mg/30 Mg) 1 ea PO Q6 PRN PRN Reason: Pain, moderate (4-7) Last Admin: 02/06/19 14:21 Dose: 1 ea Apixaban (Eliquis) 2.5 mg PO Q12H [facility] Last Admin: 02/09/19 09:41 Dose: 2.5 mg Aspirin (Ecotrin) 81 mg PO DAILY [facility] Last Admin: 02/09/19 09:38 Dose: 81 mg Carvedilol (Coreg) 6.25 mg PO BID [facility] Last Admin: 02/09/19 09:41 Dose: 6.25 mg Cilostazol (Pletal) 100 mg PO BID [facility] Last Admin: 02/09/19 09:42 Dose: 100 mg Clopidogrel Bisulfate (Plavix) 75 mg PO DAILY [facility] Last Admin: 02/09/19 09:38 Dose: 75 mg Famotidine (Pepcid) 20 mg PO DAILY [facility] Last Admin: 02/09/19 09:38 Dose: 20 mg Finasteride (Proscar) 5 mg PO DAILY [facility] Last Admin: 02/09/19 09:40 Dose: 5 mg Cefazolin Sodium 1 gm/ Sodium (Chloride) 100 mls @ 100 mls/hr IVPB Q8H [facility]; Protocol Last Admin: 02/09/19 06:04 Dose: 100 mls/hr Insulin Aspart (Novolog) 0 unit SC ACHS [facility]; Protocol Last Admin: 02/09/19 08:11 Dose: 2 units Mupirocin (Bactroban Ointment) 0 gm TOP DAILY [facility] Last Admin: 02/09/19 09:45 Dose: 1 appl Rosuvastatin Calcium (Crestor) 10 mg PO HS [facility] Last Admin: 02/08/19 22:13 Dose: 10 mg Sitagliptin Phosphate (Januvia) 50 mg PO DAILY [facility] Last Admin: 02/09/19 09:40 Dose: 50 mg Sucralfate (Carafate Oral Susp) 1 gm PO TID [facility] Last Admin: 02/09/19 09:40 Dose: 1 gm - Labs Labs: 02/09/19 06:22 02/09/19 06:22 PT 11.1 SECONDS (9.7-12.2) 02/03/19 15:13 INR 1.0 02/03/19 15:13 APTT 50 SECONDS (21-34) H D 02/07/19 06:00
--- NOTE | 2019-02-09 10:12 | CP.PCM.PN ---
Subjective - Date & Time of Evaluation Date of Evaluation: 02/04/19 Time of Evaluation: 10:12 - Subjective Subjective: Patient underwent angiogram. Thrombolyzes and stent placement. Complaining of increasing pain. Alert, awake, otherwise. Left leg swelling noted. Vital signs otherwise stable. Patient is in the ICU. Chest good air entry, regular heart sound, nontender abdomen. Dopplerable pulse present. 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 On anticoagulation Objective - Vital Signs/Intake and Output Vital Signs (last 24 hours): Temp Pulse Resp BP Pulse Ox 98 F 95 H 16 124/46 L 98 02/09/19 08:00 02/09/19 09:30 02/09/19 09:30 02/09/19 09:30 02/09/19 09:30 Intake and Output: 02/09/19 02/09/19 06:59 18:59 Intake Total 440 Output Total 675 Balance -235 - Medications Medications: Current Medications Acetaminophen/Codeine Phosphate (Tylenol/Codeine 300 Mg/30 Mg) 1 ea PO Q6 PRN PRN Reason: Pain, moderate (4-7) Last Admin: 02/06/19 14:21 Dose: 1 ea Apixaban (Eliquis) 2.5 mg PO Q12H [facility] Last Admin: 02/09/19 09:41 Dose: 2.5 mg Aspirin (Ecotrin) 81 mg PO DAILY [facility] Last Admin: 02/09/19 09:38 Dose: 81 mg Carvedilol (Coreg) 6.25 mg PO BID [facility] Last Admin: 02/09/19 09:41 Dose: 6.25 mg Cilostazol (Pletal) 100 mg PO BID [facility] Last Admin: 02/09/19 09:42 Dose: 100 mg Clopidogrel Bisulfate (Plavix) 75 mg PO DAILY [facility] Last Admin: 02/09/19 09:38 Dose: 75 mg Famotidine (Pepcid) 20 mg PO DAILY [facility] Last Admin: 02/09/19 09:38 Dose: 20 mg Finasteride (Proscar) 5 mg PO DAILY [facility] Last Admin: 02/09/19 09:40 Dose: 5 mg Cefazolin Sodium 1 gm/ Sodium (Chloride) 100 mls @ 100 mls/hr IVPB Q8H [facility]; Protocol Last Admin: 02/09/19 06:04 Dose: 100 mls/hr Insulin Aspart (Novolog) 0 unit SC ACHS [facility]; Protocol Last Admin: 02/09/19 08:11 Dose: 2 units Mupirocin (Bactroban Ointment) 0 gm TOP DAILY [facility] Last Admin: 02/09/19 09:45 Dose: 1 appl Rosuvastatin Calcium (Crestor) 10 mg PO HS [facility] Last Admin: 02/08/19 22:13 Dose: 10 mg Sitagliptin Phosphate (Januvia) 50 mg PO DAILY [facility] Last Admin: 02/09/19 09:40 Dose: 50 mg Sucralfate (Carafate Oral Susp) 1 gm PO TID [facility] Last Admin: 02/09/19 09:40 Dose: 1 gm - Labs Labs: 02/09/19 06:22 02/09/19 06:22 PT 11.1 SECONDS (9.7-12.2) 02/03/19 15:13 INR 1.0 02/03/19 15:13 APTT 50 SECONDS (21-34) H D 02/07/19 06:00
--- NOTE | 2019-02-09 10:13 | CP.PCM.DIS ---
Provider - Provider Date of Admission: 02/04/19 21:22 Attending physician: Yin Latif MD Consults: 02/03/19 16:52 Vascular Surgery Stat Comment: Consulting Provider: Bradley Sharma Jr. Physician Instructions: Reason For Exam: L foot pain, poikilothermia 02/03/19 20:13 Infectious Disease Consult Routine Comment: Consulting Provider: Jeff Shaffer Consulting Physician: Jeff Shaffer Reason for Consult: for antibiotic continuation 02/03/19 20:15 Cardiology Consult Routine Comment: Consulting Provider: Isaac Perez Consulting Physician: Isaac Perez Reason for Consult: ischemia 02/08/19 20:02 Podiatry Consult Routine Comment: Consulting Provider: Killian Cox Consulting Physician: Killian Cox Reason for Consult: rt foot ulcer Time Spent in preparation of Discharge (in minutes): 4 Hospital Course - Lab Results Lab Results: Micro Results 02/04/19 15:23 Naris MRSA Culture (Admit) - Final MRSA NOT DETECTED Most Recent Lab Values WBC 5.4 K/uL (4.8-10.8) 02/09/19 06:22 RBC 3.04 Mil/uL (4.40-5.90) L 02/09/19 06:22 Hgb 8.7 g/dL (12.0-18.0) L 02/09/19 06:22 Hct 25.7 % (35.0-51.0) L 02/09/19 06:22 MCV 84.5 fL (80.0-94.0) 02/09/19 06:22 MCH 28.5 pg (27.0-31.0) 02/09/19 06:22 MCHC 33.7 g/dL (33.0-37.0) 02/09/19 06:22 RDW 16.4 % (11.5-14.5) H 02/09/19 06:22 Plt Count 102 K/uL (130-400) L 02/09/19 06:22 MPV 12.0 fL (7.2-11.7) H 02/09/19 06:22 Neut % (Auto) 59.1 % (50.0-75.0) 02/09/19 06:22 Lymph % (Auto) 20.1 % (20.0-40.0) 02/09/19 06:22 [place] % (Auto) 13.1 % (0.0-10.0) H 02/09/19 06:22 Eos % (Auto) 7.0 % (0.0-4.0) H 02/09/19 06:22 Baso % (Auto) 0.7 % (0.0-2.0) 02/09/19 06:22 Neut # (Auto) 3.2 K/uL (1.8-7.0) 02/09/19 06:22 Lymph # (Auto) 1.1 K/uL (1.0-4.3) 02/09/19 06:22 [place] # (Auto) 0.7 K/uL (0.0-0.8) 02/09/19 06:22 Eos # (Auto) 0.4 K/uL (0.0-0.7) 02/09/19 06:22 Baso # (Auto) 0.0 K/uL (0.0-0.2) 02/09/19 06:22 Differential Comment Y 02/04/19 20:37 PT 11.1 SECONDS (9.7-12.2) 02/03/19 15:13 INR 1.0 02/03/19 15:13 APTT 50 SECONDS (21-34) H D 02/07/19 06:00 Sodium 136 mmol/L (132-148) 02/09/19 06:22 Potassium 4.5 mmol/L (3.6-5.2) 02/09/19 06:22 Chloride 102 mmol/L (98-107) 02/09/19 06:22 Carbon Dioxide 27 mmol/L (22-30) 02/09/19 06:22 Anion Gap 11 (10-20) 02/09/19 06:22 BUN 23 mg/dL (9-20) H 02/09/19 06:22 Creatinine 1.4 mg/dL (0.8-1.5) 02/09/19 06:22 Est GFR ( Amer) > 60 02/09/19 06:22 Est GFR (Non-Af Amer) 50 02/09/19 06:22 POC Glucose (mg/dL) 238 mg/dL (65-110) H 02/08/19 21:20 Random Glucose 174 mg/dL (75-110) H 02/09/19 06:22 Calcium 8.9 mg/dl (8.6-10.4) 02/09/19 06:22 Phosphorus 3.4 mg/dL (2.5-4.5) 02/09/19 06:22 Magnesium 2.1 mg/dL (1.6-2.3) 02/09/19 06:22 Total Bilirubin 0.7 mg/dL (0.2-1.3) 02/09/19 06:22 AST 46 U/L (17-59) 02/09/19 06:22 ALT 21 U/L (21-72) D 02/09/19 06:22 Alkaline Phosphatase 62 U/L (38-126) 02/09/19 06:22 Total Protein 6.8 g/dL (6.3-8.3) 02/09/19 06:22 Albumin 3.4 g/dL (3.5-5.0) L 02/09/19 06:22 Globulin 3.4 gm/dL (2.2-3.9) 02/09/19 06:22 Albumin/Globulin Ratio 1.0 (1.0-2.1) 02/09/19 06:22 Stool Occult Blood Negative (NEGATIVE) 02/05/19 15:28 Blood Type O POSITIVE 02/04/19 07:04 Antibody Screen Negative 02/04/19 07:04 - Hospital Course Hospital Course: Chief complaint: Left leg pain, feeling extremely cold in the left leg History present illness: 65-year-old male with history of diabetes hypertension and hypercholesteremia peripheral vascular disease, right leg ischemia, status post intervention .\ Patient was recently hospitalized with the right great toe chronic infection with deep tissue infection likely involving the bone. At that time patient underwent angiogram, and also angioplasty and intervention to the right leg tibial artery disease. Patient was getting outpatient antibiotic with the [facility]. But the patient came to the office this morning, and he was complaining of increasing pain over the left leg which used to be a normal leg for him, he did not have any pain in the past, but the following the intervention on the right side he started having more pain on the left side. He is claims that the pain started a week ago, gradually got worse. And it is getting even more pain when he is walking and standing, and he is also feeling increasingly cold sensation. Patient was very concerned and he came to the office, and a also seen by customer manager and he was sent to the emergency room. In the emergency room patient was seen by vascular surgeon, recommended possibly intervention with angiogram to the left leg and suspected acute to subacute occlusion. Patient is now still having more pain, currently on heparin drip Past medical history: Hypertension diabetes hypercholesteremia peripheral vascular disease right leg ischemia. Status post intervention. Patient also recently had right leg angioplasty and stent placement Peripheral vascular disease, CAD, stent Allergy: No known drug allergy except to ciprofloxacin. 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 Currently nondrinker. Review of system noted from the chart. Complaining of no pain in the legs. Patient is able to walk On examination: Vital signs reviewed in Chest bilateral good air entry. 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 Patient is currently having left lower extremity cold sensation, painful on touch. Peripheral pulses is not palpable on the left side. Right foot the patient has wound dressing is done. Right-sided pulses palpable Labs reviewed Nonspecific. Assessment/condition: 65-year-old male with history of peripheral vascular disease of hypertension diabetes hypercholesteremia CAD, status post a coronary it to bypass grafting. Patient had a peripheral vascular disease, status post intervention. Now having nonhealing ulcer involving the right great toe. Currently on antibiotic, doing well at this time, for the right side. But the patient now admitted with the severe left leg resting pain, and also cold sensation. Patient has a possibly subacute ischemic changes of the left lower extremity, occlusion cannot be ruled out. Patient has a vascular bypass on the left lower extremity. We will get vascular surgical evaluation Patient is scheduled to have a intervention tomorrow Currently on IV heparin. On also antiplatelets and anticholesterol medication. We will continue the antibiotic for the right great toe deep tissue infection. We will follow the patient Course in the hospital: Patient immediately underwent arterial Doppler, and also vascular surgical evaluation. Arterial Doppler showing no flow in the left leg. Following day patient immediately underwent angiogram of the left leg, and noted to have complete occlusion of the femoral-popliteal bypass. He underwent a gentle thrombolysis, stent placement proximal and distal anastomotic site, and flow was restored. Patient was placed on heparin drip because of the large clot burden and thrombolysis. Postoperatively patient was monitored in the intensive care unit. He received 2 units of blood transfusion because of the low hemoglobin. Also he developed a left groin hematoma. Low platelet was noted. But clinically he is better His leg pain is improving, there is a leg swelling also noted. DVT study is negative. As per the vascular surgery patient will need oral anticoagulation for short time, Eliquis 2.5 mg twice daily recommended. He will continue antiplatelets. He is also on anticholesterol medicine. He will be discharged home today. He will continue to receive Cubicin as an outpatient for the treatment for osteomyelitis of the right great toe. Discussed with ID, home fire alarm installer, vascular surgery, cardiology. He will follow-up as an outpatient. My final diagnosis: Acute vascular occlusion of the left leg. Impending gangrene. Status post thrombolysis and stent. Peripheral vascular disease, hypertension, high cholesterol, CAD, renal insufficiency. Discharge Exam - Head Exam Head Exam: ATRAUMATIC, NORMAL INSPECTION, NORMOCEPHALIC Discharge Plan - Discharge Medications Prescriptions: Apixaban [Eliquis] 2.5 mg PO Q12H #60 tab - Follow Up Plan Condition: STABLE Disposition: HOME/ ROUTINE
--- NOTE | 2019-02-09 10:13 | CP.PCM.PN ---
Subjective - Date & Time of Evaluation Date of Evaluation: 02/08/19 Time of Evaluation: 10:28 - Subjective Subjective: Patient is feeling much better he is able to walk. He wanted to go home today. On examination: Vital signs are stable. Chest good air entry regular [place] nontender abdomen. Extremities left leg edema noted Clinically stable. Patient will be possibly discharge home tomorrow. I spoke to the dot compliance manager, for clearance. Clinically stable. We will follow the patient Possibly will discharge the patient home tomorrow, he will need an outpatient antibiotic continuation for the right great toe osteomyelitis possibly Objective - Vital Signs/Intake and Output Vital Signs (last 24 hours): Temp Pulse Resp BP Pulse Ox 98 F 95 H 16 124/46 L 98 02/09/19 08:00 02/09/19 09:30 02/09/19 09:30 02/09/19 09:30 02/09/19 09:30 Intake and Output: 02/09/19 02/09/19 06:59 18:59 Intake Total 440 Output Total 675 Balance -235 - Medications Medications: Current Medications Acetaminophen/Codeine Phosphate (Tylenol/Codeine 300 Mg/30 Mg) 1 ea PO Q6 PRN PRN Reason: Pain, moderate (4-7) Last Admin: 02/06/19 14:21 Dose: 1 ea Apixaban (Eliquis) 2.5 mg PO Q12H [facility] Last Admin: 02/09/19 09:41 Dose: 2.5 mg Aspirin (Ecotrin) 81 mg PO DAILY [facility] Last Admin: 02/09/19 09:38 Dose: 81 mg Carvedilol (Coreg) 6.25 mg PO BID [facility] Last Admin: 02/09/19 09:41 Dose: 6.25 mg Cilostazol (Pletal) 100 mg PO BID [facility] Last Admin: 02/09/19 09:42 Dose: 100 mg Clopidogrel Bisulfate (Plavix) 75 mg PO DAILY [facility] Last Admin: 02/09/19 09:38 Dose: 75 mg Famotidine (Pepcid) 20 mg PO DAILY [facility] Last Admin: 02/09/19 09:38 Dose: 20 mg Finasteride (Proscar) 5 mg PO DAILY [facility] Last Admin: 02/09/19 09:40 Dose: 5 mg Cefazolin Sodium 1 gm/ Sodium (Chloride) 100 mls @ 100 mls/hr IVPB Q8H [facility]; Protocol Last Admin: 02/09/19 06:04 Dose: 100 mls/hr Insulin Aspart (Novolog) 0 unit SC ACHS [facility]; Protocol Last Admin: 02/09/19 08:11 Dose: 2 units Mupirocin (Bactroban Ointment) 0 gm TOP DAILY [facility] Last Admin: 02/09/19 09:45 Dose: 1 appl Rosuvastatin Calcium (Crestor) 10 mg PO HS [facility] Last Admin: 02/08/19 22:13 Dose: 10 mg Sitagliptin Phosphate (Januvia) 50 mg PO DAILY [facility] Last Admin: 02/09/19 09:40 Dose: 50 mg Sucralfate (Carafate Oral Susp) 1 gm PO TID [facility] Last Admin: 02/09/19 09:40 Dose: 1 gm - Labs Labs: 02/09/19 06:22 02/09/19 06:22 PT 11.1 SECONDS (9.7-12.2) 02/03/19 15:13 INR 1.0 02/03/19 15:13 APTT 50 SECONDS (21-34) H D 02/07/19 06:00
--- NOTE | 2019-02-09 10:13 | CP.PCM.PN ---
Subjective - Date & Time of Evaluation Date of Evaluation: 02/07/19 Time of Evaluation: 10:27 - Subjective Subjective: Patient is feeling much better. But he still having left leg swelling and edema. CAT scan of the abdomen and pelvis reviewed There is an ecchymosis, and also hematoma in the left groin region. Less pain now. Able to stand up and walk Vital signs are stable. Chest good air entry regular [place] nontender abdomen. Labs reviewed Creatinine is stable. Low platelet count noted otherwise stable. We will continue the current treatment. Close watch and will follow the patient on heparin drip Objective - Vital Signs/Intake and Output Vital Signs (last 24 hours): Temp Pulse Resp BP Pulse Ox 98 F 95 H 16 124/46 L 98 02/09/19 08:00 02/09/19 09:30 02/09/19 09:30 02/09/19 09:30 02/09/19 09:30 Intake and Output: 02/09/19 02/09/19 06:59 18:59 Intake Total 440 Output Total 675 Balance -235 - Medications Medications: Current Medications Acetaminophen/Codeine Phosphate (Tylenol/Codeine 300 Mg/30 Mg) 1 ea PO Q6 PRN PRN Reason: Pain, moderate (4-7) Last Admin: 02/06/19 14:21 Dose: 1 ea Apixaban (Eliquis) 2.5 mg PO Q12H [facility] Last Admin: 02/09/19 09:41 Dose: 2.5 mg Aspirin (Ecotrin) 81 mg PO DAILY [facility] Last Admin: 02/09/19 09:38 Dose: 81 mg Carvedilol (Coreg) 6.25 mg PO BID [facility] Last Admin: 02/09/19 09:41 Dose: 6.25 mg Cilostazol (Pletal) 100 mg PO BID [facility] Last Admin: 02/09/19 09:42 Dose: 100 mg Clopidogrel Bisulfate (Plavix) 75 mg PO DAILY [facility] Last Admin: 02/09/19 09:38 Dose: 75 mg Famotidine (Pepcid) 20 mg PO DAILY [facility] Last Admin: 02/09/19 09:38 Dose: 20 mg Finasteride (Proscar) 5 mg PO DAILY [facility] Last Admin: 02/09/19 09:40 Dose: 5 mg Cefazolin Sodium 1 gm/ Sodium (Chloride) 100 mls @ 100 mls/hr IVPB Q8H [facility]; Protocol Last Admin: 02/09/19 06:04 Dose: 100 mls/hr Insulin Aspart (Novolog) 0 unit SC ACHS [facility]; Protocol Last Admin: 02/09/19 08:11 Dose: 2 units Mupirocin (Bactroban Ointment) 0 gm TOP DAILY [facility] Last Admin: 02/09/19 09:45 Dose: 1 appl Rosuvastatin Calcium (Crestor) 10 mg PO HS [facility] Last Admin: 02/08/19 22:13 Dose: 10 mg Sitagliptin Phosphate (Januvia) 50 mg PO DAILY [facility] Last Admin: 02/09/19 09:40 Dose: 50 mg Sucralfate (Carafate Oral Susp) 1 gm PO TID [facility] Last Admin: 02/09/19 09:40 Dose: 1 gm - Labs Labs: 02/09/19 06:22 02/09/19 06:22 PT 11.1 SECONDS (9.7-12.2) 02/03/19 15:13 INR 1.0 02/03/19 15:13 APTT 50 SECONDS (21-34) H D 02/07/19 06:00
--- NOTE | 2019-02-09 13:51 | CP.PCM.CON ---
History of Present Illness - History of Present Illness History of Present Illness: Podiatry Consult note for Dr. Cox 68M PMH DM, HTN, PVD, Left fem-pop bypass and familiar to our service seen in ICU for right hallux ulceration. Patient states that he has been following up with Dr. Cox regularly for wound care. He denies any recent drainage, malodor, purulence, fluctuance, malodor or other clinical signs of infection from the wound. He is AAO x 3 and NAD. Denies any further pedal complaints at this time. Denies any recent N/V/F/C/CP/SOB/D Review of Systems - Review of Systems All systems: reviewed and no additional remarkable complaints except Review of Systems: as per HPI Past Patient History - Infectious Disease Hx of Infectious Diseases: None - Past Medical History & Family History Past Medical History?: Yes - Past Social History Smoking Status: Never Smoked - CARDIAC Hx Hypercholesterolemia: Yes Hx Hypertension: Yes Hx Peripheral Edema: Yes - PULMONARY Hx Respiratory Disorders: No - NEUROLOGICAL Hx Neurological Disorder: Yes Hx Dizziness: Yes - HEENT Hx HEENT Problems: Yes Hx Cataracts: Yes (BILATERAL CATARACT EXTRACTION 2011) - RENAL Hx Chronic Kidney Disease: No - ENDOCRINE/METABOLIC Hx Endocrine Disorders: Yes Hx Diabetes Mellitus Type 2: Yes - HEMATOLOGICAL/ONCOLOGICAL Hx Anemia: Yes - INTEGUMENTARY Hx Dermatological Problems: Yes (ulcers right great toe) - MUSCULOSKELETAL/RHEUMATOLOGICAL Hx Falls: No - GASTROINTESTINAL Hx Gastrointestinal Disorders: Yes Other/Comment: abd hernias per pt - GENITOURINARY/GYNECOLOGICAL Hx Genitourinary Disorders: Yes Hx Prostate Problems: Yes - PSYCHIATRIC Hx Substance Use: No Other/Comment: stopped smoking 20 years ago - SURGICAL HISTORY Hx Surgeries: No Hx Cataract Extraction: Yes (BILATERAL 2011) Hx Femoral-Popliteal Bypass Graft: Yes (LEFT LEG 2009) Hx Open Heart Surgery: Yes (6 years ago valve replacements) Other/Comment: Open heart surgery 6 yrs ago, OSTEOMYELITIS RIGHT TOE - ANESTHESIA Hx Anesthesia: Yes Hx Anesthesia Reactions: No Hx Malignant Hyperthermia: No Has any member of the family had a problem w/ anesthesia?: No Meds Home Medications: Home Medication List Medication Instructions Recorded Confirmed Type Apixaban [Eliquis] 2.5 mg PO Q12H #60 tab 02/09/19 Rx Allergies/Adverse Reactions: Allergies Allergy/AdvReac Type Severity Reaction Status Date / Time ciprofloxacin Allergy Severe Verified 02/03/19 14:32 - Medications Medications: Current Medications Acetaminophen/Codeine Phosphate (Tylenol/Codeine 300 Mg/30 Mg) 1 ea PO Q6 PRN PRN Reason: Pain, moderate (4-7) Last Admin: 02/06/19 14:21 Dose: 1 ea Apixaban (Eliquis) 2.5 mg PO Q12H [facility] Last Admin: 02/09/19 09:41 Dose: 2.5 mg Aspirin (Ecotrin) 81 mg PO DAILY [facility] Last Admin: 02/09/19 09:38 Dose: 81 mg Carvedilol (Coreg) 6.25 mg PO BID [facility] Last Admin: 02/09/19 09:41 Dose: 6.25 mg Cilostazol (Pletal) 100 mg PO BID [facility] Last Admin: 02/09/19 09:42 Dose: 100 mg Clopidogrel Bisulfate (Plavix) 75 mg PO DAILY [facility] Last Admin: 02/09/19 09:38 Dose: 75 mg Famotidine (Pepcid) 20 mg PO DAILY [facility] Last Admin: 02/09/19 09:38 Dose: 20 mg Finasteride (Proscar) 5 mg PO DAILY [facility] Last Admin: 02/09/19 09:40 Dose: 5 mg Cefazolin Sodium 1 gm/ Sodium (Chloride) 100 mls @ 100 mls/hr IVPB Q8H [facility]; Protocol Last Admin: 02/09/19 06:04 Dose: 100 mls/hr Insulin Aspart (Novolog) 0 unit SC ACHS [facility]; Protocol Last Admin: 02/09/19 11:42 Dose: 6 units Mupirocin (Bactroban Ointment) 0 gm TOP DAILY [facility] Last Admin: 02/09/19 09:45 Dose: 1 appl Rosuvastatin Calcium (Crestor) 10 mg PO HS [facility] Last Admin: 02/08/19 22:13 Dose: 10 mg Sitagliptin Phosphate (Januvia) 50 mg PO DAILY [facility] Last Admin: 02/09/19 09:40 Dose: 50 mg Sucralfate (Carafate Oral Susp) 1 gm PO TID [facility] Last Admin: 02/09/19 09:40 Dose: 1 gm Physical Exam - Constitutional Appears: Well, Non-toxic, No Acute Distress - Extremities Exam Additional comments: RLE focused exam: Vasc: DP/PT pulses palpable 2/4. Skin temperature warm to warm from proximal to distal. CFT < 3 seconds to all digits. Minimal edema noted to periwound site Neuro: Epicritic and protective sensation grossly diminished Derm: Open plantar medial hallux ulceration approximately 1 cm x 2.5 cm x 0.3 cm. Wound base is almost 100% granular tissue and shows healthy new tissue formation. No signs of tissue necrosis present. No tracking, tunneling, undermining, drainage, malodor, purulence or other clinical signs of infection appreciated MSK: Minimal pain on palpation of ulceration site. No other gross deformities noted - Neurological Exam Neurological exam: Alert, Oriented x3 - Psychiatric Exam Psychiatric exam: Normal Affect, Normal Mood Results - Vital Signs Recent Vital Signs: Last Vital Signs Temp 98 F 02/09/19 12:00 Pulse 83 02/09/19 12:00 Resp 16 02/09/19 12:00 BP 162/70 H 02/09/19 12:00 Pulse Ox 98 02/09/19 09:30 - Labs Result Diagrams: 02/09/19 06:22 02/09/19 06:22 Labs: Laboratory Results - last 24 hr 02/08/19 02/09/19 02/09/19 21:20 06:22 06:22 WBC 5.4 RBC 3.04 L Hgb 8.7 L Hct 25.7 L MCV 84.5 MCH 28.5 MCHC 33.7 RDW 16.4 H Plt Count 102 L MPV 12.0 H Neut % (Auto) 59.1 Lymph % (Auto) 20.1 [place] % (Auto) 13.1 H Eos % (Auto) 7.0 H Baso % (Auto) 0.7 Neut # (Auto) 3.2 Lymph # (Auto) 1.1 [place] # (Auto) 0.7 Eos # (Auto) 0.4 Baso # (Auto) 0.0 Sodium 136 Potassium 4.5 Chloride 102 Carbon Dioxide 27 Anion Gap 11 BUN 23 H Creatinine 1.4 Est GFR ( Amer) > 60 Est GFR (Non-Af Amer) 50 POC Glucose (mg/dL) 238 H Random Glucose 174 H Calcium 8.9 Phosphorus 3.4 Magnesium 2.1 Total Bilirubin 0.7 AST 46 ALT 21 D Alkaline Phosphatase 62 Total Protein 6.8 Albumin 3.4 L Globulin 3.4 Albumin/Globulin Ratio 1.0 Assessment & Plan - Assessment and Plan (Free Text) Assessment: 68M seen for stable right hallux ulceration Plan: Patient seen and evaluated Plan discussed with Dr. Cox Afebrile, absent leukocytosis Continue abx per ID No plan for surgical intervention at this time Wound dressed with DSD Podiatry will continue to follow while patient in house Once discharged, patient to follow up with Dr. Cox - Date & Time Date: 02/09/19 Time: 08:00
[2019-02-09 16:18] VITALS: BP 102/48; PULSE 86; RESP 18
--- NOTE | 2019-02-10 00:04 | CP.PCM.PN ---
Subjective - Date & Time of Evaluation Date of Evaluation: 02/08/19 Time of Evaluation: 17:20 - Subjective Subjective: Patient seen and evaluated Patient s/p Left leg [employer] No cardiac events noted Objective - Vital Signs/Intake and Output Vital Signs (last 24 hours): Temp Pulse Resp BP Pulse Ox 98 F 86 18 102/48 L 98 02/09/19 16:00 02/09/19 16:00 02/09/19 16:00 02/09/19 16:00 02/09/19 09:30 Intake and Output: 02/09/19 02/10/19 18:59 06:59 Intake Total 500 Balance 500 - Labs Labs: 02/09/19 06:22 02/09/19 06:22 PT 11.1 SECONDS (9.7-12.2) 02/03/19 15:13 INR 1.0 02/03/19 15:13 APTT 50 SECONDS (21-34) H D 02/07/19 06:00
== END 2019-02-09 18:18 | disposition home health service (06) | DRG 253 ==
LOC: C.ER 14:28 → C.9E 15:44 → C.6T 18:26 → C.9I 02-04 13:52 → OBSVTOIN 02-04 21:22
PROVIDERS: ADMIT Internal Medicine; ATTEND Internal Medicine
PROC: 047Q3Z1 Dilation of Left Anterior Tibial Artery using Drug-Coated Balloon, Percutaneous Approach (ICD-10-PCS; principal; 2019-02-04)
PROC: 047N3Z1 Dilation of Left Popliteal Artery using Drug-Coated Balloon, Percutaneous Approach (ICD-10-PCS; 2019-02-04)
PROC: 04H Lower Arteries, Insertion (ICD-10-PCS; 2019-02-04)
PROC: 04H Lower Arteries, Insertion (ICD-10-PCS; 2019-02-04)
PROC: 04HL3DZ Insertion of Intraluminal Device into Left Femoral Artery, Percutaneous Approach (ICD-10-PCS; 2019-02-04)
PROC: 3E05317 Introduction of Other Thrombolytic into Peripheral Artery, Percutaneous Approach (ICD-10-PCS; 2019-02-04)
DX: T82.868A Thrombosis due to vascular prosthetic devices, implants and grafts, initial encounter (principal); I70.292 Other atherosclerosis of native arteries of extremities, left leg; E11.51 Type 2 diabetes mellitus with diabetic peripheral angiopathy without gangrene; E11.621 Type 2 diabetes mellitus with foot ulcer; M86.671 Other chronic osteomyelitis, right ankle and foot; L97.519 Non-pressure chronic ulcer of other part of right foot with unspecified severity; E11.69 Type 2 diabetes mellitus with other specified complication; T80.818A Extravasation of other vesicant agent, initial encounter; T50.8X5A Adverse effect of diagnostic agents, initial encounter; I95.81 Postprocedural hypotension; I10 Essential (primary) hypertension; I25.10 Atherosclerotic heart disease of native coronary artery without angina pectoris; D64.9 Anemia, unspecified; E78.5 Hyperlipidemia, unspecified; E78.00 Pure hypercholesterolemia, unspecified; Z95.820 Peripheral vascular angioplasty status with implants and grafts; Z95.1 Presence of aortocoronary bypass graft; Z87.891 Personal history of nicotine dependence; Z98.41 Cataract extraction status, right eye; Z98.42 Cataract extraction status, left eye; Z79.01 Long term (current) use of anticoagulants; Z79.4 Long term (current) use of insulin